=== PATIENT | male | born 1955 | race Caucasian/White ===

== ENCOUNTER 2017-07-18 12:19 | Inpatient (IN) ==
--- NOTE | 2017-07-18 12:23 | Emergency Department Note ---
Disposition Clinical Impression: Diabetic ketoacidosis, Lactic acidosis, Hypertension, End stage renal disease Disposition: Admitted As Inpatient Condition: Fair General Adult HPI - General Stated complaint: N/V Time Seen by Provider: 07/18/17 12:21 - Related Data Home Medications Medication Instructions Recorded Confirmed Subcutaneous Insulin Pump [T:Slim] 1 each MC AD 07/18/17 07/18/17 cloNIDine HCl [CloNIDine HCl] 0.1 mg PO TID 07/18/17 07/18/17 Allergies Allergy/AdvReac Type Severity Reaction Status Date / Time Sulfa (Sulfonamide Allergy See Verified 06/04/17 07:49 Antibiotics) Comments Past Medical History - Past Medical History Medical history: Reports: diabetes, renal disease Surgical history: Reports: no surgical history Psychiatric history: Reports: no psych history - Social History Smoking Status: Former smoker Smokeless Tobacco Status: No Alcohol use: Reports: none Drug use: Reports: none Course Vital Signs Temperature 97.9 F 07/18/17 12:21 Pulse Rate 111 07/18/17 12:21 Respiratory Rate 16 07/18/17 12:21 Blood Pressure 227/96 07/18/17 12:21 O2 Sat by Pulse Oximetry 99 07/18/17 12:21 Temperature 98.3 F 07/19/17 11:00 Pulse Rate 66 07/19/17 11:14 Respiratory Rate 20 07/19/17 11:00 Blood Pressure 175/85 07/19/17 11:00 O2 Sat by Pulse Oximetry 100 07/19/17 11:00 Oxygen Delivery Oxygen Delivery Room Air Medical Decision Making - Lab Data Result diagrams: 07/19/17 05:25 07/19/17 05:25 Lab Results 07/18/17 07/18/17 07/18/17 Range/Units 12:22 12:38 12:38 WBC (4.3-11.1) K/mcL RBC (4.19-5.50) M/mcL Hgb (12.9-16.9) g/dL Hct (37.5-50.1) % MCV (83.0-100.0) fL MCH (28.0-33.3) pg MCHC (31.6-35.5) g/dL RDW (11.5-14.5) % Plt Count (140-400) K/mcL MPV (9.4-12.4) fL Immature Gran % (0-4) % Seg Neutrophils % % Lymphocytes % % Monocytes % % Eosinophils % % Basophils % % Neutrophils # (1.6-8.9) K/mcL Lymphocytes # (0.6-4.6) K/mcL Monocytes # (0.0-1.3) K/mcL Eosinophils # (0.0-0.6) K/mcL Basophils # (0.0-0.2) K/mcL Immature Plt Fraction (1.1-6.1) % VBG pH (7.32-7.42) pH Units VBG pCO2 (41-51) mmHg VBG pO2 (25-40) mmHg VBG HCO3 (21-27) mEq/L Sodium (136-145) mEq/L Potassium (3.5-4.5) mEq/L Chloride (98-109) mEq/L Carbon Dioxide (19-29) mEq/L BUN (8-26) mg/dL Creatinine (0.72-1.25) mg/dL Est GFR ( Amer) (> 60) Est GFR (Non-Af Amer) (> 60) BUN/Creatinine Ratio (6-26) Glucose (70-99) mg/dL POC Glucose > 600 H* (58-89) Calculated Osmolality (280-300) Lactic Acid 6.3 H* (0.5-2.2) mmol/L Calcium (8.6-10.8) mg/dL Phosphorus (2.3-4.7) mg/dL Magnesium (1.6-2.6) mg/dL Total Bilirubin (0.2-1.2) mg/dL Direct Bilirubin (0.0-0.5) mg/dL Indirect Bilirubin (0.0-1.2) mg/dL AST (5-34) Units/L ALT (0-55) Units/L Alkaline Phosphatase (38-126) Units/L Troponin I 0.18 H* (0-0.03) ng/mL Serum Total Protein (6.0-8.3) g/dL Albumin (3.5-5.0) g/dL Globulin (2.4-3.5) g/dL Albumin/Globulin Ratio (1.1-2.2) Lipase (8-78) Units/L Beta-Hydroxybutyric Acd (0.02-0.27) mmol/L 07/18/17 07/18/17 07/18/17 Range/Units 12:38 12:38 12:38 WBC 16.1 H (4.3-11.1) K/mcL RBC 3.53 L (4.19-5.50) M/mcL Hgb 10.0 L (12.9-16.9) g/dL Hct 32.0 L (37.5-50.1) % MCV 90.7 (83.0-100.0) fL MCH 28.3 (28.0-33.3) pg MCHC 31.3 L (31.6-35.5) g/dL RDW 12.1 (11.5-14.5) % Plt Count 266 (140-400) K/mcL MPV 9.6 (9.4-12.4) fL Immature Gran % 0.6 (0-4) % Seg Neutrophils % 91.4 % Lymphocytes % 2.9 % Monocytes % 4.7 % Eosinophils % 0.0 % Basophils % 0.4 % Neutrophils # 14.7 H (1.6-8.9) K/mcL Lymphocytes # 0.5 L (0.6-4.6) K/mcL Monocytes # 0.8 (0.0-1.3) K/mcL Eosinophils # 0.0 (0.0-0.6) K/mcL Basophils # 0.1 (0.0-0.2) K/mcL Immature Plt Fraction 0.8 L (1.1-6.1) % VBG pH (7.32-7.42) pH Units VBG pCO2 (41-51) mmHg VBG pO2 (25-40) mmHg VBG HCO3 (21-27) mEq/L Sodium 135 L (136-145) mEq/L Potassium 5.7 H (3.5-4.5) mEq/L Chloride 96 L (98-109) mEq/L Carbon Dioxide 9 L* (19-29) mEq/L BUN 99 H (8-26) mg/dL Creatinine 6.15 H (0.72-1.25) mg/dL Est GFR ( Amer) 11 L (> 60) Est GFR (Non-Af Amer) 9 L (> 60) BUN/Creatinine Ratio 16 (6-26) Glucose 892 H* (70-99) mg/dL POC Glucose (58-89) Calculated Osmolality 355 H (280-300) Lactic Acid (0.5-2.2) mmol/L Calcium 8.7 (8.6-10.8) mg/dL Phosphorus 7.1 H (2.3-4.7) mg/dL Magnesium 2.0 (1.6-2.6) mg/dL Total Bilirubin 0.7 (0.2-1.2) mg/dL Direct Bilirubin 0.4 (0.0-0.5) mg/dL Indirect Bilirubin 0.3 (0.0-1.2) mg/dL AST 21 (5-34) Units/L ALT 26 (0-55) Units/L Alkaline Phosphatase 114 (38-126) Units/L Troponin I (0-0.03) ng/mL Serum Total Protein 5.9 L (6.0-8.3) g/dL Albumin 3.2 L (3.5-5.0) g/dL Globulin 2.7 (2.4-3.5) g/dL Albumin/Globulin Ratio 1.2 (1.1-2.2) Lipase 64 (8-78) Units/L Beta-Hydroxybutyric Acd > 2.00 H (0.02-0.27) mmol/L 07/18/17 Range/Units 12:38 WBC (4.3-11.1) K/mcL RBC (4.19-5.50) M/mcL Hgb (12.9-16.9) g/dL Hct (37.5-50.1) % MCV (83.0-100.0) fL MCH (28.0-33.3) pg MCHC (31.6-35.5) g/dL RDW (11.5-14.5) % Plt Count (140-400) K/mcL MPV (9.4-12.4) fL Immature Gran % (0-4) % Seg Neutrophils % % Lymphocytes % % Monocytes % % Eosinophils % % Basophils % % Neutrophils # (1.6-8.9) K/mcL Lymphocytes # (0.6-4.6) K/mcL Monocytes # (0.0-1.3) K/mcL Eosinophils # (0.0-0.6) K/mcL Basophils # (0.0-0.2) K/mcL Immature Plt Fraction (1.1-6.1) % VBG pH 7.18 L* (7.32-7.42) pH Units VBG pCO2 25 L (41-51) mmHg VBG pO2 125 H (25-40) mmHg VBG HCO3 9.3 L (21-27) mEq/L Sodium (136-145) mEq/L Potassium (3.5-4.5) mEq/L Chloride (98-109) mEq/L Carbon Dioxide (19-29) mEq/L BUN (8-26) mg/dL Creatinine (0.72-1.25) mg/dL Est GFR ( Amer) (> 60) Est GFR (Non-Af Amer) (> 60) BUN/Creatinine Ratio (6-26) Glucose (70-99) mg/dL POC Glucose (58-89) Calculated Osmolality (280-300) Lactic Acid (0.5-2.2) mmol/L Calcium (8.6-10.8) mg/dL Phosphorus (2.3-4.7) mg/dL Magnesium (1.6-2.6) mg/dL Total Bilirubin (0.2-1.2) mg/dL Direct Bilirubin (0.0-0.5) mg/dL Indirect Bilirubin (0.0-1.2) mg/dL AST (5-34) Units/L ALT (0-55) Units/L Alkaline Phosphatase (38-126) Units/L Troponin I (0-0.03) ng/mL Serum Total Protein (6.0-8.3) g/dL Albumin (3.5-5.0) g/dL Globulin (2.4-3.5) g/dL Albumin/Globulin Ratio (1.1-2.2) Lipase (8-78) Units/L Beta-Hydroxybutyric Acd (0.02-0.27) mmol/L Critical Care Time Critical Care Time: Yes Total Critical Care Time: 30 Attestation: Patient required IV insulin due to DKA Attestation Statement - Attestation Attestation: I examined this patient and my medical decision-making was reviewed with the Resident Physician. I agree with the documented findings, disposition and treatment plan as described except to the extent set forth below. [id number] time provided Patient arrives by EMS. He complains of generalized malaise, nausea, vomiting. Found to be hyperglycemic prehospital. Currently gets nightly peritoneal dialysis. Is actively retching on exam 13:09: Patient has criteria for diabetic ketoacidosis. IV insulin infusion ordered
[2017-07-18] MEDS ORDERED: 0.9 % Sodium Chloride 1,000 ML IVC ONE ×2 (12:26→13:07)
[2017-07-18] MEDS ORDERED: Ondansetron 4 MG/2 ML VIAL IVP ONE (12:26)
[2017-07-18] MEDS ORDERED: *HR* HYDROmorphone (PF) 1 MG/ML SYRINGE IVP ONE (12:26)
--- NOTE | 2017-07-18 12:31 | Emergency Department Note ---
Disposition Clinical Impression: Lactic acidosis, End stage renal disease Diabetic ketoacidosis Qualifiers: Diabetes mellitus type: other specified (including CEM) Diabetes mellitus complication detail: without coma Qualified Code(s): E13.10 - Other specified diabetes mellitus with ketoacidosis without coma Hypertension Qualifiers: Hypertension type: unspecified Qualified Code(s): I10 - Essential (primary) hypertension Disposition: Admitted As Inpatient Condition: Fair Time of Disposition: 13:52 Nausea/Vomiting/Diarrhea HPI - General Chief complaint: ED Nausea/Vomiting/Diarrhea Stated complaint: N/V Time Seen by Provider: 07/18/17 12:21 Source: patient Mode of arrival: EMS Limitations: no limitations Nursing Notes Reviewed: Yes Vital Signs Reviewed: Yes - History of Present Illness HPI Narrative: 61-year-old male with a history of peritoneal dialysis Dr. Luna (recently started a week and a half ago), insulin-dependent diabetes, hypertension presents for evaluation of generalized illness. Patient's chief complaint is nausea vomiting that started this morning. Patient states he typically uses his peritoneal dialysis at night. States he does still produce urine. Patient had several bouts of nonbilious emesis. Patient also has a history of using an insulin pump but has recently got his insulin medications. Does have a history of DKA in the past. Reports some dyspnea over the past few days as well. Denies any chest pain. No notable fevers. No recent ill contacts. Patient not receive the flu or influenza vaccine this year. Pt Subjective Complaint: nausea, vomiting - Related Data Home Medications Medication Instructions Recorded Confirmed Subcutaneous Insulin Pump [T:Slim] 1 each MC AD 07/18/17 07/18/17 cloNIDine HCl [CloNIDine HCl] 0.1 mg PO TID 07/18/17 07/18/17 Allergies Allergy/AdvReac Type Severity Reaction Status Date / Time Sulfa (Sulfonamide Allergy See Verified 06/04/17 07:49 Antibiotics) Comments All systems ED: reviewed and negative except as stated. Constitutional: Reports: as per HPI. Denies: fever Eyes: Reports: as per HPI ENT ED: Reports: as per HPI Cardiovascular: Reports: as per HPI. Denies: chest pain Respiratory: Reports: as per HPI, dyspnea Gastrointestinal: Reports: as per HPI, abdominal pain, nausea, vomiting. Denies : diarrhea, constipation Genitourinary: Reports: as per HPI Musculoskeletal: Reports: as per HPI Integumentary: Reports: as per HPI Neurological: Reports: as per HPI Psychiatric: Reports: as per HPI Endocrine: Reports: as per HPI Hematological/Lymphatic: Reports: as per HPI Allergic/Immunologic: Reports: as per HPI Past Medical History - Past Medical History Medical history: Reports: diabetes, renal disease Surgical history: Reports: no surgical history Psychiatric history: Reports: no psych history - Social History Smoking Status: Former smoker Smokeless Tobacco Status: No Alcohol use: Reports: none Drug use: Reports: none Physical Exam - General Limitations: no limitations General appearance: alert, anxious, other (appears chronically ill) - Head Head exam: atraumatic, normocephalic, normal inspection - Eye Eye exam: Present: normal appearance, PERRL, EOMI - ENT ENT exam: normal exam, mucous membranes moist - Neck Neck exam: Present: normal inspection, trachea midline - Chest Chest inspection: Present: normal inspection, symmetric chest wall rise - Respiratory Respiratory exam: Present: prolonged expiratory phase, other (Diffusely decreased lung sounds). Absent: respiratory distress - Cardiovascular Cardiovascular exam: Present: regular rate, normal rhythm - Abdominal Exam Abdominal exam: Present: soft, Non-Tender, other (Peritoneal dialysis catheter present with no erythema or surrounding concerns for infection.). Absent: guarding, rebound - Extremities Exam Extremities exam: Present: normal inspection - Back Exam Back exam: Present: normal inspection - Neurological Exam Neurological exam: Present: alert, oriented X3 - Skin Skin exam: Present: warm, dry, intact, normal color Course Course Narrative: Patient seen and examined. Patient does have a concerning history of ESRD on peritoneal dialysis. Patient also is an insulin-dependent diabetic and had a bedside glucose reading of high. Concerns of metabolic abnormalities in DKA. Patient will be given IV fluid hydration, antiemetics and pain control. Patient will also get basic lab work including ketones and blood gas. Patient does continue to produce urine and attempted a urinalysis will be obtained. Patient will get a CT of the abdomen and pelvis. Disposition likely admission. - Reevaluation(s) Reevaluation #1: Patient's updated on plan of care. Patient has several electrolyte and laboratory abnormalities. Patient appears to be in DKA. IV fluid hydration as well as insulin drip initiated. Patient also had an elevated troponin with no acute changes on EKG. Patient was given a aspirin. Patient denies any chest pain. Time: 13:23 - Consultations Consultation #1: Dr. Luna called and made aware of the patient. Recommended to call him once the patient goes to the floor. Time: 13:14 Vital Signs Temperature 97.9 F 07/18/17 12:21 Pulse Rate 111 07/18/17 12:21 Respiratory Rate 16 07/18/17 12:21 Blood Pressure 227/96 07/18/17 12:21 O2 Sat by Pulse Oximetry 99 07/18/17 12:21 Temperature 97.9 F 07/18/17 12:21 Pulse Rate 103 07/18/17 13:26 Respiratory Rate 20 07/18/17 14:24 Blood Pressure 209/88 07/18/17 14:24 O2 Sat by Pulse Oximetry 99 07/18/17 13:26 Oxygen Delivery Oxygen Delivery Room Air Nausea/Vomiting/Diarrhea - [facility] Narrative Medical decision making narrative: 61-year-old male penis for evaluation of nausea vomiting and generalized illness. Patient does have extensive comorbidities including peritoneal dialysis as well as insulin-dependent diabetes. Patient typically manages his insulin with a pump but has not been recently. Patient's symptoms started this morning with nausea vomiting followed by epigastric abdominal pain. Patient labs revealed he is in DKA with a pH of 7.18 and a gap of 30. Patient also has a lactic acidosis. Patient was started on IV fluid hydration with fluid boluses as well as resuscitation rate. Patient was started on insulin drip. 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 Patient's symptoms was addressed with Zofran as well as low-dose Dilaudid in the emergency department. Patient will be admitted to the ICU for continued electrolyte monitoring and resuscitation. Patient also has a leukocytosis. Likely stress-induced. Patient's chest x-ray shows no infection. Urinalysis not obtained in the emergency department. - Lab Data Lab results reviewed: Yes I reviewed the patient's lab results. Result diagrams: 07/18/17 12:38 07/18/17 12:38 Lab Results 07/18/17 07/18/17 07/18/17 Range/Units 12:38 12:38 12:38 WBC 16.1 H (4.3-11.1) K/mcL RBC 3.53 L (4.19-5.50) M/mcL Hgb 10.0 L (12.9-16.9) g/dL Hct 32.0 L (37.5-50.1) % MCV 90.7 (83.0-100.0) fL MCH 28.3 (28.0-33.3) pg MCHC 31.3 L (31.6-35.5) g/dL RDW 12.1 (11.5-14.5) % Plt Count 266 (140-400) K/mcL MPV 9.6 (9.4-12.4) fL Immature Gran % 0.6 (0-4) % Seg Neutrophils % 91.4 % Lymphocytes % 2.9 % Monocytes % 4.7 % Eosinophils % 0.0 % Basophils % 0.4 % Neutrophils # 14.7 H (1.6-8.9) K/mcL Lymphocytes # 0.5 L (0.6-4.6) K/mcL Monocytes # 0.8 (0.0-1.3) K/mcL Eosinophils # 0.0 (0.0-0.6) K/mcL Basophils # 0.1 (0.0-0.2) K/mcL Immature Plt Fraction 0.8 L (1.1-6.1) % VBG pH (7.32-7.42) pH Units VBG pCO2 (41-51) mmHg VBG pO2 (25-40) mmHg VBG HCO3 (21-27) mEq/L Sodium (136-145) mEq/L Potassium (3.5-4.5) mEq/L Chloride (98-109) mEq/L Carbon Dioxide (19-29) mEq/L BUN (8-26) mg/dL Creatinine (0.72-1.25) mg/dL Est GFR ( Amer) (> 60) Est GFR (Non-Af Amer) (> 60) BUN/Creatinine Ratio (6-26) Glucose (70-99) mg/dL Calculated Osmolality (280-300) Lactic Acid 6.3 H* (0.5-2.2) mmol/L Calcium (8.6-10.8) mg/dL Phosphorus (2.3-4.7) mg/dL Magnesium (1.6-2.6) mg/dL Total Bilirubin (0.2-1.2) mg/dL Direct Bilirubin (0.0-0.5) mg/dL Indirect Bilirubin (0.0-1.2) mg/dL AST (5-34) Units/L ALT (0-55) Units/L Alkaline Phosphatase (38-126) Units/L Troponin I 0.18 H* (0-0.03) ng/mL Serum Total Protein (6.0-8.3) g/dL Albumin (3.5-5.0) g/dL Globulin (2.4-3.5) g/dL Albumin/Globulin Ratio (1.1-2.2) Lipase (8-78) Units/L Beta-Hydroxybutyric Acd (0.02-0.27) mmol/L 07/18/17 07/18/17 07/18/17 Range/Units 12:38 12:38 12:38 WBC (4.3-11.1) K/mcL RBC (4.19-5.50) M/mcL Hgb (12.9-16.9) g/dL Hct (37.5-50.1) % MCV (83.0-100.0) fL MCH (28.0-33.3) pg MCHC (31.6-35.5) g/dL RDW (11.5-14.5) % Plt Count (140-400) K/mcL MPV (9.4-12.4) fL Immature Gran % (0-4) % Seg Neutrophils % % Lymphocytes % % Monocytes % % Eosinophils % % Basophils % % Neutrophils # (1.6-8.9) K/mcL Lymphocytes # (0.6-4.6) K/mcL Monocytes # (0.0-1.3) K/mcL Eosinophils # (0.0-0.6) K/mcL Basophils # (0.0-0.2) K/mcL Immature Plt Fraction (1.1-6.1) % VBG pH 7.18 L* (7.32-7.42) pH Units VBG pCO2 25 L (41-51) mmHg VBG pO2 125 H (25-40) mmHg VBG HCO3 9.3 L (21-27) mEq/L Sodium 135 L (136-145) mEq/L Potassium 5.7 H (3.5-4.5) mEq/L Chloride 96 L (98-109) mEq/L Carbon Dioxide 9 L* (19-29) mEq/L BUN 99 H (8-26) mg/dL Creatinine 6.15 H (0.72-1.25) mg/dL Est GFR ( Amer) 11 L (> 60) Est GFR (Non-Af Amer) 9 L (> 60) BUN/Creatinine Ratio 16 (6-26) Glucose 892 H* (70-99) mg/dL Calculated Osmolality 355 H (280-300) Lactic Acid (0.5-2.2) mmol/L Calcium 8.7 (8.6-10.8) mg/dL Phosphorus 7.1 H (2.3-4.7) mg/dL Magnesium 2.0 (1.6-2.6) mg/dL Total Bilirubin 0.7 (0.2-1.2) mg/dL Direct Bilirubin 0.4 (0.0-0.5) mg/dL Indirect Bilirubin 0.3 (0.0-1.2) mg/dL AST 21 (5-34) Units/L ALT 26 (0-55) Units/L Alkaline Phosphatase 114 (38-126) Units/L Troponin I (0-0.03) ng/mL Serum Total Protein 5.9 L (6.0-8.3) g/dL Albumin 3.2 L (3.5-5.0) g/dL Globulin 2.7 (2.4-3.5) g/dL Albumin/Globulin Ratio 1.2 (1.1-2.2) Lipase 64 (8-78) Units/L Beta-Hydroxybutyric Acd > 2.00 H (0.02-0.27) mmol/L - Radiology Data Radiology results reviewed: Yes I reviewed the patient's radiology results. Abdomen/Pelvis CT 07/18/17 12:27 IMPRESSION: No evidence of acute abnormality in the abdomen and pelvis. Mild infiltration of fat in the mesenteric fat, likely related to sequela of peritoneal dialysis. The gallbladder is not well visualized, likely collapsed or surgically absent. D/ / Filiberto Zhao MD / Filiberto Zhao MD Interpreting Provider: Filiberto Zhao MD - EKG Data EKG attestation: Yes I reviewed and interpreted this EKG. EKG shows normal: sinus rhythm Rate: tachycardia Rhythm: NSR [place]/QRS: normal ST segment depression in: v5, v6 Q waves: aVL, v1 Interpretation: no acute changes, nonspecific ST-T wave changes Karen - Karen Situation: Demographics Background: Presenting Complaint Assessment: Vital Signs, Course and respsone to treatment, Patient/Family Expectation Recommendation: Barrier(s) to disposition, Recommendation based on pending studies, treatments, or consults [email or web address] Report Given to: Amelia Jones Repor Time: 13:58
[2017-07-18 12:52] LABS: VBG HCO3 9.3 mEq/L (21-27)
[2017-07-18 12:53] LABS: Basophils # 0.1 K/mcL (0.0-0.2); Basophils % 0.4 %; Immature Granulocytes % 0.6 % (0-4); Immature Platelets 0.8 % (1.1-6.1); Lymphocytes # 0.5 K/mcL (0.6-4.6); Lymphocytes % 2.9 %; Mean Corpuscular HGB Conc 31.3 g/dL (31.6-35.5); Mean Corpuscular Hemoglobin 28.3 pg (28.0-33.3); Mean Corpuscular Volume 90.7 fL (83.0-100.0); Mean Platelet Volume 9.6 fL (9.4-12.4); Monocytes # 0.8 K/mcL (0.0-1.3); Monocytes % 4.7 %; Neutrophils # 14.7 K/mcL (1.6-8.9); Platelet Count 266 K/mcL (140-400); Red Blood Count 3.53 M/mcL (4.19-5.50); Red Cell Distribution Width 12.1 % (11.5-14.5); Segmented Neutrophils % 91.4 %
[2017-07-18 12:57] LABS: VBG PH 7.18 pH Units (7.32-7.42)
[2017-07-18 13:06] LABS: Albumin 3.2 g/dL (3.5-5.0); Albumin/Globulin Ratio 1.2 (1.1-2.2); Bilirubin,Direct 0.4 mg/dL (0.0-0.5); Bilirubin,Indirect 0.3 mg/dL (0.0-1.2); Bilirubin,Total 0.7 mg/dL (0.2-1.2); Calcium 8.7 mg/dL (8.6-10.8); Globulin 2.7 g/dL (2.4-3.5); Potassium 5.7 mEq/L (3.5-4.5); Total Protein 5.9 g/dL (6.0-8.3)
[2017-07-18] MEDS ORDERED: D5% in 0.45% NACL 1,000 ML IVC PRN (13:09)
[2017-07-18] MEDS ORDERED: Insulin Regular, Human 100 UNIT/ML IV PRN (13:09)
[2017-07-18] MEDS ORDERED: Aspirin 81 MG TAB.CHEW PO ONE (13:22)
[2017-07-18 13:30] LABS: Phosphorous 7.1 mg/dL (2.3-4.7)
[2017-07-18] MEDS: Insulin Human Regular 100 UNIT in 0.9 % Sodium Chloride 100 ML IVC SCH (14:21)
[2017-07-18] MEDS ORDERED: 0.9 % Sodium Chloride 1,000 ML ONE (14:59)
[2017-07-18 15:39] LABS: Bilirubin,Urine Negative (Negative); Blood,Urine Trace (Negative); Clarity,Urine Clear (Clear); Color,Urine Yellow (Yellow); Glucose,Urine (UA) >=1000 mg/dL (Normal); Ketones,Urine 40 mg/dL (Negative); Leukocyte Esterase,Urine Negative (Negative); Nitrite,Urine Negative (Negative); PH,Urine 5.5 pH Units (5.0-8.0); Protein,Urine >=300 mg/dL (Neg-Trace); Specific Gravity,Urine 1.023 (1.010-1.025); Urobilinogen,Urine Normal (Normal)
[2017-07-18 15:40] LABS: Bacteria,Urine None Seen per hpf (None-Few); Hyaline Casts,Urine None Seen per lpf (None-Few); Squamous Epithelial Cell,Urine Moderate per lpf (None-Few); WBC,Urine 0-3 per hpf (0-3)
[2017-07-18] MEDS ORDERED: Acetaminophen 325 MG TABLET PO PRN (16:03)
[2017-07-18] MEDS ORDERED: *HR* HYDROcodone/Acet 5/325 mg TABLET PO PRN (16:03)
[2017-07-18] MEDS ORDERED: Naloxone 0.4 MG/ML INJ IVP PRN (16:03)
[2017-07-18] MEDS ORDERED: Ondansetron 4 MG/2 ML VIAL IVP PRN (16:03)
[2017-07-18] MEDS ORDERED: *HR* HYDROmorphone (PF) 1 MG/ML SYRINGE IVP PRN (16:03)
--- NOTE | 2017-07-18 16:03 | Internal Med History&Physical ---
Date of Encounter: 07/18/17 Time of Encounter: 16:01 Assessment and Plan (1) Diabetic ketoacidosis Current visit: Yes Status: Acute 61-year-old male with known history of type 1 diabetes mellitus, insulin- dependent, on insulin pump. Patient reports his fingersticks have been uncontrolled at home at ~ 600 for the past 3 days. Patient reports seeing his [employer] supervisor about a week ago, his insulin pump pulsatory been checked and token. Presented with abdominal pain, generalized fatigue, subjective fevers, lactic acidosis of 5.8, glucose greater than his 100, elevated hydralazine patella tested, pH of 7.1, and serum bicarbonate of 9. Abdomen and pelvis CT scan is normal Chest x-ray is normal His anion gap is 30 Cause of DKA at this time is likely malfunctioning insulin pump, pvs ongoing infection. Patient has SIRS with Leukocytosis, and tachycardia however this could be explained by DKA. Blood and urine cultures have been drawn, will follow. Initiate DKA protocol Check chemistry e, lactate , VBG q4h till normal Bridge with SQ insulin when anion gap is closed Nothing by mouth, until DKA resolves. Strict intake and output. Pharmacy to educated patient. Upon discharge, patient 4 days of continuous insulin until follow-up with his [employer] supervisor pressure on his insulin pump is working. Qualifiers: Diabetes mellitus type: other specified (including CEM) Diabetes mellitus complication detail: without coma Qualified Code(s): E13.10 - Other specified diabetes mellitus with ketoacidosis without coma (2) Hypertension Current visit: Yes Status: Chronic Uncontrolled, possibly rebound from missing his doses of clonidine. Resume home doses of clonidine. Qualifiers: Hypertension type: essential hypertension Qualified Code(s): I10 - Essential (primary) hypertension (3) End stage renal disease Current visit: Yes Status: Chronic End-stage renal disease on peritoneal dialysis Patient also reports malfunctioning public health advisor. Nephrology has been consulted In the meantime manage and monitor in ICU. Send dialysate for culture (4) SIRS (systemic inflammatory response syndrome) Current visit: Yes Status: Acute Leukocytosis, tachycardia, No source of infection. Patient has no chest pain, no shortness of breath, no abdominal or urinary symptoms. Blood and urine cultures have been ordered. There is no indication to initiate antibiotics at this time. (5) Lactic acidosis Current visit: Yes Status: Acute Possibly secondary to DKA. Abdomen is nonacute. Repeat lactate in 4 hours Continue IV fluid hydration. Internal Medicine - H&P: HPI Chief complaint: I feel like crap Admitted From: Home Plans for Post Hospital Care: Home History of present illness: Mr. Kovacs is a 61 year old male with past medical history of end-stage renal disease on peritoneal dialysis, insulin-dependent diabetes mellitus. Patient presents with 2 days history of uncontrolled blood sugars with fingersticks ranging greater than 600, this is despite taking additional doses along with his insulin pump. He reports overnight with a history of dialysis cycler continued to state "error". He called the State and was talked to resect the cycler, however continued to repeat an echo. He then began to have abdominal pain, nausea, and multiple episodes of vomiting. He denies fever or chills, chest pain, shortness of breath, hemoptysis, hematemesis he has no cough. He denies sick contacts, or recent travels. He reports compliance with diet and medications. There is no change in bowel movement He has no neurologic symptoms, and is awake alert and oriented at time of review Past Med Surg Social Fam HX - Past Medical History Medical history: diabetes, renal disease Psychiatric history: no psych history - Past Surgical History Surgical History: no surgical history - Social History Smoking Status: Former smoker Smokeless Tobacco Status: No Alcohol use: none Drug use: none - Family History Mother Living Status: Hx Family Cancer: Yes (Leukemia; patient unsure which type) Father Living Status: Hx Family Endocrine Disorder: Yes (DMI) Internal Medicine - H&P: Meds Subcutaneous Insulin Pump [T:Slim] 1 each MC AD 07/18/17 [History] cloNIDine HCl [CloNIDine HCl] 0.1 mg PO TID 07/18/17 [History] 3 Allergy/AdvReac Type Severity Reaction Status Date / Time Sulfa (Sulfonamide Allergy See Verified 06/04/17 07:49 Antibiotics) Comments All Systems PM: A 10-system review of systems was performed and is negative for pertinent findings except as documented above in the HPI. - Constitutional Constitutional: no chills, no fever(s), no night sweats - EENT Eyes: as per HPI Ears: as per HPI Nose, mouth and throat: as per HPI - Cardiovascular Cardiovascular ROS IM: as per HPI - Respiratory Respiratory: as per HPI - Gastrointestinal Gastrointestinal: as per HPI - Musculoskeletal Musculoskeletal ROS IM: as per HPI - Integumentary Integumentary IM: as per HPI - Neurological Neurological ROS: as per HPI - Hematologic/Lymphatic Hematologic/Lymphatic: as per HPI - Constitutional Vitals: Temp Pulse Resp BP Pulse Ox 98.3 F 101 20 209/88 98 07/18/17 15:15 07/18/17 15:15 07/18/17 15:15 07/18/17 15:15 07/18/17 15:21 General appearance: Present: A&O X 3, pleasant, no acute distress - Head Head exam: Present: atraumatic, normocephalic - Eye Eye exam: Present: PERRL, conjuntiva pink, sclera anicteric Pupils: Present: PERRL - Neck Neck exam general surgery: Present: supple, trachea midline. Absent: lymphadenopathy - Respiratory Respiratory exam: Present: CTAB. Absent: accessory muscle use, rales, rhonchi, wheezes - Cardiovascular Cardiovascular exam: Present: RRR, +S1, +S2. Absent: diastolic murmur, gallop, rubs, systolic murmur - GI/Abdominal GI/Abdominal exam: Present: normal bowel sounds, soft, no peritoneal signs. Absent: distended, tenderness - Extremities Exam Extremities exam: Present: warm, radial pulses palpable and symmetrical. Absent : calf tenderness, cyanotic, pedal edema - Neurological Exam Neurological exam: Present: alert, CN II-XII intact, oriented X3, no focal deficits. Absent: pronater drift, facial droop, speech deficit - Skin Skin exam: Present: dry Internal Med - H&P Results - Labs CBC & Chem 7: 07/18/17 12:38 07/18/17 12:38 Labs: Urine 07/18/17 Range/Units 15:30 Urine Color Yellow (Yellow) Urine Clarity Clear (Clear) Urine pH 5.5 (5.0-8.0) pH Units Ur Specific [place] 1.023 (1.010-1.025) Urine Protein >=300 H (Neg-Trace) mg/dL Urine Glucose (UA) >=1000 H (Normal) mg/dL
[2017-07-18 17:01] LABS: VBG HCO3 17.1 mEq/L (21-27); VBG PH 7.24 pH Units (7.32-7.42)
[2017-07-18] MEDS: cloNIDine HCl 0.1 MG TABLET PO SCH ×2 (17:04→21:23)
[2017-07-18] MEDS ORDERED: D5% in 0.45% NACL w KCl 20 MEQ/1,000 ML MLS IVC PRN (20:25)
[2017-07-18] MEDS ORDERED: 0.45 % Sodium Chloride w/KCl 20 MEQ/1,000 ML MLS IVC SCH ×2 (20:30)
[2017-07-18] MEDS: Perit. Dialysis with Dex 1.5 % 2,000 ML PERITONEAL SCH (21:00)
[2017-07-18 21:53] LABS: RBC,Peritoneal Fluid < 0.002 M/mcL
[2017-07-18 22:58] LABS: Appearance of Peritoneal Fl CLEAR (Clear)
[2017-07-19] MEDS: Insulin Human Regular 100 UNIT in 0.9 % Sodium Chloride 100 ML IVC SCH (01:40)
[2017-07-19 02:03] LABS: Potassium 4.8 mEq/L (3.5-4.5)
[2017-07-19] MEDS ORDERED: Insulin DETEMIR 100 UNIT/ML X5UNITS SQ ONE (03:09)
[2017-07-19] MEDS: Perit. Dialysis with Dex 1.5 % 2,000 ML PERITONEAL SCH ×3 (04:21→13:34)
[2017-07-19] MEDS ORDERED: *HR* Dextrose 50 % in Water (Syg) 50 ML SYRINGE IVP PRN (06:14)
[2017-07-19] MEDS ORDERED: Dextrose Gel 15 GM PO PRN ×2 (06:14)
[2017-07-19] MEDS ORDERED: D5% in Water 1,000 ML IVC PRN (06:14)
[2017-07-19 06:33] LABS: Basophils # 0.1 K/mcL (0.0-0.2); Basophils % 0.3 %; Eosinophils % 0.2 %; Hematocrit 26.3 % (37.5-50.1); Hemoglobin 8.7 g/dL (12.9-16.9); Immature Granulocytes % 0.5 % (0-4); Lymphocytes # 1.3 K/mcL (0.6-4.6); Lymphocytes % 7.2 %; Mean Corpuscular HGB Conc 33.1 g/dL (31.6-35.5); Mean Corpuscular Hemoglobin 28.2 pg (28.0-33.3); Mean Corpuscular Volume 85.1 fL (83.0-100.0); Mean Platelet Volume 9.6 fL (9.4-12.4); Monocytes # 2.2 K/mcL (0.0-1.3); Monocytes % 11.8 %; Platelet Count 253 K/mcL (140-400); Red Blood Count 3.09 M/mcL (4.19-5.50); Red Cell Distribution Width 12.1 % (11.5-14.5)
[2017-07-19 06:38] LABS: Calcium 8.2 mg/dL (8.6-10.8); Potassium 3.8 mEq/L (3.5-4.5)
[2017-07-19] MEDS: *HR* Dextrose 50 % in Water (Syg) 50 ML SYRINGE IVP PRN ×7 (06:42→14:38)
[2017-07-19] MEDS: cloNIDine HCl 0.1 MG TABLET PO SCH ×3 (06:44→22:16)
[2017-07-19] MEDS: Insulin LISPRO 300 UNITS/3 ML VIAL SQ SCH ×5 (08:03→22:30)
[2017-07-19 08:58] LABS: VBG HCO3 25.7 mEq/L (21-27); VBG PH 7.31 pH Units (7.32-7.42)
--- NOTE | 2017-07-19 11:43 | Nephrology Consult Note ---
Date of Encounter: 07/19/17 Time of Encounter: 08:45 Assessment and Plan (1) End stage renal disease Current Visit: Yes Status: Chronic Cont PD cycler using 1.5% dextrose. The PD fluid does not suggest any Peritonitis, which is reassuring. The pt had run out of insulin via his insulin pump he said, plus with the recent start of PD after having completed his training about 10 days ago, the extra dextrose exposures from the PD, all likely contributed to the DKA. He had hyperkalemia and met acidosis with pseudohyponatremia, which all improved with insulin. Will add gentamicin cream for routine PD catheter exit site care. (2) Diabetic ketoacidosis Current Visit: Yes Status: Acute Qualifiers: Diabetes mellitus type: other specified (including CEM) Diabetes mellitus complication detail: without coma Qualified Code(s): E13.10 - Other specified diabetes mellitus with ketoacidosis without coma (3) Hypertension Current Visit: Yes Status: Acute Qualifiers: Hypertension type: unspecified Qualified Code(s): I10 - Essential (primary ) hypertension (4) Nausea & vomiting Current Visit: No Status: Resolved Qualifiers: Vomiting type: bilious vomiting Qualified Code(s): R11.14 - Bilious vomiting History of Present Illness - Reason for Consult Consult date: 07/18/17 end stage renal disease Requesting physician: Tavo Echavarria - Chief Complaint DKA - History of Present Illness Mr. Kovacs is a 61 year old male with past medical history of end-stage renal disease on peritoneal dialysis, insulin-dependent diabetes mellitus and et al who presented with DKA. He was recently started on PD with a nocturnal cycler. He said that his insulin pump ran out of insulin and that he was not "very quick " to replenish it. He reported having some N/V that was intractable, but denied abd pain or F/C or exudates from his PD catheter. Past Med Surg Social Fam HX - Past Medical History Medical history: diabetes, renal disease Psychiatric history: no psych history - Past Surgical History Surgical History: no surgical history - Social History Smoking Status: Former smoker Smokeless Tobacco Status: No Alcohol use: none Drug use: none - Family History Mother Living Status: Hx Family Cancer: Yes (Leukemia; patient unsure which type) Father Living Status: Hx Family Endocrine Disorder: Yes (DMI) Medications and Allergies Subcutaneous Insulin Pump [T:Slim] 1 each MC AD 07/18/17 [History] cloNIDine HCl [CloNIDine HCl] 0.1 mg PO TID 07/18/17 [History] 3 Allergy/AdvReac Type Severity Reaction Status Date / Time Sulfa (Sulfonamide Allergy See Verified 06/04/17 07:49 Antibiotics) Comments Review of Systems All Systems: reviewed and no additional remarkable complaints except as stated Exam - Vital Signs Vital signs: Initial Vital Signs Temp Pulse Resp BP Pulse Ox 97.9 F 111 16 227/96 99 07/18/17 12:21 07/18/17 12:21 07/18/17 12:21 07/18/17 12:21 07/18/17 12:21 Vital Signs - Last 8 Hours Temp Pulse Resp BP Pulse Ox 07/19/17 11:14 66 07/19/17 11:00 98.3 F 66 20 175/85 100 07/19/17 10:00 66 18 167/85 99 07/19/17 09:07 67 20 178/90 100 07/19/17 08:20 69 07/19/17 08:02 97.3 F L 07/19/17 08:00 69 18 173/79 99 07/19/17 07:00 78 18 166/86 99 07/19/17 06:00 92 16 179/81 96 07/19/17 05:30 77 16 155/76 96 07/19/17 05:00 98.4 F 07/19/17 04:00 77 18 181/87 97 Intake and Output 07/18/17 07/19/17 07/19/17 23:59 07:59 15:59 Intake Total 778.3 / 778.3 1217.3 / 1217.3 0 / 0 Output Total 0 / 0 0 / 0 0 / 0 Balance 778.3 / 778.3 1217.3 / 1217.3 0 / 0 Intake: IV Fluids 78.3 / 78.3 1217.3 / 1217.3 KCl 20mEq in 0.45 % NaCl 136 / 136 20 meq In 1,000 ml @ 500 mls/hr IVC .Q2H [facility] Rx#: [id number] KCl 20mEq IN D5%-0.45 1000 / 1000 NACL 20 meq In 1,000 ml @ 250 mls/hr IVC .Q4H PRN Rx#:[id number] HumuLIN R 100 UNIT In 0. 78.3 / 78.3 81.3 / 81.3 9 % Sodium Chloride 100 ML @ 0.1 UNIT/KG/HR 5.77 mls/hr IVC CONT [facility] Rx#: [id number] Oral 0 / 0 0 / 0 0 / 0 Other 700 / 700 Output: Urine 0 / 0 0 / 0 0 / 0 Other: Weight 66.5 kg 69.626 kg Blood Glucose* 343 126 59 Patient Weight 07/19/17 23:59 Weight 69.626 kg - General Appearance General appearance: well-developed, well-nourished, appears started age EENT: ATNC, PERRL, mucous membranes moist Neck: supple Respiratory: clear Cardiology: edema (1+ ankle edema bilaterally, not tense edema and no venous stasis.), regular rate, regular rhythm, normal S1, normal S2 - Dialysis Access Additional Comments: PD catheter was C/D/I without exudates or erythema or tenderness. Gastrointestinal: normoactive bowel sounds, no tenderness Integumentary: no rash, warm and dry Neurologic: no focal deficit, no asterixis, alert and oriented x3 Musculoskeletal: no deformities, no erythema, no cyanosis Psychiatric: mood/affect appropriate, cooperative Results - Lab Results 07/20/17 04:04 07/20/17 04:04 Most recent lab results Calcium 8.2 mg/dL (8.6-10.8) L 07/19/17 05:25 Phosphorus 7.1 mg/dL (2.3-4.7) H 07/18/17 12:38 Magnesium 2.0 mg/dL (1.6-2.6) 07/18/17 12:38 I reviewed the above data graham including labs, meds, vitals, imaging. Consult Discharge Plan - Plan Referrals: Hui Salazar MD [Primary Care Provider] -
[2017-07-19] MEDS ORDERED: *HR* Dextrose 50 % in Water (Syg) 50 ML SYRINGE IVP ONE (15:00)
--- NOTE | 2017-07-19 17:11 | Internal Med Progress Note ---
<Andrew Reddy - Last Filed: 07/19/17 17:38> Date of Encounter: 07/19/17 Time of Encounter: 14:30 - Assessment and plan (1) Diabetic ketoacidosis Current Visit: Yes Status: Acute Assessment and plan: Patient's anion gap on arrival was 30. Currently at 10. Glucose is currently being monitored every hour. Levemir was put on hold since patient was becoming hypoglycemic. Patient has orders for hypoglycemic treatments. Continue with sliding scale for now. Qualifiers: Diabetes mellitus type: other specified (including CEM) Diabetes mellitus complication detail: without coma Qualified Code(s): E13.10 - Other specified diabetes mellitus with ketoacidosis without coma (2) End stage renal disease Current Visit: Yes Status: Chronic Assessment and plan: Creatinine has dropped from 6.15 to 5.37. Per nephrology, continue PD cycler using 1.5% dextrose. Peritoneal fluid culture shows no bacterial growth. (3) Leukocytosis Current Visit: Yes Status: Acute Assessment and plan: Increased from 16.1 to 18.7. Currently afebrile. Peritoneal fluid culture is negative for bacterial growth. Abdominal CT shows no acute abnormality. CXR shows no evidence of acute disease. Leukocytosis likely secondary to DKA. Qualifiers: Qualified Code(s): D72.829 - Elevated white blood cell count, unspecified (4) Hypertension Current Visit: Yes Status: Chronic Assessment and plan: Patient's systolic BP has been from 151-227 and his diastolic BP has been from 81-96. Hydralazine was ordered to be used with SBP > 160 or diastolic BP >110. Continue with clonidine. Qualifiers: Hypertension type: essential hypertension Qualified Code(s): I10 - Essential (primary) hypertension (5) SIRS (systemic inflammatory response syndrome) Current Visit: Yes Status: Resolved Assessment and plan: Patient has leukocytosis but is not tachycardic. Patient is afebrile. - Time Spent With Patient less than 15 minutes - Subjective Interval history: Patient is a 61 YO M with a PMH of diabetes and ESRD on peritoneal dialysis that presented to the ED yesterday for nausea, vomiting, and diarrhea. Patient was on insulin pump at home but claims it malfunctioned the night before. He presented with dyspnea but denied chest pain, fever, recent illness, or ill contacts. He presented with severe electrolyte abnormalities and had an anion gap of 30. He was diagnosed with DKA. He was given IV fluids and insulin drip. When spoken to today, he denies any shortness of breath, dizziness, light- headedness, syncope, nausea, vomiting, or chest pain. - Constitutional Vitals: Temp Pulse Resp BP Pulse Ox 98.4 F 66 16 166/96 99 07/19/17 16:00 07/19/17 16:00 07/19/17 16:00 07/19/17 16:00 07/19/17 16:00 General appearance: Present: A&O X 3, pleasant, no acute distress Internal Medicine: Result - Labs CBC & Chem 7: 07/19/17 05:25 07/19/17 16:54 Labs: Short CBC 07/19/17 Range/Units 05:25 WBC 18.7 H (4.3-11.1) K/mcL Hgb 8.7 L (12.9-16.9) g/dL Hct 26.3 L (37.5-50.1) % Plt Count 253 (140-400) K/mcL Neutrophils # 15.0 H (1.6-8.9) K/mcL BMP 07/18/17 07/19/17 07/19/17 19:04 01:24 05:25 Sodium 136 137 Potassium 4.4 D 4.8 H 3.8 D Chloride 106 107 Carbon Dioxide 20 21 BUN 87 H 79 H Creatinine 5.37 H 5.07 H Glucose 229 H 67 L Calcium 8.0 L 8.2 L Consult Discharge Plan - Plan Referrals: Hui Salaazr MD [Primary Care Provider] - <Tavo Echavarria - Last Filed: 07/19/17 17:45> Date of Encounter: 07/19/17 - Assessment and plan (1) Diabetic ketoacidosis Current Visit: Yes Status: Acute Qualifiers: Diabetes mellitus type: other specified (including CEM) Diabetes mellitus complication detail: without coma Qualified Code(s): E13.10 - Other specified diabetes mellitus with ketoacidosis without coma (2) Hypertension Current Visit: Yes Status: Chronic Qualifiers: Hypertension type: essential hypertension Qualified Code(s): I10 - Essential (primary) hypertension (3) End stage renal disease Current Visit: Yes Status: Chronic (4) SIRS (systemic inflammatory response syndrome) Current Visit: Yes Status: Resolved (5) Lactic acidosis Current Visit: Yes Status: Acute - Constitutional Vitals: Temp Pulse Resp BP Pulse Ox 98.4 F 66 18 173/96 99 07/19/17 16:00 07/19/17 17:00 07/19/17 17:00 07/19/17 17:00 07/19/17 17:00 Internal Medicine: Result - Labs CBC & Chem 7: 07/19/17 05:25 07/19/17 16:54 Labs: Short CBC 07/19/17 Range/Units 05:25 WBC 18.7 H (4.3-11.1) K/mcL Hgb 8.7 L (12.9-16.9) g/dL Hct 26.3 L (37.5-50.1) % Plt Count 253 (140-400) K/mcL Neutrophils # 15.0 H (1.6-8.9) K/mcL BMP 07/18/17 07/19/17 07/19/17 19:04 01:24 05:25 Sodium 136 137 Potassium 4.4 D 4.8 H 3.8 D Chloride 106 107 Carbon Dioxide 20 21 BUN 87 H 79 H Creatinine 5.37 H 5.07 H Glucose 229 H 67 L Calcium 8.0 L 8.2 L 07/19/17 16:54 Sodium 139 Potassium 5.1 H D Chloride 109 Carbon Dioxide 23 BUN 79 H Creatinine 5.53 H Glucose 72 Calcium 8.1 L - Attending Attestation I have independently seen and examined this patient on 07/19/17, reviewed the EMR and discussed plan of care with the patient and resident physician 61 M with IDDM, ESRD on HD admitted and being managed for DKA . he also has SIRS , no source of infection notable at this time. He has had hypoglycemia X2 during this shift, he was bridged to SQ insulin overnight. He denies new complains General appearance: pleasant, no acute distress, answers questions appropriately Head exam: atraumatic, normocephalic Eye exam: PERRL, no scleral icterus, conjunctiva pink Respiratory exam: CTAB. Cardiovascular exam: Present: irregular rhythm, +S1, +S2. No m/g/r GI/Abdominal exam: normal bowel sounds, soft, no tenderness, no peritoneal signs. Extremities exam: warm, radial pulses palpable and symmetrical. No pedal edema Neurological exam: alert, CN II-XII intact, oriented X3, no focal deficits. Labs and imaging reviewed A/P ; Hold long acting insulin, continue sliding scale, peritoneal fluid culture preliminary negative with no cells, blood and urine culture are pending , patient is afebrile, tachycardia resolved. Leukocytosis is possibly from stress reaction to DKA. Nephrology input appreciated Rest of details as in resident physicians documentation
[2017-07-19 17:24] LABS: Calcium 8.1 mg/dL (8.6-10.8)
[2017-07-19 17:36] LABS: Potassium 5.1 mEq/L (3.5-4.5)
[2017-07-19] MEDS: [UNRECOGNIZED DRUG - OTHER] PERITONEAL SCH (19:55)
[2017-07-19] MEDS ORDERED: Insulin DETEMIR 100 UNIT/ML X5UNITS SQ SCH (21:00)
[2017-07-19 22:18] LABS: Calcium 8.3 mg/dL (8.6-10.8); Potassium 4.8 mEq/L (3.5-4.5)
[2017-07-20] MEDS: Insulin LISPRO 300 UNITS/3 ML VIAL SQ SCH ×6 (01:09→23:24)
[2017-07-20 04:34] LABS: Basophils # 0.1 K/mcL (0.0-0.2); Basophils % 0.6 %; Eosinophils % 0.1 %; Hemoglobin 9.4 g/dL (12.9-16.9); Immature Granulocytes % 0.4 % (0-4); Lymphocytes # 0.9 K/mcL (0.6-4.6); Lymphocytes % 5.7 %; Mean Corpuscular HGB Conc 33.6 g/dL (31.6-35.5); Mean Corpuscular Hemoglobin 28.8 pg (28.0-33.3); Mean Corpuscular Volume 85.9 fL (83.0-100.0); Mean Platelet Volume 9.8 fL (9.4-12.4); Monocytes # 1.1 K/mcL (0.0-1.3); Monocytes % 6.6 %; Platelet Count 240 K/mcL (140-400); Red Blood Count 3.26 M/mcL (4.19-5.50); Red Cell Distribution Width 12.6 % (11.5-14.5); Segmented Neutrophils % 86.6 %
[2017-07-20 04:49] LABS: Calcium 8.1 mg/dL (8.6-10.8); Potassium 4.4 mEq/L (3.5-4.5)
[2017-07-20] MEDS: cloNIDine HCl 0.1 MG TABLET PO SCH ×3 (06:12→23:09)
--- NOTE | 2017-07-20 08:17 | Electrocardiograph Report ---
[place] [id number] Test Date: 2017-07-18 Pat Name: Lincoln Kovacs Department: 102 Room: [facility] Gender: M Inspector Assembly: Am : 1955 Requested By: Feliz Jain Order Number: [id number] Reading MD: Lorie Bolaños Measurements Intervals [place] Rate: 107 P: 70 [place]: 138 QRS: 84 QRSD: 100 T: 56 QT: 347 QTc: 410 Interpretive Statements SINUS TACHYCARDIA MODERATE ST DEPRESSION [0.05+ mV ST DEPRESSION] Electronically Signed On 07-19-2017 11:36:03 EDT by Lorie Bolaños
--- NOTE | 2017-07-20 09:44 | Internal Med Progress Note ---
<Tavo Echavarria - Last Filed: 07/20/17 14:04> Date of Encounter: 07/20/17 - Assessment and plan (1) Diabetic ketoacidosis Current Visit: Yes Status: Acute Qualifiers: Diabetes mellitus type: other specified (including CEM) Diabetes mellitus complication detail: without coma Qualified Code(s): E13.10 - Other specified diabetes mellitus with ketoacidosis without coma (2) Hypertension Current Visit: Yes Status: Chronic Qualifiers: Hypertension type: essential hypertension Qualified Code(s): I10 - Essential (primary) hypertension (3) End stage renal disease Current Visit: Yes Status: Chronic (4) SIRS (systemic inflammatory response syndrome) Current Visit: Yes Status: Resolved (5) Lactic acidosis Current Visit: Yes Status: Acute - Constitutional Vitals: Temp Pulse Resp BP Pulse Ox 98.5 F 71 18 158/75 98 07/20/17 11:38 07/20/17 11:00 07/20/17 11:00 07/20/17 11:00 07/20/17 11:00 Internal Medicine: Result - Labs CBC & Chem 7: 07/20/17 04:04 07/20/17 04:04 Labs: Short CBC 07/20/17 Range/Units 04:04 WBC 16.2 H (4.3-11.1) K/mcL Hgb 9.4 L (12.9-16.9) g/dL Hct 28.0 L (37.5-50.1) % Plt Count 240 (140-400) K/mcL Neutrophils # 14.0 H (1.6-8.9) K/mcL BMP 07/19/17 07/19/17 07/20/17 16:54 21:59 04:04 Sodium 139 135 L 139 Potassium 5.1 H D 4.8 H 4.4 Chloride 109 105 106 Carbon Dioxide 23 18 L 22 BUN 79 H 79 H 78 H Creatinine 5.53 H 5.50 H 5.34 H Glucose 72 291 H 231 H Calcium 8.1 L 8.3 L 8.1 L Consult Discharge Plan - Plan Referrals: Hui Salazar MD [Primary Care Provider] - - Attending Attestation I have independently seen and examined this patient on 07/20/17, reviewed the EMR and discussed plan of care with the patient and resident physician 61 M with IDDM, ESRD on HD admitted and being managed for DKA . he also has SIRS , no source of infection notable at this time. He has no new complains His FS have been stable overnight General appearance: pleasant, no acute distress, answers questions appropriately Head exam: atraumatic, normocephalic Eye exam: PERRL, no scleral icterus, conjunctiva pink Respiratory exam: CTAB. Cardiovascular exam: Present: irregular rhythm, +S1, +S2. No m/g/r GI/Abdominal exam: normal bowel sounds, soft, no tenderness, no peritoneal signs. Extremities exam: warm, radial pulses palpable and symmetrical. No pedal edema Neurological exam: alert, CN II-XII intact, oriented X3, no focal deficits. Labs and imaging reviewed: Peritoneal and blood cultures negative, leukocytosis is improving without treatment Plan: Continue current care, start low dose levemir, continue sliding scale, stable to be transferred out of ICU to floors Rest of details as in resident physicians documentation <Andrew Reddy - Last Filed: 07/20/17 16:33> Date of Encounter: 07/20/17 Time of Encounter: 09:30 - Assessment and plan (1) Diabetic ketoacidosis Current Visit: Yes Status: Acute Assessment and plan: Patient's anion gap on arrival was 30. Currently at 11. Gluocse today was at 231. Patient started on 5 units of levemir BID. Continue sliding scale and monitor blood glucose levels. Qualifiers: Diabetes mellitus type: other specified (including CEM) Diabetes mellitus complication detail: without coma Qualified Code(s): E13.10 - Other specified diabetes mellitus with ketoacidosis without coma (2) End stage renal disease Current Visit: Yes Status: Chronic Assessment and plan: Creatinine has dropped from 5.37 to 5.34. Per nephrology, continue PD cycler using 1.5% dextrose. Peritoneal fluid culture shows no bacterial growth. (3) Leukocytosis Current Visit: Yes Status: Acute Assessment and plan: Decreased from 18.7 to 16.2. Currently afebrile. Peritoneal fluid culture is negative for bacterial growth. Abdominal CT shows no acute abnormality. CXR shows no evidence of acute disease. Leukocytosis likely secondary to DKA. (4) Hypertension Current Visit: Yes Status: Chronic Assessment and plan: Patient's systolic BP has been from 153-180 and his diastolic BP has been from 80-95. Continue Hydralazine as needed when SBP > 160 or diastolic BP >110. Continue with clonidine. Qualifiers: Hypertension type: essential hypertension Qualified Code(s): I10 - Essential (primary) hypertension (5) SIRS (systemic inflammatory response syndrome) Current Visit: Yes Status: Resolved Assessment and plan: Patient has leukocytosis but is not tachycardic. Patient is afebrile. - Subjective Interval history: Patient is a 61 YO M with a PMH of diabetes and ESRD on peritoneal dialysis that presented to the ED yesterday for nausea, vomiting, and diarrhea. Patient was on insulin pump at home but claims it malfunctioned the night before. He presented with dyspnea but denied chest pain, fever, recent illness, or ill contacts. He presented with severe electrolyte abnormalities and had an anion gap of 30. He was diagnosed with DKA. He was given IV fluids and insulin drip. His levemir was with witheld yesterday due to concerns of hypoglycemia. When spoken to today, he denies any shortness of breath, dizziness, light-headedness , syncope, nausea, vomiting, or chest pain. - Constitutional Vitals: Temp Pulse Resp BP Pulse Ox 98.8 F 69 16 154/67 97 07/20/17 07:38 07/20/17 08:00 07/20/17 08:00 07/20/17 08:00 07/20/17 08:00 General appearance: Present: A&O X 3, pleasant, no acute distress - Respiratory Respiratory exam: Present: CTAB. Absent: respiratory distress, rhonchi, wheezes , tachypnea - Cardiovascular Cardiovascular exam: Present: RRR, +S1, +S2. Absent: diastolic murmur, systolic murmur - GI/Abdominal GI/Abdominal exam: Present: normal bowel sounds, soft. Absent: guarding, rebound, tenderness Internal Medicine: Result - Labs CBC & Chem 7: 07/20/17 04:04 07/20/17 04:04 Labs: Short CBC 07/20/17 Range/Units 04:04 WBC 16.2 H (4.3-11.1) K/mcL Hgb 9.4 L (12.9-16.9) g/dL Hct 28.0 L (37.5-50.1) % Plt Count 240 (140-400) K/mcL Neutrophils # 14.0 H (1.6-8.9) K/mcL BMP 07/19/17 07/19/17 07/20/17 16:54 21:59 04:04 Sodium 139 135 L 139 Potassium 5.1 H D 4.8 H 4.4 Chloride 109 105 106 Carbon Dioxide 23 18 L 22 BUN 79 H 79 H 78 H Creatinine 5.53 H 5.50 H 5.34 H Glucose 72 291 H 231 H Calcium 8.1 L 8.3 L 8.1 L
--- NOTE | 2017-07-20 10:04 | Nephrology Progress Note ---
Date of Encounter: 07/20/17 Time of Encounter: 08:45 - Assessment and Plan (1) End stage renal disease Current Visit: Yes Status: Chronic Cont PD with nocturnal cycler, using his home equipment. No signs of peritonitis. Hyperglycemia and DM as per primary. (2) Diabetic ketoacidosis Current Visit: Yes Status: Acute Qualifiers: Diabetes mellitus type: other specified (including CEM) Diabetes mellitus complication detail: without coma Qualified Code(s): E13.10 - Other specified diabetes mellitus with ketoacidosis without coma (3) Hypertension Current Visit: Yes Status: Acute Qualifiers: Hypertension type: unspecified Qualified Code(s): I10 - Essential (primary ) hypertension (4) Nausea & vomiting Current Visit: No Status: Resolved Qualifiers: Vomiting type: bilious vomiting Qualified Code(s): R11.14 - Bilious vomiting Subjective Principal diagnosis: Hx of ESRD on PD and recent DKA Interval history: He was seen/examined earlier today. He did not affirm N/V/D or abd pain. He said the PD cycler worked well. Objective - Vital Signs Vital signs: Vital Signs Temp Pulse Resp BP Pulse Ox 07/20/17 08:00 69 16 154/67 97 07/20/17 07:40 78 07/20/17 07:38 98.8 F 07/20/17 07:00 78 16 161/68 97 07/20/17 06:00 79 23 180/79 97 07/20/17 05:00 80 14 165/78 97 07/20/17 04:00 73 20 161/78 96 07/20/17 03:00 80 20 166/80 95 07/20/17 02:00 80 17 159/72 95 07/20/17 01:00 81 23 153/75 96 07/20/17 00:14 98.6 F 07/20/17 00:00 98.6 F 87 18 156/84 95 07/19/17 23:00 87 25 162/80 100 07/19/17 22:00 80 21 197/90 100 07/19/17 21:00 79 13 191/85 100 07/19/17 20:30 98.5 F 07/19/17 20:00 77 22 188/95 100 07/19/17 18:00 66 20 99 07/19/17 17:00 66 18 173/96 99 07/19/17 16:00 98.4 F 66 16 166/96 99 07/19/17 15:06 67 07/19/17 15:00 67 18 180/95 99 07/19/17 14:00 72 20 178/84 98 07/19/17 13:00 70 18 162/87 99 07/19/17 12:00 68 22 186/95 100 07/19/17 11:14 66 07/19/17 11:00 98.3 F 66 20 175/85 100 Intake and Output 07/19/17 07/20/17 07/20/17 23:59 07:59 15:59 Intake Total 150 / 150 100 / 100 Output Total 800 / 800 775 / 775 Balance -650 / -650 -675 / -675 Intake: Oral 150 / 150 100 / 100 Output: Urine 800 / 800 775 / 775 Other: Weight 70.534 kg Blood Glucose* 92 103 Patient Weight 07/20/17 23:59 Weight 70.534 kg - General Appearance Exam: General appearance: well-developed, well-nourished, appears started age EENT: ATNC, PERRL, mucous membranes moist Neck: supple Respiratory: clear Cardiology: edema (1+ ankle edema bilaterally, not tense edema and no venous stasis.), regular rate, regular rhythm, normal S1, normal S2 - Dialysis Access Additional Comments: PD catheter was C/D/I without exudates or erythema or tenderness. Gastrointestinal: normoactive bowel sounds, no tenderness Integumentary: no rash, warm and dry Neurologic: no focal deficit, no asterixis, alert and oriented x3 Musculoskeletal: no deformities, no erythema, no cyanosis Psychiatric: mood/affect appropriate, cooperative - Lab 07/20/17 04:04 07/20/17 04:04 Most recent lab results Calcium 8.1 mg/dL (8.6-10.8) L 07/20/17 04:04 Phosphorus 7.1 mg/dL (2.3-4.7) H 07/18/17 12:38 Magnesium 2.0 mg/dL (1.6-2.6) 07/18/17 12:38 Consult Discharge Plan - Plan Referrals: Hui Salazar MD [Primary Care Provider] -
[2017-07-20] MEDS: Gentamicin Oint 15 GM TUBE TP SCH ×2 (15:55→15:56)
[2017-07-20] MEDS: [UNRECOGNIZED DRUG - OTHER] PERITONEAL SCH (20:30)
[2017-07-20] MEDS: Insulin DETEMIR 100 UNIT/ML X5UNITS SQ SCH (23:14)
[2017-07-21 04:45] LABS: Basophils # 0.1 K/mcL (0.0-0.2); Basophils % 0.9 %; Eosinophils # 0.1 K/mcL (0.0-0.6); Eosinophils % 1.1 %; Hematocrit 26.7 % (37.5-50.1); Hemoglobin 8.9 g/dL (12.9-16.9); Immature Granulocytes % 0.2 % (0-4); Lymphocytes # 1.2 K/mcL (0.6-4.6); Lymphocytes % 12.6 %; Mean Corpuscular HGB Conc 33.3 g/dL (31.6-35.5); Mean Corpuscular Hemoglobin 28.8 pg (28.0-33.3); Mean Corpuscular Volume 86.4 fL (83.0-100.0); Mean Platelet Volume 9.5 fL (9.4-12.4); Monocytes # 0.9 K/mcL (0.0-1.3); Monocytes % 9.4 %; Neutrophils # 7.1 K/mcL (1.6-8.9); Platelet Count 199 K/mcL (140-400); Red Blood Count 3.09 M/mcL (4.19-5.50); Red Cell Distribution Width 12.3 % (11.5-14.5); Segmented Neutrophils % 75.8 %
[2017-07-21 05:02] LABS: Calcium 7.9 mg/dL (8.6-10.8); Potassium 3.8 mEq/L (3.5-4.5)
[2017-07-21] MEDS: Insulin LISPRO 300 UNITS/3 ML VIAL SQ SCH ×4 (05:46→11:47)
[2017-07-21] MEDS: cloNIDine HCl 0.1 MG TABLET PO SCH (07:51)
[2017-07-21] MEDS: Insulin DETEMIR 100 UNIT/ML X5UNITS SQ SCH (07:51)
[2017-07-21] MEDS: Gentamicin Oint 15 GM TUBE TP SCH (07:54)
[2017-07-21] MEDS ORDERED: amLODIPine 5 MG TABLET PO SCH (09:00)
--- NOTE | 2017-07-21 09:41 | Discharge Summary ---
<Tavo Echavarria T - Last Filed: 07/21/17 13:35> Date of Encounter: 07/21/17 - Discharge Diagnosis (1) Diabetic ketoacidosis Status: Acute Qualifiers: Diabetes mellitus type: other specified (including CEM) Diabetes mellitus complication detail: without coma Qualified Code(s): E13.10 - Other specified diabetes mellitus with ketoacidosis without coma (2) Hypertension Status: Chronic Qualifiers: Hypertension type: essential hypertension Qualified Code(s): I10 - Essential (primary) hypertension (3) End stage renal disease Status: Chronic (4) SIRS (systemic inflammatory response syndrome) Status: Resolved (5) Lactic acidosis Status: Acute - Discharge Medications Prescriptions: amLODIPine [Norvasc] 10 mg PO DAILY #60 tab Insulin DETEMIR [Levemir] 5 unit SQ BID #1 bottle Insulin LISPRO [HumaLOG] 14 units SQ TIDWM #1 vial Home Medications: cloNIDine HCl [CloNIDine HCl] 0.1 mg PO TID 07/18/17 [History] Insulin DETEMIR [Levemir] 5 unit SQ BID #1 bottle 07/21/17 [Rx] Insulin LISPRO [HumaLOG] 14 units SQ TIDWM #1 vial 07/21/17 [Rx] Patient Taking Own Medication 0 each PERITONEAL HS each 07/21/17 [Rx] amLODIPine [Norvasc] 10 mg PO DAILY #60 tab 07/21/17 [Rx] Allergies/Adverse Reactions: 3 Allergy/AdvReac Type Severity Reaction Status Date / Time Sulfa (Sulfonamide Allergy See Verified 06/04/17 07:49 Antibiotics) Comments Date of admission: 07/18/17 14:05 Primary care physician: Hui Salazar, Consults: 07/18/17 15:16 Consult to Nutrition [CONS] Routine Comment: Consulting Provider: NUTRITION Reason for Dietary Consult: PO Supplementation Other:: loss of appettite 07/18/17 16:06 Consult for Pharmacy Education [CONS] Routine Reason for Consult: DKA Call Completed: No - Patient Status Disposition: Home, Self-Care Condition: Good - Discharge Instructions Instructions: Diabetes Mellitus Type 1 in Adults (DC), Diabetes Mellitus Type 2 in Adults (DC) Follow Up With: Hui Salazar MD [Primary Care Provider] - 07/26/17 2:00 pm (Please follow up as schedule...) Hospital course: Mr. Kovacs is a 61 year old male - Time Spent with Patient Total time spent providing and/or coordinating discharge services: - Constitutional Vitals: Temp Pulse Resp BP Pulse Ox 97.8 F 63 18 174/68 99 07/21/17 10:55 07/21/17 10:55 07/21/17 10:55 07/21/17 12:48 07/21/17 10:55 - Attending Attestation I have independently seen and examined this patient on 07/20/17, reviewed the EMR and discussed plan of care with the patient and resident physician 61 M with IDDM, ESRD on HD admitted and being managed for DKA . he also has SIRS , no source of infection notable at this time. He has no new complains FS have been stable on current dose of insulin, leukocytosis resolved Physical exam is unremarkable Labs and imaging reviewed: Peritoneal and blood cultures negative, leukocytosis resolved without treatment Plan: Stable for discharge home on current dose of levemir, add prandial insulin, add Norvasc for uncontrolled blood pressure, follow up with university manager and PCP Rest of details as in resident physicians documentation <Andrew Reddy - Last Filed: 07/21/17 18:08> Date of Encounter: 07/21/17 Time of Encounter: 09:45 - Discharge Diagnosis (1) Diabetic ketoacidosis Priority: Primary Status: Acute Qualifiers: Diabetes mellitus type: other specified (including CEM) Diabetes mellitus complication detail: without coma Qualified Code(s): E13.10 - Other specified diabetes mellitus with ketoacidosis without coma (2) End stage renal disease Priority: Primary Status: Chronic (3) Leukocytosis Priority: Primary Status: Acute (4) Hypertension Priority: Primary Status: Chronic Qualifiers: Hypertension type: essential hypertension Qualified Code(s): I10 - Essential (primary) hypertension (5) SIRS (systemic inflammatory response syndrome) Priority: Primary Status: Resolved Date of admission: 07/18/17 14:05 Primary care physician: Hui Salazar, Consults: 07/18/17 15:16 Consult to Nutrition [CONS] Routine Comment: Consulting Provider: NUTRITION Reason for Dietary Consult: PO Supplementation Other:: loss of appettite 07/18/17 16:06 Consult for Pharmacy Education [CONS] Routine Reason for Consult: DKA Call Completed: No Discharging clinician: Tavo Echavarria Anticipated date of discharge: 07/21/17 - Patient Status Overall status at discharge: patient is back to baseline - Diet and Activity Activity: resume usual activities as tolerated Diet: diabetic diet Hospital course: Mr. Kovacs is a 61 year old male with a PMH of diabetes and ESRD on peritoneal dialysis that presented to the ED for nausea, vomiting, and diarrhea. Patient was on insulin pump at home but claims it malfunctioned the night before. He presented with dyspnea but denied chest pain, fever, recent illness, or ill contacts. He presented with severe electrolyte abnormalities and had an anion gap of 30. He was diagnosed with DKA. He was given IV fluids and insulin drip. His anion gap subsequently improved to 10 the next day. Patient met SIRS criteria upon presentation with leukocytosis and tachycardia, but it resolved later. Peritoneal fluid culture was obtained and showed no bacterial growth. Urine and blood cultures were also negative. Patient was put on peritoneal dialysis. When seen today, patient denies any shortness of breath, chest pain, light-headedness, headaches, syncope, nausea, vomiting, fever, chills, or abdominal pain. Patient was discharged with levemir and insulin lispro. He is to follow-up with his university manager about his insulin pump. Patient also was discharged with [facility] for his hypertension. - Time Spent with Patient Total time spent providing and/or coordinating discharge services: Greater than 30 minutes - Constitutional Vitals: Temp Pulse Resp BP Pulse Ox 98.0 F 65 18 162/75 98 07/21/17 06:59 07/21/17 06:59 07/21/17 06:59 07/21/17 06:59 07/21/17 08:28 General appearance: Present: A&O X 3, pleasant, no acute distress - Respiratory Respiratory exam: Present: CTAB. Absent: respiratory distress, wheezes, tachypnea - Cardiovascular Cardiovascular exam: Present: RRR, +S1, +S2. Absent: diastolic murmur, systolic murmur - GI/Abdominal GI/Abdominal exam: Present: normal bowel sounds, soft. Absent: guarding, rebound, tenderness - Extremities Exam Extremities exam: Present: radial pulses palpable and symmetrical. Absent: cyanotic, pedal edema, tenderness - VTE Documentation of Mechanical Device: Intermittent pneumatic compression device
--- NOTE | 2017-07-21 09:57 | Nephrology Progress Note ---
Date of Encounter: 07/21/17 Time of Encounter: 09:05 - Assessment and Plan (1) End stage renal disease Status: Chronic Cont PD with nocturnal cycler, using his home equipment. No signs of peritonitis. Hyperglycemia and DM as per primary. Okay to d/c from a nephro perspective (2) Diabetic ketoacidosis Status: Acute Improved/resolved Qualifiers: Diabetes mellitus type: other specified (including CEM) Diabetes mellitus complication detail: without coma Qualified Code(s): E13.10 - Other specified diabetes mellitus with ketoacidosis without coma (3) Hypertension Status: Chronic Stable Qualifiers: Hypertension type: unspecified Qualified Code(s): I10 - Essential (primary ) hypertension (4) Nausea & vomiting Status: Resolved Improved/resolved upon correction of the DKA Qualifiers: Vomiting type: bilious vomiting Qualified Code(s): R11.14 - Bilious vomiting Subjective Principal diagnosis: Hx of ESRD on PD and recent DKA Interval history: He was seen/examined earlier today. He did not affirm N/V/D or abd pain. He said the PD cycler worked well. Objective - Vital Signs Vital signs: Vital Signs Temp Pulse Resp BP Pulse Ox 07/21/17 08:28 98 07/21/17 06:59 98.0 F 65 18 162/75 98 07/21/17 03:30 98.0 F 67 19 169/78 97 07/20/17 23:29 97.7 F 75 18 224/99 96 07/20/17 21:31 98.4 F 72 18 191/88 100 07/20/17 16:04 98.5 F 89 18 171/77 99 07/20/17 14:23 98 07/20/17 11:38 98.5 F 07/20/17 11:00 71 18 158/75 98 Intake and Output 07/20/17 07/21/17 07/21/17 23:59 07:59 15:59 Intake Total 120 / 120 Output Total 0 / 0 Balance 120 / 120 0 / 0 Intake: Oral 120 / 120 Output: Urine 0 / 0 Other: Weight 68 kg Blood Glucose* 313 88 102 - General Appearance Exam: General appearance: well-developed, well-nourished, appears started age EENT: ATNC, PERRL, mucous membranes moist Neck: supple Respiratory: clear Cardiology: edema (1+ ankle edema bilaterally, not tense edema and no venous stasis.), regular rate, regular rhythm, normal S1, normal S2 - Dialysis Access Additional Comments: PD catheter was C/D/I without exudates or erythema or tenderness. Gastrointestinal: normoactive bowel sounds, no tenderness Integumentary: no rash, warm and dry Neurologic: no focal deficit, no asterixis, alert and oriented x3 Musculoskeletal: no deformities, no erythema, no cyanosis Psychiatric: mood/affect appropriate, cooperative - Lab 07/21/17 04:23 07/21/17 04:23 Most recent lab results Calcium 7.9 mg/dL (8.6-10.8) L 07/21/17 04:23 Phosphorus 7.1 mg/dL (2.3-4.7) H 07/18/17 12:38 Magnesium 2.0 mg/dL (1.6-2.6) 07/18/17 12:38 - VTE Documentation of Mechanical Device: Intermittent pneumatic compression device Consult Discharge Plan - Plan Instructions: Diabetes Mellitus Type 1 in Adults (DC), Diabetes Mellitus Type 2 in Adults (DC) Referrals: Hui Salazar MD [Primary Care Provider] - 07/26/17 2:00 pm (Please follow up as schedule...) Prescriptions: amLODIPine [Norvasc] 10 mg PO DAILY #60 tab Insulin DETEMIR [Levemir] 5 unit SQ BID #1 bottle Insulin LISPRO [HumaLOG] 14 units SQ TIDWM #1 vial
[2017-07-21 12:49] VITALS: BP 174/68
== END 2017-07-21 14:25 | disposition home or self-care (01) | DRG 637 ==
LOC: EMEROO 12:19 → ICNU 14:05 → SUATTDRO 14:05 → ICNU 14:50 → 2ANU 07-20 14:18
PROVIDERS: ADMIT Internal Medicine; ATTEND Internal Medicine

== ENCOUNTER 2017-09-20 14:50 | Inpatient (IN) ==
[2017-09-20] MEDS ORDERED: cloNIDine HCl 0.1 MG TABLET PO ONE (14:57)
--- NOTE | 2017-09-20 15:00 | Emergency Department Note ---
Disposition Clinical Impression: Hyperkalemia, Hyponatremia, Hypochloremia, Elevated troponin DKA (diabetic ketoacidoses) Qualifiers: Diabetes mellitus type: type 1 Diabetes mellitus complication detail: without coma Qualified Code(s): E10.10 - Type 1 diabetes mellitus with ketoacidosis without coma Disposition: Admitted As Inpatient Condition: Critical Referrals: Hui Salazar MD [Primary Care Provider] - Forms: ED Satisfaction Letter Time of Disposition: 16:10 Recheck wound or abnormal lab - General Chief Complaint: ED Recheck/Abnormal Lab/Rx Stated Complaint: elevated BS/elevated b/p Time Seen by Provider: 09/20/17 14:52 Source: patient Limitations: no limitations Nursing Notes Reviewed: Yes Vital Signs Reviewed: Yes - History of Present Illness HPI Narrative: Mr. Kovacs, a 62yo male, presents from home via EMS for evaluation of hyperglycemia. Patient is type I diabetic and notes his blood glucose at home read, "high." Patient has associated nausea, vomiting, mild generalized weakness. No confusion, changes in vision, dysuria, chest pains, palpitations, fevers, chills. PMH: Diabetes type 1, insulin-dependent on an insulin pump, hypertension on clonidine 0.2 mg. CKD V on peritoneal dialysis daily. - Related Data Home Medications Medication Instructions Recorded Confirmed Calcitriol [Rocaltrol] 0.25 mcg PO QAM 09/20/17 09/20/17 Glucagon,Human Recombinant 1 mg SQ ONCE PRN 09/20/17 09/20/17 [Glucagon Emergency Kit] Subcutaneous Insulin Pump [T:Slim] 1 each MC AD 09/20/17 09/20/17 cloNIDine HCl [Clonidine HCl] 0.3 mg PO TID 09/20/17 09/20/17 Allergies Allergy/AdvReac Type Severity Reaction Status Date / Time Sulfa (Sulfonamide Allergy See Verified 06/04/17 07:49 Antibiotics) Comments All systems ED: reviewed and negative except as stated. Review of Systems: As Per HPI Past Medical History - Past Medical History Medical history: Reports: diabetes, dialysis, renal disease Surgical history: Reports: no surgical history Psychiatric history: Reports: no psych history - Social History Smoking Status: Former smoker Smokeless Tobacco Status: No Alcohol use: Reports: none Drug use: Reports: none Physical Exam Vital Signs Reviewed General: Patient is alert, oriented, and in no acute distress. HEENT: No facial asymmetry. Head is normocephalic and atraumatic. Oral mucosa moist. Trachea midline. Cardiovascular: Heart regular rate and rhythm without clicks, rubs, gallops, or murmurs. No JVD. PMI nondisplaced. No pedal edema. Respiratory: Symmetric chest rise with good respiratory effort. Bilateral breath sounds are clear without wheezing, crackles, or rhonchi. Abdomen: Bowel sounds present normoactive x-4 quadrants. Abdomen is soft, nondistended, and nontender. No organomegaly noted. Neuro: GCS 15. Psych: Patient's affect is appropriate for situation. - General Limitations: no limitations General appearance: alert, in no apparent distress Course Course Narrative: Immediate concerns for DKA. Will hold on IV rehydration given his status of stage kidney disease. Will await for serum ketones before providing insulin. Serum glucose 861. Serum ketones positive. We will begin insulin drip. Patient has an anion gap acidosis. We will provide gentle cautious fluid rehydration. Patient has elevated serum osmole's indicating dehydration; cautious rehydration as above. Serum CO2 critically low at 9. Patient has hyperkalemia, hyponatremia, hypochloremia. Patient has elevated troponin at 0.05; likely secondary to his end-stage kidney disease. He has no chest pain at this time. Patient and his agree to admission for continued evaluation and management of his DKA. I discussed the patient with the admitting hospitalist, Dr. Wong, who agrees to accept the patient. At his request, I will order one amp of bicarbonate and 1 g of calcium gluconate IV piggyback. Vital Signs Temperature 98.5 F 09/20/17 14:51 Pulse Rate 95 09/20/17 14:51 Respiratory Rate 16 09/20/17 14:51 Blood Pressure 215/90 09/20/17 14:51 O2 Sat by Pulse Oximetry 99 09/20/17 14:51 Temperature 98.5 F 09/20/17 14:51 Pulse Rate 107 09/20/17 16:07 Respiratory Rate 20 09/20/17 16:07 Blood Pressure 197/82 09/20/17 16:07 O2 Sat by Pulse Oximetry 100 09/20/17 16:07 Oxygen Delivery Oxygen Delivery Room Air Recheck wound or abnormal lab - Lab Data Result diagrams: 09/20/17 15:09 09/20/17 15:09 Lab Results 09/20/17 09/20/17 09/20/17 Range/Units 15:09 15:09 15:09 WBC 10.3 (4.3-11.1) K/mcL RBC 3.61 L (4.19-5.50) M/mcL Hgb 10.2 L (12.9-16.9) g/dL Hct 31.7 L (37.5-50.1) % MCV 87.8 (83.0-100.0) fL MCH 28.3 (28.0-33.3) pg MCHC 32.2 (31.6-35.5) g/dL RDW 11.7 (11.5-14.5) % Plt Count 293 (140-400) K/mcL MPV 9.5 (9.4-12.4) fL Immature Gran % 0.4 (0-4) % Seg Neutrophils % 91.5 % Lymphocytes % 4.1 % Monocytes % 3.3 % Eosinophils % 0.0 % Basophils % 0.7 % Neutrophils # 9.5 H (1.6-8.9) K/mcL Lymphocytes # 0.4 L (0.6-4.6) K/mcL Monocytes # 0.3 (0.0-1.3) K/mcL Eosinophils # 0.0 (0.0-0.6) K/mcL Basophils # 0.1 (0.0-0.2) K/mcL Immature Plt Fraction 0.9 L (1.1-6.1) % VBG pH (7.32-7.42) pH Units VBG pCO2 (41-51) mmHg VBG pO2 (25-50) mmHg VBG HCO3 (21-27) mEq/L Sodium 132 L (136-145) mEq/L Potassium 6.0 H (3.5-4.5) mEq/L Chloride 95 L (98-109) mEq/L Carbon Dioxide 9 L* (19-29) mEq/L BUN 92 H (8-26) mg/dL Creatinine 6.10 H (0.72-1.25) mg/dL Est GFR ( Amer) 11 L (> 60) Est GFR (Non-Af Amer) 9 L (> 60) BUN/Creatinine Ratio 15 (6-26) Glucose 861 H* (70-99) mg/dL Calculated Osmolality 345 H (280-300) Calcium 8.7 (8.6-10.8) mg/dL Total Bilirubin 0.5 (0.2-1.2) mg/dL AST 12 (5-34) Units/L ALT 14 (0-55) Units/L Alkaline Phosphatase 102 (38-126) Units/L Troponin I (0-0.03) ng/mL Serum Total Protein 6.1 (6.0-8.3) g/dL Albumin 3.1 L (3.5-5.0) g/dL Globulin 3.0 (2.4-3.5) g/dL Albumin/Globulin Ratio 1.0 L (1.1-2.2) Beta-Hydroxybutyric Acd > 2.00 H (0.02-0.27) mmol/L 09/20/17 09/20/17 Range/Units 15:09 15:20 WBC (4.3-11.1) K/mcL RBC (4.19-5.50) M/mcL Hgb (12.9-16.9) g/dL Hct (37.5-50.1) % MCV (83.0-100.0) fL MCH (28.0-33.3) pg MCHC (31.6-35.5) g/dL RDW (11.5-14.5) % Plt Count (140-400) K/mcL MPV (9.4-12.4) fL Immature Gran % (0-4) % Seg Neutrophils % % Lymphocytes % % Monocytes % % Eosinophils % % Basophils % % Neutrophils # (1.6-8.9) K/mcL Lymphocytes # (0.6-4.6) K/mcL Monocytes # (0.0-1.3) K/mcL Eosinophils # (0.0-0.6) K/mcL Basophils # (0.0-0.2) K/mcL Immature Plt Fraction (1.1-6.1) % VBG pH 7.24 L (7.32-7.42) pH Units VBG pCO2 25 L (41-51) mmHg VBG pO2 122 H (25-50) mmHg VBG HCO3 11 L (21-27) mEq/L Sodium (136-145) mEq/L Potassium (3.5-4.5) mEq/L Chloride (98-109) mEq/L Carbon Dioxide (19-29) mEq/L BUN (8-26) mg/dL Creatinine (0.72-1.25) mg/dL Est GFR ( Amer) (> 60) Est GFR (Non-Af Amer) (> 60) BUN/Creatinine Ratio (6-26) Glucose (70-99) mg/dL Calculated Osmolality (280-300) Calcium (8.6-10.8) mg/dL Total Bilirubin (0.2-1.2) mg/dL AST (5-34) Units/L ALT (0-55) Units/L Alkaline Phosphatase (38-126) Units/L Troponin I 0.08 H* (0-0.03) ng/mL Serum Total Protein (6.0-8.3) g/dL Albumin (3.5-5.0) g/dL Globulin (2.4-3.5) g/dL Albumin/Globulin Ratio (1.1-2.2) Beta-Hydroxybutyric Acd (0.02-0.27) mmol/L - EKG Data EKG attestation: Yes I reviewed and interpreted this EKG. EKG results narrative: EKG dated 20 September 2017 at 14:50 9 interrupted a sinus rhythm with a rate of 93. Normal intervals of MA 125, QRS 102, QT/QTC 378/429. Normal axis. 0.5-[address] depression in leads V3 through V5. Compared to previous EKG dated 2016 showing a concerning change of ST depression as mentioned previously.
[2017-09-20 15:17] LABS: Basophils # 0.1 K/mcL (0.0-0.2); Basophils % 0.7 %; Hematocrit 31.7 % (37.5-50.1); Hemoglobin 10.2 g/dL (12.9-16.9); Immature Granulocytes % 0.4 % (0-4); Immature Platelets 0.9 % (1.1-6.1); Lymphocytes # 0.4 K/mcL (0.6-4.6); Lymphocytes % 4.1 %; Mean Corpuscular HGB Conc 32.2 g/dL (31.6-35.5); Mean Corpuscular Hemoglobin 28.3 pg (28.0-33.3); Mean Corpuscular Volume 87.8 fL (83.0-100.0); Mean Platelet Volume 9.5 fL (9.4-12.4); Monocytes # 0.3 K/mcL (0.0-1.3); Monocytes % 3.3 %; Neutrophils # 9.5 K/mcL (1.6-8.9); Platelet Count 293 K/mcL (140-400); Red Blood Count 3.61 M/mcL (4.19-5.50); Red Cell Distribution Width 11.7 % (11.5-14.5); Segmented Neutrophils % 91.5 %
[2017-09-20 15:22] LABS: VBG HCO3 11 mEq/L (21-27); VBG PCO2 25 mmHg (41-51); VBG PH 7.24 pH Units (7.32-7.42); VBG PO2 122 mmHg (25-50)
--- NOTE | 2017-09-20 15:30 | Emergency Department Note ---
Disposition Clinical Impression: DKA (diabetic ketoacidoses), Hyperkalemia, Hyponatremia, Hypochloremia, Elevated troponin Disposition: Admitted As Inpatient Condition: Critical General Adult HPI - General Chief complaint: ED Recheck/Abnormal Lab/Rx Stated complaint: elevated BS/elevated b/p Time Seen by Provider: 09/20/17 14:52 Source: patient Limitations: no limitations - History of Present Illness Pain Scale: 5 - Related Data Home Medications Medication Instructions Recorded Confirmed Calcitriol [Rocaltrol] 0.25 mcg PO QAM 09/20/17 09/20/17 Glucagon,Human Recombinant 1 mg SQ ONCE PRN 09/20/17 09/20/17 [Glucagon Emergency Kit] Subcutaneous Insulin Pump [T:Slim] 1 each MC AD 09/20/17 09/20/17 cloNIDine HCl [Clonidine HCl] 0.3 mg PO TID 09/20/17 09/20/17 Allergies Allergy/AdvReac Type Severity Reaction Status Date / Time Sulfa (Sulfonamide Allergy See Verified 06/04/17 07:49 Antibiotics) Comments Past Medical History - Past Medical History Medical history: Reports: diabetes, dialysis, renal disease Surgical history: Reports: no surgical history Psychiatric history: Reports: no psych history - Social History Smoking Status: Former smoker Smokeless Tobacco Status: No Alcohol use: Reports: none Drug use: Reports: none Physical Exam - General Limitations: no limitations General appearance: alert, in no apparent distress Course Vital Signs Temperature 98.5 F 09/20/17 14:51 Pulse Rate 95 09/20/17 14:51 Respiratory Rate 16 09/20/17 14:51 Blood Pressure 215/90 09/20/17 14:51 O2 Sat by Pulse Oximetry 99 09/20/17 14:51 Temperature 97.9 F 09/21/17 10:47 Pulse Rate 62 09/21/17 10:47 Respiratory Rate 16 09/21/17 10:47 Blood Pressure 152/83 09/21/17 10:47 O2 Sat by Pulse Oximetry 100 09/21/17 07:26 Oxygen Delivery Oxygen Delivery Room Air Medical Decision Making - Lab Data Result diagrams: 09/21/17 03:21 09/21/17 05:53 Lab Results 09/20/17 09/20/17 09/20/17 Range/Units 14:53 14:54 15:09 WBC 10.3 (4.3-11.1) K/mcL RBC 3.61 L (4.19-5.50) M/mcL Hgb 10.2 L (12.9-16.9) g/dL Hct 31.7 L (37.5-50.1) % MCV 87.8 (83.0-100.0) fL MCH 28.3 (28.0-33.3) pg MCHC 32.2 (31.6-35.5) g/dL RDW 11.7 (11.5-14.5) % Plt Count 293 (140-400) K/mcL MPV 9.5 (9.4-12.4) fL Immature Gran % 0.4 (0-4) % Seg Neutrophils % 91.5 % Lymphocytes % 4.1 % Monocytes % 3.3 % Eosinophils % 0.0 % Basophils % 0.7 % Neutrophils # 9.5 H (1.6-8.9) K/mcL Lymphocytes # 0.4 L (0.6-4.6) K/mcL Monocytes # 0.3 (0.0-1.3) K/mcL Eosinophils # 0.0 (0.0-0.6) K/mcL Basophils # 0.1 (0.0-0.2) K/mcL Immature Plt Fraction 0.9 L (1.1-6.1) % VBG pH (7.32-7.42) pH Units VBG pCO2 (41-51) mmHg VBG pO2 (25-50) mmHg VBG HCO3 (21-27) mEq/L Sodium (136-145) mEq/L Potassium (3.5-4.5) mEq/L Chloride (98-109) mEq/L Carbon Dioxide (19-29) mEq/L BUN (8-26) mg/dL Creatinine (0.72-1.25) mg/dL Est GFR ( Amer) (> 60) Est GFR (Non-Af Amer) (> 60) BUN/Creatinine Ratio (6-26) Glucose (70-99) mg/dL POC Glucose > 600 H* > 600 H* (58-89) Calculated Osmolality (280-300) Calcium (8.6-10.8) mg/dL Total Bilirubin (0.2-1.2) mg/dL AST (5-34) Units/L ALT (0-55) Units/L Alkaline Phosphatase (38-126) Units/L Troponin I (0-0.03) ng/mL Serum Total Protein (6.0-8.3) g/dL Albumin (3.5-5.0) g/dL Globulin (2.4-3.5) g/dL Albumin/Globulin Ratio (1.1-2.2) Beta-Hydroxybutyric Acd (0.02-0.27) mmol/L 09/20/17 09/20/17 09/20/17 Range/Units 15:09 15:09 15:09 WBC (4.3-11.1) K/mcL RBC (4.19-5.50) M/mcL Hgb (12.9-16.9) g/dL Hct (37.5-50.1) % MCV (83.0-100.0) fL MCH (28.0-33.3) pg MCHC (31.6-35.5) g/dL RDW (11.5-14.5) % Plt Count (140-400) K/mcL MPV (9.4-12.4) fL Immature Gran % (0-4) % Seg Neutrophils % % Lymphocytes % % Monocytes % % Eosinophils % % Basophils % % Neutrophils # (1.6-8.9) K/mcL Lymphocytes # (0.6-4.6) K/mcL Monocytes # (0.0-1.3) K/mcL Eosinophils # (0.0-0.6) K/mcL Basophils # (0.0-0.2) K/mcL Immature Plt Fraction (1.1-6.1) % VBG pH (7.32-7.42) pH Units VBG pCO2 (41-51) mmHg VBG pO2 (25-50) mmHg VBG HCO3 (21-27) mEq/L Sodium 132 L (136-145) mEq/L Potassium 6.0 H (3.5-4.5) mEq/L Chloride 95 L (98-109) mEq/L Carbon Dioxide 9 L* (19-29) mEq/L BUN 92 H (8-26) mg/dL Creatinine 6.10 H (0.72-1.25) mg/dL Est GFR ( Amer) 11 L (> 60) Est GFR (Non-Af Amer) 9 L (> 60) BUN/Creatinine Ratio 15 (6-26) Glucose 861 H* (70-99) mg/dL POC Glucose (58-89) Calculated Osmolality 345 H (280-300) Calcium 8.7 (8.6-10.8) mg/dL Total Bilirubin 0.5 (0.2-1.2) mg/dL AST 12 (5-34) Units/L ALT 14 (0-55) Units/L Alkaline Phosphatase 102 (38-126) Units/L Troponin I 0.08 H* (0-0.03) ng/mL Serum Total Protein 6.1 (6.0-8.3) g/dL Albumin 3.1 L (3.5-5.0) g/dL Globulin 3.0 (2.4-3.5) g/dL Albumin/Globulin Ratio 1.0 L (1.1-2.2) Beta-Hydroxybutyric Acd > 2.00 H (0.02-0.27) mmol/L 09/20/17 09/20/17 09/20/17 Range/Units 15:20 16:29 17:01 WBC (4.3-11.1) K/mcL RBC (4.19-5.50) M/mcL Hgb (12.9-16.9) g/dL Hct (37.5-50.1) % MCV (83.0-100.0) fL MCH (28.0-33.3) pg MCHC (31.6-35.5) g/dL RDW (11.5-14.5) % Plt Count (140-400) K/mcL MPV (9.4-12.4) fL Immature Gran % (0-4) % Seg Neutrophils % % Lymphocytes % % Monocytes % % Eosinophils % % Basophils % % Neutrophils # (1.6-8.9) K/mcL Lymphocytes # (0.6-4.6) K/mcL Monocytes # (0.0-1.3) K/mcL Eosinophils # (0.0-0.6) K/mcL Basophils # (0.0-0.2) K/mcL Immature Plt Fraction (1.1-6.1) % VBG pH 7.24 L (7.32-7.42) pH Units VBG pCO2 25 L (41-51) mmHg VBG pO2 122 H (25-50) mmHg VBG HCO3 11 L (21-27) mEq/L Sodium (136-145) mEq/L Potassium (3.5-4.5) mEq/L Chloride (98-109) mEq/L Carbon Dioxide (19-29) mEq/L BUN (8-26) mg/dL Creatinine (0.72-1.25) mg/dL Est GFR ( Amer) (> 60) Est GFR (Non-Af Amer) (> 60) BUN/Creatinine Ratio (6-26) Glucose (70-99) mg/dL POC Glucose > 600 H* > 600 H* (58-89) Calculated Osmolality (280-300) Calcium (8.6-10.8) mg/dL Total Bilirubin (0.2-1.2) mg/dL AST (5-34) Units/L ALT (0-55) Units/L Alkaline Phosphatase (38-126) Units/L Troponin I (0-0.03) ng/mL Serum Total Protein (6.0-8.3) g/dL Albumin (3.5-5.0) g/dL Globulin (2.4-3.5) g/dL Albumin/Globulin Ratio (1.1-2.2) Beta-Hydroxybutyric Acd (0.02-0.27) mmol/L 09/20/17 Range/Units 17:26 WBC (4.3-11.1) K/mcL RBC (4.19-5.50) M/mcL Hgb (12.9-16.9) g/dL Hct (37.5-50.1) % MCV (83.0-100.0) fL MCH (28.0-33.3) pg MCHC (31.6-35.5) g/dL RDW (11.5-14.5) % Plt Count (140-400) K/mcL MPV (9.4-12.4) fL Immature Gran % (0-4) % Seg Neutrophils % % Lymphocytes % % Monocytes % % Eosinophils % % Basophils % % Neutrophils # (1.6-8.9) K/mcL Lymphocytes # (0.6-4.6) K/mcL Monocytes # (0.0-1.3) K/mcL Eosinophils # (0.0-0.6) K/mcL Basophils # (0.0-0.2) K/mcL Immature Plt Fraction (1.1-6.1) % VBG pH (7.32-7.42) pH Units VBG pCO2 (41-51) mmHg VBG pO2 (25-50) mmHg VBG HCO3 (21-27) mEq/L Sodium (136-145) mEq/L Potassium (3.5-4.5) mEq/L Chloride (98-109) mEq/L Carbon Dioxide (19-29) mEq/L BUN (8-26) mg/dL Creatinine (0.72-1.25) mg/dL Est GFR ( Amer) (> 60) Est GFR (Non-Af Amer) (> 60) BUN/Creatinine Ratio (6-26) Glucose 839 H* (70-99) mg/dL POC Glucose (58-89) Calculated Osmolality (280-300) Calcium (8.6-10.8) mg/dL Total Bilirubin (0.2-1.2) mg/dL AST (5-34) Units/L ALT (0-55) Units/L Alkaline Phosphatase (38-126) Units/L Troponin I (0-0.03) ng/mL Serum Total Protein (6.0-8.3) g/dL Albumin (3.5-5.0) g/dL Globulin (2.4-3.5) g/dL Albumin/Globulin Ratio (1.1-2.2) Beta-Hydroxybutyric Acd (0.02-0.27) mmol/L Critical Care Time Critical Care Time: Yes Total Critical Care Time: 30 Attestation: He meets criteria for diabetic ketoacidosis. IV insulin drip started Attestation Statement - Attestation Attestation: Patient presents by EMS hyperglycemic and hypertensive. He has an existing history of type 1 diabetes with an insulin pump in place. He appears in no acute distress on exam. He meets criteria for diabetic ketoacidosis. IV insulin drip started
[2017-09-20 15:33] LABS: Albumin 3.1 g/dL (3.5-5.0); Bilirubin,Total 0.5 mg/dL (0.2-1.2); Calcium 8.7 mg/dL (8.6-10.8); Total Protein 6.1 g/dL (6.0-8.3)
[2017-09-20] MEDS ORDERED: 0.9 % Sodium Chloride 500 ML IVC ONE ×2 (15:33→17:12)
[2017-09-20] MEDS ORDERED: Aspirin 81 MG TAB.CHEW PO ONE (15:49)
[2017-09-20] MEDS ORDERED: *HR* Morphine 2 MG/ML SYRINGE IVP ONE (16:07)
[2017-09-20] MEDS ORDERED: Ondansetron 4 MG/2 ML VIAL IVP ONE (16:07)
[2017-09-20] MEDS: Insulin Human Regular 100 UNIT in 0.9 % Sodium Chloride 100 ML IVC SCH (16:13)
[2017-09-20] MEDS ORDERED: Sodium Bicarbonate 50 MEQ in 0.45 % Sodium Chloride 1,000 ML IVC SCH (16:15)
[2017-09-20] MEDS ORDERED: *HR* Morphine 2 MG/ML SYRINGE IVP PRN (17:14)
[2017-09-20] MEDS ORDERED: Ondansetron 4 MG/2 ML VIAL IVP PRN (17:22)
--- NOTE | 2017-09-20 17:26 | Internal Med History&Physical ---
Date of Encounter: 09/20/17 Time of Encounter: 17:23 Assessment and Plan (1) Diabetic ketoacidosis Current visit: Yes Status: Acute Will start patient insulin drip. He received 500 mls of fluid in the emergency room. Will give another 500 amounts of normal saline. Patient is hyperkalemic these will be treated also. Consider giving more fluid boluses cautiously guided by physical exam. No obvious evidence of infectious etiology. Qualifiers: Diabetes mellitus type: type 1 Diabetes mellitus complication detail: without coma Qualified Code(s): E10.10 - Type 1 diabetes mellitus with ketoacidosis without coma (2) End stage renal disease Current visit: No Status: Chronic Endstage renal disease on peritoneal dialysis. Patient denies cloudiness of peritoneal fluid. Will discuss with nephrology service for resuming peritoneal dialysis in hospital. his potassium is 6. (3) Hypertension Current visit: Yes Status: Acute Continue home medications. Hydralazine PRN Qualifiers: Qualified Code(s): I10 - Essential (primary) hypertension Internal Medicine - H&P: HPI Chief complaint: vomiting History of present illness: Mr. Kovacs is a 62 year old male with a history of type I diabetes mellitus on insulin pump, end-stage renal disease and peritoneal dialysis presents to the emergency room today with the main complain of vomiting and weakness. Since this morning patient started experiencing episodes of nonbloody nonbelievers vomiting, nausea, generalized weakness and lethargy. He was unable to keep any food down. He has checked sugar multiple times at home and it was reading high. Patient takes insulin through on insulin pumpkins compliant with that. Denies any technical problems in the pump. Patient denies any recent febrile illnesses no fever chills cough expectoration or diarrhea. Patient has not noticed cloudiness of the peritoneal fluid. He denies any abdominal pain. Past Med Surg Social Fam HX - Past Medical History Medical history: diabetes, dialysis, renal disease Psychiatric history: no psych history - Past Surgical History Surgical History: no surgical history - Social History Smoking Status: Former smoker Smokeless Tobacco Status: No Alcohol use: none Drug use: none - Family History Mother Living Status: Hx Family Cancer: Yes (Leukemia; patient unsure which type) Father Living Status: Hx Family Endocrine Disorder: Yes (DMI) Internal Medicine - H&P: Meds Calcitriol [Rocaltrol] 0.25 mcg PO QAM 09/20/17 [History] Glucagon,Human Recombinant [Glucagon Emergency Kit] 1 mg SQ ONCE PRN 09/20/17 [ History] Subcutaneous Insulin Pump [T:Slim] 1 each MC AD 09/20/17 [History] cloNIDine HCl [Clonidine HCl] 0.3 mg PO TID 09/20/17 [History] 3 Allergy/AdvReac Type Severity Reaction Status Date / Time Sulfa (Sulfonamide Allergy See Verified 06/04/17 07:49 Antibiotics) Comments All Systems PM: A 10-system review of systems was performed and is negative for pertinent findings except as documented above in the HPI. Review of systems: 10 point review of systems is negative except for HPI - Constitutional Vitals: Temp Pulse Resp BP Pulse Ox 98.5 F 107 18 189/69 100 09/20/17 14:51 09/20/17 16:07 09/20/17 16:32 09/20/17 16:32 09/20/17 16:07 Exam: Gen.: patient is alert oriented times 3 cardiac: normal S1 S2 no additional sounds or murmurs chest: no active wheezing or bronchial breathing abdomen soft nontender nondistended normal bowel sounds lower extremity no swelling. Neuro: no new focal deficits Internal Med - H&P Results - Labs CBC & Chem 7: 09/20/17 15:09 09/20/17 15:09
[2017-09-20] MEDS: *HR* Heparin 5,000 UNIT/ML VIAL SQ SCH (17:30)
[2017-09-20 19:26] LABS: VBG HCO3 18 mEq/L (21-27); VBG PCO2 40 mmHg (41-51); VBG PH 7.25 pH Units (7.32-7.42); VBG PO2 47 mmHg (25-50)
[2017-09-20 19:38] LABS: BUN/Creatinine Ratio 16 (6-26); Blood Urea Nitrogen 92 mg/dL (8-26); Calcium 8.5 mg/dL (8.6-10.8); Carbon Dioxide 15 mEq/L (19-29); Chloride 100 mEq/L (98-109); Osmolality,Calculated 352 (280-300); Potassium 4.9 mEq/L (3.5-4.5); Sodium 138 mEq/L (136-145); eGFR For African Americans 12 (> 60); eGFR For Non-African Americans 10 (> 60)
[2017-09-20 19:40] LABS: Glucose 770 mg/dL (70-99)
[2017-09-20 19:59] LABS: Beta-Hydroxybutyric Acid > 2.00 mmol/L (0.02-0.27)
[2017-09-20 20:34] LABS: Calcium 8.5 mg/dL (8.6-10.8); Potassium 4.9 mEq/L (3.5-4.5)
[2017-09-20] MEDS: cloNIDine HCl 0.1 MG TABLET PO SCH (21:09)
[2017-09-20 23:14] LABS: Calcium 8.6 mg/dL (8.6-10.8); Potassium 4.5 mEq/L (3.5-4.5)
[2017-09-20 23:24] LABS: Beta-Hydroxybutyric Acid 0.27 mmol/L (0.02-0.27)
[2017-09-21] MEDS ORDERED: 0.9 % Sodium Chloride 1,000 ML IVC SCH (00:15)
[2017-09-21 01:01] LABS: VBG HCO3 26 mEq/L (21-27); VBG PCO2 49 mmHg (41-51); VBG PH 7.33 pH Units (7.32-7.42); VBG PO2 190 mmHg (25-50)
[2017-09-21 01:09] LABS: Calcium 8.6 mg/dL (8.6-10.8); Potassium 4.2 mEq/L (3.5-4.5)
[2017-09-21] MEDS: Insulin Human Regular 100 UNIT in 0.9 % Sodium Chloride 100 ML IVC SCH (01:30)
[2017-09-21] MEDS ORDERED: D5% in 0.45% NACL w KCl 20 MEQ/1,000 ML MLS IVC SCH ×2 (03:45→06:50)
[2017-09-21 04:15] LABS: Basophils % 0.3 %; Eosinophils % 0.1 %; Hematocrit 24.5 % (37.5-50.1); Immature Granulocytes % 0.4 % (0-4); Lymphocytes # 1.1 K/mcL (0.6-4.6); Lymphocytes % 7.9 %; Mean Corpuscular HGB Conc 34.3 g/dL (31.6-35.5); Mean Corpuscular Hemoglobin 28.5 pg (28.0-33.3); Mean Corpuscular Volume 83.1 fL (83.0-100.0); Mean Platelet Volume 9.2 fL (9.4-12.4); Monocytes # 1.5 K/mcL (0.0-1.3); Platelet Count 268 K/mcL (140-400); Red Blood Count 2.95 M/mcL (4.19-5.50); Red Cell Distribution Width 11.7 % (11.5-14.5); Segmented Neutrophils % 80.3 %
[2017-09-21 04:16] LABS: Hemoglobin 8.4 g/dL (12.9-16.9)
[2017-09-21 04:19] LABS: Beta-Hydroxybutyric Acid 0.19 mmol/L (0.02-0.27)
[2017-09-21 04:29] LABS: Calcium 8.6 mg/dL (8.6-10.8); Potassium 4.4 mEq/L (3.5-4.5)
[2017-09-21] MEDS ORDERED: Insulin Human Regular 100 UNIT in 0.9 % Sodium Chloride 100 ML IVC SCH (04:45)
[2017-09-21 06:13] LABS: Calcium 8.6 mg/dL (8.6-10.8); Potassium 4.2 mEq/L (3.5-4.5)
[2017-09-21] MEDS: *HR* Heparin 5,000 UNIT/ML VIAL SQ SCH ×2 (06:52→20:48)
[2017-09-21] MEDS: *HR* Dextrose 50 % in Water (Syg) 50 ML SYRINGE IVP PRN (07:31)
[2017-09-21] MEDS ORDERED: *HR* Dextrose 50 % in Water (Syg) 50 ML SYRINGE IVP PRN (08:24)
[2017-09-21] MEDS ORDERED: Dextrose Gel 15 GM PO PRN ×2 (08:24)
[2017-09-21] MEDS ORDERED: D5% in Water 1,000 ML IVC PRN (08:24)
[2017-09-21] MEDS ORDERED: Pantoprazole 40 MG VIAL IVP SCH (09:00)
--- NOTE | 2017-09-21 09:10 | Nephrology Consult Note ---
Date of Encounter: 09/21/17 Time of Encounter: 08:51 Assessment and Plan (1) Hyperkalemia Current Visit: Yes Status: Acute Etiology likely secondary to high anion gap metabolic acidosis from DKA. potassium upon admission was 6 Currently, hyperkalemia has resolved and his potassium is 4.2. his anion gap has closed, currently 12 Plan: continue to monitor. will resume PD today (2) Leukocytosis Current Visit: No Status: Acute will check peritoneal fluid for cell count with diff and peritoneal fluid culture to rule out peritonitis. Qualifiers: Leukocytosis type: unspecified Qualified Code(s): D72.829 - Elevated white blood cell count, unspecified (3) End stage renal disease Current Visit: No Status: Chronic continue with usual peritoneal dialysis. (4) Diabetic ketoacidosis Current Visit: Yes Status: Resolved resolved. per primary Qualifiers: Diabetes mellitus type: type 1 Diabetes mellitus complication detail: without coma Qualified Code(s): E10.10 - Type 1 diabetes mellitus with ketoacidosis without coma (5) Hypertension Current Visit: No Status: Chronic continue home antihypertensives. Qualifiers: Hypertension type: essential hypertension Qualified Code(s): I10 - Essential (primary) hypertension (6) Hyponatremia Current Visit: Yes Status: Resolved resolved. likely pseudohyponatremia secondary to DKA. History of Present Illness - Reason for Consult Consult date: 09/20/17 hyperkalemia Requesting physician: Rafiq Wong - Chief Complaint hyperkalemia - History of Present Illness 62M with PMHx of Type 1DM (on insulin pump), ESRD (on peritoneal dialysis at home). patient arrived to [facility] on 09/21/17 with chief complaint of non bloody vomiting, weakness. He states that he has been compliant with his insulin pump. He was admitted for management of DKA. Nephrology was consulted for hyperkalemia , with potassium of 6 upon admission. patient states that he has not been sick recently and denies sick contacts. today, he denies nausea, vomiting, diarrhea, fever, chills, chest pain, shortness of breath, hematuria, hematochezia, melena. h Past Med Surg Social Fam HX - Past Medical History Medical history: diabetes, dialysis, renal disease Psychiatric history: no psych history - Past Surgical History Surgical History: no surgical history - Social History Smoking Status: Former smoker Smokeless Tobacco Status: No Alcohol use: none Drug use: none - Family History Mother Living Status: Hx Family Cancer: Yes (Leukemia; patient unsure which type) Father Living Status: Hx Family Endocrine Disorder: Yes (DMI) Medications and Allergies Calcitriol [Rocaltrol] 0.25 mcg PO QAM 09/20/17 [History] Glucagon,Human Recombinant [Glucagon Emergency Kit] 1 mg SQ ONCE PRN 09/20/17 [ History] Subcutaneous Insulin Pump [T:Slim] 1 each MC AD 09/20/17 [History] cloNIDine HCl [Clonidine HCl] 0.3 mg PO TID 09/20/17 [History] 3 Allergy/AdvReac Type Severity Reaction Status Date / Time Sulfa (Sulfonamide Allergy See Verified 06/04/17 07:49 Antibiotics) Comments Review of Systems All Systems: reviewed and no additional remarkable complaints except as stated Exam - Vital Signs Vital signs: Initial Vital Signs Temp Pulse Resp BP Pulse Ox 98.5 F 95 16 215/90 99 09/20/17 14:51 09/20/17 14:51 09/20/17 14:51 09/20/17 14:51 09/20/17 14:51 Vital Signs - Last 8 Hours Temp Pulse Resp BP Pulse Ox 09/21/17 07:26 98.1 F 65 16 156/85 100 09/21/17 06:13 63 12 99 09/21/17 03:27 97.7 F 65 12 154/75 99 09/21/17 01:04 73 14 99 Intake and Output 09/20/17 09/21/17 09/21/17 23:59 07:59 15:59 Intake Total 120 / 120 Output Total 0 / 0 500 / 500 Balance -380 / -380 Intake: IV Fluids HumuLIN R 100 UNIT In 0.9 % Sodium Chloride 100 ML @ 0.1 UNIT/KG/HR 6.06 mls/hr IVC CONT [facility] Rx#:[id number] Oral 120 / 120 Output: Urine 0 / 0 500 / 500 Other: Weight 60 kg Blood Glucose* 394 78 100 Patient Weight 09/21/17 23:59 Weight 60 kg - General Appearance General appearance: well-developed, cachectic, frail Neck: JVD Respiratory: no kyphosis, no scoliosis, clear Cardiology: no murmurs, no rub, no gallops, no edema, regular rate, regular rhythm, normal S1, normal S2 Gastrointestinal: normoactive bowel sounds, no tenderness, no guarding, no organomegaly, no masses Integumentary: no rash, warm and dry Neurologic: no focal deficit, alert and oriented x3 Musculoskeletal: no deformities, no erythema, no cyanosis, no clubbing Results - Lab Results 09/21/17 03:21 09/21/17 05:53 Most recent lab results Calcium 8.6 mg/dL (8.6-10.8) 09/21/17 05:53 Magnesium 2.0 mg/dL (1.6-2.6) 09/21/17 03:21 Consult Discharge Plan - Plan Referrals: Samaria Bacon, MEDICAL PHYSICS RESEARCHER [Advanced Practice Nurse] - 09/28/17 2:00 pm
[2017-09-21] MEDS: cloNIDine HCl 0.1 MG TABLET PO SCH ×3 (09:17→20:48)
[2017-09-21] MEDS: Insulin LISPRO 300 UNITS/3 ML VIAL SQ SCH ×2 (10:56→17:09)
[2017-09-21] MEDS: Insulin DETEMIR 100 UNIT/ML X5UNITS SQ SCH ×2 (15:38→23:07)
[2017-09-21] MEDS ORDERED: Perit. Dialysis with Dex 1.5 % 2,000 ML PERITONEAL SCH (16:00)
--- NOTE | 2017-09-21 17:21 | Internal Med Progress Note ---
<Garo Cavanaugh - Last Filed: 09/21/17 17:50> Date of Encounter: 09/21/17 Time of Encounter: 10:00 - Assessment and plan (1) Diabetic ketoacidosis Current Visit: Yes Status: Resolved Assessment and plan: Pt gap closed after DKA protocol. Potassium down to 4.5 from 6. On day of discharge, pt to go home with basal insulin; appt with Endocrine current 10/12/17, will try for earlier. Qualifiers: Diabetes mellitus type: type 1 Diabetes mellitus complication detail: without coma Qualified Code(s): E10.10 - Type 1 diabetes mellitus with ketoacidosis without coma (2) End stage renal disease Current Visit: No Status: Chronic Assessment and plan: On peritoneal dialysis nightly. No peritoneal signs. Nephrology consulted--continuing PD. Potassium down to 4.5. (3) Hypertension Current Visit: No Status: Chronic Assessment and plan: Hydralazine PRN HTN Qualifiers: Hypertension type: essential hypertension Qualified Code(s): I10 - Essential (primary) hypertension (4) DVT prophylaxis Current Visit: Yes Status: Acute Assessment and plan: On Heparin 5000U sq - Subjective Interval history: Mr. Kovacs is a 62 year old male, type 1 diabetic with insulin pump no other insulin medications, ESRD on peritoneal dialysis, admitted for DKA gap of 20, fluids, insulin given per DKA protocol, gap closed today at 12. Pt presented to ER for blood sugar >500, n/v, weakness. Continues to deny fever, cough, chest pain, abdominal pain, dysurea. - Constitutional Vitals: Temp Pulse Resp BP Pulse Ox 97.9 F 62 16 152/83 100 09/21/17 10:47 09/21/17 10:47 09/21/17 10:47 09/21/17 10:47 09/21/17 07:26 General appearance: Present: A&O X 3, no acute distress - Head Head exam: Present: atraumatic - Neck Neck exam general surgery: Present: full ROM - Respiratory Respiratory exam: Present: CTAB. Absent: rhonchi - Cardiovascular Cardiovascular exam: Present: RRR, +S1, +S2 - GI/Abdominal GI/Abdominal exam: Present: no peritoneal signs. Absent: tenderness - Extremities Exam Extremities exam: Present: normal inspection - Skin Skin exam: Present: normal color. Absent: pallor Internal Medicine: Result - Labs CBC & Chem 7: 09/21/17 03:21 09/21/17 05:53 Labs: Short CBC 09/21/17 Range/Units 03:21 WBC 13.7 H (4.3-11.1) K/mcL Hgb 8.4 L D (12.9-16.9) g/dL Hct 24.5 L (37.5-50.1) % Plt Count 268 (140-400) K/mcL Neutrophils # 11.0 H (1.6-8.9) K/mcL BMP 09/20/17 09/20/17 09/20/17 19:12 20:16 21:48 Sodium 138 138 Potassium 4.9 H D 4.9 H Chloride 100 101 Carbon Dioxide 15 L 17 L BUN 92 H 94 H Creatinine 5.88 H 5.91 H Glucose 770 H* 704 H* 576 H* Calcium 8.5 L 8.5 L 09/20/17 09/21/17 09/21/17 22:52 00:47 03:21 Sodium 140 141 143 Potassium 4.5 4.2 4.4 Chloride 104 105 107 Carbon Dioxide 22 23 24 BUN 96 H 96 H 96 H Creatinine 6.07 H 5.99 H 5.98 H Glucose 495 H 367 H 198 H Calcium 8.6 8.6 8.6 09/21/17 05:53 Sodium 144 Potassium 4.2 Chloride 108 Carbon Dioxide 24 BUN 93 H Creatinine 5.92 H Glucose 95 Calcium 8.6 - VTE Documentation of Mechanical Device: Intermittent pneumatic compression device Consult Discharge Plan - Plan Referrals: Samaria Bacon, X RAY TECHNICIAN [Advanced Practice Nurse] - 09/28/17 2:00 pm <Bruce Pa - Last Filed: 09/21/17 20:34> Date of Encounter: 09/21/17 - Constitutional Vitals: Temp Pulse Resp BP Pulse Ox 97.7 F 61 18 174/79 100 09/21/17 19:27 09/21/17 19:27 09/21/17 19:27 09/21/17 19:27 09/21/17 19:27 Internal Medicine: Result - Labs CBC & Chem 7: 09/21/17 03:21 09/21/17 05:53 Labs: Short CBC 09/21/17 Range/Units 03:21 WBC 13.7 H (4.3-11.1) K/mcL Hgb 8.4 L D (12.9-16.9) g/dL Hct 24.5 L (37.5-50.1) % Plt Count 268 (140-400) K/mcL Neutrophils # 11.0 H (1.6-8.9) K/mcL BMP 09/20/17 09/20/17 09/20/17 20:16 21:48 22:52 Sodium 138 140 Potassium 4.9 H 4.5 Chloride 101 104 Carbon Dioxide 17 L 22 BUN 94 H 96 H Creatinine 5.91 H 6.07 H Glucose 704 H* 576 H* 495 H Calcium 8.5 L 8.6 09/21/17 09/21/17 09/21/17 00:47 03:21 05:53 Sodium 141 143 144 Potassium 4.2 4.4 4.2 Chloride 105 107 108 Carbon Dioxide 23 24 24 BUN 96 H 96 H 93 H Creatinine 5.99 H 5.98 H 5.92 H Glucose 367 H 198 H 95 Calcium 8.6 8.6 8.6 - Attending Attestation I examined this patient and my medical decision-making was reviewed with the Resident Physician, Dr. Garo Cavanaugh. I agree with the documented findings, disposition and treatment plan as described except to the extent set forth below. I have independently obtained history and examined the patient and my findings are summarized below: Patient is in no acute distress. Awake alert oriented. Heart is regular. Lungs are clear. Plan: Start insulin Levemir twice a day for basal coverage and insulin sliding scale. Start diabetic diet. Diabetic education.
[2017-09-21] MEDS: Perit. Dialysis with Dex 1.5 % 2,000 ML PERITONEAL SCH (20:49)
[2017-09-21] MEDS ORDERED: Insulin LISPRO 300 UNITS/3 ML VIAL SQ SCH (21:00)
[2017-09-22 03:24] LABS: Basophils % 0.7 %; Eosinophils # 0.5 K/mcL (0.0-0.6); Eosinophils % 2.5 %; Hematocrit 29.1 % (37.5-50.1); Hemoglobin 9.8 g/dL (12.9-16.9); Immature Granulocytes % 0.5 % (0-4); Lymphocytes # 3.1 K/mcL (0.6-4.6); Lymphocytes % 14.4 %; Mean Corpuscular HGB Conc 33.7 g/dL (31.6-35.5); Mean Corpuscular Hemoglobin 28.3 pg (28.0-33.3); Mean Corpuscular Volume 84.1 fL (83.0-100.0); Mean Platelet Volume 9.2 fL (9.4-12.4); Monocytes # 1.3 K/mcL (0.0-1.3); Monocytes % 6.2 %; Neutrophils # 16.2 K/mcL (1.6-8.9); Platelet Count 356 K/mcL (140-400); Red Blood Count 3.46 M/mcL (4.19-5.50); Red Cell Distribution Width 12.1 % (11.5-14.5); Segmented Neutrophils % 75.7 %
[2017-09-22 03:33] LABS: Basophils # 0.2 K/mcL (0.0-0.2)
[2017-09-22 03:39] LABS: % Iron Saturation 31 % (20-55); Calcium 8.5 mg/dL (8.6-10.8); Iron 76 mcg/dL (65-175); Potassium 4.1 mEq/L (3.5-4.5); Transferrin 175 mg/dL (174-364)
[2017-09-22] MEDS: *HR* Dextrose 50 % in Water (Syg) 50 ML SYRINGE IVP PRN (03:44)
[2017-09-22 03:59] LABS: Ferritin 304 ng/ml (22-275)
[2017-09-22] MEDS: *HR* Heparin 5,000 UNIT/ML VIAL SQ SCH (05:20)
[2017-09-22] MEDS: Perit. Dialysis with Dex 1.5 % 2,000 ML PERITONEAL SCH (05:21)
--- NOTE | 2017-09-22 07:33 | Electrocardiograph Report ---
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
--- NOTE | 2017-09-22 09:41 | Internal Med Progress Note ---
Date of Encounter: 09/22/17 Time of Encounter: 08:30 - Assessment and plan (1) Diabetic ketoacidosis Current Visit: Yes Status: Resolved Qualifiers: Diabetes mellitus type: type 1 Diabetes mellitus complication detail: without coma Qualified Code(s): E10.10 - Type 1 diabetes mellitus with ketoacidosis without coma (2) End stage renal disease Current Visit: No Status: Chronic (3) Hypertension Current Visit: No Status: Chronic Qualifiers: Hypertension type: essential hypertension Qualified Code(s): I10 - Essential (primary) hypertension (4) DVT prophylaxis Current Visit: Yes Status: Acute - Subjective Interval history: Mr. Kovacs is a 62 year old male, type 1 diabetic with insulin pump no other insulin medications, ESRD on peritoneal dialysis, admitted for DKA gap of 20, fluids, insulin given per DKA protocol, gap closed today at 12. Pt presented to ER for blood sugar >500, n/v, weakness. Continues to deny fever, cough, chest pain, abdominal pain, dysurea. - Constitutional Vitals: Temp Pulse Resp BP Pulse Ox 97.9 F 55 17 156/69 100 09/22/17 07:19 09/22/17 07:19 09/22/17 07:19 09/22/17 07:19 09/22/17 07:19 General appearance: Present: A&O X 3, no acute distress Internal Medicine: Result - Labs CBC & Chem 7: 09/22/17 03:01 09/22/17 03:01 Labs: Short CBC 09/22/17 Range/Units 03:01 WBC 21.4 H D (4.3-11.1) K/mcL Hgb 9.8 L (12.9-16.9) g/dL Hct 29.1 L (37.5-50.1) % Plt Count 356 (140-400) K/mcL Neutrophils # 16.2 H (1.6-8.9) K/mcL BMP 09/22/17 03:01 Sodium 144 Potassium 4.1 Chloride 107 Carbon Dioxide 23 BUN 96 H Creatinine 5.97 H Glucose 29 L* Calcium 8.5 L - VTE Documentation of Mechanical Device: Intermittent pneumatic compression device Consult Discharge Plan - Plan Referrals: Samaria Bacon, FERRULER [Advanced Practice Nurse] - 09/28/17 2:00 pm
--- NOTE | 2017-09-22 09:49 | Nephrology Progress Note ---
Date of Encounter: 09/22/17 Time of Encounter: 09:47 - Assessment and Plan (1) Hyperkalemia Status: Acute Etiology likely secondary to high anion gap metabolic acidosis from DKA. potassium upon admission was 6 Currently, hyperkalemia has resolved Plan: continue to monitor. continue peritoneal dialysis (2) Leukocytosis Status: Acute WBC increased today to 21.4 CXR from 09/20 unremarkable. Plan: will check peritoneal fluid for cell count with diff and peritoneal fluid culture to rule out peritonitis. Qualifiers: Leukocytosis type: unspecified Qualified Code(s): D72.829 - Elevated white blood cell count, unspecified (3) End stage renal disease Status: Chronic continue with peritoneal dialysis (4) Diabetic ketoacidosis Status: Resolved resolved. per primary Qualifiers: Diabetes mellitus type: type 1 Diabetes mellitus complication detail: without coma Qualified Code(s): E10.10 - Type 1 diabetes mellitus with ketoacidosis without coma (5) Hypertension Status: Chronic continue home antihypertensives. Qualifiers: Hypertension type: essential hypertension Qualified Code(s): I10 - Essential (primary) hypertension (6) Hyponatremia Status: Resolved resolved Subjective Principal diagnosis: ESRD Interval history: 62M evlauated at bedside. he denies nausea, vomiting, diarrhea, fever, chills, chest pain, shortness of breath. he denies any burning with urination, and denies any further issues today. Objective - Vital Signs Vital signs: Vital Signs Temp Pulse Resp BP Pulse Ox 09/22/17 07:19 97.9 F 55 17 156/69 100 09/22/17 04:19 97.8 F 61 18 151/69 100 09/21/17 23:19 97.7 F 58 16 150/61 98 09/21/17 19:27 97.7 F 61 18 174/79 100 09/21/17 10:47 97.9 F 62 16 152/83 Intake and Output 09/21/17 09/22/17 09/22/17 23:59 07:59 15:59 Intake Total 0 / 0 240 / 240 Balance 0 / 0 240 / 240 Intake: Oral 0 / 0 240 / 240 Other: Meal Breakfast Percent of Meal Consumed 100% Total Peritoneal Dialysis 100 Output Weight 60 kg 60.4 kg Blood Glucose* 179 83 Patient Weight 09/22/17 23:59 Weight 60.4 kg - General Appearance General appearance: Present: well-developed, well-nourished, appears started age Neck: Present: no JVD Respiratory: Present: clear Cardiology: Present: no murmurs, no rub, no gallops, no edema, regular rate, regular rhythm, normal S1, normal S2 Additional Comments: gets peritoneal dialysis Gastrointestinal: Present: normoactive bowel sounds, no tenderness, no guarding , no organomegaly, no masses Integumentary: Present: no rash, warm and dry Neurologic: Present: no focal deficit, no asterixis, alert and oriented x3 Musculoskeletal: Present: no deformities, no erythema, no cyanosis, no clubbing Psychiatric: Present: mood/affect appropriate - Lab 09/22/17 03:01 09/22/17 03:01 Most recent lab results Calcium 8.5 mg/dL (8.6-10.8) L 09/22/17 03:01 Magnesium 2.0 mg/dL (1.6-2.6) 09/21/17 03:21 - VTE Documentation of Mechanical Device: Intermittent pneumatic compression device Consult Discharge Plan - Plan Instructions: Diabetes Mellitus Type 2 in Adults (DC) Additional Instructions: Please call Dr. Denia Hugo for hosp f/u in 1-2 weeks. PCP w/in 2 weeks. Referrals: Samaria Bacon, [employer] MASTER [Advanced Practice Nurse] - 09/28/17 2:00 pm
[2017-09-22] MEDS: cloNIDine HCl 0.1 MG TABLET PO SCH (10:08)
[2017-09-22] MEDS: Insulin DETEMIR 100 UNIT/ML X5UNITS SQ SCH (10:19)
[2017-09-22] MEDS: Insulin LISPRO 300 UNITS/3 ML VIAL SQ SCH ×2 (10:24→12:08)
[2017-09-22] MEDS ORDERED: Acetaminophen 325 MG TABLET PO PRN (10:38)
[2017-09-22] MEDS ORDERED: *HR* HYDROcodone/Acet 5/325 mg TABLET PO PRN (10:38)
[2017-09-22] MEDS ORDERED: Gentamicin Oint 15 GM TUBE TP SCH (11:00)
[2017-09-22 11:07] VITALS: BP 155/58
--- NOTE | 2017-09-22 11:47 | Discharge Summary ---
<Garo Cavanaugh - Last Filed: 09/22/17 11:54> Date of Encounter: 09/22/17 Time of Encounter: 08:45 - Discharge Diagnosis (1) Diabetic ketoacidosis Priority: Primary Status: Resolved Qualifiers: Diabetes mellitus type: type 1 Diabetes mellitus complication detail: without coma Qualified Code(s): E10.10 - Type 1 diabetes mellitus with ketoacidosis without coma (2) End stage renal disease Priority: Secondary Status: Chronic (3) Hypertension Priority: Secondary Status: Chronic Qualifiers: Hypertension type: essential hypertension Qualified Code(s): I10 - Essential (primary) hypertension (4) DVT prophylaxis Priority: Secondary Status: Acute - Discharge Medications Home Medications: Calcitriol [Rocaltrol] 0.25 mcg PO QAM 09/20/17 [History] Glucagon,Human Recombinant [Glucagon Emergency Kit] 1 mg SQ ONCE PRN 09/20/17 [ History] Subcutaneous Insulin Pump [T:Slim] 1 each MC AD 09/20/17 [History] cloNIDine HCl [Clonidine HCl] 0.3 mg PO TID 09/20/17 [History] Allergies/Adverse Reactions: 3 Allergy/AdvReac Type Severity Reaction Status Date / Time Sulfa (Sulfonamide Allergy See Verified 06/04/17 07:49 Antibiotics) Comments Date of admission: 09/20/17 18:27 Primary care physician: Hui Salazar, - Patient Status Disposition: Home, Self-Care Condition: Good Functional capacity at discharge: independent ambulation Overall status at discharge: patient is progressing back to baseline - Discharge Instructions Instructions: Diabetes Mellitus Type 2 in Adults (DC) Follow Up With: Samaria Bacon, NEUROPHYSIOLOGY TECH [Advanced Practice Nurse] - 09/28/17 2:00 pm Additional Instructions: Please call Dr. Denia Hugo for hosp f/u in 1-2 weeks. PCP w/in 2 weeks. - Diet and Activity Activity: resume usual activities as tolerated Diet: advance to your usual diet, diabetic diet Interval History: Hx DM1 on insulin pump, ESRD on PD, admitted for DKA, gap of 20, gap closed to 12 on day 1, K+ elevated at 6, came down to normal range when given fluids/ insulin. Transitioned to SSI low-dose, one episode of hypoglycemia in middle of night, corrected. Dr. Hugo to see patient by the , current appointment, may try to see her sooner. Pt stable at discharge, no complaints. Hospital course: Mr. Kovacs is a 62 year old male - Time Spent with Patient Total time spent providing and/or coordinating discharge services: - Constitutional Vitals: Temp Pulse Resp BP Pulse Ox 98.2 F 60 17 155/58 100 09/22/17 11:06 09/22/17 11:06 09/22/17 11:06 09/22/17 11:06 09/22/17 11:06 General appearance: Present: A&O X 3, no acute distress - VTE Documentation of Mechanical Device: Intermittent pneumatic compression device <Ducu,Bruce - Last Filed: 09/22/17 18:15> Date of Encounter: 09/22/17 Date of admission: 09/20/17 18:27 Primary care physician: Hui Salazar, Hospital course: Mr. Kovacs is a 62 year old male - Time Spent with Patient Total time spent providing and/or coordinating discharge services: - Constitutional Vitals: Temp Pulse Resp BP Pulse Ox 98.2 F 60 17 155/58 100 09/22/17 11:06 09/22/17 11:06 09/22/17 11:06 09/22/17 11:06 09/22/17 11:06 - Attending Attestation I examined this patient and my medical decision-making was reviewed with the Resident Physician, Dr. Garo Cavanaugh. I agree with the documented findings, disposition and treatment plan as described except to the extent set forth below. I have independently obtained history and examined the patient and my findings are summarized below: Patient is currently asymptomatic. He had an episode of hypoglycemia early this morning which now has corrected. Blood glucose is 100-250 range. He has back to baseline and medically stable for discharge home. I strongly encouraged compliance with insulin pump regimen and close follow-up with PCP.
== END 2017-09-22 13:30 | disposition home or self-care (01) | DRG 637 ==
LOC: 2NNU 14:50 → EMEROO 14:50 → 2NNU 16:30 → SUATTDRO 18:27 → 2ANU 09-21 18:53
PROVIDERS: ADMIT Family Medicine; ATTEND Internal Medicine

== ENCOUNTER 2017-11-01 09:31 | Observation (INO) ==
[2017-11-01] MEDS ORDERED: Ondansetron 4 MG/2 ML VIAL IVP ONE (09:42)
[2017-11-01] MEDS: 0.9 % Sodium Chloride 1,000 ML IVC SCH ×2 (09:55→10:41)
[2017-11-01 10:07] LABS: Basophils # 0.1 K/mcL (0.0-0.2); Basophils % 0.7 %; Eosinophils % 0.3 %; Hematocrit 33.8 % (37.5-50.1); Hemoglobin 11.5 g/dL (12.9-16.9); Immature Granulocytes % 0.3 % (0-4); Lymphocytes # 0.6 K/mcL (0.6-4.6); Lymphocytes % 5.6 %; Mean Corpuscular Hemoglobin 28.3 pg (28.0-33.3); Mean Platelet Volume 8.7 fL (9.4-12.4); Monocytes # 0.7 K/mcL (0.0-1.3); Monocytes % 6.2 %; Neutrophils # 9.6 K/mcL (1.6-8.9); Platelet Count 267 K/mcL (140-400); Red Blood Count 4.07 M/mcL (4.19-5.50); Red Cell Distribution Width 12.8 % (11.5-14.5); Segmented Neutrophils % 86.9 %
[2017-11-01 10:10] LABS: VBG HCO3 25 mEq/L (21-27); VBG PCO2 44 mmHg (41-51); VBG PH 7.36 pH Units (7.32-7.42); VBG PO2 47 mmHg (25-50)
[2017-11-01 10:10] LABS: Beta-Hydroxybutyric Acid 1.01 mmol/L (0.02-0.27)
[2017-11-01 10:16] LABS: Calcium 8.9 mg/dL (8.6-10.8); Potassium 4.2 mEq/L (3.5-4.5)
[2017-11-01 10:23] LABS: Bilirubin,Urine Negative (Negative); Blood,Urine Trace (Negative); Clarity,Urine Clear (Clear); Color,Urine Yellow (Yellow); Glucose,Urine (UA) >=1000 mg/dL (Normal); Ketones,Urine Trace mg/dL (Negative); Leukocyte Esterase,Urine Negative (Negative); Nitrite,Urine Negative (Negative); PH,Urine 6.5 pH Units (5.0-8.0); Protein,Urine 100 mg/dL (Neg-Trace); Specific Gravity,Urine 1.019 (1.010-1.025); Urobilinogen,Urine Normal (Normal)
[2017-11-01 10:26] LABS: Bacteria,Urine None Seen per hpf (None-Few); Hyaline Casts,Urine None Seen per lpf (None-Few); RBC,Urine 0-3 per hpf (0-3); Squamous Epithelial Cell,Urine Moderate per lpf (None-Few); WBC,Urine 0-3 per hpf (0-3)
--- NOTE | 2017-11-01 10:48 | Emergency Department Note ---
Disposition Clinical Impression: Hyperglycemia, Elevated troponin, End stage renal disease Disposition: Admitted As Inpatient Condition: Good Referrals: Hui Salazar MD [Primary Care Provider] - Forms: ED Satisfaction Letter, Work/School Release Time of Disposition: 11:21 General Adult HPI - General Chief complaint: ED General Medical Stated complaint: hyperglycemia/NV Time Seen by Provider: 11/01/17 09:34 Source: patient Mode of arrival: EMS Limitations: no limitations Vital Signs Reviewed: Yes (Tachycardia w/ hypertension) - History of Present Illness HPI Narrative: There is a 62-year-old gentleman with a history of insulin-dependent diabetes mellitus type 1, ESRD on PD, COPD who presented via EMS for n/v, SOB, generalized malaise. Significantly, the patient was discharged from [facility] following episode of DKA. He says that has been experiencing nausea and vomiting for about 24 hours duration that is worsening. Additionally, the patient complains of generalized malaise, and some shortness of breath that is constant. He is a type 1 diabetic who uses an insulin pump, and says that he has been using it without problems at home, however he cannot give a clear history of blood glucose measurements. He denies chest pain, abdominal pain, cough. Onset (ago): day(s) (1) Pain Severity: moderate Pain Scale: 9 Improves with: nothing Worsens with: movement Associated symptoms: Reports: loss of appetite, malaise, nausea/vomiting, shortness of breath Treatments Prior to Arrival: other (IV Fluids per EMS) - Related Data Home Medications Medication Instructions Recorded Confirmed Calcitriol [Rocaltrol] 0.25 mcg PO QAM 09/20/17 09/20/17 Glucagon,Human Recombinant 1 mg SQ ONCE PRN 09/20/17 09/20/17 [Glucagon Emergency Kit] Subcutaneous Insulin Pump [T:Slim] 1 each MC AD 09/20/17 09/20/17 cloNIDine HCl [Clonidine HCl] 0.3 mg PO TID 09/20/17 09/20/17 Allergies Allergy/AdvReac Type Severity Reaction Status Date / Time Sulfa (Sulfonamide Allergy See Verified 11/01/17 09:37 Antibiotics) Comments Review of Systems: CONSTITUTIONAL: No weight loss, fever, chills, weakness or fatigue. HEENT: Eyes: No visual loss, blurred vision, double vision or yellow sclerae. Ears, Nose, Throat: No hearing loss, sneezing, congestion, runny nose or sore throat. SKIN: No rash or itching. CARDIOVASCULAR: No chest pain, chest pressure or chest discomfort. No palpitations or edema. RESPIRATORY: No cough or sputum, Admits to shortness of breath GASTROINTESTINAL: + anorexia, nausea, vomiting or diarrhea. No abdominal pain or blood. NEUROLOGICAL: No headache, dizziness, syncope, paralysis, ataxia, numbness or tingling in the extremities. No change in bowel or bladder control. MUSCULOSKELETAL: No muscle, back pain, joint pain or stiffness. HEMATOLOGIC: No anemia, bleeding or bruising. LYMPHATICS: No enlarged nodes. PSYCHIATRIC: No history of depression or anxiety. ENDOCRINOLOGIC: No reports of sweating, cold or heat intolerance. ALLERGIES: No history of asthma, hives, eczema or rhinitis. Past Medical History - Past Medical History Medical history: Reports: diabetes, dialysis, renal disease, other Surgical history: Reports: no surgical history Psychiatric history: Reports: no psych history - Social History Smoking Status: Former smoker Smokeless Tobacco Status: No Alcohol use: Reports: none Drug use: Reports: none Physical Exam - General Limitations: no limitations General appearance: alert - Head Head exam: atraumatic, normocephalic, normal inspection - Eye Eye exam: Present: normal appearance, PERRL, EOMI - Expanded Eye Exam Pupils: Bilateral: reactive - ENT ENT exam: normal exam, normal oropharynx, mucous membranes moist - Expanded ENT Exam External ear exam: Present: normal external inspection Mouth exam: Present: normal external inspection Teeth exam: Present: normal inspection Throat exam: Present: normal inspection - Neck Neck exam: Present: normal inspection, full ROM, trachea midline - Chest Chest inspection: Present: normal inspection, symmetric chest wall rise - Respiratory Respiratory exam: Present: normal lung sounds bilaterally - Cardiovascular Cardiovascular exam: Present: regular rate, normal rhythm, normal heart sounds - Abdominal Exam Abdominal exam: Present: soft, Non-Tender. Absent: tenderness, distention, guarding, rebound, rigidity - Extremities Exam Extremities exam: Present: normal inspection, full ROM. Absent: tenderness, pedal edema - Expanded Upper Extremity Exam Vascular exam: Normal: capillary refill, radial pulse - Expanded Lower Extremity Exam Neurovascular/Tendon exam: Absent: motor deficit, sensory deficit, tendon deficit - Back Exam Back exam: Absent: tenderness, CVA tenderness (R), CVA tenderness (L) - Neurological Exam Neurological exam: Present: alert, oriented X3 - Expanded Neurological Exam Patient oriented to: Present: person, place, time Coma Scale Eye Opening: Spontaneous Coma Scale Motor Response: Obeys Commands Coma Scale Verbal Response: Oriented Coma Scale Total: 15 - Psychiatric Psychiatric exam: Present: normal affect, normal mood - Skin Skin exam: Present: warm, dry, intact, normal color Course Course Narrative: Sonogram and the patient bedside on arrival, nursing report from EMS. Patient has been experiencing nausea and vomiting for about 24 hours, he is a type I diabetic who is on an insulin pump. He does admit to recent admissions for DKA , he is unable to provide a record blood glucose recordings. The patient does complain of shortness of breath arrival that is not exertional, denies chest pain at this time. Given his presentation, going to check a cell count and chemistry, troponin, serum ketones, UA. Will also get a chest x-ray. Anticipate the need for admission due to frequent hyperglycemic symptoms admissions. - Reevaluation(s) Time: 09:55 (Troponin 0.14, Positive Ketones in serum, Blood glucose 517. Spoke with hospitalist, would like to admit patient for glucose management ) Time: 11:11 Vital Signs O2 Sat by Pulse Oximetry 98 11/01/17 09:37 Temperature 98.1 F 11/01/17 09:41 Pulse Rate 109 11/01/17 09:41 Respiratory Rate 20 11/01/17 09:41 Blood Pressure 180/124 11/01/17 09:41 O2 Sat by Pulse Oximetry 98 11/01/17 09:41 Oxygen Delivery Oxygen Delivery Room Air Medical Decision Making - [facility] Narrative Medical decision making narrative: There is a 62-year-old man type 1 diabetes mellitus who has had frequent admissions for DKA, recently diagnosed with ESRD on PD. He recently was discharged for DKA on 09/22/17. Currently, his BG is >500, Gap 13, and ketones are present in Serum, however pH is 7.34. Based on his extensive history combined with ESRD on PD, I'm concerned about the possibility of progression to DKA. We gave him 10U Normal insulin, started fluids and his status remains unchanged. Hospitalist has accepted patient for management of hyperglycemia. - Medical Records Medical records reviewed: Yes I reviewed the patient's medical records. - Lab Data Lab results reviewed: Yes I reviewed the patient's lab results. Result diagrams: 11/01/17 09:55 11/01/17 09:55 Lab Results 11/01/17 11/01/17 11/01/17 Range/Units 09:55 09:55 09:55 WBC 11.0 (4.3-11.1) K/mcL RBC 4.07 L (4.19-5.50) M/mcL Hgb 11.5 L (12.9-16.9) g/dL Hct 33.8 L (37.5-50.1) % MCV 83.0 (83.0-100.0) fL MCH 28.3 (28.0-33.3) pg MCHC 34.0 (31.6-35.5) g/dL RDW 12.8 (11.5-14.5) % Plt Count 267 (140-400) K/mcL MPV 8.7 L (9.4-12.4) fL Immature Gran % 0.3 (0-4) % Seg Neutrophils % 86.9 % Lymphocytes % 5.6 % Monocytes % 6.2 % Eosinophils % 0.3 % Basophils % 0.7 % Neutrophils # 9.6 H (1.6-8.9) K/mcL Lymphocytes # 0.6 (0.6-4.6) K/mcL Monocytes # 0.7 (0.0-1.3) K/mcL Eosinophils # 0.0 (0.0-0.6) K/mcL Basophils # 0.1 (0.0-0.2) K/mcL VBG pH (7.32-7.42) pH Units VBG pCO2 (41-51) mmHg VBG pO2 (25-50) mmHg VBG HCO3 (21-27) mEq/L Sodium 141 (136-145) mEq/L Potassium 4.2 (3.5-4.5) mEq/L Chloride 105 (98-109) mEq/L Carbon Dioxide 23 (19-29) mEq/L BUN 72 H (8-26) mg/dL Creatinine 6.35 H (0.72-1.25) mg/dL Est GFR ( Amer) 11 L (> 60) Est GFR (Non-Af Amer) 9 L (> 60) BUN/Creatinine Ratio 11 (6-26) Glucose 517 H* (70-99) mg/dL Calculated Osmolality 336 H (280-300) Calcium 8.9 (8.6-10.8) mg/dL Troponin I 0.14 H* (0-0.03) ng/mL Beta-Hydroxybutyric Acd 1.01 H (0.02-0.27) mmol/L Urine Color (Yellow) Urine Clarity (Clear) Urine pH (5.0-8.0) pH Units Ur Specific [place] (1.010-1.025) Urine Protein (Neg-Trace) mg/dL Urine Glucose (UA) (Normal) mg/dL Urine Ketones (Negative) mg/dL Urine Blood (Negative) Urine Nitrite (Negative) Urine Bilirubin (Negative) Urine Urobilinogen (Normal) mg/dL Ur Leukocyte Esterase (Negative) Urine Microscopic RBC (0-3) per hpf Urine Microscopic WBC (0-3) per hpf Ur Squamous Epith Cells (None-Few) per lpf Urine Bacteria (None-Few) per hpf Hyaline Casts (None-Few) per lpf Ur Culture Indicated? (NO) 11/01/17 11/01/17 Range/Units 10:07 10:11 WBC (4.3-11.1) K/mcL RBC (4.19-5.50) M/mcL Hgb (12.9-16.9) g/dL Hct (37.5-50.1) % MCV (83.0-100.0) fL MCH (28.0-33.3) pg MCHC (31.6-35.5) g/dL RDW (11.5-14.5) % Plt Count (140-400) K/mcL MPV (9.4-12.4) fL Immature Gran % (0-4) % Seg Neutrophils % % Lymphocytes % % Monocytes % % Eosinophils % % Basophils % % Neutrophils # (1.6-8.9) K/mcL Lymphocytes # (0.6-4.6) K/mcL Monocytes # (0.0-1.3) K/mcL Eosinophils # (0.0-0.6) K/mcL Basophils # (0.0-0.2) K/mcL VBG pH 7.36 (7.32-7.42) pH Units VBG pCO2 44 (41-51) mmHg VBG pO2 47 (25-50) mmHg VBG HCO3 25 (21-27) mEq/L Sodium (136-145) mEq/L Potassium (3.5-4.5) mEq/L Chloride (98-109) mEq/L Carbon Dioxide (19-29) mEq/L BUN (8-26) mg/dL Creatinine (0.72-1.25) mg/dL Est GFR ( Amer) (> 60) Est GFR (Non-Af Amer) (> 60) BUN/Creatinine Ratio (6-26) Glucose (70-99) mg/dL Calculated Osmolality (280-300) Calcium (8.6-10.8) mg/dL Troponin I (0-0.03) ng/mL Beta-Hydroxybutyric Acd (0.02-0.27) mmol/L Urine Color Yellow (Yellow) Urine Clarity Clear (Clear) Urine pH 6.5 (5.0-8.0) pH Units Ur Specific [place] 1.019 (1.010-1.025) Urine Protein 100 H (Neg-Trace) mg/dL Urine Glucose (UA) >=1000 H (Normal) mg/dL Urine Ketones Trace H (Negative) mg/dL Urine Blood Trace H (Negative) Urine Nitrite Negative (Negative) Urine Bilirubin Negative (Negative) Urine Urobilinogen Normal (Normal) mg/dL Ur Leukocyte Esterase Negative (Negative) Urine Microscopic RBC 0-3 (0-3) per hpf Urine Microscopic WBC 0-3 (0-3) per hpf Ur Squamous Epith Cells Moderate H (None-Few) per lpf Urine Bacteria None Seen (None-Few) per hpf Hyaline Casts None Seen (None-Few) per lpf Ur Culture Indicated? NO (NO) - Radiology Data Radiology results reviewed: Yes I reviewed the patient's radiology results. - EKG Data EKG #1 EKG attestation: Yes I reviewed and interpreted this EKG. EKG results narrative: Shows a rate of 101. Sinus tachycardia. Normal axis. WI interval 113. QRS 87. QTC 423. No acute findings.
[2017-11-01] MEDS ORDERED: Insulin Human Regular 10 UNIT in 0.9 % Sodium Chloride 10 ML IV ONE (10:54)
--- NOTE | 2017-11-01 11:22 | Emergency Department Note ---
START Narrative - START START: I examined this patient and my medical decision-making was reviewed with the Resident Physician. I agree with the documented findings, disposition and treatment plan as described except to the extent set forth below. 62-year-old male with a history of DKA presents to the ER with elevated blood sugars. Sugars have been running in the 4-500 range. He does have a history of recent admission for DKA. Patient was given IV fluids as well as insulin. He does have elevated serum ketones and is not quite to having an anion gap and does not appear to be acidotic quite yet. Again he has a recent admission for DKA. Patient will be admitted for sugar control and better regimen. no critical care time
--- NOTE | 2017-11-01 12:15 | Internal Med History&Physical ---
Date of Encounter: 11/01/17 Time of Encounter: 12:12 Assessment and Plan (1) Hyperglycemia Current visit: Yes Status: Acute Patient has had frequent admission for DKA currently have hyperglycemia but not in DKA anion gap is 13 (2) End stage renal disease Current visit: Yes Status: Chronic On dialysis (3) Hypertension Current visit: No Status: Chronic Blood pressure is uncontrolled with resume home medication and make some adjustment Qualifiers: Hypertension type: essential hypertension Qualified Code(s): I10 - Essential (primary) hypertension (4) Nausea & vomiting Current visit: No Status: Resolved Nausea vomiting and diarrhea suggestive of gastroenteritis Was sent C. difficile Qualifiers: Vomiting type: bilious vomiting Qualified Code(s): R11.14 - Bilious vomiting Internal Medicine - H&P: HPI Chief complaint: generalized weakness Admitted From: Emergency Dept Plans for Post Hospital Care: Home History of present illness: Mr. Kovacs is a 62 year old male Patient with history of type 1 diabetes with frequent admission to the hospital for DKA, hypertension, end-stage renal disease and dialysis. Patient comes in to emergency room due to nausea vomiting , generalized fatigue and some diarrhea . his sugar at home has been high about 500 emergency room glucose 517 anion gap is 13 not in DKA he is admitted due to hyperglycemia and dehydration consult nephrology for follow-up for dialysis. Past Med Surg Social Fam HX - Past Medical History Medical history: diabetes, dialysis, renal disease, other Psychiatric history: no psych history - Past Surgical History Surgical History: no surgical history - Social History Smoking Status: Former smoker Smokeless Tobacco Status: No Alcohol use: none Drug use: none - Family History Mother Living Status: Hx Family Cancer: Yes (Leukemia; patient unsure which type) Father Living Status: Hx Family Endocrine Disorder: Yes (DMI) Internal Medicine - H&P: Meds Calcitriol [Rocaltrol] 0.25 mcg PO QAM 09/20/17 [History] cloNIDine HCl [Clonidine HCl] 0.3 mg PO TID 09/20/17 [History] Calcium Acetate [Phos-LO] 11/01/17 [History] Folic Acid/Vit Bcomp,C [Dialyvite Tablet] 11/01/17 [History] Insulin ASPART [NovoLOG] 11/01/17 [History] Lisinopril [Zestril] 11/01/17 [History] 3 Allergy/AdvReac Type Severity Reaction Status Date / Time Sulfa (Sulfonamide Allergy See Verified 11/01/17 12:13 Antibiotics) Comments All Systems PM: A 10-system review of systems was performed and is negative for pertinent findings except as documented above in the HPI. - Constitutional Constitutional: malaise, weakness - EENT Eyes: no change in vision, no discharge, no pain, no photophobia Ears: no ear discharge, no ear pain, no tinnitus Nose, mouth and throat: no dysphagia, no nasal discharge, no neck pain, no sore throat - Cardiovascular Cardiovascular ROS IM: no chest pain, no diaphoresis, no dyspnea, no lightheadedness, no palpitations, no syncope - Respiratory Respiratory: no cough, no dyspnea, no wheezing, no excessive phlegm production - Gastrointestinal Gastrointestinal: diarrhea, nausea, vomiting - Musculoskeletal Musculoskeletal ROS IM: no numbness, no tingling - Integumentary Integumentary IM: no rash, no unusual bruising - Neurological Neurological ROS: no confusion, no convulsions, no focal weakness, no numbness, no tingling, no tremor(s) - Constitutional Vitals: Temp Pulse Resp BP Pulse Ox 98.1 F 109 20 180/124 98 11/01/17 09:41 11/01/17 09:41 11/01/17 09:41 11/01/17 09:41 11/01/17 09:41 - Eye Eye exam: Present: PERRL, conjuntiva pink, sclera anicteric Pupils: Present: PERRL - Neck Neck exam general surgery: Present: supple, trachea midline. Absent: lymphadenopathy - Respiratory Respiratory exam: Present: CTAB. Absent: accessory muscle use, rales, rhonchi, wheezes - Cardiovascular Cardiovascular exam: Present: RRR, +S1, +S2. Absent: diastolic murmur, gallop, rubs, systolic murmur - GI/Abdominal GI/Abdominal exam: Present: normal bowel sounds, soft, no peritoneal signs. Absent: distended, tenderness - Extremities Exam Extremities exam: Present: warm, radial pulses palpable and symmetrical. Absent : calf tenderness, cyanotic, pedal edema Internal Med - H&P Results - Labs CBC & Chem 7: 11/01/17 09:55 11/01/17 09:55 Labs: Short CBC 11/01/17 Range/Units 09:55 WBC 11.0 (4.3-11.1) K/mcL Hgb 11.5 L (12.9-16.9) g/dL Hct 33.8 L (37.5-50.1) % Plt Count 267 (140-400) K/mcL Neutrophils # 9.6 H (1.6-8.9) K/mcL BMP 11/01/17 09:55 Sodium 141 Potassium 4.2 Chloride 105 Carbon Dioxide 23 BUN 72 H Creatinine 6.35 H Glucose 517 H* Calcium 8.9 Cardiac Enzymes 11/01/17 Range/Units 09:55 Troponin I 0.14 H* (0-0.03) ng/mL Urine 11/01/17 Range/Units 10:11 Urine Color Yellow (Yellow) Urine Clarity Clear (Clear) Urine pH 6.5 (5.0-8.0) pH Units Ur Specific [place] 1.019 (1.010-1.025) Urine Protein 100 H (Neg-Trace) mg/dL Urine Glucose (UA) >=1000 H (Normal) mg/dL - ABG Interpretation ABG results: 11/01/17 10:07 VBG pH 7.36 VBG pCO2 44 VBG pO2 47 VBG HCO3 25 - Impressions ITS Impressions Chest X-Ray 11/01/17 09:38 IMPRESSION: Stable hyperinflation suggesting COPD. No acute pneumonia. D/ / 11/01/2017 10:39:49 Gregg Morley MD / lamar Interpreting Provider: Gregg Morley MD
[2017-11-01] MEDS ORDERED: Naloxone 0.4 MG/ML INJ IVP PRN (12:22)
[2017-11-01] MEDS ORDERED: Ondansetron 4 MG/2 ML VIAL IVP PRN (12:22)
[2017-11-01] MEDS ORDERED: Dextrose Gel 15 GM PO PRN ×2 (12:28)
[2017-11-01] MEDS ORDERED: D5% in Water 1,000 ML IVC PRN (12:28)
[2017-11-01] MEDS ORDERED: *HR* Dextrose 50 % in Water (Syg) 50 ML SYRINGE IVP PRN (12:28)
[2017-11-01] MEDS ORDERED: 0.9 % Sodium Chloride 1,000 ML IVC SCH (12:30)
[2017-11-01] MEDS: amLODIPine 5 MG TABLET PO SCH (16:42)
[2017-11-01] MEDS: cloNIDine HCl 0.1 MG TABLET PO SCH ×2 (16:43→21:52)
[2017-11-01] MEDS: Insulin LISPRO 300 UNITS/3 ML VIAL SQ SCH (16:44)
[2017-11-01] MEDS: Calcium Acetate 667 MG CAPSULE PO SCH ×2 (16:46→21:55)
[2017-11-01 17:15] LABS: Hepatitis B Surface Antigen Nonreactive (Nonreactive)
[2017-11-01] MEDS ORDERED: Perit. Dialysis with Dex 1.5 % 12,000 ML PERITONEAL ONE (18:25)
[2017-11-01] MEDS ORDERED: Insulin LISPRO 300 UNITS/3 ML VIAL SQ SCH (21:00)
[2017-11-02] MEDS: Calcium Acetate 667 MG CAPSULE PO SCH ×3 (00:18→17:04)
[2017-11-02 06:07] LABS: Basophils # 0.1 K/mcL (0.0-0.2); Basophils % 1.1 %; Eosinophils # 0.3 K/mcL (0.0-0.6); Eosinophils % 2.8 %; Hematocrit 29.3 % (37.5-50.1); Immature Granulocytes % 0.2 % (0-4); Lymphocytes # 1.4 K/mcL (0.6-4.6); Lymphocytes % 15.6 %; Mean Corpuscular HGB Conc 32.4 g/dL (31.6-35.5); Mean Corpuscular Hemoglobin 27.9 pg (28.0-33.3); Mean Corpuscular Volume 86.2 fL (83.0-100.0); Mean Platelet Volume 9.3 fL (9.4-12.4); Monocytes # 0.6 K/mcL (0.0-1.3); Monocytes % 7.1 %; Neutrophils # 6.4 K/mcL (1.6-8.9); Platelet Count 233 K/mcL (140-400); Red Cell Distribution Width 12.8 % (11.5-14.5); Segmented Neutrophils % 73.2 %
[2017-11-02 06:08] LABS: Hemoglobin 9.5 g/dL (12.9-16.9)
[2017-11-02] MEDS: Lisinopril 20 MG TABLET PO SCH (07:35)
[2017-11-02] MEDS: Insulin LISPRO 300 UNITS/3 ML VIAL SQ SCH ×5 (07:35→17:05)
[2017-11-02] MEDS: amLODIPine 5 MG TABLET PO SCH ×2 (07:35→07:44)
[2017-11-02] MEDS: cloNIDine HCl 0.1 MG TABLET PO SCH ×3 (07:35→21:20)
[2017-11-02] MEDS ORDERED: Calcium Acetate 667 MG CAPSULE PO PRN (08:15)
[2017-11-02 08:36] LABS: Calcium 8.7 mg/dL (8.6-10.8); Magnesium 1.6 mg/dL (1.6-2.6); Phosphorous 4.2 mg/dL (2.3-4.7); Potassium 3.9 mEq/L (3.5-4.5)
[2017-11-02] MEDS ORDERED: Multivit/Ca/Min/Fe/FA 1 TAB TABLET PO SCH (09:00)
--- NOTE | 2017-11-02 10:33 | Nephrology Consult Note ---
Date of Encounter: 11/02/17 Time of Encounter: 10:30 Assessment and Plan (1) End stage renal disease Current Visit: Yes Status: Chronic Secondary to hypertension and type 1 diabetes. Currently on peritoneal dialysis. We will continue peritoneal dialysis nightly, using 10 hour treatments while in the hospital. Would recommend monitoring daily weights to evaluate the patient's fluid status daily. His hemoglobin was slightly below goal at 9.5 today. Hemoglobin goal is 10-11 in end-stage renal disease therefore we will give Aranesp 40 mg today. PD fluid is clear and he does not have any abdominal pain or signs of peritonitis which is reassuring. (2) Hyperglycemia Current Visit: Yes Status: Acute Sugar elevated on presentation on 517. Does not appear to be in DKA. Could be complicated by peritoneal dialysis as the dialysis fluid contains dextrose. If patient has recurrent episodes of hyperglycemia requiring hospitalization he may need to be transitioned to hemodialysis in the future. Further inpatient management per primary. We would recommend a close follow-up with his perianesthesia nurse as an outpatient. (3) Nausea & vomiting Current Visit: No Status: Resolved Qualifiers: Vomiting type: bilious vomiting Qualified Code(s): R11.14 - Bilious vomiting (4) Hypertension Current Visit: No Status: Chronic Qualifiers: Hypertension type: unspecified Qualified Code(s): I10 - Essential (primary ) hypertension (5) Elevated troponin Current Visit: Yes Status: Acute History of Present Illness - Reason for Consult Consult date: 11/02/17 end stage renal disease Requesting physician: Kade Rossi - Chief Complaint Hyperglycemia/N/V - History of Present Illness Patient is a 62-year-old male with history of type 1 diabetes and end-stage renal disease on chronic peritoneal dialysis who presents with hyperglycemia and nausea and vomiting. Patient states that he was checking his blood sugars at home and noticed that they were extremely elevated, in the 500s. He entered this number into his insulin pump and gave himself the recommended coverage however this only brought down his sugar by a couple points. He began to be nauseous and had episodes of vomiting and felt like he was going into DKA so he came to the hospital. He states he has been doing his peritoneal dialysis nightly and has not used the higher dextrose containing solution. He denies fever, chills, abdominal pain, diarrhea, chest pain, shortness of breath, increased lower extremity swelling. He states his insulin pump has been functioning normally. Past Med Surg Social Fam HX - Past Medical History Medical history: diabetes, dialysis, renal disease, other Psychiatric history: no psych history - Past Surgical History Surgical History: no surgical history - Social History Smoking Status: Former smoker Smokeless Tobacco Status: No Alcohol use: none Drug use: none - Family History Mother Living Status: Hx Family Cancer: Yes (Leukemia; patient unsure which type) Father Living Status: Hx Family Endocrine Disorder: Yes (DMI) Medications and Allergies Calcitriol [Rocaltrol] 0.25 mcg PO QAM 09/20/17 [History] cloNIDine HCl [Clonidine HCl] 0.3 mg PO TID 09/20/17 [History] Calcium Acetate [Phos-LO] 1 cap PO 5XD 11/01/17 [History] Folic Acid/Vit Bcomp,C [Dialyvite Tablet] 1 tab PO DAILY 11/01/17 [History] Insulin ASPART [NovoLOG] 30 units SQ DAILY 11/01/17 [History] Lisinopril [Zestril] 20 mg PO DAILY 11/01/17 [History] 3 Allergy/AdvReac Type Severity Reaction Status Date / Time Sulfa (Sulfonamide Allergy See Verified 11/01/17 12:13 Antibiotics) Comments Review of Systems Constitutional: no chills, no fever(s) Nose, mouth and throat: no dizziness Cardiovascular: no chest pain, no pedal edema Respiratory: no cough, no wheezing Gastrointestinal: nausea, vomiting, no abdominal pain, no diarrhea Genitourinary Male: no urinary frequency Musculoskeletal: no numbness, no tingling Integumentary: no rash, no swelling Neurological: no confusion, no dizziness Exam - Vital Signs Vital signs: Initial Vital Signs Pulse Ox 98 11/01/17 09:37 Vital Signs - Last 8 Hours Temp Pulse Resp BP Pulse Ox 11/02/17 08:50 97.5 F L 15 113/62 11/02/17 07:31 97.9 F 63 17 172/69 96 11/02/17 04:18 98.0 F 65 16 174/77 98 Intake and Output 11/01/17 11/02/17 11/02/17 23:59 07:59 15:59 Intake Total 120 / 120 Balance 120 / 120 Intake: Oral 120 / 120 Other: Meal Breakfast Percent of Meal Consumed 100% Weight 57.663 kg 58.3 kg 58.3 kg Blood Glucose* 279 393 Patient Weight 11/02/17 23:59 Weight 58.3 kg - General Appearance General appearance: well-developed, well-nourished, appears started age EENT: ATNC, PERRL, mucous membranes moist Neck: supple Respiratory: clear Cardiology: no murmurs, no rub, no gallops, no edema, regular rate, regular rhythm, normal S1, normal S2 - Dialysis Access Additional Comments: Peritoneal dialysis catheter present Gastrointestinal: normoactive bowel sounds, no tenderness, no guarding Additional Comments: PD catheter present in the left lower quadrant. No erythema or drainage noted. PD catheter fluid is clear. Integumentary: no rash, warm and dry Neurologic: no focal deficit, alert and oriented x3 Musculoskeletal: no erythema, no cyanosis, no clubbing Psychiatric: mood/affect appropriate Results - Lab Results 11/02/17 05:58 11/02/17 08:14 Most recent lab results Calcium 8.7 mg/dL (8.6-10.8) 11/02/17 08:14 Phosphorus 4.2 mg/dL (2.3-4.7) 11/02/17 08:14 Magnesium 1.6 mg/dL (1.6-2.6) 11/02/17 08:14 Consult Discharge Plan - Plan Referrals: Hui Salazar MD [Primary Care Provider] -
[2017-11-02] MEDS: Insulin DETEMIR 100 UNIT/ML X5UNITS SQ SCH (11:53)
[2017-11-02] MEDS: Renal Vitamin 1 MG CAPSULE PO SCH (11:53)
--- NOTE | 2017-11-02 15:22 | Internal Med Progress Note ---
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 application developer insulin use: with senior java web application developer use Qualified Code(s): E11.65 - Type 2 diabetes mellitus with hyperglycemia; Z79.4 - senior living (current) use of insulin; Z79.4 - grip wrapper ( current) use of insulin; Z79.4 - senior living (current) use of insulin; Z79.4 - senior living (current) use of insulin (2) End stage renal disease on dialysis Current Visit: Yes Status: Acute Assessment and plan: nephrology on board and consultation appreciated continue peritoneal dialysis as per nephro (3) DVT prophylaxis Current Visit: No Status: Acute Assessment and plan: Heparin SQ (4) Elevated troponin Current Visit: Yes Status: Acute Assessment and plan: demand ischemia in the setting of ESRD tni trending down no chest pain reported (5) Nausea & vomiting Current Visit: No Status: Resolved Qualifiers: Vomiting type: bilious vomiting Qualified Code(s): R11.14 - Bilious vomiting (6) Hypertension Current Visit: No Status: Chronic Assessment and plan: BP within acceptable range continue home meds Qualifiers: Hypertension type: essential hypertension Qualified Code(s): I10 - Essential (primary) hypertension - Subjective Interval history: Patient seen and examined at bedside. Resting in bed and reports of feeling better compared to previous day. denies any nausea and vomiting at this time. Hyperglycemia persists but improved since admission Started pt on Levemir and humalog in addition to the high dose sliding scale insulin algorithm - Constitutional Vitals: Temp Pulse Resp BP Pulse Ox 97.9 F 58 17 130/55 99 11/02/17 11:15 11/02/17 11:15 11/02/17 11:15 11/02/17 11:15 11/02/17 11:15 General appearance: Present: cooperative, A&O X 3, pleasant, no acute distress, underweight, answers questions appropriately - Head Head exam: Present: atraumatic, normocephalic - Eye Eye exam: Present: conjuntiva pink, sclera anicteric - Respiratory Respiratory exam: Present: CTAB. Absent: respiratory distress, wheezes - Cardiovascular Cardiovascular exam: Present: RRR, +S1, +S2. Absent: diastolic murmur, gallop, rubs, systolic murmur - GI/Abdominal GI/Abdominal exam: Present: normal bowel sounds, soft, no peritoneal signs. Absent: distended, tenderness - Extremities Exam Extremities exam: Present: warm, radial pulses palpable and symmetrical. Absent : calf tenderness, cyanotic, pedal edema - Neurological Exam Neurological exam: Present: alert, oriented X3 - Psychiatric Psychiatric exam: Present: normal affect, normal mood Internal Medicine: Result - Labs CBC & Chem 7: 11/02/17 05:58 11/02/17 08:14 Labs: Short CBC 11/02/17 Range/Units 05:58 WBC 8.8 (4.3-11.1) K/mcL Hgb 9.5 L D (12.9-16.9) g/dL Hct 29.3 L (37.5-50.1) % Plt Count 233 (140-400) K/mcL Neutrophils # 6.4 (1.6-8.9) K/mcL BMP 11/02/17 08:14 Sodium 139 Potassium 3.9 Chloride 107 Carbon Dioxide 19 BUN 65 H Creatinine 5.96 H Glucose 468 H Calcium 8.7 Cardiac Enzymes 11/02/17 Range/Units 08:14 Troponin I 0.06 H* (0-0.03) ng/mL Consult Discharge Plan - Plan Referrals: Hui Salazar MD [Primary Care Provider] -
--- NOTE | 2017-11-02 16:13 | Electrocardiograph Report ---
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
[2017-11-02] MEDS: *HR* Heparin 5,000 UNIT/ML VIAL SQ SCH (17:04)
[2017-11-02] MEDS ORDERED: Insulin LISPRO 300 UNITS/3 ML VIAL SQ SCH (21:00)
[2017-11-02] MEDS ORDERED: Perit. Dialysis with Dex 1.5 % 12,000 ML PERITONEAL ONE (22:07)
[2017-11-03 05:08] LABS: Basophils # 0.1 K/mcL (0.0-0.2); Eosinophils # 0.4 K/mcL (0.0-0.6); Eosinophils % 4.1 %; Hematocrit 27.9 % (37.5-50.1); Hemoglobin 9.3 g/dL (12.9-16.9); Immature Granulocytes % 0.3 % (0-4); Lymphocytes # 1.7 K/mcL (0.6-4.6); Lymphocytes % 18.9 %; Mean Corpuscular HGB Conc 33.3 g/dL (31.6-35.5); Mean Corpuscular Hemoglobin 27.9 pg (28.0-33.3); Mean Corpuscular Volume 83.8 fL (83.0-100.0); Mean Platelet Volume 9.2 fL (9.4-12.4); Monocytes # 0.6 K/mcL (0.0-1.3); Monocytes % 7.3 %; Neutrophils # 5.9 K/mcL (1.6-8.9); Platelet Count 237 K/mcL (140-400); Red Blood Count 3.33 M/mcL (4.19-5.50); Red Cell Distribution Width 12.7 % (11.5-14.5); Segmented Neutrophils % 68.4 %
[2017-11-03 05:25] LABS: Calcium 8.4 mg/dL (8.6-10.3); Magnesium 1.8 mg/dL (1.6-2.6); Potassium 3.9 mEq/L (3.5-5.1)
[2017-11-03] MEDS: *HR* Heparin 5,000 UNIT/ML VIAL SQ SCH (05:32)
[2017-11-03] MEDS: Insulin LISPRO 300 UNITS/3 ML VIAL SQ SCH ×6 (09:03→17:18)
[2017-11-03] MEDS: Lisinopril 20 MG TABLET PO SCH (09:04)
[2017-11-03] MEDS: Insulin DETEMIR 100 UNIT/ML X5UNITS SQ SCH (09:04)
[2017-11-03] MEDS: amLODIPine 5 MG TABLET PO SCH (09:04)
[2017-11-03] MEDS: Renal Vitamin 1 MG CAPSULE PO SCH (09:05)
[2017-11-03] MEDS: cloNIDine HCl 0.1 MG TABLET PO SCH ×2 (09:05→15:11)
[2017-11-03] MEDS: Calcium Acetate 667 MG CAPSULE PO SCH ×3 (09:05→17:17)
--- NOTE | 2017-11-03 10:38 | Discharge Summary ---
Date of Encounter: 11/03/17 Time of Encounter: 10:20 - Discharge Diagnosis (1) Uncontrolled diabetes mellitus with hyperglycemia Priority: Primary Status: Acute Qualifiers: Diabetes mellitus type: type 2 Diabetes mellitus senior care insulin use: with intermodal dispatcher use Qualified Code(s): E11.65 - Type 2 diabetes mellitus with hyperglycemia; Z79.4 - medical terminologist (current) use of insulin; Z79.4 - medical terminologist ( current) use of insulin; Z79.4 - medical terminologist (current) use of insulin; Z79.4 - medical terminologist (current) use of insulin (2) End stage renal disease on dialysis Priority: Secondary Status: Chronic (3) DVT prophylaxis Priority: Secondary Status: Acute (4) Elevated troponin Priority: Secondary Status: Acute (5) Nausea & vomiting Priority: Primary Status: Resolved Qualifiers: Vomiting type: bilious vomiting Qualified Code(s): R11.14 - Bilious vomiting (6) Hypertension Priority: Secondary Status: Chronic Qualifiers: Hypertension type: essential hypertension Qualified Code(s): I10 - Essential (primary) hypertension - Discharge Medications Prescriptions: NIFEdipine XL (24 HR) [Procardia XL] 30 mg PO DAILY #30 tab.er.24 Home Medications: Calcitriol [Rocaltrol] 0.25 mcg PO QAM 09/20/17 [History] cloNIDine HCl [Clonidine HCl] 0.3 mg PO TID 09/20/17 [History] Calcium Acetate [Phos-LO] 1 cap PO 5XD 11/01/17 [History] Folic Acid/Vit Bcomp,C [Dialyvite Tablet] 1 tab PO DAILY 11/01/17 [History] Insulin ASPART [NovoLOG] 30 units SQ DAILY 11/01/17 [History] Lisinopril [Zestril] 20 mg PO DAILY 11/01/17 [History] NIFEdipine XL (24 HR) [Procardia XL] 30 mg PO DAILY #30 tab.er.24 11/03/17 [Rx] Allergies/Adverse Reactions: 3 Allergy/AdvReac Type Severity Reaction Status Date / Time Sulfa (Sulfonamide Allergy See Verified 11/01/17 12:13 Antibiotics) Comments Date of admission: 11/01/17 15:06 Primary care physician: Hui Salazar, Consults: 11/01/17 16:03 Consult to Nephrology [CONS] Routine Consulting Provider: Kidney Sade/ORIMI/DEBBIE/TINO Reason for Consult: PD patient Time Notified: 16:03 Call Completed: Yes 11/01/17 18:30 Consult to Dialysis [CONS] ONCE 11/02/17 22:15 Consult to Dialysis [CONS] ONCE Discharging clinician: Tamia Aceves Anticipated date of discharge: 11/03/17 - Patient Status Disposition: Home, Self-Care Condition: Good Functional capacity at discharge: independent ambulation Overall status at discharge: patient is back to baseline - Discharge Instructions Follow Up With: Hui Salazar MD [Primary Care Provider] - Additional Instructions: Please follow up with your primary care physician and right of way clearer within five days after your discharge from the hospital. Ask your right of way clearer about starting basal insulin coverage with premeal coverage instead of your insulin pump Nifedipine 30mg once a day has been added to your home medications Closely monitor your blood pressure and fingerstick glucose at home. Resume all other medications as prescribed by your primary care physician. - Diet and Activity Activity: resume usual activities as tolerated Diet: diabetic diet, low salt diet Hospital course: Mr. Kovacs is a 62 year old male with uncontrolled hypertension, uncontrolled diabetes, ESRD on peritoneal dialysis who was admitted for hyperglycemia, nausea , and vomiting. He was started on insulin therapy to which he responded appropriately. He reported of taking insulin via insulin pump at home which was held during this hospitalization. He was started on basal and premeal coverage in addition to the sliding scale insulin coverage. His blood glucose was better controlled. Pt's BP remained uncontrolled as he continued to refuse taking his Norvasc dose. He states at home his systolic pressure runs in the 200s and he is content with a SBP of 170. He has been rude and hostile to the medical and nursing staff. Cursing and screaming at them and refusing his blood pressure medications. He states he is not going to take the Norvasc because it made him lightheaded, but after extensive discussion, is agreeing to try another antihypertensive agent. He will be discharged to home once his BP is stable outpatient follow up with endocrinology, pcp, and nephrology - Time Spent with Patient Total time spent providing and/or coordinating discharge services: Greater than 30 minutes - Constitutional Vitals: Temp Pulse Resp BP Pulse Ox 98.0 F 66 16 171/72 97 11/03/17 06:55 11/03/17 06:55 11/03/17 06:55 11/03/17 06:55 11/03/17 06:55 General appearance: Present: A&O X 3, no acute distress, underweight, answers questions appropriately. Absent: cooperative, pleasant - Head Head exam: Present: atraumatic, normocephalic - Eye Eye exam: Present: conjuntiva pink, sclera anicteric - Respiratory Respiratory exam: Present: CTAB. Absent: accessory muscle use, rales, rhonchi, wheezes - Cardiovascular Cardiovascular exam: Present: RRR, +S1, +S2. Absent: diastolic murmur, gallop, rubs, systolic murmur - GI/Abdominal GI/Abdominal exam: Present: normal bowel sounds, soft, no peritoneal signs. Absent: distended, tenderness - Extremities Exam Extremities exam: Present: warm, radial pulses palpable and symmetrical. Absent : calf tenderness, cyanotic, pedal edema - Neurological Exam Neurological exam: Present: alert, oriented X3
--- NOTE | 2017-11-03 10:39 | Nephrology Progress Note ---
Date of Encounter: 11/03/17 Time of Encounter: 10:39 - Assessment and Plan (1) End stage renal disease Current Visit: Yes Status: Chronic Secondary to long-standing diabetes. Patient undergoes peritoneal dialysis nightly at home. Patient could should continue his regular peritoneal dialysis at home with his home equipment. If the patient continues to have recurrent hyperglycemic episodes requiring hospitalization he may need to be transitioned to hemodialysis. Recommend close follow-up with his manager lpn for further insulin adjustments. As for his hypertension which has been elevated, patient has refused to take amlodipine. Discussed with the patient in discussed the possibility of using nifedipine. This appears to be started by the hospitalist which is reasonable. Will follow up as an outpatient and adjust as needed. Hemoglobin is 9.3 today, likely related to anemia of chronic kidney disease. Will give a one-time dose of Aranesp 40 g. (2) Hyperglycemia Current Visit: Yes Status: Acute (3) Nausea & vomiting Current Visit: No Status: Resolved Qualifiers: Vomiting type: bilious vomiting Qualified Code(s): R11.14 - Bilious vomiting (4) Hypertension Current Visit: No Status: Chronic Qualifiers: Hypertension type: essential hypertension Qualified Code(s): I10 - Essential (primary) hypertension (5) Elevated troponin Current Visit: Yes Status: Acute (6) Anemia Current Visit: Yes Status: Acute Qualifiers: Anemia type: due to chronic kidney disease Chronic kidney disease stage: on chronic dialysis Qualified Code(s): N18.6 - End stage renal disease; D63.1 - Anemia in chronic kidney disease; D63.1 - Anemia in chronic kidney disease; Z99.2 - Dependence on renal dialysis; Z99.2 - Dependence on renal dialysis; Z99.2 - Dependence on renal dialysis; Z99.2 - Dependence on renal dialysis Subjective Principal diagnosis: Hyperglycemia Interval history: Patient seen and examined at bedside. Patient states that he feels good today. He feels like he is back to normal. He has no complaints of fever, chills, abdominal pain, nausea, vomiting. He completed his peritoneal dialysis session overnight without complications. Objective - Vital Signs Vital signs: Vital Signs Temp Pulse Resp BP Pulse Ox 11/03/17 06:55 98.0 F 66 16 171/72 97 11/03/17 04:26 97.9 F 56 16 151/64 98 11/02/17 23:40 97.6 F 56 16 171/69 90 11/02/17 23:00 97.6 F 17 170/78 11/02/17 20:28 97.3 F L 59 15 129/69 99 11/02/17 16:41 98.1 F 57 17 162/75 100 11/02/17 11:15 97.9 F 58 17 130/55 99 Intake and Output 11/02/17 11/03/17 11/03/17 23:59 07:59 15:59 Intake Total 120 / 120 50 / 50 Output Total 800 / 800 0 / 0 0 / 0 Balance -680 / -680 0 / 0 50 / 50 Intake: Oral 120 / 120 50 / 50 Output: Urine 800 / 800 0 / 0 0 / 0 Other: Meal Dinner Percent of Meal Consumed 100% # Voids 0 Weight 58.3 kg 58 kg Blood Glucose* 92 299 Patient Weight 11/03/17 23:59 Weight 58 kg - General Appearance General appearance: Present: well-developed, well-nourished, appears started age EENT: Present: ATNC, PERRL, mucous membranes moist Neck: Present: supple Respiratory: Present: clear Cardiology: Present: no edema, regular rate, regular rhythm Additional Comments: PD catheter present in the left lower quadrant. Very minimal erythema surrounding PD catheter site. No drainage noted Gastrointestinal: Present: normoactive bowel sounds, no tenderness, no guarding , no organomegaly, no masses Integumentary: Present: no rash, warm and dry Neurologic: Present: no focal deficit, alert and oriented x3 Musculoskeletal: Present: no deformities, no erythema, no cyanosis - Lab 11/03/17 04:51 11/03/17 04:51 Most recent lab results Calcium 8.4 mg/dL (8.6-10.3) L 11/03/17 04:51 Phosphorus 5.0 mg/dL (2.7-4.5) H 11/03/17 04:51 Magnesium 1.8 mg/dL (1.6-2.6) 11/03/17 04:51 Consult Discharge Plan - Plan Additional Instructions: Please follow up with your primary care physician and manager lpn within five days after your discharge from the hospital. Ask your manager lpn about starting basal insulin coverage with premeal coverage instead of your insulin pump Nifedipine 30mg once a day has been added to your home medications Closely monitor your blood pressure and fingerstick glucose at home. Resume all other medications as prescribed by your primary care physician. Referrals: Hui Salazar MD [Primary Care Provider] - Prescriptions: NIFEdipine XL (24 HR) [Procardia XL] 30 mg PO DAILY #30 tab.er.24
[2017-11-03] MEDS ORDERED: NIFEdipine XL (24 HR) 30 MG TAB.ER.24 PO SCH (10:45)
[2017-11-03] MEDS ORDERED: Insulin DETEMIR 100 UNIT/ML X5UNITS SQ ONE (11:21)
[2017-11-03 16:14] VITALS: BP 156/61
[2017-11-04] MEDS ORDERED: Insulin DETEMIR 100 UNIT/ML X5UNITS SQ SCH (09:00)
== END 2017-11-03 18:16 | disposition home or self-care (01) ==
LOC: 2ANU 09:31 → EMEROO 09:31 → 2ANU 15:46
PROVIDERS: ADMIT Internal Medicine; ATTEND Internal Medicine

== ENCOUNTER 2017-12-26 10:32 | Inpatient (IN) ==
[2017-12-26] MEDS ORDERED: Ondansetron 4 MG/2 ML VIAL IVP ONE (10:37)
[2017-12-26] MEDS ORDERED: 0.9 % Sodium Chloride 1,000 ML IVC ONE (10:37)
--- NOTE | 2017-12-26 10:37 | Emergency Department Note ---
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 Kovacs, a 62yo male, presents from home via EMS for every 24 history of nausea and vomiting. Patient is unable to tolerate any by mouth intake including his medications. History of type 1 diabetes on insulin pump and end- stage renal disease on dialysis Wednesday; he has not missed any dialysis. Patient does have a history of DKA while on the insulin pump however he states this does not feel the same. Patient is on dialysis. First dialysis was Wednesday. He has been hypertensive, nauseaus, and vomiting since. Nephrology: Dr. Ceja ROS: Positive: As above Negative: Fever, chills, chest pains, palpitations, dyspnea, cough, congestion, headache, abdominal pain, changes in bowel or bladder, no skin lesions - Related Data Home Medications Medication Instructions Recorded Confirmed Calcitriol [Rocaltrol] 0.25 mcg PO QAM 09/20/17 12/26/17 cloNIDine HCl [Clonidine HCl] 0.3 mg PO TID 09/20/17 12/26/17 Calcium Acetate [Phos-LO] 1 cap PO 5XD 11/01/17 12/26/17 Folic Acid/Vit Bcomp,C [Dialyvite 1 tab PO DAILY 11/01/17 12/26/17 Tablet] Lisinopril [Zestril] 20 mg PO DAILY 11/01/17 12/26/17 Subcutaneous Insulin Pump [T:Slim] 30 unit SQ DAILY 11/24/17 12/26/17 Atorvastatin [Lipitor] 40 mg PO HS 12/26/17 12/26/17 Previous Rx's Medication Instructions Recorded OxyCODONE/APAP 5/325 [Percocet 1 each PO Q6HR PRN #14 tablet 11/24/17 5/325 MG] Allergies Allergy/AdvReac Type Severity Reaction Status Date / Time Sulfa (Sulfonamide Allergy See Verified 11/24/17 12:35 Antibiotics) Comments All systems ED: reviewed and negative except as stated. Review of Systems: As Per HPI Past Medical History - Past Medical History Medical history: Reports: diabetes, dialysis, renal disease, other Surgical history: Reports: herniorrhaphy Psychiatric history: Reports: no psych history - Social History Smoking Status: Former smoker Smokeless Tobacco Status: No Alcohol use: Reports: none Drug use: Reports: none Physical Exam Vital Signs Reviewed General: Patient is alert, oriented, and in no acute distress. He appears thin and frail. Head: atraumatic, normocephalic Eye: normal appearance, PERRL, EOMI, no scleral icterus, no conjunctival injection ENT: mucous membranes are dry, normal external ear exam Neck: normal inspection, trachea midline, full ROM Chest: normal inspection, symmetric chest rise Respiratory: Good respiratory effort. Bilateral breath sounds are clear without wheezing, crackles, or rhonchi. Cardiovascular: Regular rate and rhythm. No clicks, rubs, gallops, or murmors. Normal heart sounds. Abdomen: Scaphoid. Bowel sounds present normoactive x-4 quadrants. Abdomen is soft, nondistended, and nontender. No guarding or rebound. No organomegaly noted. Musculoskeletal: Spontaneously moving all extremities. Skin: warm, dry, intact. Neuro: Alert and oriented x4. Sensation light touch intact. Psych: Patient's affect is appropriate for situation. Course Course Narrative: Patient is hypertensive on intake however has no caution to sternal symptoms besides nausea and vomiting. Will attempt to improve his nausea and provide his home medications which she is missed for the past 24 hours. Patient's nausea has improved with IV antiemetic. Will provide his by mouth medications. Patient no longer takes nifedipine. Patient has serum ketones however he is not in DKA; he is not acidotic. Patient has elevated troponin of 0.09 however this is consistent with his baseline in the context of his end-stage renal disease. He has no chest pain and no ischemic changes on EKG. I discussed the patient with his family and consumer education teacher, Dr. Ceja. He is in agreement with admission to the hospitalist with nephrology following. Plan is for hemodialysis tomorrow with evaluation for persistent nausea and vomiting. Patient was previously on peritoneal dialysis however, given his type 1 diabetes , he was repeatedly pushed into DKA by the dextrose containing peritoneal dialysis mixture. As such, he has needed to be transitioned to hemodialysis. Discussed the above with the admitting hospitalist who agrees to accept the patient for continued evaluation and management. Vital Signs Temperature 98.5 F 12/26/17 10:34 Pulse Rate 118 12/26/17 10:34 Respiratory Rate 18 12/26/17 10:34 Blood Pressure 170/110 12/26/17 10:34 O2 Sat by Pulse Oximetry 98 12/26/17 10:34 Temperature 98.1 F 12/26/17 20:35 Pulse Rate 81 12/26/17 20:35 Respiratory Rate 18 12/26/17 20:35 Blood Pressure 151/72 12/26/17 20:35 O2 Sat by Pulse Oximetry 98 12/26/17 20:35 Oxygen Delivery Oxygen Delivery Room Air Nausea/Vomiting/Diarrhea - Medical Records Medical records reviewed: Yes I reviewed the patient's medical records. - Lab Data Lab results reviewed: Yes I reviewed the patient's lab results. Result diagrams: 12/26/17 11:00 12/26/17 20:51 Lab Results 12/26/17 12/26/17 12/26/17 Range/Units 10:43 10:44 11:00 WBC 7.4 (4.3-11.1) K/mcL RBC 4.42 (4.19-5.50) M/mcL Hgb 12.3 L (12.9-16.9) g/dL Hct 37.4 L (37.5-50.1) % MCV 84.6 (83.0-100.0) fL MCH 27.8 L (28.0-33.3) pg MCHC 32.9 (31.6-35.5) g/dL RDW 12.5 (11.5-14.5) % Plt Count 264 (140-400) K/mcL MPV 9.0 L (9.4-12.4) fL Immature Gran % 0.3 (0-4) % Seg Neutrophils % 82.7 % Lymphocytes % 9.5 % Monocytes % 6.3 % Eosinophils % 0.4 % Basophils % 0.8 % Neutrophils # 6.2 (1.6-8.9) K/mcL Lymphocytes # 0.7 (0.6-4.6) K/mcL Monocytes # 0.5 (0.0-1.3) K/mcL Eosinophils # 0.0 (0.0-0.6) K/mcL Basophils # 0.1 (0.0-0.2) K/mcL VBG pH (7.32-7.42) pH Units VBG pCO2 (41-51) mmHg VBG pO2 (25-50) mmHg VBG HCO3 (21-27) mEq/L Sodium (136-145) mEq/L Potassium (3.5-5.1) mEq/L Chloride (98-107) mEq/L Carbon Dioxide (23-29) mEq/L BUN (8-23) mg/dL Creatinine (0.70-1.30) mg/dL Est GFR ( Amer) (> 60) Est GFR (Non-Af Amer) (> 60) BUN/Creatinine Ratio (6-26) Glucose (70-105) mg/dL POC Glucose 305 H 302 H (58-89) Calculated Osmolality (280-300) Calcium (8.6-10.3) mg/dL Total Bilirubin (0.3-1.0) mg/dL Direct Bilirubin (0.0-0.2) mg/dL Indirect Bilirubin (0.0-1.2) mg/dL AST (13-39) Units/L ALT (7-52) Units/L Alkaline Phosphatase (34-104) Units/L Troponin I (< 0.04) ng/mL Serum Total Protein (6.4-8.9) g/dL Albumin (3.5-5.7) g/dL Globulin (2.4-3.5) g/dL Albumin/Globulin Ratio (1.1-2.2) Lipase (11-82) Units/L Beta-Hydroxybutyric Acd (0.02-0.27) mmol/L Urine Color (Yellow) Urine Clarity (Clear) Urine pH (5.0-8.0) pH Units Ur Specific [place] (1.010-1.025) Urine Protein (Neg-Trace) mg/dL Urine Glucose (UA) (Normal) mg/dL Urine Ketones (Negative) mg/dL Urine Blood (Negative) Urine Nitrite (Negative) Urine Bilirubin (Negative) Urine Urobilinogen (Normal) mg/dL Ur Leukocyte Esterase (Negative) Urine Microscopic RBC (0-3) per hpf Urine Microscopic WBC (0-3) per hpf Ur Squamous Epith Cells (None-Few) per lpf Urine Bacteria (None-Few) per hpf Hyaline Casts (None-Few) per lpf Ur Culture Indicated? (NO) 12/26/17 12/26/17 12/26/17 Range/Units 11:00 11:00 11:00 WBC (4.3-11.1) K/mcL RBC (4.19-5.50) M/mcL Hgb (12.9-16.9) g/dL Hct (37.5-50.1) % MCV (83.0-100.0) fL MCH (28.0-33.3) pg MCHC (31.6-35.5) g/dL RDW (11.5-14.5) % Plt Count (140-400) K/mcL MPV (9.4-12.4) fL Immature Gran % (0-4) % Seg Neutrophils % % Lymphocytes % % Monocytes % % Eosinophils % % Basophils % % Neutrophils # (1.6-8.9) K/mcL Lymphocytes # (0.6-4.6) K/mcL Monocytes # (0.0-1.3) K/mcL Eosinophils # (0.0-0.6) K/mcL Basophils # (0.0-0.2) K/mcL VBG pH (7.32-7.42) pH Units VBG pCO2 (41-51) mmHg VBG pO2 (25-50) mmHg VBG HCO3 (21-27) mEq/L Sodium 142 (136-145) mEq/L Potassium 3.7 (3.5-5.1) mEq/L Chloride 102 (98-107) mEq/L Carbon Dioxide 25 (23-29) mEq/L BUN 50 H (8-23) mg/dL Creatinine 4.71 H (0.70-1.30) mg/dL Est GFR ( Amer) 15 L (> 60) Est GFR (Non-Af Amer) 13 L (> 60) BUN/Creatinine Ratio 11 (6-26) Glucose 310 H (70-105) mg/dL POC Glucose (58-89) Calculated Osmolality 319 H (280-300) Calcium 9.1 (8.6-10.3) mg/dL Total Bilirubin 0.5 (0.3-1.0) mg/dL Direct Bilirubin 0.1 (0.0-0.2) mg/dL Indirect Bilirubin 0.4 (0.0-1.2) mg/dL AST 17 (13-39) Units/L ALT 6 L (7-52) Units/L Alkaline Phosphatase 81 (34-104) Units/L Troponin I (< 0.04) ng/mL Serum Total Protein 6.6 (6.4-8.9) g/dL Albumin 3.6 (3.5-5.7) g/dL Globulin 3.0 (2.4-3.5) g/dL Albumin/Globulin Ratio 1.2 (1.1-2.2) Lipase 26 (11-82) Units/L Beta-Hydroxybutyric Acd > 2.00 H (0.02-0.27) mmol/L Urine Color (Yellow) Urine Clarity (Clear) Urine pH (5.0-8.0) pH Units Ur Specific [place] (1.010-1.025) Urine Protein (Neg-Trace) mg/dL Urine Glucose (UA) (Normal) mg/dL Urine Ketones (Negative) mg/dL Urine Blood (Negative) Urine Nitrite (Negative) Urine Bilirubin (Negative) Urine Urobilinogen (Normal) mg/dL Ur Leukocyte Esterase (Negative) Urine Microscopic RBC (0-3) per hpf Urine Microscopic WBC (0-3) per hpf Ur Squamous Epith Cells (None-Few) per lpf Urine Bacteria (None-Few) per hpf Hyaline Casts (None-Few) per lpf Ur Culture Indicated? (NO) 12/26/17 12/26/17 12/26/17 Range/Units 11:00 11:17 12:08 WBC (4.3-11.1) K/mcL RBC (4.19-5.50) M/mcL Hgb (12.9-16.9) g/dL Hct (37.5-50.1) % MCV (83.0-100.0) fL MCH (28.0-33.3) pg MCHC (31.6-35.5) g/dL RDW (11.5-14.5) % Plt Count (140-400) K/mcL MPV (9.4-12.4) fL Immature Gran % (0-4) % Seg Neutrophils % % Lymphocytes % % Monocytes % % Eosinophils % % Basophils % % Neutrophils # (1.6-8.9) K/mcL Lymphocytes # (0.6-4.6) K/mcL Monocytes # (0.0-1.3) K/mcL Eosinophils # (0.0-0.6) K/mcL Basophils # (0.0-0.2) K/mcL VBG pH 7.37 (7.32-7.42) pH Units VBG pCO2 46 (41-51) mmHg VBG pO2 46 (25-50) mmHg VBG HCO3 26 (21-27) mEq/L Sodium (136-145) mEq/L Potassium (3.5-5.1) mEq/L Chloride (98-107) mEq/L Carbon Dioxide (23-29) mEq/L BUN (8-23) mg/dL Creatinine (0.70-1.30) mg/dL Est GFR ( Amer) (> 60) Est GFR (Non-Af Amer) (> 60) BUN/Creatinine Ratio (6-26) Glucose (70-105) mg/dL POC Glucose (58-89) Calculated Osmolality (280-300) Calcium (8.6-10.3) mg/dL Total Bilirubin (0.3-1.0) mg/dL Direct Bilirubin (0.0-0.2) mg/dL Indirect Bilirubin (0.0-1.2) mg/dL AST (13-39) Units/L ALT (7-52) Units/L Alkaline Phosphatase (34-104) Units/L Troponin I 0.09 H* (< 0.04) ng/mL Serum Total Protein (6.4-8.9) g/dL Albumin (3.5-5.7) g/dL Globulin (2.4-3.5) g/dL Albumin/Globulin Ratio (1.1-2.2) Lipase (11-82) Units/L Beta-Hydroxybutyric Acd (0.02-0.27) mmol/L Urine Color Yellow (Yellow) Urine Clarity Clear (Clear) Urine pH 7.0 (5.0-8.0) pH Units Ur Specific [place] 1.015 (1.010-1.025) Urine Protein 100 H (Neg-Trace) mg/dL Urine Glucose (UA) >=1000 H (Normal) mg/dL Urine Ketones Trace H (Negative) mg/dL Urine Blood Trace H (Negative) Urine Nitrite Negative (Negative) Urine Bilirubin Negative (Negative) Urine Urobilinogen Normal (Normal) mg/dL Ur Leukocyte Esterase Negative (Negative) Urine Microscopic RBC 0-3 (0-3) per hpf Urine Microscopic WBC 0-3 (0-3) per hpf Ur Squamous Epith Cells Many H (None-Few) per lpf Urine Bacteria None Seen (None-Few) per hpf Hyaline Casts None Seen (None-Few) per lpf Ur Culture Indicated? NO (NO) - Radiology Data Radiology results reviewed: Yes I reviewed the patient's radiology results. - EKG Data EKG attestation: Yes I reviewed and interpreted this EKG. EKG results narrative: EKG dated 12/26/17 at 10:56 sinus rhythm with rate 97. Normal axis. Nonspecific ST-T changes. Compared to previous dated 11/01/2017 showing no acute ischemic changes comparison. Attestation Statement - Attestation Attestation: I examined this patient and my medical decision-making was reviewed with the Resident Physician, Dr. Vickers. I agree with the documented findings, disposition and treatment plan as described except to the extent set forth below. Patient is a 62-year-old white male, type I diabetic who just initiated hemodialysis for the first time on Wednesday. Patient arrives here due to elevated blood sugars and intractable nausea and vomiting. Patient reports that ever since his first dialysis treatment on Wednesday he has been feeling nauseated and having intermittent episodes of vomiting. Patient's been unable to tolerate his home meds or keep anything down by mouth. He denies any preceding illness, no upper respiratory symptoms cold or cough no diarrhea and no abdominal pain or cramping. 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 I agree with patient's physical exam findings as documented. Patient is hypertensive on arrival appears pale and dry mucous membranes and lips. Labs show hyperglycemia without acidosis but does have elevated beta hydroxybutyrate and ketones in the urine. Patient's blood pressure significantly elevated due to an inability to tolerate his home meds. Patient was started on IV fluids here and will watch blood sugar closely. We will treat patient's blood pressure with IV meds if necessary. Case was discussed with the hospitalist for admission for further evaluation and management of patient's symptoms.
[2017-12-26 11:12] LABS: Basophils # 0.1 K/mcL (0.0-0.2); Basophils % 0.8 %; Eosinophils % 0.4 %; Hematocrit 37.4 % (37.5-50.1); Hemoglobin 12.3 g/dL (12.9-16.9); Immature Granulocytes % 0.3 % (0-4); Lymphocytes # 0.7 K/mcL (0.6-4.6); Lymphocytes % 9.5 %; Mean Corpuscular HGB Conc 32.9 g/dL (31.6-35.5); Mean Corpuscular Hemoglobin 27.8 pg (28.0-33.3); Mean Corpuscular Volume 84.6 fL (83.0-100.0); Monocytes # 0.5 K/mcL (0.0-1.3); Monocytes % 6.3 %; Neutrophils # 6.2 K/mcL (1.6-8.9); Platelet Count 264 K/mcL (140-400); Red Blood Count 4.42 M/mcL (4.19-5.50); Red Cell Distribution Width 12.5 % (11.5-14.5); Segmented Neutrophils % 82.7 %
[2017-12-26 11:22] LABS: VBG HCO3 26 mEq/L (21-27); VBG PCO2 46 mmHg (41-51); VBG PH 7.37 pH Units (7.32-7.42); VBG PO2 46 mmHg (25-50)
[2017-12-26 11:33] LABS: Albumin 3.6 g/dL (3.5-5.7); Albumin/Globulin Ratio 1.2 (1.1-2.2); Bilirubin,Direct 0.1 mg/dL (0.0-0.2); Bilirubin,Indirect 0.4 mg/dL (0.0-1.2); Bilirubin,Total 0.5 mg/dL (0.3-1.0); Calcium 9.1 mg/dL (8.6-10.3); Potassium 3.7 mEq/L (3.5-5.1); Total Protein 6.6 g/dL (6.4-8.9)
[2017-12-26 12:16] LABS: Bilirubin,Urine Negative (Negative); Blood,Urine Trace (Negative); Clarity,Urine Clear (Clear); Color,Urine Yellow (Yellow); Glucose,Urine (UA) >=1000 mg/dL (Normal); Ketones,Urine Trace mg/dL (Negative); Leukocyte Esterase,Urine Negative (Negative); Nitrite,Urine Negative (Negative); Protein,Urine 100 mg/dL (Neg-Trace); Specific Gravity,Urine 1.015 (1.010-1.025); Urobilinogen,Urine Normal (Normal)
[2017-12-26 12:17] LABS: Bacteria,Urine None Seen per hpf (None-Few); Hyaline Casts,Urine None Seen per lpf (None-Few); RBC,Urine 0-3 per hpf (0-3); Squamous Epithelial Cell,Urine Many per lpf (None-Few); WBC,Urine 0-3 per hpf (0-3)
[2017-12-26] MEDS ORDERED: cloNIDine HCl 0.1 MG TABLET PO ONE ×2 (12:28)
[2017-12-26] MEDS ORDERED: Lisinopril 20 MG TABLET PO STA (12:29)
--- NOTE | 2017-12-26 16:25 | Internal Med History&Physical ---
Date of Encounter: 12/27/17 Time of Encounter: 16:25 Assessment and Plan (1) Intractable vomiting with nausea Current visit: Yes Status: Acute Phenergan and Zofran His N/V is now resolved AHe wants to eat so we will advance DM diet as tolerated Qualifiers: Vomiting type: unspecified Qualified Code(s): R11.2 - Nausea with vomiting , unspecified (2) Hyperglycemia due to type 1 diabetes mellitus Current visit: Yes Status: Acute He's not in DKA Started on Insulin drip protocol Pt's personal insulin pump removed He warns that he is a very brittle diabetic so a low starting dose will be employed. Cautiously hydrate (3) End stage renal disease on dialysis Current visit: No Status: Chronic Nephrology consulted for IP HD. He normally dialyses on Internal Medicine - H&P: HPI Chief complaint: N/V Admitted From: Emergency Dept Plans for Post Hospital Care: Home History of present illness: 62 year old Type-I DM patient a personal insulin pump who has ESRD and was recently started on HD 3 days ago. He has a new tunneled catheter placed last week. He presents with 3 days of intractable N/V and decreased PO intake. His BG is 500 but he's not in DKA. He was given Zofran and Phenergan and his nausea is improved. He's currently on an insulin drip. He states that he is a very brittle diabetic o a low dose was started initially. He was also found to have hypertensive urgency and is being given PRN Labetalol. He dialyses with DR. Ceja who has been called because he will need inpatient HD tommorow. He appears very dehydrated and because of concern for DKA is being given IVFs very cautiously with Labs. He has not had fever or chills. Past Med Surg Social Fam HX - Past Medical History Medical history: diabetes, dialysis, renal disease, other Psychiatric history: no psych history - Past Surgical History Surgical History: herniorrhaphy - Social History Smoking Status: Former smoker Smokeless Tobacco Status: No Alcohol use: none Drug use: none - Family History Mother Living Status: Hx Family Cancer: Yes (Leukemia; patient unsure which type) Father Living Status: Hx Family Endocrine Disorder: Yes (DMI) Internal Medicine - H&P: Meds Calcitriol [Rocaltrol] 0.25 mcg PO QAM 09/20/17 [History] cloNIDine HCl [Clonidine HCl] 0.3 mg PO TID 09/20/17 [History] Calcium Acetate [Phos-LO] 1 cap PO 5XD 11/01/17 [History] Folic Acid/Vit Bcomp,C [Dialyvite Tablet] 1 tab PO DAILY 11/01/17 [History] Lisinopril [Zestril] 20 mg PO DAILY 11/01/17 [History] OxyCODONE/APAP 5/325 [Percocet 5/325 MG] 1 each PO Q6HR PRN #14 tablet 11/24/17 [Rx] Subcutaneous Insulin Pump [T:Slim] 30 unit SQ DAILY 11/24/17 [History] Atorvastatin [Lipitor] 40 mg PO HS 12/26/17 [History] 3 Allergy/AdvReac Type Severity Reaction Status Date / Time Sulfa (Sulfonamide Allergy See Verified 11/24/17 12:35 Antibiotics) Comments All Systems PM: A 10-system review of systems was performed and is negative for pertinent findings except as documented above in the HPI. - Constitutional Constitutional: no anorexia, no excessive sweating, no lethargy, no weight gain - EENT Eyes: no blurry vision, no decreased night vision, no diplopia, no floaters, no itchy eyes, no photophobia, no tunnel vision - Breasts Breasts: no swelling - Cardiovascular Cardiovascular ROS IM: no chest pain, no claudication, no dyspnea on exertion, no palpitations - Genitourinary Genitourinary ROS male: no difficulty urinating, no flank pain, no hematuria, no nocturia - Musculoskeletal Musculoskeletal ROS IM: no arthralgias, no muscle weakness, no myalgias - Integumentary Integumentary IM: no new lesions, no rash, no skin ulcer, no jaundice - Neurological Neurological ROS: no abnormal hearing, no confusion, no focal weakness, no restless legs, no vertigo - Psychiatric Psychiatric: no anxiety, no behavioral changes, no depression, no suicidal ideation - Endocrine Endocrine IM: no cold intolerance, no polyuria - Constitutional Vitals: Temp Pulse Resp BP Pulse Ox 98.5 F 93 18 167/90 97 12/26/17 10:34 12/26/17 14:10 12/26/17 14:10 12/26/17 14:10 12/26/17 14:10 - Head Head exam: Present: atraumatic, normocephalic - Eye Eye exam: Present: EOMI, PERRL, conjuntiva pink, sclera anicteric Pupils: Present: PERRL, unequal - Neck Neck exam general surgery: Present: supple, trachea midline. Absent: lymphadenopathy, nuchal rigidity - Respiratory Respiratory exam: Present: CTAB. Absent: accessory muscle use, rales, rhonchi, wheezes - Cardiovascular Cardiovascular exam: Present: RRR, +S1, +S2. Absent: diastolic murmur, gallop, rubs, systolic murmur - GI/Abdominal GI/Abdominal exam: Present: normal bowel sounds, soft, no peritoneal signs. Absent: distended, firm, guarding, hepatomegaly, tenderness - Extremities Exam Extremities exam: Present: warm, radial pulses palpable and symmetrical. Absent : calf tenderness, cyanotic, pedal edema - Neurological Exam Neurological exam: Present: CN II-XII intact, oriented X3, no focal deficits. Absent: altered, pronater drift, facial droop, speech deficit - Skin Skin exam: Present: dry, intact. Absent: mottled, rash, urticaria Internal Med - H&P Results - Labs CBC & Chem 7: 12/26/17 11:00 12/27/17 06:38
[2017-12-26] MEDS ORDERED: *HR* Dextrose 50 % in Water (Syg) 50 ML SYRINGE IVP PRN (16:46)
[2017-12-26] MEDS ORDERED: Insulin Human Regular 100 UNIT in 0.9 % Sodium Chloride 100 ML IVC SCH (17:00)
[2017-12-26] MEDS ORDERED: *HR* OxyCODONE/APAP 5/325 TABLET PO PRN (17:12)
[2017-12-26] MEDS ORDERED: *HR* Labetalol 20 MG/4 ML SYRINGE IVP PRN (17:17)
[2017-12-26] MEDS ORDERED: *HR* Promethazine 25 MG/ML VIAL IVP PRN (17:19)
[2017-12-26] MEDS ORDERED: Ondansetron 4 MG/2 ML VIAL IVP PRN (17:20)
[2017-12-26] MEDS: cloNIDine HCl 0.1 MG TABLET PO SCH (19:25)
[2017-12-26] MEDS: Patient Taking Own Medication 1 EACH PO SCH (19:26)
[2017-12-26] MEDS: Calcium Acetate 667 MG CAPSULE PO SCH (19:31)
[2017-12-26 21:26] LABS: Calcium 8.5 mg/dL (8.6-10.3); Potassium 4.2 mEq/L (3.5-5.1)
[2017-12-26] MEDS: *HR* Heparin 5,000 UNIT/ML VIAL SQ SCH (22:11)
[2017-12-27] MEDS: Calcium Acetate 667 MG CAPSULE PO SCH ×6 (00:27→23:18)
[2017-12-27] MEDS: *HR* Heparin 5,000 UNIT/ML VIAL SQ SCH ×3 (05:11→20:26)
[2017-12-27] MEDS ORDERED: 0.9 % Sodium Chloride 250 ML IVC PRN (06:32)
[2017-12-27 07:24] LABS: Calcium 8.7 mg/dL (8.6-10.3); Potassium 4.4 mEq/L (3.5-5.1)
[2017-12-27] MEDS: Lisinopril 20 MG TABLET PO SCH (07:43)
[2017-12-27] MEDS: cloNIDine HCl 0.1 MG TABLET PO SCH ×3 (07:43→21:48)
[2017-12-27] MEDS: Vitamin B Complex/Vit C/Vit E 1 EACH TABLET PO SCH (07:43)
[2017-12-27] MEDS ORDERED: 0.9 % Sodium Chloride 1,000 ML ONE (08:17)
[2017-12-27 09:05] LABS: Basophils # 0.1 K/mcL (0.0-0.2); Basophils % 1.9 %; Eosinophils # 0.2 K/mcL (0.0-0.6); Eosinophils % 3.1 %; Hematocrit 33.3 % (37.5-50.1); Immature Granulocytes % 0.3 % (0-4); Lymphocytes # 1.9 K/mcL (0.6-4.6); Lymphocytes % 26.4 %; Mean Corpuscular HGB Conc 32.1 g/dL (31.6-35.5); Mean Corpuscular Hemoglobin 27.8 pg (28.0-33.3); Mean Corpuscular Volume 86.5 fL (83.0-100.0); Mean Platelet Volume 9.5 fL (9.4-12.4); Monocytes # 0.7 K/mcL (0.0-1.3); Monocytes % 9.4 %; Neutrophils # 4.1 K/mcL (1.6-8.9); Platelet Count 271 K/mcL (140-400); Red Blood Count 3.85 M/mcL (4.19-5.50); Red Cell Distribution Width 12.7 % (11.5-14.5); Segmented Neutrophils % 58.9 %
[2017-12-27 09:10] LABS: Hemoglobin 10.7 g/dL (12.9-16.9)
[2017-12-27 09:41] LABS: Albumin 3.4 g/dL (3.5-5.7); Albumin/Globulin Ratio 1.3 (1.1-2.2); Bilirubin,Total 0.4 mg/dL (0.3-1.0); Calcium 9.1 mg/dL (8.6-10.3); Globulin 2.6 g/dL (2.4-3.5); Potassium 4.4 mEq/L (3.5-5.1)
[2017-12-27 10:17] LABS: Hepatitis B Surface Antibody 3.01 mIU/mL; Hepatitis B Surface Antigen Nonreactive (Nonreactive)
[2017-12-27] MEDS: Patient Taking Own Medication 1 EACH PO SCH (10:26)
--- NOTE | 2017-12-27 10:45 | Nephrology Consult Note ---
Date of Encounter: 12/27/17 Time of Encounter: 09:30 Assessment and Plan (1) End stage renal disease on dialysis Status: Chronic ESRD on HD M/W/F. HD ordered for today and will provide a lower BFR and actually give about 500-600 mL while on HD to help alleviate and/or reduce his risks of dialysis induced N/V. Permacath appears in good order. The PD catheter was present without erythema or exudates; and he'll need this removed as an outpatient. Hgb goal 10-11 and so he is well controlled. Discussed with the general machinist and subsequently discussed with the outpatient creative engagement director to modify his dialysis treatment orders so that he would ideally experience less N/V or discomfort with dialysis. Continue to follow a renal protective strategy: Strict I/Os, daily weights. His N/V appears to have resolved. Thank you for consulting the [facility] group. Will follow with you. (2) Hyperglycemia due to type 1 diabetes mellitus Status: Acute (3) Intractable vomiting with nausea Status: Resolved Qualifiers: Vomiting type: unspecified Qualified Code(s): R11.2 - Nausea with vomiting , unspecified (4) Hypertension Status: Chronic Qualifiers: Hypertension type: unspecified Qualified Code(s): I10 - Essential (primary ) hypertension History of Present Illness - Reason for Consult Consult date: 12/26/17 end stage renal disease Requesting physician: Syed Montoya - Chief Complaint ESRD - History of Present Illness Lincoln Kovacs is a 62-year-old male with history of type 1 diabetes and end- stage renal disease on chronic peritoneal dialysis who presents with hyperglycemia and nausea and vomiting. He said the N/V became worse on Wednesday morning but he did have some N/V while on dialysis last Wednesday. He denied F/C/D/Abd pain near his PD catheter exit site. He is now no longer having PD exchanges and denied any abdominal or flank pains. He denies fever, chills, abdominal pain, diarrhea, chest pain, shortness of breath, increased lower extremity swelling. He states his insulin pump has been functioning normally. Past Med Surg Social Fam HX - Past Medical History Medical history: diabetes, dialysis, renal disease, other Psychiatric history: no psych history - Past Surgical History Surgical History: herniorrhaphy - Social History Smoking Status: Former smoker Smokeless Tobacco Status: No Alcohol use: none Drug use: none - Family History Mother Living Status: Hx Family Cancer: Yes (Leukemia; patient unsure which type) Father Living Status: Hx Family Endocrine Disorder: Yes (DMI) Medications and Allergies Calcitriol [Rocaltrol] 0.25 mcg PO QAM 09/20/17 [History] cloNIDine HCl [Clonidine HCl] 0.3 mg PO TID 09/20/17 [History] Calcium Acetate [Phos-LO] 1 cap PO 5XD 11/01/17 [History] Folic Acid/Vit Bcomp,C [Dialyvite Tablet] 1 tab PO DAILY 11/01/17 [History] Lisinopril [Zestril] 20 mg PO DAILY 11/01/17 [History] OxyCODONE/APAP 5/325 [Percocet 5/325 MG] 1 each PO Q6HR PRN #14 tablet 11/24/17 [Rx] Subcutaneous Insulin Pump [T:Slim] 30 unit SQ DAILY 11/24/17 [History] Atorvastatin [Lipitor] 40 mg PO HS 12/26/17 [History] Aspirin 325 mg PO DAILY tablet 12/28/17 [Rx] Patient Taking Own Medication 0 each PO DAILY each 12/28/17 [Rx] 3 Allergy/AdvReac Type Severity Reaction Status Date / Time Sulfa (Sulfonamide Allergy See Verified 11/24/17 12:35 Antibiotics) Comments Review of Systems All Systems: reviewed and no additional remarkable complaints except as stated Exam - Vital Signs Vital signs: Initial Vital Signs Temp Pulse Resp BP Pulse Ox 98.5 F 118 18 170/110 98 12/26/17 10:34 12/26/17 10:34 12/26/17 10:34 12/26/17 10:34 12/26/17 10:34 Vital Signs - Last 8 Hours Temp Pulse Resp BP Pulse Ox 12/27/17 10:30 163/72 12/27/17 10:15 149/64 12/27/17 10:00 158/63 12/27/17 09:45 97.2 F L 14 146/58 12/27/17 07:36 98.0 F 73 12 206/79 100 Intake and Output 12/26/17 12/27/17 12/27/17 23:59 07:59 15:59 Intake Total 244 / 244 120 / 120 160 / 160 Balance 244 / 244 120 / 120 160 / 160 Intake: Oral 244 / 244 120 / 120 160 / 160 Intake, Rinseback and Flushes 0 / 0 Other: Meal jello Breakfast Percent of Meal Consumed 100% 75% Weight 56.245 kg Blood Glucose* 232 160 Hemodialysis Net Fluid Removed 0 (mL) Patient Weight 12/27/17 23:59 Weight 56.245 kg - General Appearance Exam: Constitutional: no chills, no fever(s) Nose, mouth and throat: no dizziness Cardiovascular: no chest pain, no pedal edema Respiratory: no cough, no wheezing Gastrointestinal: nausea, vomiting, no abdominal pain, no diarrhea, PD catheter was in place without surrounding erythema Chest: Rt TDC without exudates and was C/D/I dressing Genitourinary Male: no urinary frequency Musculoskeletal: no numbness, no tingling Integumentary: no rash, no swelling Neurological: no confusion, no dizziness Results - Lab Results 12/28/17 07:59 12/28/17 07:59 Most recent lab results Calcium 9.1 mg/dL (8.6-10.3) 12/27/17 08:01 Magnesium 2.0 mg/dL (1.6-2.6) 12/26/17 18:21 I reviewed the labs, meds, vital signs, progress notes (both from the outpt [facility]) and inpatient, plus imaging. Consult Discharge Plan - Plan Referrals: Hui Salazar MD [Primary Care Provider] - (web request sent on 12/27/17)
--- NOTE | 2017-12-27 12:00 | Internal Med Progress Note ---
Date of Encounter: 12/27/17 Time of Encounter: 09:10 - Assessment and plan (1) Intractable vomiting with nausea Current Visit: Yes Status: Acute Qualifiers: Vomiting type: unspecified Qualified Code(s): R11.2 - Nausea with vomiting , unspecified (2) Hyperglycemia due to type 1 diabetes mellitus Current Visit: Yes Status: Acute (3) End stage renal disease on dialysis Current Visit: No Status: Chronic - Subjective Interval history: HPI: Mr. Swanson is a 84 year old male with a PMH of CHF, CAD, DVT, DM, HLD, HTN, [place], PAD, and CKD who presents to [facility] today with following an episode of hypoglycemia this morning. He reports that his family noticed that he was agitated. His glucose was checked and found to be 38. He was given glucose an EMS was called and brought him to the ED. His glucose was 167 per BMP. Incidental PNA was found on CXR. He does endorse a cough productive of clear sputum over the last week. He denies any fevers, chills, shortness of breath, CP, N/V/D, or abdominal pain. He is being admitted for closer monitoring of his blood glucose and for IV ATB treatment of PNA. Interval changes: His N/V has resolved. His initially elevated Trp has trended down but is still mildly elevated. He continues to deny cp/pressure. His Hypertensive emergency has resolved. He's going for HD this am. Assessment and Plan Intractable vomiting with nausea Resolved with Phenergan and Zofran His diet was restarted Hyperglycemia due to type 1 diabetes mellitus He's not in DKA Started on Insulin drip protocol Pt's personal insulin pump removed He warns that he is a very brittle diabetic so a low starting dose will be employed. Cautiously hydrate End stage renal disease on dialysis IP dialyses today. - Constitutional Vitals: Temp Pulse Resp BP Pulse Ox 97.2 F L 73 14 168/47 100 12/27/17 09:45 12/27/17 07:36 12/27/17 09:45 12/27/17 11:45 12/27/17 07:36 Internal Medicine: Result - Labs CBC & Chem 7: 12/27/17 08:01 12/27/17 08:01 Labs: Short CBC 12/27/17 Range/Units 08:01 WBC 7.0 (4.3-11.1) K/mcL Hgb 10.7 L D (12.9-16.9) g/dL Hct 33.3 L (37.5-50.1) % Plt Count 271 (140-400) K/mcL Neutrophils # 4.1 (1.6-8.9) K/mcL BMP 12/26/17 12/27/17 12/27/17 20:51 06:38 08:01 Sodium 142 142 142 Potassium 4.2 4.4 4.4 Chloride 105 107 106 Carbon Dioxide 28 28 28 BUN 52 H 53 H 54 H Creatinine 4.97 H 5.13 H 5.11 H Glucose 255 H 183 H 177 H Calcium 8.5 L 8.7 9.1 Cardiac Enzymes 12/27/17 Range/Units 08:01 Troponin I 0.06 H* (< 0.04) ng/mL Liver Function 12/27/17 Range/Units 08:01 Total Bilirubin 0.4 (0.3-1.0) mg/dL AST 18 (13-39) Units/L ALT 5 L (7-52) Units/L Alkaline Phosphatase 67 (34-104) Units/L Albumin 3.4 L (3.5-5.7) g/dL Consult Discharge Plan - Plan Referrals: Hui Salazar MD [Primary Care Provider] - (web request sent on 12/27/17)
[2017-12-27] MEDS ORDERED: *HR* Heparin 10,000 UNIT/10 ML VIAL IV PRN (12:53)
--- NOTE | 2017-12-27 17:23 | Electrocardiograph Report ---
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
[2017-12-28] MEDS: *HR* Heparin 5,000 UNIT/ML VIAL SQ SCH ×2 (04:46→14:21)
[2017-12-28 08:38] LABS: Basophils # 0.1 K/mcL (0.0-0.2); Basophils % 1.8 %; Eosinophils # 0.2 K/mcL (0.0-0.6); Hematocrit 30.1 % (37.5-50.1); Immature Granulocytes % 0.3 % (0-4); Lymphocytes % 34.2 %; Mean Corpuscular HGB Conc 33.2 g/dL (31.6-35.5); Mean Corpuscular Hemoglobin 28.3 pg (28.0-33.3); Mean Corpuscular Volume 85.3 fL (83.0-100.0); Mean Platelet Volume 9.3 fL (9.4-12.4); Monocytes # 0.7 K/mcL (0.0-1.3); Monocytes % 11.9 %; Neutrophils # 2.9 K/mcL (1.6-8.9); Platelet Count 257 K/mcL (140-400); Red Blood Count 3.53 M/mcL (4.19-5.50); Red Cell Distribution Width 12.4 % (11.5-14.5); Segmented Neutrophils % 47.8 %
[2017-12-28] MEDS ORDERED: Aspirin 325 MG TABLET PO SCH (09:00)
[2017-12-28] MEDS: Vitamin B Complex/Vit C/Vit E 1 EACH TABLET PO SCH (09:02)
[2017-12-28] MEDS: Lisinopril 20 MG TABLET PO SCH (09:02)
[2017-12-28] MEDS: Calcium Acetate 667 MG CAPSULE PO SCH ×2 (09:02→11:38)
[2017-12-28] MEDS: cloNIDine HCl 0.1 MG TABLET PO SCH ×2 (09:02→14:22)
[2017-12-28] MEDS: Patient Taking Own Medication 1 EACH PO SCH (09:03)
[2017-12-28 09:25] LABS: Calcium 8.7 mg/dL (8.6-10.3); Potassium 4.9 mEq/L (3.5-5.1)
[2017-12-28 14:21] VITALS: BP 138/73
--- NOTE | 2017-12-28 14:58 | Discharge Summary ---
Date of Encounter: 12/28/17 Time of Encounter: 14:52 - Discharge Diagnosis (1) Intractable vomiting with nausea Priority: Primary Status: Resolved Qualifiers: Vomiting type: unspecified Qualified Code(s): R11.2 - Nausea with vomiting , unspecified (2) Hyperglycemia due to type 1 diabetes mellitus Priority: Secondary Status: Acute (3) Hypertension Priority: Secondary Status: Chronic Qualifiers: Hypertension type: unspecified Qualified Code(s): I10 - Essential (primary ) hypertension (4) End stage renal disease on dialysis Priority: Secondary Status: Chronic - Discharge Medications Home Medications: Calcitriol [Rocaltrol] 0.25 mcg PO QAM 09/20/17 [History] cloNIDine HCl [Clonidine HCl] 0.3 mg PO TID 09/20/17 [History] Calcium Acetate [Phos-LO] 1 cap PO 5XD 11/01/17 [History] Folic Acid/Vit Bcomp,C [Dialyvite Tablet] 1 tab PO DAILY 11/01/17 [History] Lisinopril [Zestril] 20 mg PO DAILY 11/01/17 [History] OxyCODONE/APAP 5/325 [Percocet 5/325 MG] 1 each PO Q6HR PRN #14 tablet 11/24/17 [Rx] Subcutaneous Insulin Pump [T:Slim] 30 unit SQ DAILY 11/24/17 [History] Atorvastatin [Lipitor] 40 mg PO HS 12/26/17 [History] Aspirin 325 mg PO DAILY tablet 12/28/17 [Rx] Patient Taking Own Medication 0 each PO DAILY each 12/28/17 [Rx] Allergies/Adverse Reactions: 3 Allergy/AdvReac Type Severity Reaction Status Date / Time Sulfa (Sulfonamide Allergy See Verified 11/24/17 12:35 Antibiotics) Comments Procedures/tests Complete & Pending: Procedures Performed prior 72 hours Category Date Time Status ECG 12 lead ECG [ECG] Routine Y 12/27/17 09:21 Ordered Date of admission: 12/26/17 17:55 Primary care physician: Hui Salazar, Consults: 12/27/17 06:45 Consult to Dialysis [CONS] ONCE Discharging clinician: Felicia Conde - Patient Status Disposition: Home, Self-Care Condition: Fair Functional capacity at discharge: independent ambulation Overall status at discharge: patient is back to baseline - Discharge Instructions Follow Up With: Hui Salazar MD [Primary Care Provider] - (web request sent on 12/27/17) - Diet and Activity Activity: increase activity as tolerated Diet: diabetic diet Hospital course: 62 year old Type-I DM patient a personal insulin pump who has ESRD and was recently started on HD 3 days ago. He has a new tunneled catheter placed last week. He presents with 3 days of intractable N/V and decreased PO intake. His BG is 500 but he's not in DKA. He was given Zofran and Phenergan and his nausea is improved. He was planned to be started on insulin drip. He states that he is a very brittle diabetic o a low dose was started initially. He was also found to have hypertensive urgency and is being given PRN Labetalol. He dialyses with DR. Ceaj who has been called because he will need inpatient HD. He appears very dehydrated and because of concern for DKA is being given IVFs very cautiously with Labs. He has not had fever or chills. Nephrology was consulted for dialysis. Rate of dialysis was adjusted because of patients symptoms. Patient glucose was able to come down to 200s. Patient blood pressure improved. Nausea and vomiting resolved. Patient discharged home in stable condition. Will resume insulin pump for home. - Time Spent with Patient Total time spent providing and/or coordinating discharge services: - Constitutional Vitals: Temp Pulse Resp BP Pulse Ox 98.1 F 64 18 138/73 99 12/28/17 12:14 12/28/17 12:14 12/28/17 12:14 12/28/17 14:20 12/28/17 12:14 - Head Head exam: Present: atraumatic, normocephalic - Eye Eye exam: Present: PERRL, conjuntiva pink, sclera anicteric Pupils: Present: PERRL - Neck Neck exam general surgery: Present: supple, trachea midline. Absent: lymphadenopathy - Respiratory Respiratory exam: Present: CTAB. Absent: accessory muscle use, rales, rhonchi, wheezes - Cardiovascular Cardiovascular exam: Present: RRR, +S1, +S2. Absent: diastolic murmur, gallop, rubs, systolic murmur - GI/Abdominal GI/Abdominal exam: Present: normal bowel sounds, soft, no peritoneal signs. Absent: distended, tenderness - Extremities Exam Extremities exam: Present: warm, radial pulses palpable and symmetrical. Absent : calf tenderness, cyanotic, pedal edema - Neurological Exam Neurological exam: Present: CN II-XII intact, oriented X3, no focal deficits. Absent: pronater drift, facial droop, speech deficit - Skin Skin exam: Present: dry, intact
--- NOTE | 2018-01-18 22:18 | Internal Med Progress Note ---
Date of Encounter: 12/27/17 Time of Encounter: 11:56 - Assessment and plan (1) Hyperglycemia due to type 1 diabetes mellitus Status: Acute (2) End stage renal disease on dialysis Status: Chronic - Subjective Interval history: HPI: Mr. Swanson is a 84 year old male with a PMH of CHF, CAD, DVT, DM, HLD, HTN, [place], PAD, and CKD who presents to [facility] today with following an episode of hypoglycemia this morning. He reports that his family noticed that he was agitated. His glucose was checked and found to be 38. He was given glucose an EMS was called and brought him to the ED. His glucose was 167 per BMP. Incidental PNA was found on CXR. He does endorse a cough productive of clear sputum over the last week. He denies any fevers, chills, shortness of breath, CP, N/V/D, or abdominal pain. He is being admitted for closer monitoring of his blood glucose and for IV ATB treatment of PNA. Interval changes: His N/V has resolved. His initially elevated Trp has trended down but is still mildly elevated. He continues to deny cp/pressure. His Hypertensive emergency has resolved. He's going for HD this am. Assessment and Plan Intractable vomiting with nausea Resolved with Phenergan and Zofran His diet was restarted Hyperglycemia due to type 1 diabetes mellitus He's not in DKA Started on Insulin drip protocol Pt's personal insulin pump removed He warns that he is a very brittle diabetic so a low starting dose will be employed. Cautiously hydrate End stage renal disease on dialysis IP dialyses today. - Constitutional Vitals: Temp Pulse Resp BP Pulse Ox 98.1 F 64 18 138/73 99 12/28/17 12:14 12/28/17 12:14 12/28/17 12:14 12/28/17 14:20 12/28/17 12:14 Internal Medicine: Result - Labs CBC & Chem 7: 12/28/17 07:59 12/28/17 07:59 Consult Discharge Plan - Plan Referrals: Hui Salazar MD [Primary Care Provider] - (web request sent on 12/27/17)
--- NOTE | 2018-01-18 22:22 | Internal Med Progress Note ---
Date of Encounter: 01/18/18 Time of Encounter: 11:56 - Assessment and plan (1) Hyperglycemia due to type 1 diabetes mellitus Status: Acute (2) End stage renal disease on dialysis Status: Chronic - Subjective Interval history: Mr Kovacs is a 62 year old Type-I DM patient a personal insulin pump who has ESRD and was recently started on HD 3 days ago. He had a tunneled catheter placed last week which is working. He presented with 3 days of intractable N/V and decreased PO intake. His BG was > 500 but he was not in DKA. He was given Zofran and Phenergan and his nausea is improved. He was started on an insulin drip and his BG quickly corrected enough that he was transitioned back to subcutaneous insulin via his own insulin pump. He was also found to have hypertensive urgency and was given PRN Labetalol. He dialyses with DR. Ceja who was consulted for inpatient HD today. He's clinically improved and his N/V have resolved. He is not complaining of chest pain or any other significant new problems today. Physical exam: ead Head exam: Present: atraumatic, normocephalic - Eye Eye exam: Present: EOMI, PERRL, conjuntiva pink, sclera anicteric Pupils: Present: PERRL, unequal - Neck Neck exam general surgery: Present: supple, trachea midline. Absent: lymphadenopathy, nuchal rigidity - Respiratory Respiratory exam: Present: CTAB. Absent: accessory muscle use, rales, rhonchi, wheezes - Cardiovascular Cardiovascular exam: Present: RRR, +S1, +S2. Absent: diastolic murmur, gallop, rubs, systolic murmur - GI/Abdominal GI/Abdominal exam: Present: normal bowel sounds, soft, no peritoneal signs. Absent: distended, firm, guarding, hepatomegaly, tenderness - Extremities Exam Extremities exam: Present: warm, radial pulses palpable and symmetrical. Absent : calf tenderness, cyanotic, pedal edema - Neurological Exam Neurological exam: Present: CN II-XII intact, oriented X3, no focal deficits. Absent: altered, pronater drift, facial droop, speech deficit - Skin Skin exam: Present: dry, intact. Absent: mottled, rash, urticaria Assessment and Plan Intractable vomiting with nausea Resolved with Phenergan and Zofran His diet was restarted Hyperglycemia due to type 1 diabetes mellitus He's not in DKA Started on Insulin drip protocol Pt's personal insulin pump removed He warns that he is a very brittle diabetic so a low starting dose will be employed. Cautiously hydrate End stage renal disease on dialysis IP dialyses today. - Constitutional Vitals: Temp Pulse Resp BP Pulse Ox 98.1 F 64 18 138/73 99 12/28/17 12:14 12/28/17 12:14 12/28/17 12:14 12/28/17 14:20 12/28/17 12:14 Internal Medicine: Result - Labs CBC & Chem 7: 12/28/17 07:59 12/28/17 07:59 Consult Discharge Plan - Plan Referrals: Hui Salazar MD [Primary Care Provider] - (web request sent on 12/27/17)
== END 2017-12-28 15:30 | disposition home or self-care (01) | DRG 637 ==
LOC: 2ANU 10:32 → EMEROO 10:32 → 2ANU 15:40
PROVIDERS: ADMIT Student in an Organized Health Care Education/Training Program; ATTEND Internal Medicine

== ENCOUNTER 2018-04-07 07:29 | Inpatient (IN) ==
[2018-04-07] MEDS ORDERED: Lisinopril 20 MG TABLET PO ONE (08:11)
[2018-04-07] MEDS ORDERED: 0.9 % Sodium Chloride 1,000 ML ONE (08:23)
[2018-04-07] MEDS ORDERED: ISOVUE-370 200 ML INFUS..BTL IV ONE ×2 (08:24→09:42)
[2018-04-07] MEDS ORDERED: Nitroglycerin 1,000 MCG/10 ML VIAL IV ONE (08:24)
[2018-04-07] MEDS ORDERED: Heparin 1,000 UNITS/500 mL 500 ML ONE (08:24)
[2018-04-07] MEDS ORDERED: *HR* Heparin 10,000 UNIT/10 ML VIAL ONE (08:24)
[2018-04-07] MEDS: 0.9 % Sodium Chloride 1,000 ML IVC SCH (08:53)
--- NOTE | 2018-04-07 08:53 | Pre-Sedation Evaluation ---
Pre-sedation evaluation - Pre-sedation checklist Date of procedure: 04/07/18 Procedure: left heart cath Recent Vitals: Last Vital Signs Temp 98.0 F 04/07/18 08:43 Pulse 71 04/07/18 08:43 Resp 14 04/07/18 08:43 BP 191/111 04/07/18 08:43 Pulse Ox 99 04/07/18 08:43 H&P (including ROS) documented in medical record: Yes Previous reaction to sedatives/anesthetics: No Dietary Status: NPO after Midnight Dentition: poor dentition ASA Classification *see protocol: CLASS II-Mild systemic disease
[2018-04-07] MEDS ORDERED: *HR* Midazolam HCl 2 MG/2 ML VIAL ONE ×2 (09:06→09:55)
[2018-04-07] MEDS ORDERED: *HR* FentaNYL (PF) 100 MCG/2 ML VIAL ONE ×2 (09:06→09:56)
[2018-04-07] MEDS ORDERED: Tirofiban 5 MG/100 mL 5 MG/100 ML VIAL IV ONE (09:56)
[2018-04-07] MEDS ORDERED: Tirofiban 12.5 MG/250ML 12.5 MG/250 ML BAG IVC SCH (11:00)
[2018-04-07] MEDS ORDERED: CloNIDine Patch 0.3 MG PATCH (WEEKLY) TD SCH (11:00)
[2018-04-07] MEDS ORDERED: Ondansetron 4 MG/2 ML VIAL ONE (14:01)
[2018-04-07] MEDS ORDERED: D5% in Water 1,000 ML IVC PRN (17:53)
[2018-04-07] MEDS ORDERED: Dextrose Gel 15 GM/37.5 ML TUBE PO PRN ×2 (17:53)
[2018-04-07] MEDS ORDERED: *HR* Dextrose 50 % in Water (Syg) 50 ML SYRINGE IVP PRN (17:53)
[2018-04-07] MEDS: Calcium Acetate 667 MG CAPSULE PO SCH ×2 (18:16→21:36)
[2018-04-07] MEDS: Insulin LISPRO 300 UNITS/3 ML VIAL SQ SCH ×2 (18:28→21:36)
[2018-04-07] MEDS: Lisinopril 20 MG TABLET PO SCH (21:36)
[2018-04-08] MEDS: 0.9 % Sodium Chloride 1,000 ML IVC SCH (04:47)
[2018-04-08] MEDS: Ondansetron 4 MG/2 ML VIAL IVP ONE ×2 (05:30→08:29)
[2018-04-08 06:24] LABS: Hematocrit 33.2 % (37.5-50.1); Hemoglobin 10.7 g/dL (12.9-16.9)
[2018-04-08] MEDS: Lisinopril 20 MG TABLET PO SCH ×2 (06:36→22:39)
[2018-04-08] MEDS: Insulin LISPRO 300 UNITS/3 ML VIAL SQ SCH ×4 (08:20→22:39)
[2018-04-08] MEDS ORDERED: Ondansetron 4 MG/2 ML VIAL ONE (08:25)
[2018-04-08] MEDS ORDERED: SUBCUTANEOUS INSULIN PUMP SQ SCH (09:00)
[2018-04-08] MEDS ORDERED: Nitroglycerin 25 MG/250 ML INFUS..BTL IVC SCH (09:00)
[2018-04-08] MEDS: Calcium Acetate 667 MG CAPSULE PO SCH ×3 (09:56→22:39)
[2018-04-08] MEDS: Aspirin 81 MG TAB.CHEW PO SCH (09:56)
[2018-04-08] MEDS: Renal Vitamin 1 MG CAPSULE PO SCH (09:56)
[2018-04-08] MEDS: Pantoprazole 40 MG VIAL IVP SCH (12:21)
[2018-04-08 12:52] LABS: Calcium 9.2 mg/dL (8.6-10.3); Potassium 5.2 mEq/L (3.5-5.1)
--- NOTE | 2018-04-08 13:03 | Cardiology Progress Note ---
Date of Encounter: 04/08/18 Time of Encounter: 08:30 Assessment and Plan (1) CAD (coronary artery disease) Current Visit: Yes Status: Acute Per cardiology: -Admitted after PCI yesterday to [facility]. -Reports some chest "tightness." BP 220 systolic. -ECG with ST, HR 108. Anterior ST depressions noted, somewhat more prominent than previous. -On asa, plavix, statin. Educated on dual anti-platelet therapy uninterrupted for at least one year. States understanding. -Right groin access site without hematoma or ecchymosis. -Will start nitro drip, BB, and statin. -Suspect chest tightness related to HTN. -Will continue to monitor. Qualifiers: Coronary Disease-Associated Artery/Lesion type: [place] artery [place] vs. transplanted heart: [place] heart Associated angina: without angina Qualified Code(s): I25.10 - Atherosclerotic heart disease of [place] coronary artery without angina pectoris (2) End stage renal disease on dialysis Current Visit: No Status: Chronic Per cardiology: -Known ESRD on HD. -Usual dialysis days are MWF. Patient anxious about missing dialysis today. -Will consult [facility]. -Appreciate nephrology recommendations. (3) Nausea & vomiting Current Visit: No Status: Acute Per cardiology: -Reports nausea and vomited x3 this am. -ZOfran given. -Emesis has coffee ground appearance. -Gastric OB positive. -Hemoglobin stable. -Discussed and reviewed with , will start IV protonix. Continue PPI at discharge. -If hemoglobin drops, consider hospitalist consult for further work up/ intervention. Qualifiers: Vomiting type: unspecified Qualified Code(s): R11.2 - Nausea with vomiting , unspecified (4) Hypertension Current Visit: No Status: Chronic Per cardiology: -Known HTN. -BP 220s systolic this am. -IV hydralazine ordered per . -Will start nitro drip, titrate for better BP control. -Will add BB. -Continue to monitor. Qualifiers: Hypertension type: essential hypertension Qualified Code(s): I10 - Essential (primary) hypertension (5) Hyperglycemia due to type 1 diabetes mellitus Current Visit: No Status: Acute Per cardiology: -Known DM type I. -Uses insulin pump at home. -Patient reports he took insulin pump off prior to [facility] and did not bring with him. Patient is unsure how much insulin he receives in a day. States "the pump does it all for me." -FS BS 400-500s, sliding scale given. -Discussed with , will continue to monitor. IF BS remains elevated, will consider consult to hospitalist for assistance with DM management. Discussion w patient/family: The assessment and plan as outlined above was discussed with the patient who expressed understanding and agreement. All questions were answered. Thank you for involving us in the care of your patient. Please call with any questions. Discussed and reviewed with . Subjective Principal diagnosis: S/p PCI Interval history: Pateint is s/p PCI yesterday. BP hypertensive. Patient reports nausea, vomiting. Reports chest tightness. States overall does not feel well. Patient anxious about missing dialysis today. Objective Vital Signs, Last 4 Hours Temp Pulse Resp BP Pulse Ox 04/08/18 12:32 103 20 184/92 98 04/08/18 11:02 98.2 F 103 18 184/72 96 04/08/18 09:33 196/70 General: Conversant, Other (Ill appearing) HEENT: Atraumatic, Normocephaly, Mucus Membranes Moist Neck: No JVD, Normal carotid pulses Cardiac: Reg Rate and Rhythm, Normal S1 and S2, No Murmur Lungs: Normal Breath Sounds, No Wheeze, Rales, Rhonchi Neuro: Alert and responsive, No focal deficits noted Abdomen: Soft, Non-Tender Skin: No rashes noted on visualized skin, Other (Right groin access site without hematoma ir ecchymosis. ) Musculoskeletal: No Chest Wall Tenderness Extremities: No Clubbing, No Cyanosis, No Edema, Normal Pulses Results 04/08/18 05:16 04/08/18 05:16 Lab Results Active Medications Aspirin (Aspirin) 81 mg PO DAILY [facility] Stop: 10/08/18 09:01 Last Admin: 04/08/18 09:56 Dose: 81 mg Calcitriol (Rocaltrol) 0.25 mcg PO QAM [facility] Stop: 10/08/18 09:01 Last Admin: 04/08/18 09:56 Dose: 0.25 mcg Calcium Acetate (Phos-Lo) 667 mg PO TID [facility] Stop: 10/07/18 15:01 Last Admin: 04/08/18 09:56 Dose: 667 mg Carvedilol (Coreg) 3.125 mg PO BIDWM [facility] PRN Reason: Protocol Stop: 10/08/18 08:48 Last Admin: 04/08/18 09:57 Dose: 3.125 mg Clonidine HCl (Catapres-Tts) 0.3 mg TD QWEEK [facility] Stop: 10/10/18 09:01 Clopidogrel Bisulfate (Plavix) 75 mg PO DAILY [facility] Stop: 10/08/18 09:01 Last Admin: 04/08/18 09:56 Dose: 75 mg Dextrose/Water (Dextrose 50% (Syg)) 25 ml IVP AD PRN PRN Reason: Hypoglycemia Stop: 10/07/18 17:54 Glucagon (Glucagen) 1 mg IM ONCE PRN PRN Reason: Hypoglycemia Stop: 10/07/18 17:54 Glucose (Gluctose) 15 gm PO ONCE PRN PRN Reason: Hypoglycemia Stop: 10/07/18 17:54 Glucose (Gluctose) 30 gm PO ONCE PRN PRN Reason: Hypoglycemia Stop: 10/07/18 17:54 Dextrose (Dextrose 5%) 1,000 mls @ 100 mls/hr IVC .Q10H PRN PRN Reason: HYPOGLYCEMIA Stop: 10/07/18 17:54 Nitroglycerin (Nitroglycerin Premix 25 Mg/250 Ml) 25 mg in 250 mls @ 3 mls/hr IVC .Q24H [facility]; 5 MCG/MIN PRN Reason: Protocol Stop: 10/08/18 09:01 Last Admin: 04/08/18 09:58 Dose: 5 mcg/min, 3 mls/hr Insulin Human Lispro (Humalog) 0 units SQ TIDAC [facility] PRN Reason: Protocol Stop: 10/07/18 18:01 Last Admin: 04/08/18 12:22 Dose: 16 unit Insulin Human Lispro (Humalog) 0 units SQ HS [facility] PRN Reason: Protocol Stop: 10/07/18 21:01 Last Admin: 04/07/18 21:36 Dose: 7 units Lisinopril (Zestril) 20 mg PO BID [facility] PRN Reason: Protocol Stop: 10/07/18 21:01 Last Admin: 04/08/18 06:36 Dose: 20 mg Pantoprazole Sodium (Protonix) 40 mg IVP DAILY [facility] Stop: 10/08/18 09:46 Last Admin: 04/08/18 12:21 Dose: 40 mg Vitamin B Complex/Vit C/Folic Acid (Renal Caps Softgel) 1 mg PO DAILY [facility] Stop: 10/08/18 09:01 Last Admin: 04/08/18 09:56 Dose: 1 mg Laboratory Tests 12/28/17 04/06/18 04/08/18 07:59 10:57 05:16 Hgb 10.0 L 11.3 L 10.7 L Potassium Creatinine 04/08/18 05:16 Hgb Potassium 5.2 H Creatinine 4.94 H - Imaging and Cardiology Chest Xray: report reviewed Cardiac cath: report reviewed - EKG Interpretation EKG results cardiology: personally reviewed (ECG today with ST, HR 108. Anterior ST depressions noted, somewhat more pronounced than baseline.), other ( Telemetry reviewed with average HR previous 12 hours noted to be 101, ST. PVCs and PACs noted.) - VTE Reasons for not Prescribing Prophylaxis: Treatment not Indicated - Low risk for VTE Consult Discharge Plan - Plan Referrals: Hui Salazar MD [Primary Care Provider] -
--- NOTE | 2018-04-08 13:39 | Nephrology Consult Note ---
Date of Encounter: 04/08/18 Time of Encounter: 13:32 Assessment and Plan (1) End stage renal disease on dialysis Current Visit: No Status: Chronic HD MWF. Renal vitamins. Renal dose medications. Renal diet. Additional dialysis and ultrafiltration as needed. Plan for dialysis today. Thank you for inviting me to participate in the care of your patient. We will continue to follow. (2) CAD (coronary artery disease) Current Visit: Yes Status: Acute Management per cardiology. Qualifiers: Coronary Disease-Associated Artery/Lesion type: [place] artery [place] vs. transplanted heart: [place] heart Associated angina: without angina Qualified Code(s): I25.10 - Atherosclerotic heart disease of [place] coronary artery without angina pectoris (3) Anemia Current Visit: No Status: Acute Patient with anemia. We will initiate workup. We will monitor especially in light of his coffee-ground emesis. Consider GI evaluation. Qualifiers: Anemia type: due to chronic kidney disease Chronic kidney disease stage: on chronic dialysis Qualified Code(s): N18.6 - End stage renal disease; D63.1 - Anemia in chronic kidney disease; D63.1 - Anemia in chronic kidney disease; Z99.2 - Dependence on renal dialysis; Z99.2 - Dependence on renal dialysis; Z99.2 - Dependence on renal dialysis; Z99.2 - Dependence on renal dialysis (4) Nausea & vomiting Current Visit: No Status: Acute Patient with nausea and coffee-ground emesis. We will defer management to primary team. Qualifiers: Vomiting type: unspecified Qualified Code(s): R11.2 - Nausea with vomiting , unspecified (5) Uncontrolled diabetes mellitus with hyperglycemia Current Visit: No Status: Acute Consider restarting his home insulin pump. Otherwise he may need an insulin drip to get his blood sugars back under control. 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 I called the [facility] dialysis unit in [place]. They report that his systolic blood pressure normally is in the low 200 range prior to dialysis. Qualifiers: Hypertension type: essential hypertension Qualified Code(s): I10 - Essential (primary) hypertension History of Present Illness - Reason for Consult Consult date: 04/08/18 end stage renal disease - Chief Complaint esrd - History of Present Illness Mr. Kovacs is a 60-year-old gentleman with a history of ESRD on dialysis Wednesday under the direction of [facility]. The patient presented for an outpatient cardiac catheterization. Prior to discharge she was found to have accelerated hypertension. He was started on a nitro drip. He also has uncontrolled diabetes and was found to have coffee-ground emesis. He states he has not had a bowel movement since admission. He denies rubén red blood. He is feeling nauseous at the time my evaluation. Past Med Surg Social Fam HX - Past Medical History Medical history: asthma, diabetes, dialysis, hyperlipidemia, hypertension, renal disease, other Psychiatric history: no psych history - Past Surgical History Surgical History: herniorrhaphy, other - Social History Smoking Status: Former smoker Smokeless Tobacco Status: No Alcohol use: none Drug use: none - Family History Mother Living Status: Hx Family Cancer: Yes (Leukemia; patient unsure which type) Father Living Status: Hx Family Endocrine Disorder: Yes (DMI) Medications and Allergies Calcitriol [Rocaltrol] 0.25 mcg PO QAM 09/20/17 [History] Calcium Acetate [Phos-LO] 667 mg PO TID 11/01/17 [History] Folic Acid/Vit Bcomp,C [Dialyvite Tablet] 1 tab PO DAILY 11/01/17 [History] Lisinopril [Zestril] 20 mg PO BID 11/01/17 [History] Subcutaneous Insulin Pump [T:Slim] 30 unit SQ DAILY 11/24/17 [History] CloNIDine Patch [Catapres-Tts] 0.3 mg TD QWEEK 02/07/18 [History] 3 Allergy/AdvReac Type Severity Reaction Status Date / Time morphine Allergy Itching Verified 01/18/18 09:24 Sulfa (Sulfonamide Allergy See Verified 01/18/18 09:24 Antibiotics) Comments Review of Systems All Systems: reviewed and no additional remarkable complaints except as stated ( As per history of present illness.) Exam - Vital Signs Vital signs: Initial Vital Signs Temp Pulse Resp BP Pulse Ox 98.0 F 71 14 191/111 99 04/07/18 08:43 04/07/18 08:43 04/07/18 08:43 04/07/18 08:43 04/07/18 08:43 Vital Signs - Last 8 Hours Temp Pulse Resp BP Pulse Ox 04/08/18 12:32 103 20 184/92 98 04/08/18 11:02 98.2 F 103 18 184/72 96 04/08/18 09:33 196/70 04/08/18 08:32 115 18 218/76 96 04/08/18 07:52 97.8 F 106 18 224/89 96 04/08/18 06:20 224/95 Intake and Output 04/07/18 04/08/18 04/08/18 23:59 07:59 15:59 Intake Total 600 / 600 1000 / 1000 0 / 0 Balance 600 / 600 1000 / 1000 0 / 0 Intake: IV Fluids 1000 / 1000 0.9 % Sodium Chloride 1,000 ML 1000 / 1000 @ 50 mls/hr IVC .Q20H [facility] Rx#: [id number] Oral 600 / 600 0 / 0 0 / 0 Other: Meal Dinner Lunch Percent of Meal Consumed 40% 0% # Voids 0 0 Weight 60.5 kg Blood Glucose* [phone] - General Appearance General appearance: well-developed, well-nourished EENT: ATNC Neck: supple Respiratory: course breath sounds Cardiology: no edema, regular rate, regular rhythm - Dialysis Access Dialysis Vascular Access: Venous Catheter Gastrointestinal: no tenderness Integumentary: warm and dry Neurologic: alert and oriented x3 Musculoskeletal: no cyanosis Psychiatric: mood/affect appropriate Results - Lab Results 04/08/18 05:16 04/08/18 05:16 Most recent lab results Calcium 9.2 mg/dL (8.6-10.3) 04/08/18 05:16 Consult Discharge Plan - Plan Referrals: Hui Salazar MD [Primary Care Provider] -
[2018-04-08] MEDS ORDERED: Insulin Human Regular 20 UNIT in 0.9 % Sodium Chloride 10 ML IV ONE (14:56)
[2018-04-08] MEDS ORDERED: *HR* Heparin 10,000 UNIT/10 ML VIAL IV PRN (15:02)
[2018-04-08] MEDS ORDERED: 0.9 % Sodium Chloride 250 ML IVC PRN (15:02)
[2018-04-08] MEDS ORDERED: Adenosine 90 MG/30 ML MLS IV ONE (15:24)
[2018-04-08 17:37] LABS: Hepatitis B Surface Antigen Nonreactive (Nonreactive)
[2018-04-08 17:39] LABS: Hepatitis B Surface Antibody 20.23 mIU/mL
[2018-04-09 05:09] LABS: Hematocrit 33.7 % (37.5-50.1); Hemoglobin 11.2 g/dL (12.9-16.9); Mean Corpuscular HGB Conc 33.2 g/dL (31.6-35.5); Mean Corpuscular Hemoglobin 27.8 pg (28.0-33.3); Mean Corpuscular Volume 83.6 fL (83.0-100.0); Mean Platelet Volume 9.6 fL (9.4-12.4); Platelet Count 318 K/mcL (140-400); Red Blood Count 4.03 M/mcL (4.19-5.50); Red Cell Distribution Width 15.3 % (11.5-14.5)
[2018-04-09] MEDS ORDERED: Ondansetron 4 MG/2 ML VIAL IVP PRN (06:12)
[2018-04-09] MEDS ORDERED: Insulin DETEMIR 100 UNIT/ML X5UNITS SQ STA (07:34)
[2018-04-09] MEDS ORDERED: Insulin LISPRO 300 UNITS/3 ML VIAL SQ STA (07:35)
[2018-04-09] MEDS ORDERED: *HR* Dextrose 50 % in Water (Syg) 50 ML SYRINGE IVP PRN ×2 (07:47→12:19)
[2018-04-09] MEDS ORDERED: Dextrose Gel 15 GM/37.5 ML TUBE PO PRN ×4 (07:47→18:38)
[2018-04-09] MEDS ORDERED: D5% in Water 1,000 ML IVC PRN ×2 (07:47→18:38)
--- NOTE | 2018-04-09 07:59 | Internal Medicine Consult Note ---
Date of Encounter: 04/09/18 Time of Encounter: 07:55 - Assessment and plan (1) DM type 1 (diabetes mellitus, type 1) Current Visit: Yes Status: Chronic Assessment and plan: Patient has type 1 diabetes over 30 years, has been on insulin pump at home. He took insulin pump off before left heart cath and he did not bring insulin pump with him. He did not remember the pump sitting but he told me he takes total of 30 units of insulin a day. We discussed about trying to bring insulin pump from home and meanwhile will start long-acting insulin detimir 10 unit in the morning, and 8 unit at HS plus short acting insulin sliding scale with conservative coverage due to type I. Currently he has some nausea but he said he is able to eat. If he is unable to tolerate diet, then we have to start inksulin drip, Type 1 DM is at high risk for DKA. Qualifiers: Diabetes mellitus complication status: with hyperglycemia Qualified Code(s) : E10.65 - Type 1 diabetes mellitus with hyperglycemia (2) Hyperglycemia Current Visit: Yes Status: Acute Assessment and plan: start detemir and lispro, accukcheck Q2, instruct the patient to bring insulin pump (3) Nausea & vomiting Current Visit: Yes Status: Acute Assessment and plan: Iv zofran Qualifiers: Vomiting type: unspecified Qualified Code(s): R11.2 - Nausea with vomiting , unspecified (4) Hypertension Current Visit: Yes Status: Chronic Assessment and plan: defer to primary team and nephrology Qualifiers: Hypertension type: essential hypertension Qualified Code(s): I10 - Essential (primary) hypertension (5) End stage renal disease Current Visit: Yes Status: Chronic Assessment and plan: on HD MWF, nephrology is on board - Time Spent With Patient Total time spent is greater than 50% in coordination of care (as documented) at patient's floor/unit and/or counseling patient: Greater than 35 minutes Internal Medicine - CN: HPI - Data of Consult Consult date: 04/09/18 Requesting Physician: Harini Harrell - Consult Narrative Reason for consult: hyperglycemia History of present illness: Mr. Kovacs is a 62 year old male who has just history of CAD stated post PCI on April 07, 2018, hypertension, end-stage renal disease on dialysis, type 1 diabetes on insulin pump. Patient was admitted on April 07 for chest pain, had left heart catheterization, which showed left anterior descending stenosis stated post of PCI. Hypertensive emergency, he has been on nitro drip. We are consulted for hyperglycemia. blood sugar has been running 400-500. Patient has type 1 diabetes over 30 years, has been on insulin pump at home. He took insulin pump off before left heart cath and he did not bring insulin pump with him. He did not remember the pump sitting but he told me he takes total of 30 units of insulin a day. We discussed about trying to bring insulin pump from home and meanwhile will start long-acting insulin detimir 10 unit in the morning, and 8 unit at HS plus short acting insulin sliding scale with conservative coverage due to type I. Currently he has some nausea but he said he is able to eat. If he is unable to tolerate diet, then we have to start insulin drip, Type 1 DM is at high risk for DKA. Past Med Surg Social Fam HX - Past Medical History Medical history: asthma, diabetes, dialysis, hyperlipidemia, hypertension, renal disease, other Psychiatric history: no psych history - Past Surgical History Surgical History: herniorrhaphy, other - Social History Smoking Status: Former smoker Smokeless Tobacco Status: No Alcohol use: none Drug use: none - Family History Mother Living Status: Hx Family Cancer: Yes (Leukemia; patient unsure which type) Father Living Status: Hx Family Endocrine Disorder: Yes (DMI) All systems: reviewed and no additional remarkable complaints except as stated Internal Medicine - CN: Meds Calcitriol [Rocaltrol] 0.25 mcg PO QAM 09/20/17 [History] Calcium Acetate [Phos-LO] 667 mg PO TID 11/01/17 [History] Folic Acid/Vit Bcomp,C [Dialyvite Tablet] 1 tab PO DAILY 11/01/17 [History] Lisinopril [Zestril] 20 mg PO BID 11/01/17 [History] Subcutaneous Insulin Pump [T:Slim] 30 unit SQ DAILY 11/24/17 [History] CloNIDine Patch [Catapres-Tts] 0.3 mg TD QWEEK 02/07/18 [History] 3 Allergy/AdvReac Type Severity Reaction Status Date / Time morphine Allergy Itching Verified 01/18/18 09:24 Sulfa (Sulfonamide Allergy See Verified 01/18/18 09:24 Antibiotics) Comments Internal Medicine - CN: Exam - Constitutional Vitals: Temp Pulse Resp BP Pulse Ox 98.0 F 101 18 189/68 95 04/09/18 06:40 04/09/18 06:40 04/09/18 06:40 04/09/18 06:40 04/09/18 06:40 General appearance IM: Present: A&O X 3, pleasant, answers questions appropriately Internal Medicine - CN: Reslt - Labs CBC & Chem 7: 04/09/18 04:38 04/09/18 04:38 Labs: Short CBC 04/09/18 Range/Units 04:38 WBC 21.8 H D (4.3-11.1) K/mcL Hgb 11.2 L (12.9-16.9) g/dL Hct 33.7 L (37.5-50.1) % Plt Count 318 (140-400) K/mcL BMP 04/08/18 04/09/18 05:16 04:38 Sodium 131 L 131 L Potassium 5.2 H 5.0 Chloride 94 L 91 L Carbon Dioxide 16 L 18 L BUN 76 H 44 H Creatinine 4.94 H 3.72 H Glucose 444 H 451 H Calcium 9.2 9.0 Consult Discharge Plan - Plan Referrals: Hui Salazar MD [Primary Care Provider] -
[2018-04-09] MEDS: Aspirin 81 MG TAB.CHEW PO SCH (08:24)
[2018-04-09] MEDS: Lisinopril 20 MG TABLET PO SCH ×2 (08:24→21:26)
[2018-04-09] MEDS: Calcium Acetate 667 MG CAPSULE PO SCH ×3 (08:24→21:25)
[2018-04-09] MEDS: Pantoprazole 40 MG VIAL IVP SCH (08:24)
[2018-04-09] MEDS: Renal Vitamin 1 MG CAPSULE PO SCH (08:25)
--- NOTE | 2018-04-09 08:31 | Electrocardiograph Report ---
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
[2018-04-09] MEDS ORDERED: Insulin DETEMIR 100 UNIT/ML X5UNITS SQ SCH ×2 (09:00→21:00)
[2018-04-09] MEDS ORDERED: 0.9 % Sodium Chloride 1,000 ML ONE (09:19)
[2018-04-09] MEDS ORDERED: 0.9 % Sodium Chloride 250 ML IVC PRN (09:51)
[2018-04-09] MEDS ORDERED: 0.9 % Sodium Chloride 1,000 ML PRIME SCH (10:00)
[2018-04-09] MEDS ORDERED: Insulin LISPRO 300 UNITS/3 ML VIAL SQ SCH ×2 (11:30→21:00)
[2018-04-09] MEDS: Isosorbide MONOnitrate (24 HR) 30 MG TAB.ER.24H PO SCH (11:49)
--- NOTE | 2018-04-09 11:55 | Cardiology Progress Note ---
Date of Encounter: 04/09/18 Time of Encounter: 11:52 Assessment and Plan (1) Nausea & vomiting Current Visit: Yes Status: Acute Per cardiology: -Reports nausea and vomited x3 this am. -ZOfran given. -Emesis has coffee ground appearance. -Gastric OB positive. -Hemoglobin stable. -Discussed and reviewed with , will start IV protonix. Continue PPI at discharge. -If hemoglobin drops, consider hospitalist consult for further work up/ intervention. As above with no further nausea or vomiting, likely benefit from GI work up, Hgb stable received aranesp. Will defer to Hospitalist group , appreciate input Qualifiers: Vomiting type: unspecified Qualified Code(s): R11.2 - Nausea with vomiting , unspecified (2) Hypertension Current Visit: Yes Status: Chronic started nifedipine, seen by nephro, appreciate input Qualifiers: Hypertension type: essential hypertension Qualified Code(s): I10 - Essential (primary) hypertension (3) CAD (coronary artery disease) Current Visit: Yes Status: Acute Per cardiology: -Admitted after PCI yesterday to [facility]. -Reports some chest "tightness." BP 220 systolic. -ECG with ST, HR 108. Anterior ST depressions noted, somewhat more prominent than previous. -On asa, plavix, statin. Educated on dual anti-platelet therapy uninterrupted for at least one year. States understanding. -Right groin access site without hematoma or ecchymosis. -Will start nitro drip, BB, and statin. -Suspect chest tightness related to HTN. -Will continue to monitor. S/P PCI of the LAD doing well denies any chest pain, will sign off as cardiac he is stable. Qualifiers: Coronary Disease-Associated Artery/Lesion type: [place] artery [place] vs. transplanted heart: [place] heart Associated angina: without angina Qualified Code(s): I25.10 - Atherosclerotic heart disease of [place] coronary artery without angina pectoris Discussion w patient/family: The assessment and plan as outlined above was discussed with the patient and/or family members who expressed understanding and agreement. All questions were answered. Thank you for involving us in the care of your patient. Please call with any questions. Subjective Principal diagnosis: S/p PCI Interval history: Chest pain free, s/p PCI of the LAD Objective Vital Signs, Last 4 Hours Temp Pulse Resp BP Pulse Ox 04/09/18 11:03 98.9 F 93 16 168/74 95 General: Conversant, No Apparent Distress HEENT: Atraumatic, Normocephaly, Mucus Membranes Moist Neck: No JVD, Normal carotid pulses Cardiac: Reg Rate and Rhythm, Normal S1 and S2, No Murmur Lungs: Normal Breath Sounds, No Wheeze, Rales, Rhonchi Neuro: Alert and responsive, No focal deficits noted Abdomen: Soft, Non-Tender Skin: No rashes noted on visualized skin Musculoskeletal: No Chest Wall Tenderness Extremities: No Clubbing, No Cyanosis, No Edema, Normal Pulses Results 04/09/18 04:38 04/09/18 04:38 Lab Results 04/08/18 04/09/18 04/09/18 05:16 04:38 04:38 WBC 21.8 H D Hgb 11.2 L Hct 33.7 L Plt Count 318 Sodium 131 L 131 L Potassium 5.2 H 5.0 Chloride 94 L 91 L Carbon Dioxide 16 L 18 L BUN 76 H 44 H Creatinine 4.94 H 3.72 H Glucose 444 H 451 H Calcium 9.2 9.0 - VTE Reasons for not Prescribing Prophylaxis: Treatment not Indicated - Low risk for VTE Documentation of Mechanical Device: Intermittent pneumatic compression device Consult Discharge Plan - Plan Referrals: Hui Salazar MD [Primary Care Provider] -
[2018-04-09] MEDS ORDERED: Insulin Human Regular 100 UNIT in 0.9 % Sodium Chloride 100 ML IVC SCH (12:30)
--- NOTE | 2018-04-09 14:27 | Nephrology Progress Note ---
Date of Encounter: 04/09/18 Time of Encounter: 14:27 - Assessment and Plan (1) End stage renal disease on dialysis Current Visit: No Status: Chronic HD MWF. Renal vitamins. Renal dose medications. Renal diet. Additional dialysis and ultrafiltration as needed. Patient refused dialysis today. (2) CAD (coronary artery disease) Current Visit: Yes Status: Acute No active chest pain. Cardiology following. Beta jas added. Titrate for HR and blood pressure control. Qualifiers: Coronary Disease-Associated Artery/Lesion type: [place] artery [place] vs. transplanted heart: [place] heart Associated angina: without angina Qualified Code(s): I25.10 - Atherosclerotic heart disease of [place] coronary artery without angina pectoris (3) Anemia Current Visit: No Status: Acute Qualifiers: Anemia type: due to chronic kidney disease Chronic kidney disease stage: on chronic dialysis Qualified Code(s): N18.6 - End stage renal disease; D63.1 - Anemia in chronic kidney disease; D63.1 - Anemia in chronic kidney disease; Z99.2 - Dependence on renal dialysis; Z99.2 - Dependence on renal dialysis; Z99.2 - Dependence on renal dialysis; Z99.2 - Dependence on renal dialysis (4) Nausea & vomiting Current Visit: Yes Status: Acute Qualifiers: Vomiting type: unspecified Qualified Code(s): R11.2 - Nausea with vomiting , unspecified (5) Uncontrolled diabetes mellitus with hyperglycemia Current Visit: No Status: Acute on insulin drip. Qualifiers: Diabetes mellitus type: other specified (including CEM) Diabetes mellitus prison insulin use: unspecified prison insulin use status Qualified Code (s): E13.65 - Other specified diabetes mellitus with hyperglycemia (6) Hypertension Current Visit: No Status: Chronic Coreg added. Titrate and followblood pressure. Qualifiers: Hypertension type: essential hypertension Qualified Code(s): I10 - Essential (primary) hypertension Subjective Principal diagnosis: S/p PCI Interval history: Patient seen. He refused dialysis this am. No other complaint. Objective - Vital Signs Vital signs: Vital Signs Temp Pulse Resp BP Pulse Ox 04/09/18 11:03 98.9 F 93 16 168/74 95 04/09/18 06:40 98.0 F 101 18 189/68 95 04/09/18 04:00 98.6 F 100 16 174/70 99 04/09/18 01:22 183/78 04/09/18 00:00 98.3 F 93 14 200/98 94 04/08/18 22:34 98.7 F 88 14 198/89 97 04/08/18 22:05 98.4 F 18 203/96 04/08/18 21:45 214/106 04/08/18 21:30 201/98 04/08/18 21:15 200/103 04/08/18 21:00 204/100 04/08/18 20:45 201/100 04/08/18 20:30 196/103 04/08/18 20:15 188/97 04/08/18 20:00 203/101 04/08/18 19:45 196/101 04/08/18 19:30 183/99 04/08/18 19:15 179/91 04/08/18 19:00 181/88 04/08/18 18:45 98.3 F 18 172/87 04/08/18 16:52 98.7 F 95 18 185/83 95 04/08/18 16:17 97 04/08/18 15:55 91 20 181/96 97 Intake and Output 04/08/18 04/09/18 04/09/18 23:59 07:59 15:59 Intake Total 600 / 600 110 / 110 Output Total 3600 / 3600 Balance -3000 / -3000 110 / 110 Intake: Oral 0 / 0 110 / 110 Intake, Rinseback and Flushes 600 / 600 Output: Urine 0 / 0 Total Dialysis (HD) Output 3600 / 3600 Other: Meal Lunch Percent of Meal Consumed 75% Weight 58.3 kg Blood Glucose* 63 490 457 Hemodialysis Net Fluid Removed 3000 (mL) Patient Weight 04/09/18 23:59 Weight 58.3 kg - General Appearance General appearance: Present: well-developed, well-nourished EENT: Present: ATNC Additional Comments: tachycardic Integumentary: Present: warm and dry Neurologic: Present: alert and oriented x3 Psychiatric: Present: mood/affect appropriate - Lab 04/09/18 04:38 04/09/18 04:38 Most recent lab results Calcium 9.0 mg/dL (8.6-10.3) 04/09/18 04:38 - VTE Reasons for not Prescribing Prophylaxis: Treatment not Indicated - Low risk for VTE Documentation of Mechanical Device: Intermittent pneumatic compression device Consult Discharge Plan - Plan Referrals: Hui Salazar MD [Primary Care Provider] -
[2018-04-09] MEDS ORDERED: D5% in 0.45% NACL 1,000 ML IVC SCH (17:00)
[2018-04-09 19:13] LABS: Calcium 9.1 mg/dL (8.6-10.3); Potassium 4.2 mEq/L (3.5-5.1)
[2018-04-09] MEDS: Insulin LISPRO 300 UNITS/3 ML VIAL SQ SCH (21:07)
[2018-04-09] MEDS: *HR* Dextrose 50 % in Water (Syg) 50 ML SYRINGE IVP PRN (21:12)
[2018-04-09] MEDS: Insulin DETEMIR 100 UNIT/ML X5UNITS SQ SCH (21:14)
[2018-04-10] MEDS: *HR* Dextrose 50 % in Water (Syg) 50 ML SYRINGE IVP PRN (01:24)
[2018-04-10] MEDS ORDERED: CloNIDine Patch 0.3 MG PATCH (WEEKLY) TD SCH (09:00)
[2018-04-10] MEDS: Isosorbide MONOnitrate (24 HR) 30 MG TAB.ER.24H PO SCH (09:42)
[2018-04-10] MEDS: Renal Vitamin 1 MG CAPSULE PO SCH (09:43)
[2018-04-10] MEDS: Lisinopril 20 MG TABLET PO SCH ×2 (09:43→20:15)
[2018-04-10] MEDS: Calcium Acetate 667 MG CAPSULE PO SCH ×3 (09:43→20:15)
[2018-04-10] MEDS: Pantoprazole 40 MG VIAL IVP SCH (09:44)
[2018-04-10] MEDS: Aspirin 81 MG TAB.CHEW PO SCH (09:44)
[2018-04-10] MEDS: Insulin DETEMIR 100 UNIT/ML X5UNITS SQ SCH ×2 (09:46→20:16)
[2018-04-10] MEDS: Insulin LISPRO 300 UNITS/3 ML VIAL SQ SCH ×4 (10:03→20:16)
[2018-04-10] MEDS ORDERED: Insulin Regular, Human 100 UNIT/ML IV ONE (11:53)
[2018-04-10] MEDS ORDERED: Insulin Human Regular 5 UNIT in 0.9 % Sodium Chloride 10 ML IV ONE (12:15)
--- NOTE | 2018-04-10 13:06 | Nephrology Progress Note ---
Date of Encounter: 04/10/18 Time of Encounter: 13:03 - Assessment and Plan (1) End stage renal disease on dialysis Current Visit: No Status: Chronic HD MWF. Renal vitamins. Renal dose medications. Renal diet. Additional dialysis and ultrafiltration as needed. Okay for discharge from renal standpoint. (2) Hypertension Current Visit: No Status: Chronic Coreg added. Titrate and follow blood pressure. Patient is asymptomatic and has chronic uncontrolled hypertension. Qualifiers: Hypertension type: essential hypertension Qualified Code(s): I10 - Essential (primary) hypertension (3) CAD (coronary artery disease) Current Visit: Yes Status: Acute No active chest pain. Cardiology following. Beta jas added. Titrate for HR and blood pressure control. Qualifiers: Coronary Disease-Associated Artery/Lesion type: [place] artery [place] vs. transplanted heart: [place] heart Associated angina: without angina Qualified Code(s): I25.10 - Atherosclerotic heart disease of [place] coronary artery without angina pectoris (4) Anemia Current Visit: No Status: Acute Anemia associated with chronic kidney disease. Qualifiers: Anemia type: due to chronic kidney disease Chronic kidney disease stage: on chronic dialysis Qualified Code(s): N18.6 - End stage renal disease; D63.1 - Anemia in chronic kidney disease; D63.1 - Anemia in chronic kidney disease; Z99.2 - Dependence on renal dialysis; Z99.2 - Dependence on renal dialysis; Z99.2 - Dependence on renal dialysis; Z99.2 - Dependence on renal dialysis (5) Nausea & vomiting Current Visit: Yes Status: Acute Resolved. Qualifiers: Vomiting type: unspecified Qualified Code(s): R11.2 - Nausea with vomiting , unspecified (6) Uncontrolled diabetes mellitus with hyperglycemia Current Visit: No Status: Acute on insulin drip. When discontinued his blood sugars became uncontrolled. I would recommend allowing the patient to have his home insulin pump and follow his blood sugars closely. Qualifiers: Diabetes mellitus type: other specified (including CEM) Diabetes mellitus skilled nursing insulin use: unspecified skilled nursing insulin use status Qualified Code (s): E13.65 - Other specified diabetes mellitus with hyperglycemia Subjective Principal diagnosis: S/p PCI Interval history: Patient seen. He has no complaints. He is frustrated that his blood sugars not controlled. He would like to have his home insulin pump. Objective - Vital Signs Vital signs: Vital Signs Temp Pulse Resp BP Pulse Ox 04/10/18 11:35 98.8 F 94 18 165/76 97 04/10/18 07:31 98.7 F 81 18 163/71 96 04/10/18 04:35 97.9 F 80 18 184/96 98 04/09/18 23:40 98 F 72 18 175/99 97 04/09/18 20:29 98.2 F 80 20 179/83 95 04/09/18 16:45 98.8 F 86 18 150/78 97 Intake and Output 04/09/18 04/10/18 04/10/18 23:59 07:59 15:59 Intake Total 120 / 120 Balance 120 / 120 Intake: IV Fluids HumuLIN R 100 UNIT In 0.9 % Sodium Chloride 100 ML @ 5 UNIT /HR 5.05 mls/hr IVC CONT [place] Rx #:[id number] Oral 120 / 120 Other: Meal Breakfast Percent of Meal Consumed 15% Weight 56.9 kg Blood Glucose* 98 377 530 Patient Weight 04/10/18 23:59 Weight 56.9 kg - General Appearance General appearance: Present: well-developed, well-nourished EENT: Present: ATNC Cardiology: Present: regular rate Integumentary: Present: warm and dry Neurologic: Present: alert and oriented x3 Psychiatric: Present: mood/affect appropriate - Lab 04/09/18 04:38 04/09/18 18:35 Most recent lab results Calcium 9.1 mg/dL (8.6-10.3) 04/09/18 18:35 - VTE Reasons for not Prescribing Prophylaxis: Treatment not Indicated - Low risk for VTE Documentation of Mechanical Device: Intermittent pneumatic compression device Consult Discharge Plan - Plan Referrals: Hui Salazar MD [Primary Care Provider] -
--- NOTE | 2018-04-10 17:19 | Internal Med Progress Note ---
Date of Encounter: 04/10/18 Time of Encounter: 17:17 - Assessment and plan (1) Uncontrolled hypertension Current Visit: Yes Status: Acute (2) CAD (coronary artery disease) Current Visit: Yes Status: Acute Qualifiers: Coronary Disease-Associated Artery/Lesion type: [place] artery [place] vs. transplanted heart: [place] heart Associated angina: without angina Qualified Code(s): I25.10 - Atherosclerotic heart disease of [place] coronary artery without angina pectoris (3) Type 1 diabetes mellitus with end-stage renal disease (ESRD) Current Visit: Yes Status: Acute (4) Anemia of renal disease Current Visit: Yes Status: Acute - Time Spent With Patient Total time spent is greater than 50% in coordination of care (as documented) at patient's floor/unit and/or counseling patient: 25 - 35 minutes - Constitutional Vitals: Temp Pulse Resp BP Pulse Ox 98.8 F 81 16 151/82 96 04/10/18 16:30 04/10/18 16:30 04/10/18 16:30 04/10/18 16:30 04/10/18 16:30 General appearance: Present: A&O X 3, pleasant, answers questions appropriately Internal Medicine: Result - Labs CBC & Chem 7: 04/09/18 04:38 04/09/18 18:35 Labs: BMP 04/09/18 18:35 Sodium 136 Potassium 4.2 Chloride 97 L Carbon Dioxide 26 BUN 72 H Creatinine 5.49 H Glucose 46 L Calcium 9.1 - VTE Reasons for not Prescribing Prophylaxis: Treatment not Indicated - Low risk for VTE Documentation of Mechanical Device: Intermittent pneumatic compression device Consult Discharge Plan - Plan Referrals: Hui Salazar MD [Primary Care Provider] -
[2018-04-11] MEDS ORDERED: 0.9 % Sodium Chloride 2,000 ML ONE (04:20)
[2018-04-11] MEDS: Calcium Acetate 667 MG CAPSULE PO SCH (08:14)
[2018-04-11] MEDS: Lisinopril 20 MG TABLET PO SCH (08:14)
[2018-04-11] MEDS: Isosorbide MONOnitrate (24 HR) 30 MG TAB.ER.24H PO SCH (08:15)
[2018-04-11] MEDS: Pantoprazole 40 MG VIAL IVP SCH (08:15)
[2018-04-11] MEDS: Aspirin 81 MG TAB.CHEW PO SCH (08:15)
[2018-04-11] MEDS: Insulin LISPRO 300 UNITS/3 ML VIAL SQ SCH (08:15)
[2018-04-11] MEDS: Renal Vitamin 1 MG CAPSULE PO SCH (08:15)
[2018-04-11] MEDS: Insulin DETEMIR 100 UNIT/ML X5UNITS SQ SCH (08:16)
[2018-04-11] MEDS ORDERED: *HR* Heparin 10,000 UNIT/10 ML VIAL IV PRN (08:19)
[2018-04-11] MEDS ORDERED: 0.9 % Sodium Chloride 250 ML IVC PRN (08:19)
--- NOTE | 2018-04-11 08:44 | Nephrology Progress Note ---
Date of Encounter: 04/11/18 Time of Encounter: 08:44 - Assessment and Plan (1) End stage renal disease on dialysis Current Visit: No Status: Chronic HD MWF. Renal vitamins. Renal dose medications. Renal diet. Additional dialysis and ultrafiltration as needed. Patient seen on dialysis today. (2) Hypertension Current Visit: No Status: Chronic Coreg added. Titrate and follow blood pressure. Patient is asymptomatic and has chronic uncontrolled hypertension. Patient's blood pressures much better this morning. Qualifiers: Hypertension type: essential hypertension Qualified Code(s): I10 - Essential (primary) hypertension (3) CAD (coronary artery disease) Current Visit: Yes Status: Acute No active chest pain. Cardiology following. Beta jas added. Titrate for HR and blood pressure control. Qualifiers: Coronary Disease-Associated Artery/Lesion type: [place] artery [place] vs. transplanted heart: [place] heart Associated angina: without angina Qualified Code(s): I25.10 - Atherosclerotic heart disease of [place] coronary artery without angina pectoris (4) Anemia Current Visit: No Status: Acute Anemia associated with chronic kidney disease. Qualifiers: Anemia type: due to chronic kidney disease Chronic kidney disease stage: on chronic dialysis Qualified Code(s): N18.6 - End stage renal disease; D63.1 - Anemia in chronic kidney disease; D63.1 - Anemia in chronic kidney disease; Z99.2 - Dependence on renal dialysis; Z99.2 - Dependence on renal dialysis; Z99.2 - Dependence on renal dialysis; Z99.2 - Dependence on renal dialysis (5) Nausea & vomiting Current Visit: Yes Status: Acute Resolved. Qualifiers: Vomiting type: unspecified Qualified Code(s): R11.2 - Nausea with vomiting , unspecified (6) Uncontrolled diabetes mellitus with hyperglycemia Current Visit: No Status: Acute on insulin drip. When discontinued his blood sugars became uncontrolled. I would recommend allowing the patient to have his home insulin pump and follow his blood sugars closely. Qualifiers: Diabetes mellitus type: other specified (including CEM) Diabetes mellitus group home insulin use: unspecified group home insulin use status Qualified Code (s): E13.65 - Other specified diabetes mellitus with hyperglycemia Subjective Principal diagnosis: S/p PCI Interval history: Patient seen. He has no complaints. He was seen on dialysis. Objective - Vital Signs Vital signs: Vital Signs Temp Pulse Resp BP Pulse Ox 04/11/18 07:45 98.0 F 78 18 177/90 97 04/11/18 04:06 98.1 F 81 18 153/88 96 04/11/18 00:13 97.9 F 74 18 175/85 97 04/10/18 19:45 98.6 F 70 18 118/59 96 04/10/18 16:30 98.8 F 81 16 151/82 96 04/10/18 11:35 98.8 F 94 18 165/76 97 Intake and Output 04/10/18 04/11/18 04/11/18 23:59 07:59 15:59 Intake Total 480 / 480 Balance 480 / 480 Intake: Oral 480 / 480 Other: Meal Dinner Percent of Meal Consumed 50% Weight 57.2 kg Blood Glucose* 105 69 Patient Weight 04/11/18 23:59 Weight 57.2 kg - General Appearance General appearance: Present: well-developed, well-nourished EENT: Present: ATNC Cardiology: Present: regular rate Neurologic: Present: alert and oriented x3 Psychiatric: Present: mood/affect appropriate - Lab 04/09/18 04:38 04/09/18 18:35 Most recent lab results Calcium 9.1 mg/dL (8.6-10.3) 04/09/18 18:35 - VTE Reasons for not Prescribing Prophylaxis: Treatment not Indicated - Low risk for VTE Documentation of Mechanical Device: Intermittent pneumatic compression device Consult Discharge Plan - Plan Referrals: Hui Salazar MD [Primary Care Provider] - (SENT WEB REQUEST ON 04-11-18 @ [id number])
[2018-04-11 12:45] LABS: Calcium 8.8 mg/dL (8.6-10.3)
[2018-04-11 12:47] LABS: Hematocrit 37.2 % (37.5-50.1); Hemoglobin 12.3 g/dL (12.9-16.9); Mean Corpuscular HGB Conc 33.1 g/dL (31.6-35.5); Mean Corpuscular Hemoglobin 27.7 pg (28.0-33.3); Mean Corpuscular Volume 83.8 fL (83.0-100.0); Mean Platelet Volume 9.5 fL (9.4-12.4); Platelet Count 352 K/mcL (140-400); Red Blood Count 4.44 M/mcL (4.19-5.50); Red Cell Distribution Width 15.5 % (11.5-14.5)
[2018-04-11 13:10] VITALS: BP 151/77
--- NOTE | 2018-04-11 13:56 | Discharge Summary ---
- NOTES TO OUTPATIENT PROVIDER Notes to Outpatient Provider: The patient was admitted for stent insertion. After that procedure he developed high blood pressure. Nephrology was consulted. They increased his dose of carvedilol. His blood pressure is under better control. Other than feeling weak, he is not voicing any symptoms today. 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 He does have a hemodialysis 3 times a week. The patient has insulin pump. Orders not resulted at time of discharge: Pending orders 04/07/18 10:50 ECG 12 lead ECG [ECG] Stat 04/09/18 04:38 Hgb A1C Routine Date of Encounter: 04/11/18 Time of Encounter: 13:53 - Discharge Diagnosis (1) Uncontrolled hypertension Status: Acute (2) CAD (coronary artery disease) Status: Acute Qualifiers: Coronary Disease-Associated Artery/Lesion type: [place] artery [place] vs. transplanted heart: [place] heart Associated angina: without angina Qualified Code(s): I25.10 - Atherosclerotic heart disease of [place] coronary artery without angina pectoris (3) Type 1 diabetes mellitus with end-stage renal disease (ESRD) Status: Acute (4) Hypertensive renal disease with renal failure Status: Acute (5) Anemia of renal disease Status: Acute (6) Acute hypokalemia Status: Acute Assessment and Plan: I gave him 40 mEq of potassium chloride by mouth before the discharge. He does have end-stage renal disease. Hospital course: Mr. Kovacs is a 62 year old male Discharge discussed with: patient, nurse - Time Spent with Patient Total time spent providing and/or coordinating discharge services: Greater than 30 minutes (40 minutes) - Discharge Medications Prescriptions: Atorvastatin [Lipitor] 40 mg PO HS #30 tablet Carvedilol [Coreg] 12.5 mg PO BIDWM #60 tablet Clopidogrel [Plavix] 75 mg PO DAILY #30 tablet Isosorbide MONOnitrate (24 HR) [Imdur] 30 mg PO DAILY #30 tab.er.24h Home Medications: Calcitriol [Rocaltrol] 0.25 mcg PO QAM 09/20/17 [History] Calcium Acetate [Phos-LO] 667 mg PO TID 11/01/17 [History] Folic Acid/Vit Bcomp,C [Dialyvite Tablet] 1 tab PO DAILY 11/01/17 [History] Lisinopril [Zestril] 20 mg PO BID 11/01/17 [History] Subcutaneous Insulin Pump [T:Slim] 30 unit SQ DAILY 11/24/17 [History] CloNIDine Patch [Catapres-Tts] 0.3 mg TD QWEEK 02/07/18 [History] Aspirin 81 mg PO DAILY tab.chew 04/11/18 [Rx] Atorvastatin [Lipitor] 40 mg PO HS #30 tablet 04/11/18 [Rx] Carvedilol [Coreg] 12.5 mg PO BIDWM #60 tablet 04/11/18 [Rx] Clopidogrel [Plavix] 75 mg PO DAILY #30 tablet 04/11/18 [Rx] Isosorbide MONOnitrate (24 HR) [Imdur] 30 mg PO DAILY #30 tab.er.24h 04/11/18 [ Rx] Allergies/Adverse Reactions: 3 Allergy/AdvReac Type Severity Reaction Status Date / Time morphine Allergy Itching Verified 01/18/18 09:24 Sulfa (Sulfonamide Allergy See Verified 01/18/18 09:24 Antibiotics) Comments Date of admission: 04/08/18 12:11 Primary care physician: Hiu Salazar, Consults: 04/07/18 10:50 Consult to Cardiac Rehabilitation-Phase1 [CONS] Routine Comment: Reason for Consult: post op PCI Call Completed: Yes 04/07/18 18:12 Consult to Nutrition [CONS] Routine Comment: Consulting Provider: NUTRITION Reason for Dietary Consult: MST Score Consult to [place] [CONS] Routine Reason for SW Consult: financial concerns 04/08/18 08:49 Consult to Nephrology [CONS] Routine Consulting Provider: Kidney Sade/JUANA/DEBBIE/TINO Reason for Consult: Hemodialysis patient. Normal dialysis days M, W, F. Call Completed: Yes 04/08/18 15:15 Consult to Dialysis [CONS] ONCE 04/08/18 19:54 Consult to Hospitalist [CONS] Stat Consulting Provider: [facility] Reason for Consult: management of blood sugar Call Completed: No 04/09/18 10:00 Consult to Dialysis [CONS] ONCE 04/11/18 08:30 Consult to Dialysis [CONS] ONCE Discharging clinician: Joni Davalos Anticipated date of discharge: 04/11/18 - Constitutional Vitals: Temp Pulse Resp BP Pulse Ox 98.0 F 78 20 151/77 97 04/11/18 13:08 04/11/18 07:45 04/11/18 13:08 04/11/18 13:08 04/11/18 07:45 General appearance: Present: A&O X 3, pleasant, answers questions appropriately - Respiratory Respiratory exam: Present: CTAB. Absent: rales, rhonchi, wheezes - Cardiovascular Cardiovascular exam: Present: RRR. Absent: diastolic murmur, gallop, rubs, systolic murmur - GI/Abdominal GI/Abdominal exam: Present: normal bowel sounds, soft. Absent: distended, tenderness - Patient Status Disposition: Home, Self-Care Condition: Fair Functional capacity at discharge: independent ambulation Overall status at discharge: patient is back to baseline - Discharge Instructions Follow Up With: Hui Salazar MD [Primary Care Provider] - (SENT WEB REQUEST ON 04-11-18 @ [id number]) Additional Instructions: The patient will continue with his insulin pump. He will continue hemodialysis 3 times a week. 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 - Diet and Activity Activity: resume usual activities as tolerated Diet: diabetic diet - VTE Reasons for not Prescribing Prophylaxis: Treatment not Indicated - Low risk for VTE Documentation of Mechanical Device: Intermittent pneumatic compression device
[2018-04-12 09:38] LABS: Estimated Average Glucose 194 mg/dl; Hemoglobin A1C 8.4 %
== END 2018-04-11 15:25 | disposition home or self-care (01) | DRG 246 ==
LOC: INVDIALAB 07:29 → 2NENU 14:20 → SUATTDRO 04-08 12:11 → 2NNU 04-09 16:34
PROVIDERS: ADMIT Nurse Practitioner Family; ATTEND Internal Medicine

== ENCOUNTER 2018-06-13 10:34 | Inpatient (IN) ==
[2018-06-13] MEDS ORDERED: *HR* Dextrose 50 % in Water (Syg) 50 ML SYRINGE IVP PRN ×3 (10:42→18:41)
[2018-06-13] MEDS ORDERED: cloNIDine HCl 0.1 MG TABLET PO ONE (10:50)
[2018-06-13] MEDS ORDERED: Lisinopril 20 MG TABLET PO SCH (11:00)
[2018-06-13 11:09] LABS: Basophils # 0.1 K/mcL (0.0-0.2); Basophils % 1.1 %; Eosinophils # 0.1 K/mcL (0.0-0.6); Eosinophils % 0.6 %; Hematocrit 38.4 % (37.5-50.1); Immature Granulocytes % 0.4 % (0-4); Lymphocytes # 0.6 K/mcL (0.6-4.6); Lymphocytes % 7.2 %; Mean Corpuscular HGB Conc 33.6 g/dL (31.6-35.5); Mean Corpuscular Hemoglobin 30.4 pg (28.0-33.3); Mean Corpuscular Volume 90.6 fL (83.0-100.0); Mean Platelet Volume 9.5 fL (9.4-12.4); Monocytes # 0.5 K/mcL (0.0-1.3); Monocytes % 5.9 %; Neutrophils # 7.2 K/mcL (1.6-8.9); Platelet Count 261 K/mcL (140-400); Red Blood Count 4.24 M/mcL (4.19-5.50); Red Cell Distribution Width 13.7 % (11.5-14.5); Segmented Neutrophils % 84.8 %
[2018-06-13 11:14] LABS: Hemoglobin 12.9 g/dL (12.9-16.9)
[2018-06-13 11:27] LABS: VBG HCO3 14 mEq/L (21-27); VBG PCO2 30 mmHg (41-51); VBG PH 7.28 pH Units (7.32-7.42); VBG PO2 89 mmHg (25-50)
[2018-06-13 11:38] LABS: Calcium 9.1 mg/dL (8.6-10.3); Potassium 5.7 mEq/L (3.5-5.1)
[2018-06-13] MEDS ORDERED: Insulin Human Regular 100 UNIT in 0.9 % Sodium Chloride 100 ML IVC SCH (12:00)
--- NOTE | 2018-06-13 12:05 | Emergency Department Note ---
Disposition Clinical Impression: End stage renal disease on dialysis DKA (diabetic ketoacidoses) Qualifiers: Diabetes mellitus type: type 1 Diabetes mellitus complication detail: without coma Qualified Code(s): E10.10 - Type 1 diabetes mellitus with ketoacidosis without coma Hypertension Qualifiers: Hypertension type: unspecified Qualified Code(s): I10 - Essential (primary) hypertension Disposition: Admitted As Inpatient Condition: Fair Referrals: Hui Salazar MD [Primary Care Provider] - Time of Disposition: 12:40 General Adult HPI - General Chief complaint: ED General Medical Stated complaint: High BS Time Seen by Provider: 06/13/18 10:38 Source: patient, EMS Limitations: no limitations Nursing Notes Reviewed: Yes Vital Signs Reviewed: Yes - History of Present Illness HPI Narrative: Patient is a 62-year-old male who presents to [facility] ED with a chief complaint of elevated blood sugars. States he has had diarrhea for the last month. States he took his blood sugar today and found it to be in the 400s. He does have a history of type 1 diabetes and a history of going into diabetic ketoacidosis. Patient is end-stage renal disease on dialysis and was supposed to get dialysis this morning. Denies any chest pain, difficulty breathing, abdominal pain. 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 Scale: 0 Improves with: nothing Worsens with: nothing Associated symptoms: Denies: cough, fever/chills, nausea/vomiting, shortness of breath, weakness Treatments Prior to Arrival: none - Related Data Home Medications Medication Instructions Recorded Confirmed Calcitriol [Rocaltrol] 0.25 mcg PO QAM 09/20/17 06/13/18 Calcium Acetate [Phos-LO] 667 mg PO TID 11/01/17 06/13/18 Folic Acid/Vit Bcomp,C [Dialyvite 1 tab PO DAILY 11/01/17 06/13/18 Tablet] Lisinopril [Zestril] 20 mg PO BID 11/01/17 06/13/18 Subcutaneous Insulin Pump [T:Slim] 0 unit SQ DAILY 11/24/17 06/13/18 CloNIDine Patch [Catapres-Tts] 0.3 mg TD QWEEK 02/07/18 06/13/18 Previous Rx's Medication Instructions Recorded Aspirin 81 mg PO DAILY tab.chew 04/11/18 Atorvastatin [Lipitor] 40 mg PO HS #30 tablet 04/11/18 Carvedilol [Coreg] 12.5 mg PO BIDWM #60 tablet 04/11/18 Clopidogrel [Plavix] 75 mg PO DAILY #30 tablet 04/11/18 Isosorbide MONOnitrate (24 HR) 30 mg PO DAILY #30 tab.er.24h 04/11/18 [Imdur] Allergies Allergy/AdvReac Type Severity Reaction Status Date / Time morphine Allergy Itching Verified 01/18/18 09:24 Sulfa (Sulfonamide Allergy See Verified 01/18/18 09:24 Antibiotics) Comments All systems ED: reviewed and negative except as stated. Past Medical History - Past Medical History Attestation: Yes The following information was validated with the patient. Source: patient Medical history: Reports: asthma, diabetes, dialysis, hyperlipidemia, hypertension, renal disease, other Surgical history: Reports: herniorrhaphy, other Psychiatric history: Reports: no psych history - Social History Smoking Status: Former smoker Smokeless Tobacco Status: No Alcohol use: Reports: none Drug use: Reports: none Physical Exam - General Limitations: no limitations General appearance: alert, in no apparent distress - Head Head exam: atraumatic, normocephalic, normal inspection - Eye Eye exam: Present: normal appearance, EOMI - ENT ENT exam: normal exam, normal oropharynx, mucous membranes moist - Neck Neck exam: Present: normal inspection, full ROM, trachea midline - Chest Chest inspection: Present: normal inspection, symmetric chest wall rise - Respiratory Respiratory exam: Present: normal lung sounds bilaterally - Cardiovascular Cardiovascular exam: Present: regular rate, normal rhythm - Abdominal Exam Abdominal exam: Present: soft, Non-Tender - Extremities Exam Extremities exam: Present: normal inspection, full ROM, other (AV fistula on L arm, thrill present). Absent: tenderness, pedal edema - Neurological Exam Neurological exam: Present: alert, oriented X3 - Psychiatric Psychiatric exam: Present: normal affect, normal mood - Skin Skin exam: Present: warm, dry, intact, normal color Course Course Narrative: Patient seen and examined. Diarrhea over the last month with concern for possible DKA. Basic lab work, circumflex ketones, VBG ordered. We will hold off on IV fluids for now since patient is on dialysis. Patient is hypertensive with his systolic blood pressure in the 200s. Patient has not had his home blood pressure medication since yesterday. We will go ahead and give him a dose of his home 40 mg lisinopril and 0.3 mg clonidine. - Reevaluation(s) Reevaluation #1: Labwork shows signs of DKA including elevated anion gap, acidosis, elevated serum ketones. Insulin drip ordered. I discussed with the hospitalists who has accepted patient for admission. I discussed with the technical service engineer Dr. Morris who states we can hold off on fluids since patient is still hypertensive. They will dialyze the patient today. Time: 12:45 Vital Signs Temperature 97.8 F 06/13/18 10:36 Pulse Rate 96 06/13/18 10:36 Respiratory Rate 18 06/13/18 10:36 Blood Pressure 256/138 06/13/18 10:36 O2 Sat by Pulse Oximetry 96 06/13/18 10:36 Temperature 97.8 F 06/13/18 14:20 Pulse Rate 83 06/13/18 14:00 Respiratory Rate 24 06/13/18 14:20 Blood Pressure 213/111 06/13/18 14:50 O2 Sat by Pulse Oximetry 96 06/13/18 14:00 Oxygen Delivery Oxygen Delivery Room Air Medical Decision Making - Medical Records Medical records reviewed: Yes I reviewed the patient's medical records. - Lab Data Lab results reviewed: Yes I reviewed the patient's lab results. Result diagrams: 06/13/18 11:00 06/13/18 13:55 Lab Results 06/13/18 06/13/18 06/13/18 Range/Units 10:37 10:38 11:00 WBC 8.5 (4.3-11.1) K/mcL RBC 4.24 (4.19-5.50) M/mcL Hgb 12.9 D (12.9-16.9) g/dL Hct 38.4 (37.5-50.1) % MCV 90.6 (83.0-100.0) fL MCH 30.4 (28.0-33.3) pg MCHC 33.6 (31.6-35.5) g/dL RDW 13.7 (11.5-14.5) % Plt Count 261 (140-400) K/mcL MPV 9.5 (9.4-12.4) fL Immature Gran % 0.4 (0-4) % Seg Neutrophils % 84.8 % Lymphocytes % 7.2 % Monocytes % 5.9 % Eosinophils % 0.6 % Basophils % 1.1 % Neutrophils # 7.2 (1.6-8.9) K/mcL Lymphocytes # 0.6 (0.6-4.6) K/mcL Monocytes # 0.5 (0.0-1.3) K/mcL Eosinophils # 0.1 (0.0-0.6) K/mcL Basophils # 0.1 (0.0-0.2) K/mcL VBG pH (7.32-7.42) pH Units VBG pCO2 (41-51) mmHg VBG pO2 (25-50) mmHg VBG HCO3 (21-27) mEq/L Sodium (136-145) mEq/L Potassium (3.5-5.1) mEq/L Chloride (98-107) mEq/L Carbon Dioxide (23-29) mEq/L BUN (8-23) mg/dL Creatinine (0.70-1.30) mg/dL Est GFR ( Amer) (> 60) Est GFR (Non-Af Amer) (> 60) BUN/Creatinine Ratio (6-26) Glucose (70-105) mg/dL POC Glucose 469 H* 494 H* (70-99) mg/dL Est Mean Plasma Glucose mg/dl Hemoglobin A1c ( - 5.6) % Calculated Osmolality (280-300) Lactic Acid (0.5-2.2) mmol/L Calcium (8.6-10.3) mg/dL Phosphorus (2.7-4.5) mg/dL Magnesium (1.6-2.6) mg/dL Albumin (3.5-5.7) g/dL Beta-Hydroxybutyric Acd (0.02-0.27) mmol/L 06/13/18 06/13/18 06/13/18 Range/Units 11:00 11:00 11:21 WBC (4.3-11.1) K/mcL RBC (4.19-5.50) M/mcL Hgb (12.9-16.9) g/dL Hct (37.5-50.1) % MCV (83.0-100.0) fL MCH (28.0-33.3) pg MCHC (31.6-35.5) g/dL RDW (11.5-14.5) % Plt Count (140-400) K/mcL MPV (9.4-12.4) fL Immature Gran % (0-4) % Seg Neutrophils % % Lymphocytes % % Monocytes % % Eosinophils % % Basophils % % Neutrophils # (1.6-8.9) K/mcL Lymphocytes # (0.6-4.6) K/mcL Monocytes # (0.0-1.3) K/mcL Eosinophils # (0.0-0.6) K/mcL Basophils # (0.0-0.2) K/mcL VBG pH 7.28 L (7.32-7.42) pH Units VBG pCO2 30 L (41-51) mmHg VBG pO2 89 H (25-50) mmHg VBG HCO3 14 L (21-27) mEq/L Sodium 138 (136-145) mEq/L Potassium 5.7 H (3.5-5.1) mEq/L Chloride 103 (98-107) mEq/L Carbon Dioxide 14 L (23-29) mEq/L BUN 119 H (8-23) mg/dL Creatinine 8.51 H (0.70-1.30) mg/dL Est GFR ( Amer) 8 L (> 60) Est GFR (Non-Af Amer) 6 L (> 60) BUN/Creatinine Ratio 14 (6-26) Glucose 524 H* (70-105) mg/dL POC Glucose (70-99) mg/dL Est Mean Plasma Glucose mg/dl Hemoglobin A1c ( - 5.6) % Calculated Osmolality 348 H (280-300) Lactic Acid (0.5-2.2) mmol/L Calcium 9.1 (8.6-10.3) mg/dL Phosphorus (2.7-4.5) mg/dL Magnesium (1.6-2.6) mg/dL Albumin (3.5-5.7) g/dL Beta-Hydroxybutyric Acd > 2.00 H (0.02-0.27) mmol/L 06/13/18 06/13/18 06/13/18 Range/Units 13:21 13:23 13:55 WBC (4.3-11.1) K/mcL RBC (4.19-5.50) M/mcL Hgb (12.9-16.9) g/dL Hct (37.5-50.1) % MCV (83.0-100.0) fL MCH (28.0-33.3) pg MCHC (31.6-35.5) g/dL RDW (11.5-14.5) % Plt Count (140-400) K/mcL MPV (9.4-12.4) fL Immature Gran % (0-4) % Seg Neutrophils % % Lymphocytes % % Monocytes % % Eosinophils % % Basophils % % Neutrophils # (1.6-8.9) K/mcL Lymphocytes # (0.6-4.6) K/mcL Monocytes # (0.0-1.3) K/mcL Eosinophils # (0.0-0.6) K/mcL Basophils # (0.0-0.2) K/mcL VBG pH (7.32-7.42) pH Units VBG pCO2 (41-51) mmHg VBG pO2 (25-50) mmHg VBG HCO3 (21-27) mEq/L Sodium 139 (136-145) mEq/L Potassium 5.2 H (3.5-5.1) mEq/L Chloride 104 (98-107) mEq/L Carbon Dioxide 16 L (23-29) mEq/L BUN 121 H (8-23) mg/dL Creatinine 8.62 H (0.70-1.30) mg/dL Est GFR ( Amer) 8 L (> 60) Est GFR (Non-Af Amer) 6 L (> 60) BUN/Creatinine Ratio 14 (6-26) Glucose 422 H (70-105) mg/dL POC Glucose 382 H (70-99) mg/dL Est Mean Plasma Glucose mg/dl Hemoglobin A1c ( - 5.6) % Calculated Osmolality 345 H (280-300) Lactic Acid 1.8 (0.5-2.2) mmol/L Calcium 9.2 (8.6-10.3) mg/dL Phosphorus 7.0 H (2.7-4.5) mg/dL Magnesium (1.6-2.6) mg/dL Albumin 4.2 (3.5-5.7) g/dL Beta-Hydroxybutyric Acd (0.02-0.27) mmol/L 07/30/18 07/30/18 07/30/18 Range/Units 13:55 13:55 13:55 WBC (4.3-11.1) K/mcL RBC (4.19-5.50) M/mcL Hgb (12.9-16.9) g/dL Hct (37.5-50.1) % MCV (83.0-100.0) fL MCH (28.0-33.3) pg MCHC (31.6-35.5) g/dL RDW (11.5-14.5) % Plt Count (140-400) K/mcL MPV (9.4-12.4) fL Immature Gran % (0-4) % Seg Neutrophils % % Lymphocytes % % Monocytes % % Eosinophils % % Basophils % % Neutrophils # (1.6-8.9) K/mcL Lymphocytes # (0.6-4.6) K/mcL Monocytes # (0.0-1.3) K/mcL Eosinophils # (0.0-0.6) K/mcL Basophils # (0.0-0.2) K/mcL VBG pH (7.32-7.42) pH Units VBG pCO2 (41-51) mmHg VBG pO2 (25-50) mmHg VBG HCO3 (21-27) mEq/L Sodium (136-145) mEq/L Potassium (3.5-5.1) mEq/L Chloride (98-107) mEq/L Carbon Dioxide (23-29) mEq/L BUN (8-23) mg/dL Creatinine (0.70-1.30) mg/dL Est GFR ( Amer) (> 60) Est GFR (Non-Af Amer) (> 60) BUN/Creatinine Ratio (6-26) Glucose (70-105) mg/dL POC Glucose (70-99) mg/dL Est Mean Plasma Glucose 174 mg/dl Hemoglobin A1c 7.7 H ( - 5.6) % Calculated Osmolality (280-300) Lactic Acid (0.5-2.2) mmol/L Calcium (8.6-10.3) mg/dL Phosphorus 7.1 H (2.7-4.5) mg/dL Magnesium 2.2 (1.6-2.6) mg/dL Albumin (3.5-5.7) g/dL Beta-Hydroxybutyric Acd 1.49 H (0.02-0.27) mmol/L 06/13/18 Range/Units 14:28 WBC (4.3-11.1) K/mcL RBC (4.19-5.50) M/mcL Hgb (12.9-16.9) g/dL Hct (37.5-50.1) % MCV (83.0-100.0) fL MCH (28.0-33.3) pg MCHC (31.6-35.5) g/dL RDW (11.5-14.5) % Plt Count (140-400) K/mcL MPV (9.4-12.4) fL Immature Gran % (0-4) % Seg Neutrophils % % Lymphocytes % % Monocytes % % Eosinophils % % Basophils % % Neutrophils # (1.6-8.9) K/mcL Lymphocytes # (0.6-4.6) K/mcL Monocytes # (0.0-1.3) K/mcL Eosinophils # (0.0-0.6) K/mcL Basophils # (0.0-0.2) K/mcL VBG pH 7.34 (7.32-7.42) pH Units VBG pCO2 28 L (41-51) mmHg VBG pO2 80 H (25-50) mmHg VBG HCO3 15 L (21-27) mEq/L Sodium (136-145) mEq/L Potassium (3.5-5.1) mEq/L Chloride (98-107) mEq/L Carbon Dioxide (23-29) mEq/L BUN (8-23) mg/dL Creatinine (0.70-1.30) mg/dL Est GFR ( Amer) (> 60) Est GFR (Non-Af Amer) (> 60) BUN/Creatinine Ratio (6-26) Glucose (70-105) mg/dL POC Glucose (70-99) mg/dL Est Mean Plasma Glucose mg/dl Hemoglobin A1c ( - 5.6) % Calculated Osmolality (280-300) Lactic Acid (0.5-2.2) mmol/L Calcium (8.6-10.3) mg/dL Phosphorus (2.7-4.5) mg/dL Magnesium (1.6-2.6) mg/dL Albumin (3.5-5.7) g/dL Beta-Hydroxybutyric Acd (0.02-0.27) mmol/L - EKG Data EKG #1 EKG attestation: Yes I reviewed and interpreted this EKG. EKG results narrative: EKG done at 1057 shows normal sinus rhythm with a rate of [address] elevation. Mild ST depression in leads V5 and V6. Normal axis. Appears unchanged from prior EKG done 04/08/2018. Attestation Statement - Attestation Attestation: I, Dariusz Mcguire, examined this patient and my medical decision-making was reviewed with the NURSERY SCHOOL ATTENDANT/PA/Advanced Practice Nurse/Resident Physician. I agree with the documented findings, disposition and treatment plan as described except to the extent set forth below. 62-year-old male presents emergency Department with concerns of elevated blood sugar. Patient states he woke this morning with elevated blood sugar reports that his blood sugar was within normal limits yesterday. He uses an insulin pump which he removed after noticing that the level was high this morning. He did not take any of his other medications. Patient has a history of elevated blood pressure however he is unable to tell me his baseline. His blood pressure in the emergency department is significantly elevated greater than 240 systolic. Patient does not have an elevation of his troponin and does not have STEMI on EKG. Patient denies chest pain, shortness of breath, abdominal pain, syncope. Patient answering questions appropriately. No focal deficits on exam. Patient was given his home doses of antihypertensive medications which did not make a significant difference. Resident, Dr. Sims, spoke with the technical service engineer who agreed to get patient to dialysis which should also help with the patient's blood pressure. Kirstin franco is in DKA with a significant anion gap. He is given insulin in the emergency department. He will be admitted to the ICU for further care and evaluation.
--- NOTE | 2018-06-13 13:03 | Internal Med History&Physical ---
Date of Encounter: 06/13/18 Time of Encounter: 12:50 Internal Medicine - H&P: HPI Chief complaint: missed dialysis, high glucose. Admitted From: Home Plans for Post Hospital Care: Home History of present illness: Mr. Kovacs is a 62 year old male with past medical history of Diabetes type I, hyperkalemia, HTN, CAD, HTN, ESRD-HD MWF ( Neprhologist Dr. Luna) who presents today after missing HD Wednesday and Wednesday. Pt also states he presented because of levetaed blood glucose. Pt's is at bedside. Pt states is LUE fistula was infiltrated at the dialysis center and he was advised to go home. States he is not sure if his nehprologist was informed but he is assuming he was. states pt's glucose was 565 this morning. Pt does have an insulin pump. reports that his pump malfunctioned yesterday and pt had been confused and was unable to tell her how to rectify the issue with the pump as he could not remember his last dose. and pt states they called is disbursing officer Dr. Hugo who gave recommendations to take some units of Novolog. Pt denies fever, chills, admits to nausea but denies vomiting, does report dry heaving. Mental status has improved since getting fluids in the ED. He reports chronic diarrhea but denies constipation. In ED NA 138, K 5.7, BUN 119, Cr 8.51, glucose 524, beta-hydroxybutyric acid > 2.00. VBG PH 7.28, pCO2 30, pO2 89, HCO3 14. CODE STATUS: FULL Past Med Surg Social Fam HX - Past Medical History Medical history: asthma, diabetes, dialysis, hyperlipidemia, hypertension, renal disease, other Additional medical history: ESRD, cataracts, tinnitis, asthma as a child Psychiatric history: no psych history - Past Surgical History Surgical History: herniorrhaphy, other Additional surgical history: new fistula - Social History Smoking Status: Former smoker Smokeless Tobacco Status: No Alcohol use: none Drug use: none - Family History Mother Living Status: Hx Family Cancer: Yes (Leukemia; patient unsure which type) Father Living Status: Hx Family Endocrine Disorder: Yes (DMI) Internal Medicine - H&P: Meds Calcitriol [Rocaltrol] 0.25 mcg PO QAM 09/20/17 [History] Calcium Acetate [Phos-LO] 667 mg PO TID 11/01/17 [History] Folic Acid/Vit Bcomp,C [Dialyvite Tablet] 1 tab PO DAILY 11/01/17 [History] Lisinopril [Zestril] 20 mg PO BID 11/01/17 [History] Subcutaneous Insulin Pump [T:Slim] 0 unit SQ DAILY 11/24/17 [History] CloNIDine Patch [Catapres-Tts] 0.3 mg TD QWEEK 02/07/18 [History] Aspirin 81 mg PO DAILY tab.chew 04/11/18 [Rx] Atorvastatin [Lipitor] 40 mg PO HS #30 tablet 04/11/18 [Rx] Carvedilol [Coreg] 12.5 mg PO BIDWM #60 tablet 04/11/18 [Rx] Clopidogrel [Plavix] 75 mg PO DAILY #30 tablet 04/11/18 [Rx] Isosorbide MONOnitrate (24 HR) [Imdur] 30 mg PO DAILY #30 tab.er.24h 04/11/18 [ Rx] 3 Allergy/AdvReac Type Severity Reaction Status Date / Time morphine Allergy Itching Verified 01/18/18 09:24 Sulfa (Sulfonamide Allergy See Verified 01/18/18 09:24 Antibiotics) Comments All Systems PM: A 10-system review of systems was performed and is negative for pertinent findings except as documented above in the HPI. - Constitutional Vitals: Temp Pulse Resp BP Pulse Ox 97.8 F 88 18 233/120 99 06/13/18 10:36 06/13/18 12:21 06/13/18 12:21 06/13/18 12:21 06/13/18 12:21 General appearance: Present: A&O X 3 - Head Head exam: Present: atraumatic, normocephalic - Eye Eye exam: Present: PERRL, conjuntiva pink, sclera anicteric Pupils: Present: PERRL - Neck Neck exam general surgery: Present: supple, trachea midline. Absent: lymphadenopathy - Respiratory Respiratory exam: Present: CTAB. Absent: accessory muscle use, rales, rhonchi, wheezes - Cardiovascular Cardiovascular exam: Present: RRR, +S1, +S2. Absent: diastolic murmur, gallop, rubs, systolic murmur Additional comments: good LUE fistula bruit - GI/Abdominal GI/Abdominal exam: Present: normal bowel sounds, soft, no peritoneal signs. Absent: distended, tenderness - Extremities Exam Extremities exam: Present: warm, radial pulses palpable and symmetrical. Absent : calf tenderness, cyanotic, pedal edema - Neurological Exam Neurological exam: Present: CN II-XII intact, oriented X3, no focal deficits. Absent: pronater drift, facial droop, speech deficit - Skin Skin exam: Present: dry, intact Internal Med - H&P Results - Labs CBC & Chem 7: 06/13/18 11:00 06/13/18 11:00 Labs: Short CBC 06/13/18 Range/Units 11:00 WBC 8.5 (4.3-11.1) K/mcL Hgb 12.9 D (12.9-16.9) g/dL Hct 38.4 (37.5-50.1) % Plt Count 261 (140-400) K/mcL Neutrophils # 7.2 (1.6-8.9) K/mcL BMP 06/13/18 11:00 Sodium 138 Potassium 5.7 H Chloride 103 Carbon Dioxide 14 L BUN 119 H Creatinine 8.51 H Glucose 524 H* Calcium 9.1 - ABG Interpretation ABG results: 06/13/18 11:21 VBG pH 7.28 L VBG pCO2 30 L VBG pO2 89 H VBG HCO3 14 L - Assessment and plan (1) Diabetic ketoacidosis Current Visit: No Status: Resolved Assessment and plan: Given fluids and insulin ordered in ED. But will hols off on further IVF per nephrology recommendation. Will place p on DKA protocol and monitor electrolytes, and serum ketones. Pt's will bring in his pump. Pt states he is able to fix the malfunction and worse case scenario he has the number for [employer] and is disbursing officer number. Pt may resume his insulin pump dosing once malfunction has been corrected. Qualifiers: Diabetes mellitus type: type 1 Diabetes mellitus complication detail: without coma Qualified Code(s): E10.10 - Type 1 diabetes mellitus with ketoacidosis without coma (2) End stage renal disease Current Visit: No Status: Chronic Assessment and plan: Patient discussed with nephrology and planing on taking him to dialysis. Will monitor renal function daily. (3) CAD (coronary artery disease) Current Visit: No Status: Acute Assessment and plan: ASA , plavix and lipitor. Qualifiers: Coronary Disease-Associated Artery/Lesion type: [place] artery [place] vs. transplanted heart: [place] heart Associated angina: without angina Qualified Code(s): I25.10 - Atherosclerotic heart disease of [place] coronary artery without angina pectoris (4) Uncontrolled hypertension Current Visit: No Status: Acute Assessment and plan: Pt is on Lisinopril, Clonidine patch, Imdur, and Coreg. Given Clonidine and Lisinopril in ED. Will resume other home meds and add Hydralazine prn. (5) Hyperkalemia Current Visit: No Status: Acute Assessment and plan: Will check renal function following HD. Nephrology aware. Also will be getting insulin which should help improve this. - Time Spent With Patient Total time spent is greater than 50% in coordination of care (as documented) at patient's floor/unit and/or counseling patient: 25 - 35 minutes
[2018-06-13] MEDS ORDERED: 0.9 % Sodium Chloride 250 ML IVC PRN (13:18)
[2018-06-13] MEDS ORDERED: Naloxone 0.4 MG/ML INJ IVP PRN (13:24)
[2018-06-13] MEDS ORDERED: Insulin Regular, Human 100 UNIT/ML IV ONE (13:24)
[2018-06-13] MEDS ORDERED: 0.9 % Sodium Chloride 1,000 ML PRIME SCH (13:30)
[2018-06-13] MEDS ORDERED: CloNIDine Patch 0.3 MG PATCH (WEEKLY) TD SCH (13:30)
[2018-06-13] MEDS ORDERED: 0.9 % Sodium Chloride 1,000 ML IVC SCH (13:45)
--- NOTE | 2018-06-13 14:02 | Nephrology Consult Note ---
Date of Encounter: 06/13/18 Time of Encounter: 13:56 Assessment and Plan (1) End stage renal disease on dialysis Current Visit: Yes Status: Chronic HD is ordered for today. Will order additional UF for HD as needed. Renal dose all medications and avoid nephrotoxins. Strict I&O. Renal diet when not nothing by mouth. (2) DKA (diabetic ketoacidoses) Current Visit: Yes Status: Acute Per primary team. Qualifiers: Diabetes mellitus type: type 1 Diabetes mellitus complication detail: without coma Qualified Code(s): E10.10 - Type 1 diabetes mellitus with ketoacidosis without coma (3) Hypertension Current Visit: No Status: Chronic Will attempt to bring down with hemodialysis. Qualifiers: Hypertension type: essential hypertension Qualified Code(s): I10 - Essential (primary) hypertension History of Present Illness - Reason for Consult Consult date: 06/13/18 end stage renal disease - Chief Complaint Hyperglycemia - History of Present Illness Mr. Kovacs is a 62-year-old male who presented to the ER this morning for elevated blood sugars. He typically wears an insulin pump. It is not on at this time. When he checked it this morning it was in the 400s. PMH:asthma, diabetes, dialysis, hyperlipidemia, hypertension, ESRD on HD. Current regimen is Wednesday at [facility]. Last successful treatment was June 06. On Wednesday his fistula infiltrated shortening his treatment time. On Wednesday he was having diarrhea, so he only had treatment for about an hour and a half total. He does deny chest pain shortness of breath nausea vomiting or diarrhea now. No recent medication changes. He does have difficulty controlling hypertension. Oftentimes his insurance does not cover all of his medications, so sometimes he has to go without. He is supposed to be on a clonidine patch, and he did not place it this morning unsure if he did not have it to place or just forgot to put on. His is at bedside and a good historian. We will plan for emergent hemodialysis today in the intensive care unit. To help with the blood pressure control. Current BP is 221/113, heart rate is 84. Past Med Surg Social Fam HX - Past Medical History Medical history: asthma, diabetes, dialysis, hyperlipidemia, hypertension, renal disease, other Additional medical history: ESRD, cataracts, tinnitis, asthma as a child Psychiatric history: no psych history - Past Surgical History Surgical History: herniorrhaphy, other Additional surgical history: new fistula - Social History Smoking Status: Former smoker Smokeless Tobacco Status: No Alcohol use: none Drug use: none - Family History Mother Living Status: Hx Family Cancer: Yes (Leukemia; patient unsure which type) Father Living Status: Hx Family Endocrine Disorder: Yes (DMI) Medications and Allergies Calcitriol [Rocaltrol] 0.25 mcg PO QAM 09/20/17 [History] Calcium Acetate [Phos-LO] 667 mg PO TID 11/01/17 [History] Folic Acid/Vit Bcomp,C [Dialyvite Tablet] 1 tab PO DAILY 11/01/17 [History] Lisinopril [Zestril] 20 mg PO BID 11/01/17 [History] Subcutaneous Insulin Pump [T:Slim] 0 unit SQ DAILY 11/24/17 [History] CloNIDine Patch [Catapres-Tts] 0.3 mg TD QWEEK 02/07/18 [History] Aspirin 81 mg PO DAILY tab.chew 04/11/18 [Rx] Atorvastatin [Lipitor] 40 mg PO HS #30 tablet 04/11/18 [Rx] Carvedilol [Coreg] 12.5 mg PO BIDWM #60 tablet 04/11/18 [Rx] Clopidogrel [Plavix] 75 mg PO DAILY #30 tablet 04/11/18 [Rx] Isosorbide MONOnitrate (24 HR) [Imdur] 30 mg PO DAILY #30 tab.er.24h 04/11/18 [ Rx] 3 Allergy/AdvReac Type Severity Reaction Status Date / Time morphine Allergy Itching Verified 01/18/18 09:24 Sulfa (Sulfonamide Allergy See Verified 01/18/18 09:24 Antibiotics) Comments Exam - Vital Signs Vital signs: Initial Vital Signs Temp Pulse Resp BP Pulse Ox 97.8 F 96 18 256/138 96 06/13/18 10:36 06/13/18 10:36 06/13/18 10:36 06/13/18 10:36 06/13/18 10:36 Vital Signs - Last 8 Hours Pulse Resp BP 06/13/18 13:38 84 06/13/18 13:21 18 221/113 Intake and Output 06/12/18 06/13/18 06/13/18 23:59 07:59 15:59 Intake Total 0 / 0 Balance 0 / 0 Intake: Oral 0 / 0 Other: Weight 59.148 kg Blood Glucose* 382 Patient Weight 06/13/18 23:59 Weight 59.148 kg - General Appearance General appearance: well-developed, well-nourished EENT: ATNC, hearing intact, vision intact Neck: supple Respiratory: clear Cardiology: no edema, normal S1, normal S2 - Dialysis Access Dialysis Vascular Access: Arteriovenous Fistula thrill: Yes bruit: Yes Gastrointestinal: normoactive bowel sounds, no tenderness, no guarding Integumentary: no rash, warm and dry Neurologic: alert and oriented x3 Psychiatric: mood/affect appropriate, cooperative Results - Lab Results 06/13/18 11:00 06/13/18 13:55 Most recent lab results Calcium 9.1 mg/dL (8.6-10.3) 06/13/18 11:00 Consult Discharge Plan - Plan Referrals: Hui Salazar MD [Primary Care Provider] -
[2018-06-13] MEDS ORDERED: Insulin Human Regular 8 UNIT in 0.9 % Sodium Chloride 10 ML IV ONE (14:09)
[2018-06-13 14:22] LABS: Estimated Average Glucose 174 mg/dl; Hemoglobin A1C 7.7 %
[2018-06-13 14:30] LABS: VBG HCO3 15 mEq/L (21-27); VBG PCO2 28 mmHg (41-51); VBG PH 7.34 pH Units (7.32-7.42); VBG PO2 80 mmHg (25-50)
[2018-06-13 14:33] LABS: Albumin 4.2 g/dL (3.5-5.7); Calcium 9.2 mg/dL (8.6-10.3); Potassium 5.2 mEq/L (3.5-5.1)
[2018-06-13 14:40] LABS: Magnesium 2.2 mg/dL (1.6-2.6); Phosphorous 7.1 mg/dL (2.7-4.5)
[2018-06-13] MEDS ORDERED: D10% in Water 500 ML IV SOLUTION IVC SCH (15:30)
[2018-06-13] MEDS: Calcium Acetate 667 MG CAPSULE PO SCH ×2 (15:51→20:59)
[2018-06-13] MEDS: Isosorbide MONOnitrate (24 HR) 30 MG TAB.ER.24H PO SCH (17:13)
[2018-06-13] MEDS: *HR* Heparin 5,000 UNIT/ML VIAL SQ SCH (17:13)
[2018-06-13 18:07] LABS: VBG HCO3 30 mEq/L (21-27); VBG PCO2 32 mmHg (41-51); VBG PH 7.58 pH Units (7.32-7.42); VBG PO2 174 mmHg (25-50)
[2018-06-13 18:25] LABS: Albumin 3.8 g/dL (3.5-5.7); Calcium 9.1 mg/dL (8.6-10.3); Phosphorous 2.3 mg/dL (2.7-4.5); Potassium 2.9 mEq/L (3.5-5.1)
[2018-06-13] MEDS ORDERED: Dextrose Gel 15 GM/37.5 ML TUBE PO PRN ×2 (18:41)
[2018-06-13] MEDS ORDERED: D5% in Water 1,000 ML IVC PRN (18:41)
[2018-06-13] MEDS ORDERED: Potassium Chloride 40 MEQ, Lidocaine 1% 2 ML in D5% in Water 500 ML IVPB ONE (19:53)
[2018-06-13] MEDS: Lisinopril 20 MG TABLET PO SCH (20:59)
[2018-06-13] MEDS ORDERED: Insulin DETEMIR 100 UNIT/ML X5UNITS SQ SCH (21:00)
--- NOTE | 2018-06-13 21:07 | Event Note ---
Date of Encounter: 06/13/18 Time of Encounter: 20:55 After further discussion with nephrology, it appears pt has not been complaint with his HD. I was called by ICU nurse because pt was confused post dialysis. I had been informed by lady at bed side, Fallon, that she was his but pt's harmony called and states pt was never to her but that they lived together for about 40 years. Fallon states she was advised by spray ii painter to give 8 units of Novolog to the patient when his pump malfunctioned. Tangela Antunez, states they are soon to be . Harmony states pt is usually not confused after HD. She is not sure if pt is compliant with his BP medications at home but Fallon had stated to the nurse that he had not been taking his BP meds regularly. Pt alert and oriented times 2-3. He does follow most of commands. Adding STAT non-contrast CT head for now. I had called Cardiovascular Lab Director for possible consult, however, repeat BP while I was in ICU was 151 systolic/70's DBP. This was after 6-8 readings of SBP > 200's. AG closed so will place on Levemir and SSI for now and adjust as deemed appropriate. Discussed with night time hospitalist as well. Will continue to monitor in ICU for now.
--- NOTE | 2018-06-13 22:04 | Electrocardiograph Report ---
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
[2018-06-14 00:37] LABS: Hematocrit 36.9 % (37.5-50.1); Hemoglobin 12.8 g/dL (12.9-16.9); Mean Corpuscular HGB Conc 34.7 g/dL (31.6-35.5); Mean Corpuscular Hemoglobin 29.6 pg (28.0-33.3); Mean Corpuscular Volume 85.4 fL (83.0-100.0); Mean Platelet Volume 9.5 fL (9.4-12.4); Platelet Count 271 K/mcL (140-400); Red Blood Count 4.32 M/mcL (4.19-5.50); Red Cell Distribution Width 13.5 % (11.5-14.5)
[2018-06-14 00:57] LABS: Albumin 3.6 g/dL (3.5-5.7); Calcium 8.9 mg/dL (8.6-10.3); Phosphorous 5.6 mg/dL (2.7-4.5); Potassium 4.2 mEq/L (3.5-5.1)
[2018-06-14] MEDS: *HR* Heparin 5,000 UNIT/ML VIAL SQ SCH ×2 (05:53→17:08)
[2018-06-14] MEDS ORDERED: Insulin LISPRO 300 UNITS/3 ML VIAL SQ SCH (07:30)
--- NOTE | 2018-06-14 08:35 | Internal Med Progress Note ---
<CarlosHelio Alex - Last Filed: 06/14/18 17:08> Hospitalist Progress Note - Encounter Date of Encounter: 06/14/18 Time of Encounter: 08:35 - Subjective Interval History: Pt seen and examined, resting in bed eating breakfast. Reports he is feeling much better. Denies symptoms this morning. Confusion resolved. He reports that he had missed dialysis due to having diarrhea. He reports that he has had diarrhea for the past month or so. Unclear etiology, no known sick contacts and no antibiotic use. Yesterday he had some difficulty with his insulin pump after he became confused. Symptoms are much improved after urgent dialysis last night. He denies fevers, chills, chest pain, dyspnea, abdominal pain, nausea, vomiting, dysuria, or edema. He has not had a bowel movement since being in the hospital. - Exam Vitals: Temp Pulse Resp BP Pulse Ox 98.4 F 80 16 148/75 96 06/14/18 07:24 06/14/18 07:00 06/14/18 07:00 06/14/18 07:00 06/14/18 07:00 Exam: General: No acute distress, A&O3 Head: Atraumatic, normocephalic Eyes: Pupils symmetric, sclerae white, conjunctivae pink Heart: RRR, normal S1 and S2, no murmurs Lungs: Clear to auscultation bilaterally, no wheezes, rhonchi, or crackles Abdomen: Soft, nontender, nondistended, bowel sounds present Extremities: No edema Neuro: No focal deficits - Assessment and Plan (1) Diabetic ketoacidosis Current Visit: Yes Status: Resolved Assessment and Plan: Now BG 167, AG 17 - BG 524 initially, pH 7.28, AG 21 Confusion resolved Insulin drip stopped last night PLAN: Resumed insulin pump but continues to malfunction Levemir 20U BID and SSI (2) End stage renal disease Current Visit: Yes Status: Chronic Assessment and Plan: Nephrology following HD yesterday - plan for MWF now - had missed dialysis twice last week d/t diarrhea K 4.4 Renally dose medications Renal diet (3) Hypertension Current Visit: Yes Status: Chronic Assessment and Plan: SBP in 200's upon presentation Now down to 140-160s/70-90s Continue medications and monitor (4) DM type 1 (diabetes mellitus, type 1) Current Visit: Yes Status: Chronic Assessment and Plan: Plan as above Levemir and SSI (5) CAD (coronary artery disease) Current Visit: No Status: Chronic Assessment and Plan: Continue ASA, plavix, and statin DVT Prophylaxis: Subq heparin - Time Spent with Patient Total time spent is greater than 50% in coordination of care (as documented) at patient's floor/unit and/or counseling patient: Internal Medicine: Result - Labs CBC & Chem 7: 06/14/18 00:25 06/14/18 08:02 Labs: Short CBC 06/14/18 Range/Units 00:25 WBC 9.4 (4.3-11.1) K/mcL Hgb 12.8 L (12.9-16.9) g/dL Hct 36.9 L (37.5-50.1) % Plt Count 271 (140-400) K/mcL BMP 06/13/18 06/13/18 06/13/18 13:55 17:45 20:22 Sodium 139 138 Potassium 5.2 H 2.9 L D 3.7 D Chloride 104 100 Carbon Dioxide 16 L 27 BUN 121 H 26 H Creatinine 8.62 H 2.27 H Glucose 422 H 115 H Calcium 9.2 9.1 06/14/18 06/14/18 06/14/18 00:25 00:25 04:03 Sodium 138 Potassium 4.5 4.2 4.3 Chloride 96 L Carbon Dioxide 25 BUN 42 H Creatinine 4.21 H Glucose 227 H Calcium 8.9 Liver Function 06/13/18 06/13/18 06/14/18 Range/Units 13:55 17:45 00:25 Albumin 4.2 3.8 3.6 (3.5-5.7) g/dL - Impressions Impressions Head CT 06/13/18 20:30 IMPRESSION: No acute intracranial abnormality. D/ / Julissa Oquendo Cha, MD / Julissa Oquendo Cha, MD Interpreting Provider: Julissa Oquendo Cha, MD Consult Discharge Plan - Plan Referrals: Hui Salazar MD [Primary Care Provider] - <Roberto Paulson - Last Filed: 06/14/18 17:36> Hospitalist Progress Note - Encounter Date of Encounter: 06/14/18 - Exam Vitals: Temp Pulse Resp BP Pulse Ox 98.1 F 76 19 164/84 97 06/14/18 15:55 06/14/18 15:55 06/14/18 15:55 06/14/18 15:55 06/14/18 15:55 - Time Spent with Patient Total time spent is greater than 50% in coordination of care (as documented) at patient's floor/unit and/or counseling patient: Internal Medicine: Result - Labs CBC & Chem 7: 06/14/18 00:25 06/14/18 08:02 Labs: Short CBC 06/14/18 Range/Units 00:25 WBC 9.4 (4.3-11.1) K/mcL Hgb 12.8 L (12.9-16.9) g/dL Hct 36.9 L (37.5-50.1) % Plt Count 271 (140-400) K/mcL BMP 06/13/18 06/13/18 06/14/18 17:45 20:22 00:25 Sodium 138 Potassium 2.9 L D 3.7 D 4.5 Chloride 100 Carbon Dioxide 27 BUN 26 H Creatinine 2.27 H Glucose 115 H Calcium 9.1 06/14/18 06/14/18 06/14/18 00:25 04:03 08:02 Sodium 138 Potassium 4.2 4.3 4.4 Chloride 96 L Carbon Dioxide 25 BUN 42 H Creatinine 4.21 H Glucose 227 H Calcium 8.9 Liver Function 06/13/18 06/14/18 Range/Units 17:45 00:25 Albumin 3.8 3.6 (3.5-5.7) g/dL - Impressions Impressions Echocardiogram 06/13/18 19:05 Impressions: LVEF 55%. Normal IVS wall thickness. LVPW thickness measurement not well obtained. Mild left ventricular diastolic dysfunction. Normal right ventricular structure and function. Mild-moderate mitral regurgitation. No pulmonary hypertension based on lack of significant TR gradient. Mild elevation of RA pressures. Left Ventricular Wall Motion: Rest Echo Findings All wall segments showed normal motion. Findings: Study Quality * Technically adequate exam. ECG Findings * Normal sinus rhythm. Left Ventricle * LVEF 55%. * Normal IVS wall thickness. LVPW thickness measurement not well obtained. * Mild left ventricular diastolic dysfunction. Right Ventricle * Normal right ventricular structure and function. Left Atrium * Mildly dilated left atrium. Right Atrium * Normal right atrial size. Mitral Valve * Mild mitral annular calcification * Normal mitral valve structure. * No mitral stenosis. * Mild-moderate mitral regurgitation. Aortic Valve * No aortic regurgitation. * Aortic valve not well visualized. * No aortic stenosis. Tricuspid Valve * Normal tricuspid valve structure. * Estimated RA pressure is 8 mmHg. Pulmonic Valve * Pulmonic valve is not well visualized. * No pulmonic stenosis. * No pulmonic regurgitation. Pulmonary Artery * Pulmonary artery not well visualized. Aorta * Not optimally visualized. Pericardium * There is no pericardial effusion present. Interatrial Septum * No evidence of PFO by color Doppler. IVC * The IVC is not dilated. * < 50% respiratory change. Head CT 06/13/18 20:30 IMPRESSION: No acute intracranial abnormality. D/ / Julissa Oquendo Cha, MD / Julissa Oquendo Cha, MD Interpreting Provider: Julissa Oquendo Cha, MD - Attending Attestation I have seen and examined this patient independently. I have discussed with resident physician Dr. Cadet regarding the management plan. Agree with the documentation. <Helio Gonzalez R - Last Filed: 06/14/18 17:08> (1) Diabetic ketoacidosis Qualifiers: Diabetes mellitus type: type 1 Diabetes mellitus complication detail: without coma Qualified Code(s): E10.10 - Type 1 diabetes mellitus with ketoacidosis without coma (3) Hypertension Qualifiers: Hypertension type: essential hypertension Qualified Code(s): I10 - Essential (primary) hypertension (4) DM type 1 (diabetes mellitus, type 1) Qualifiers: Diabetes mellitus complication status: with hyperglycemia Qualified Code(s): E10.65 - Type 1 diabetes mellitus with hyperglycemia (5) CAD (coronary artery disease) Qualifiers: Coronary Disease-Associated Artery/Lesion type: [place] artery [place] vs. transplanted heart: [place] heart Associated angina: without angina Qualified Code(s): I25.10 - Atherosclerotic heart disease of [place] coronary artery without angina pectoris
[2018-06-14] MEDS: Multivit/Ca/Min/Fe/FA 1 TAB TABLET PO SCH (08:44)
[2018-06-14] MEDS: Isosorbide MONOnitrate (24 HR) 30 MG TAB.ER.24H PO SCH (08:44)
[2018-06-14] MEDS: Calcium Acetate 667 MG CAPSULE PO SCH ×3 (08:45→17:08)
[2018-06-14] MEDS: Lisinopril 20 MG TABLET PO SCH ×2 (08:45→21:24)
[2018-06-14] MEDS: Aspirin 81 MG TAB.CHEW PO SCH (08:45)
[2018-06-14] MEDS ORDERED: Isosorbide MONOnitrate (24 HR) 30 MG TAB.ER.24H PO SCH (09:00)
--- NOTE | 2018-06-14 09:27 | Nephrology Progress Note ---
Date of Encounter: 06/14/18 Time of Encounter: 09:24 - Assessment and Plan (1) End stage renal disease on dialysis Current Visit: Yes Status: Chronic Current regimen is Wednesday at [facility]. Treatment yesterday without complication. Plan for HD tomorrow. Avoid nephrotoxins and renal dose all medications. Renal diet. (2) DKA (diabetic ketoacidoses) Current Visit: Yes Status: Acute Anion Gap is 17. Is on Levemir and sliding scale insulin. Qualifiers: Diabetes mellitus type: type 1 Diabetes mellitus complication detail: without coma Qualified Code(s): E10.10 - Type 1 diabetes mellitus with ketoacidosis without coma (3) Hypertension Current Visit: No Status: Chronic BP is more stable today. Current BP is 169/91. Qualifiers: Hypertension type: essential hypertension Qualified Code(s): I10 - Essential (primary) hypertension Subjective Principal diagnosis: Hyperglycemia Interval history: Pt seen and examined. Doing well. No CP/SOB/nausea/vomiting. Objective - Vital Signs Vital signs: Vital Signs Temp Pulse Resp BP Pulse Ox 06/14/18 09:00 79 20 169/91 94 06/14/18 08:00 80 20 153/82 94 06/14/18 07:24 98.4 F 06/14/18 07:00 80 16 148/75 96 06/14/18 06:00 79 16 150/77 95 06/14/18 05:30 78 14 148/73 95 06/14/18 04:30 98.1 F 80 14 140/71 94 06/14/18 03:00 81 18 138/68 95 06/14/18 02:30 82 18 135/65 95 06/14/18 01:30 74 16 171/87 95 06/14/18 00:30 97.8 F 75 16 171/80 95 06/13/18 23:00 75 16 166/74 96 06/13/18 22:18 78 18 169/79 97 06/13/18 21:00 72 16 171/94 97 06/13/18 20:00 70 16 176/79 97 06/13/18 19:00 98.1 F 65 18 155/77 97 06/13/18 18:05 98.1 F 19 221/116 06/13/18 17:50 221/116 06/13/18 17:35 233/126 07/30/18 17:20 226/107 06/13/18 17:05 229/108 06/13/18 16:50 213/130 06/13/18 16:35 224/116 06/13/18 16:20 212/109 06/13/18 16:05 205/113 06/13/18 16:00 98.1 F 76 16 222/113 97 06/13/18 15:50 215/107 06/13/18 15:35 213/108 06/13/18 15:20 215/111 06/13/18 15:05 222/110 06/13/18 15:00 79 220/107 06/13/18 14:50 213/111 06/13/18 14:35 215/111 06/13/18 14:20 97.8 F 24 211/103 06/13/18 14:00 83 19 96 06/13/18 13:38 84 06/13/18 13:21 18 221/113 Intake and Output 06/13/18 06/14/18 06/14/18 23:59 07:59 15:59 Intake Total 10 10 Output Total 1600 / 1600 0 / 0 Balance -1570 / -1570 Intake: IV Fluids HumuLIN R 100 UNIT In 0.9 % 10 10 Sodium Chloride 100 ML @ 0.1 UNIT/KG/HR 5.95 mls/hr IVC CONT SLADE Rx#:[id number] Oral 0 / 0 Output: Urine 0 / 0 0 / 0 Total Dialysis (HD) Output 1600 / 1600 Other: Meal Breakfast Percent of Meal Consumed 90% Weight 61 kg Blood Glucose* 132 78 78 Hemodialysis Net Fluid Removed 1000 (mL) Patient Weight 06/14/18 23:59 Weight 61 kg - General Appearance General appearance: Present: well-developed, well-nourished EENT: Present: ATNC, hearing intact, vision intact Neck: Present: supple Respiratory: Present: clear Cardiology: Present: no edema, normal S1, normal S2 Dialysis Vascular Access: Arteriovenous Fistula thrill: Yes bruit: Yes Gastrointestinal: Present: normoactive bowel sounds, no tenderness, no guarding Integumentary: Present: no rash, warm and dry Neurologic: Present: alert and oriented x3 Psychiatric: Present: mood/affect appropriate, cooperative - Lab 06/14/18 00:25 06/14/18 08:02 Most recent lab results Calcium 8.9 mg/dL (8.6-10.3) 06/14/18 00:25 Phosphorus 5.6 mg/dL (2.7-4.5) H 06/14/18 00:25 Magnesium 2.2 mg/dL (1.6-2.6) 06/13/18 13:55 Consult Discharge Plan - Plan Referrals: Hui Salazar MD [Primary Care Provider] -
[2018-06-14] MEDS: SUBCUTANEOUS INSULIN PUMP SQ SCH (17:00)
[2018-06-14] MEDS: Insulin LISPRO 300 UNITS/3 ML VIAL SQ SCH (17:07)
[2018-06-14 17:34] LABS: Bilirubin,Urine Negative (Negative); Blood,Urine Negative (Negative); Clarity,Urine Clear (Clear); Color,Urine Yellow (Yellow); Glucose,Urine (UA) >=1000 mg/dL (Normal); Ketones,Urine Negative (Negative); Leukocyte Esterase,Urine Negative (Negative); Nitrite,Urine Negative (Negative); PH,Urine 7.5 pH Units (5.0-8.0); Protein,Urine >=300 mg/dL (Neg-Trace); Specific Gravity,Urine 1.013 (1.010-1.025); Urobilinogen,Urine Normal (Normal)
[2018-06-14 17:36] LABS: Bacteria,Urine None Seen per hpf (None-Few); Hyaline Casts,Urine None Seen per lpf (None-Few); RBC,Urine 0-3 per hpf (0-3); Squamous Epithelial Cell,Urine Many per lpf (None-Few); WBC,Urine 0-3 per hpf (0-3)
[2018-06-14] MEDS ORDERED: Insulin DETEMIR 100 UNIT/ML X5UNITS SQ SCH (21:00)
[2018-06-15] MEDS: *HR* Heparin 5,000 UNIT/ML VIAL SQ SCH (05:52)
[2018-06-15 07:01] LABS: Potassium 4.1 mEq/L (3.5-5.1)
[2018-06-15] MEDS: Insulin LISPRO 300 UNITS/3 ML VIAL SQ SCH ×2 (07:18→13:03)
[2018-06-15] MEDS ORDERED: 0.9 % Sodium Chloride 250 ML IVC PRN (07:30)
[2018-06-15] MEDS ORDERED: 0.9 % Sodium Chloride 1,000 ML PRIME SCH (07:30)
[2018-06-15] MEDS: Aspirin 81 MG TAB.CHEW PO SCH (07:50)
[2018-06-15] MEDS: Multivit/Ca/Min/Fe/FA 1 TAB TABLET PO SCH (07:50)
[2018-06-15] MEDS: Calcium Acetate 667 MG CAPSULE PO SCH ×2 (07:50→12:53)
[2018-06-15] MEDS: Isosorbide MONOnitrate (24 HR) 30 MG TAB.ER.24H PO SCH (07:51)
[2018-06-15] MEDS: SUBCUTANEOUS INSULIN PUMP SQ SCH (07:51)
[2018-06-15] MEDS ORDERED: 0.9 % Sodium Chloride 1,000 ML ONE (07:53)
[2018-06-15] MEDS: Lisinopril 20 MG TABLET PO SCH (08:02)
[2018-06-15 08:11] LABS: Hematocrit 35.9 % (37.5-50.1); Hemoglobin 12.1 g/dL (12.9-16.9); Mean Corpuscular HGB Conc 33.7 g/dL (31.6-35.5); Mean Corpuscular Hemoglobin 28.9 pg (28.0-33.3); Mean Corpuscular Volume 85.7 fL (83.0-100.0); Mean Platelet Volume 9.9 fL (9.4-12.4); Platelet Count 355 K/mcL (140-400); Red Blood Count 4.19 M/mcL (4.19-5.50); Red Cell Distribution Width 13.9 % (11.5-14.5)
[2018-06-15] MEDS ORDERED: Renal Vitamin 1 CAP CAPSULE PO SCH (09:00)
[2018-06-15] MEDS ORDERED: Insulin DETEMIR 100 UNIT/ML X5UNITS SQ SCH (09:00)
--- NOTE | 2018-06-15 09:46 | Nephrology Progress Note ---
Date of Encounter: 06/15/18 Time of Encounter: 09:43 - Assessment and Plan (1) End stage renal disease on dialysis Current Visit: Yes Status: Chronic Current regimen is Wednesday at [facility]. HD and progress for today. Avoid nephrotoxins and renal dose all medications. Will order additional UF or HD as needed. Renal diet. Renal vitamins. (2) DKA (diabetic ketoacidoses) Current Visit: Yes Status: Acute Blood sugars appear to be labile. Blood sugar was 26 this morning, was given 25 mL of dextrose and it was brought up to 83. Continue to monitor closely. Qualifiers: Diabetes mellitus type: type 1 Diabetes mellitus complication detail: without coma Qualified Code(s): E10.10 - Type 1 diabetes mellitus with ketoacidosis without coma (3) Hypertension Current Visit: Yes Status: Chronic BP appears to be stable and between HD treatments. At 5:00 this morning it was 193/60, before starting dialysis today it was 212/ 87. During dialysis blood pressure was well-controlled. Qualifiers: Hypertension type: essential hypertension Qualified Code(s): I10 - Essential (primary) hypertension Subjective Principal diagnosis: Hyperglycemia Interval history: Pt seen and examined during HD, doing well. No CP/SOB/nausea/vomiting. Objective - Vital Signs Vital signs: Vital Signs Temp Pulse Resp BP Pulse Ox 06/15/18 08:04 98.2 F 66 17 212/87 100 06/15/18 05:49 58 16 193/60 95 06/15/18 05:17 98.4 F 78 17 153/76 96 06/15/18 01:22 98.6 F 74 18 160/82 97 06/14/18 21:33 99.1 F 72 17 141/58 96 06/14/18 15:55 98.1 F 76 19 164/84 97 06/14/18 12:00 71 20 148/78 97 06/14/18 10:52 98.3 F Intake and Output 06/14/18 06/15/18 06/15/18 23:59 07:59 15:59 Intake Total 220 / 220 Output Total 750 / 750 Balance -750 / -750 220 / 220 Intake: IV Fluids 100 / 100 Dextrose 5% 1,000 ML @ 100 mls/ 100 / 100 hr IVC .Q10H PRN Rx#:[id number] Oral 120 / 120 Output: Urine 750 / 750 Other: Meal Breakfast Percent of Meal Consumed 100% # Voids 1 Weight 57.5 kg Blood Glucose* 263 62 80 Patient Weight 06/15/18 23:59 Weight 57.5 kg - General Appearance General appearance: Present: well-developed, well-nourished EENT: Present: ATNC, hearing intact, vision intact Neck: Present: supple Respiratory: Present: clear Cardiology: Present: no edema, normal S1, normal S2 Dialysis Vascular Access: Arteriovenous Fistula thrill: Yes bruit: Yes Gastrointestinal: Present: normoactive bowel sounds, no tenderness, no guarding Integumentary: Present: no rash, warm and dry Neurologic: Present: alert and oriented x3 Psychiatric: Present: mood/affect appropriate, cooperative - Lab 06/15/18 06:26 06/15/18 06:26 Most recent lab results Calcium 9.0 mg/dL (8.6-10.3) 06/15/18 06:26 Phosphorus 5.6 mg/dL (2.7-4.5) H 06/14/18 00:25 Magnesium 2.2 mg/dL (1.6-2.6) 06/13/18 13:55 Consult Discharge Plan - Plan Referrals: Hui Salazar MD [Primary Care Provider] -
[2018-06-15 13:14] VITALS: BP 182/86
--- NOTE | 2018-06-15 14:22 | Discharge Summary ---
<Stephan Paulson - Last Filed: 06/15/18 14:20> - NOTES TO OUTPATIENT PROVIDER Notes to Outpatient Provider: patient has new supplies for his insulin pump; he states it has never malfunctioned Orders not resulted at time of discharge: Pending orders 06/16/18 04:00 Basic Metabolic Panel AM 0400 CBC no Diff [Complete Blood Count w/o Diff] [HEME] AM 04006/17/18 04:00 Basic Metabolic Panel AM 0400 CBC no Diff [Complete Blood Count w/o Diff] [HEME] AM 04006/18/18 04:00 Basic Metabolic Panel AM 0400 CBC no Diff [Complete Blood Count w/o Diff] [HEME] AM 04006/19/18 04:00 Basic Metabolic Panel AM 040 CBC no Diff [Complete Blood Count w/o Diff] [HEME] AM 040 Date of Encounter: 06/15/18 Time of Encounter: 08:30 - Discharge Diagnosis (1) Diabetic ketoacidosis Priority: Primary Status: Resolved Qualifiers: Diabetes mellitus type: type 1 Diabetes mellitus complication detail: without coma Qualified Code(s): E10.10 - Type 1 diabetes mellitus with ketoacidosis without coma (2) Hypertension Priority: Secondary Status: Chronic Qualifiers: Hypertension type: essential hypertension Qualified Code(s): I10 - Essential (primary) hypertension (3) End stage renal disease Priority: Secondary Status: Chronic (4) CAD (coronary artery disease) Priority: Secondary Status: Chronic Qualifiers: Coronary Disease-Associated Artery/Lesion type: [place] artery [place] vs. transplanted heart: [place] heart Associated angina: without angina Qualified Code(s): I25.10 - Atherosclerotic heart disease of [place] coronary artery without angina pectoris (5) DM type 1 (diabetes mellitus, type 1) Priority: Secondary Status: Chronic Qualifiers: Diabetes mellitus complication status: with hyperglycemia Qualified Code(s) : E10.65 - Type 1 diabetes mellitus with hyperglycemia Hospital course: Mr. Kovacs is a 62 year old male with past medical history of Diabetes type I, hyperkalemia, HTN, CAD, HTN, ESRD-HD MWF ( Neprhologist Dr. Luna) who presents today after missing HD Wednesday and Wednesday. Pt also states he presented because of elevated blood glucose. He does have an insulin pump in place and his glucose at home was 565. Apparently he had malfunction of his pump and his was unable to help him as he was confused. He presented with anion gap metabolic acidosis, sugar of 524, and had beta-hydroxybutyric acid > 2.00. He was admited to ICU and started on insulin drip. His anion gap eventually closed and his sugars normalized. He has since been switched to SQ insulin. Nephrology was consulted and resumed his HD while inpatient. He states that his insulin pump never malfunctioned before and he has received new supplies for his pump that his would bring in prior to discharge. I spoke with clinical pharmacology who informed the clinical systems educator that their services may be requested if his pump were still not working prior to going home. 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 Hugo. Discharge discussed with: patient, nurse, other (pharmacist) - Time Spent with Patient Total time spent providing and/or coordinating discharge services: Greater than 30 minutes - Discharge Medications Home Medications: Calcitriol [Rocaltrol] 0.25 mcg PO QAM 09/20/17 [History] Calcium Acetate [Phos-LO] 667 mg PO TID 11/01/17 [History] Folic Acid/Vit Bcomp,C [Dialyvite Tablet] 1 tab PO DAILY 11/01/17 [History] Lisinopril [Zestril] 20 mg PO BID 11/01/17 [History] Subcutaneous Insulin Pump [T:Slim] 0 unit SQ DAILY 11/24/17 [History] CloNIDine Patch [Catapres-Tts] 0.3 mg TD QWEEK 02/07/18 [History] Aspirin 81 mg PO DAILY tab.chew 04/11/18 [Rx] Atorvastatin [Lipitor] 40 mg PO HS #30 tablet 04/11/18 [Rx] Carvedilol [Coreg] 12.5 mg PO BIDWM #60 tablet 04/11/18 [Rx] Clopidogrel [Plavix] 75 mg PO DAILY #30 tablet 04/11/18 [Rx] Isosorbide MONOnitrate (24 HR) [Imdur] 30 mg PO DAILY #30 tab.er.24h 04/11/18 [ Rx] Allergies/Adverse Reactions: 3 Allergy/AdvReac Type Severity Reaction Status Date / Time morphine Allergy Itching Verified 01/18/18 09:24 Sulfa (Sulfonamide Allergy See Verified 01/18/18 09:24 Antibiotics) Comments Date of admission: 06/13/18 12:25 Primary care physician: Hui Salazar MD Consults: 06/13/18 12:47 Consult to Nephrology [CONS] Routine Consulting Provider: Kidney Sade/JUANA/DEBBIE/TINO Reason for Consult: dialysis Time Notified: 12:20 Call Completed: Yes 06/13/18 13:30 Consult to Dialysis [CONS] ONCE 06/15/18 07:30 Consult to Dialysis [CONS] ONCE 06/16/18 07:30 Consult to Dialysis [CONS] ONCE Discharging clinician: Stephan Paulson Anticipated date of discharge: 06/15/18 - Constitutional Vitals: Temp Pulse Resp BP Pulse Ox 97.2 F L 78 16 182/86 99 06/15/18 13:12 06/15/18 12:50 06/15/18 13:12 06/15/18 13:12 06/15/18 12:50 General appearance: Present: cooperative, A&O X 3, pleasant, no acute distress, answers questions appropriately - Head Head exam: Present: atraumatic, normocephalic - Eye Eye exam: Present: PERRL, conjuntiva pink, sclera anicteric - Neck Neck exam general surgery: Present: supple, trachea midline. Absent: lymphadenopathy - Respiratory Respiratory exam: Present: CTAB. Absent: accessory muscle use, rales, rhonchi, wheezes - Cardiovascular Cardiovascular exam: Present: RRR, +S1, +S2. Absent: diastolic murmur, gallop, rubs, systolic murmur - GI/Abdominal GI/Abdominal exam: Present: normal bowel sounds, soft, no peritoneal signs. Absent: distended, tenderness - Extremities Exam Extremities exam: Present: warm, radial pulses palpable and symmetrical. Absent : calf tenderness, cyanotic, pedal edema - Neurological Exam Neurological exam: Present: alert, no focal deficits. Absent: facial droop, speech deficit - Skin Skin exam: Present: dry, intact - Patient Status Disposition: Home, Self-Care Condition: Fair Functional capacity at discharge: independent ambulation Overall status at discharge: patient is progressing back to baseline - Discharge Instructions Instructions: Diabetes Mellitus Type 2 in Adults (DC) Follow Up With: Hui Salazar MD [Primary Care Provider] - 06/21/18 2:30 pm (Please follow up as schedule...) Additional Instructions: please follow up with your PCP within 1 week of discharge - Diet and Activity Activity: increase activity as tolerated Diet: diabetic diet <Roberto Paulson - Last Filed: 06/15/18 16:30> Date of Encounter: 06/15/18 Hospital course: Mr. Kovacs is a 62 year old male - Time Spent with Patient Total time spent providing and/or coordinating discharge services: Date of admission: 06/13/18 12:25 Primary care physician: Hui Salazar MD Consults: 06/13/18 12:47 Consult to Nephrology [CONS] Routine Consulting Provider: Kidney Sade/JUANA/DEBBIE/TINO Reason for Consult: dialysis Time Notified: 12:20 Call Completed: Yes 06/13/18 13:30 Consult to Dialysis [CONS] ONCE 06/15/18 07:30 Consult to Dialysis [CONS] ONCE - Constitutional Vitals: Temp Pulse Resp BP Pulse Ox 97.2 F L 78 16 182/86 99 06/15/18 13:12 06/15/18 12:50 06/15/18 13:12 06/15/18 13:12 06/15/18 12:50 - Attending Attestation I have seen and examined this patient independently. I have discussed with resident physician Dr. Paulson regarding the discharge and the follow-up plan. Agree with the documentation.
== END 2018-06-15 14:35 | disposition home or self-care (01) | DRG 637 ==
LOC: EMEROO 10:34 → ICNU 12:25 → 2ANU 06-14 13:55
PROVIDERS: ADMIT Internal Medicine; ATTEND Internal Medicine

== ENCOUNTER 2018-06-16 11:11 | Observation (INO) ==
--- NOTE | 2018-06-16 11:41 | Emergency Department Note ---
Disposition Clinical Impression: Hypoglycemia, Congenital QT prolongation on electrocardiogram (ECG), Dizziness , Weakness, Elevated troponin, Type 1 diabetes mellitus with end-stage renal disease (ESRD), CAD (coronary artery disease) Disposition: Admitted As Inpatient Condition: Fair General Adult HPI - General Chief complaint: ED Neuro Symptoms/Deficit Stated complaint: weakness Time Seen by Provider: 06/16/18 11:30 Source: patient, EMS Limitations: no limitations - History of Present Illness Pain Scale: 0 - Related Data Home Medications Medication Instructions Recorded Confirmed Calcitriol [Rocaltrol] 0.25 mcg PO QAM 09/20/17 06/13/18 Calcium Acetate [Phos-LO] 667 mg PO TID 11/01/17 06/13/18 Folic Acid/Vit Bcomp,C [Dialyvite 1 tab PO DAILY 11/01/17 06/13/18 Tablet] Lisinopril [Zestril] 20 mg PO BID 11/01/17 06/13/18 Subcutaneous Insulin Pump [T:Slim] 0 unit SQ DAILY 11/24/17 06/13/18 CloNIDine Patch [Catapres-Tts] 0.3 mg TD QWEEK 02/07/18 06/13/18 Previous Rx's Medication Instructions Recorded Aspirin 81 mg PO DAILY tab.chew 04/11/18 Atorvastatin [Lipitor] 40 mg PO HS #30 tablet 04/11/18 Carvedilol [Coreg] 12.5 mg PO BIDWM #60 tablet 04/11/18 Clopidogrel [Plavix] 75 mg PO DAILY #30 tablet 04/11/18 Isosorbide MONOnitrate (24 HR) 30 mg PO DAILY #30 tab.er.24h 04/11/18 [Imdur] Allergies Allergy/AdvReac Type Severity Reaction Status Date / Time morphine Allergy Itching Verified 01/18/18 09:24 Sulfa (Sulfonamide Allergy See Verified 01/18/18 09:24 Antibiotics) Comments Past Medical History - Past Medical History Medical history: Reports: asthma, diabetes, dialysis, hyperlipidemia, hypertension, renal disease, other Surgical history: Reports: herniorrhaphy, other Psychiatric history: Reports: no psych history - Social History Smoking Status: Former smoker Smokeless Tobacco Status: No Alcohol use: Reports: none Drug use: Reports: none Physical Exam - General Limitations: no limitations General appearance: alert, in no apparent distress Course Vital Signs Temperature 97.5 F L 08/02/18 11:14 Pulse Rate 66 06/16/18 11:14 Respiratory Rate 18 06/16/18 11:14 Blood Pressure 110/68 06/16/18 11:14 O2 Sat by Pulse Oximetry 98 06/16/18 11:14 Temperature 98.1 F 06/16/18 18:22 Pulse Rate 69 06/16/18 18:22 Respiratory Rate 16 06/16/18 18:22 Blood Pressure 186/83 06/16/18 18:22 O2 Sat by Pulse Oximetry 98 06/16/18 18:22 Oxygen Delivery Oxygen Delivery Room Air Medical Decision Making - Lab Data Result diagrams: 06/16/18 11:22 06/16/18 11:22 Lab Results 06/16/18 06/16/18 06/16/18 Range/Units 11:18 11:22 11:22 WBC 9.8 (4.3-11.1) K/mcL RBC 3.83 L (4.19-5.50) M/mcL Hgb 11.5 L (12.9-16.9) g/dL Hct 34.5 L (37.5-50.1) % MCV 90.1 (83.0-100.0) fL MCH 30.0 (28.0-33.3) pg MCHC 33.3 (31.6-35.5) g/dL RDW 13.6 (11.5-14.5) % Plt Count 302 (140-400) K/mcL MPV 9.6 (9.4-12.4) fL Immature Gran % 0.3 (0-4) % Seg Neutrophils % 68.1 % Lymphocytes % 16.1 % Monocytes % 12.8 % Eosinophils % 1.9 % Basophils % 0.8 % Neutrophils # 6.7 (1.6-8.9) K/mcL Lymphocytes # 1.6 (0.6-4.6) K/mcL Monocytes # 1.3 (0.0-1.3) K/mcL Eosinophils # 0.2 (0.0-0.6) K/mcL Basophils # 0.1 (0.0-0.2) K/mcL VBG pH (7.32-7.42) pH Units Sodium 139 (136-145) mEq/L Potassium 5.3 H (3.5-5.1) mEq/L Chloride 101 (98-107) mEq/L Carbon Dioxide 29 (23-29) mEq/L BUN 50 H (8-23) mg/dL Creatinine 4.86 H (0.70-1.30) mg/dL Est GFR ( Amer) 15 L (> 60) Est GFR (Non-Af Amer) 12 L (> 60) BUN/Creatinine Ratio 10 (6-26) Glucose 72 (70-105) mg/dL POC Glucose 83 (70-99) mg/dL Calculated Osmolality 300 (280-300) Calcium 9.2 (8.6-10.3) mg/dL Venous Ioniz Calcium (1.15-1.35) mmol/L Magnesium 2.1 (1.6-2.6) mg/dL Total Bilirubin 0.5 (0.3-1.0) mg/dL AST 12 L (13-39) Units/L ALT 11 (7-52) Units/L Alkaline Phosphatase 69 (34-104) Units/L Troponin I 0.08 H* (< 0.04) ng/mL Serum Total Protein 5.6 L (6.4-8.9) g/dL Albumin 3.5 (3.5-5.7) g/dL Globulin 2.1 L (2.4-3.5) g/dL Albumin/Globulin Ratio 1.7 (1.1-2.2) TSH 2.134 (0.340-5.600) mcIU/mL 06/16/18 Range/Units 11:49 WBC (4.3-11.1) K/mcL RBC (4.19-5.50) M/mcL Hgb (12.9-16.9) g/dL Hct (37.5-50.1) % MCV (83.0-100.0) fL MCH (28.0-33.3) pg MCHC (31.6-35.5) g/dL RDW (11.5-14.5) % Plt Count (140-400) K/mcL MPV (9.4-12.4) fL Immature Gran % (0-4) % Seg Neutrophils % % Lymphocytes % % Monocytes % % Eosinophils % % Basophils % % Neutrophils # (1.6-8.9) K/mcL Lymphocytes # (0.6-4.6) K/mcL Monocytes # (0.0-1.3) K/mcL Eosinophils # (0.0-0.6) K/mcL Basophils # (0.0-0.2) K/mcL VBG pH 7.36 (7.32-7.42) pH Units Sodium (136-145) mEq/L Potassium (3.5-5.1) mEq/L Chloride (98-107) mEq/L Carbon Dioxide (23-29) mEq/L BUN (8-23) mg/dL Creatinine (0.70-1.30) mg/dL Est GFR ( Amer) (> 60) Est GFR (Non-Af Amer) (> 60) BUN/Creatinine Ratio (6-26) Glucose (70-105) mg/dL POC Glucose (70-99) mg/dL Calculated Osmolality (280-300) Calcium (8.6-10.3) mg/dL Venous Ioniz Calcium 1.15 (1.15-1.35) mmol/L Magnesium (1.6-2.6) mg/dL Total Bilirubin (0.3-1.0) mg/dL AST (13-39) Units/L ALT (7-52) Units/L Alkaline Phosphatase (34-104) Units/L Troponin I (< 0.04) ng/mL Serum Total Protein (6.4-8.9) g/dL Albumin (3.5-5.7) g/dL Globulin (2.4-3.5) g/dL Albumin/Globulin Ratio (1.1-2.2) TSH (0.340-5.600) mcIU/mL Attestation Statement - Attestation Attestation: I examined this patient and my medical decision-making was reviewed with the Resident Physician. I agree with the documented findings, disposition and treatment plan as described except to the extent set forth below. [id number] time provided Patient presents after a hypoglycemic episode. He has a history of type 1 diabetes. He states he feels generally weak. He is in no acute distress upon arrival. I did review his EKG which is dynamically different than previous with a prolonged QT. The patient was evaluated in conjunction with the resident physician
[2018-06-16 11:47] LABS: Basophils # 0.1 K/mcL (0.0-0.2); Basophils % 0.8 %; Eosinophils # 0.2 K/mcL (0.0-0.6); Eosinophils % 1.9 %; Hematocrit 34.5 % (37.5-50.1); Hemoglobin 11.5 g/dL (12.9-16.9); Immature Granulocytes % 0.3 % (0-4); Lymphocytes # 1.6 K/mcL (0.6-4.6); Lymphocytes % 16.1 %; Mean Corpuscular HGB Conc 33.3 g/dL (31.6-35.5); Mean Corpuscular Volume 90.1 fL (83.0-100.0); Mean Platelet Volume 9.6 fL (9.4-12.4); Monocytes # 1.3 K/mcL (0.0-1.3); Monocytes % 12.8 %; Neutrophils # 6.7 K/mcL (1.6-8.9); Platelet Count 302 K/mcL (140-400); Red Blood Count 3.83 M/mcL (4.19-5.50); Red Cell Distribution Width 13.6 % (11.5-14.5); Segmented Neutrophils % 68.1 %
[2018-06-16 11:53] LABS: VBG Ionized Calcium 1.15 mmol/L (1.15-1.35); VBG PH 7.36 pH Units (7.32-7.42)
--- NOTE | 2018-06-16 12:16 | Emergency Department Note ---
Disposition Clinical Impression: Hypoglycemia, Congenital QT prolongation on electrocardiogram (ECG), Dizziness , Weakness, Elevated troponin, Type 1 diabetes mellitus with end-stage renal disease (ESRD) CAD (coronary artery disease) Qualifiers: Coronary Disease-Associated Artery/Lesion type: [place] artery [place] vs. transplanted heart: [place] heart Associated angina: without angina Qualified Code(s): I25.10 - Atherosclerotic heart disease of [place] coronary artery without angina pectoris Disposition: Admitted As Inpatient Condition: Fair Referrals: Hui Salazar MD [Primary Care Provider] - Time of Disposition: 13:32 Weakness HPI - General Chief complaint: ED Neuro Symptoms/Deficit Stated complaint: weakness Time Seen by Provider: 06/16/18 11:30 Source: patient, EMS Limitations: no limitations - History of Present Illness HPI Narrative: 62 y/o male with PMH of ESRD, DM1 on insulin pump presents with hypoglycemia, weakness and dizziness. He states that he woke up this morning and his BS was in the 80s. He was at [facility] and began feeling weak and dizzy. EMS was called and his BS was 56. He was given glucagon and upon arrival he was feeling a little better and BS was 86. He notes continued dizziness and weakness. He denies SOB, CP, PEREZ, n/v/d, abdominal pain. He sees Dr. Luna and states that he is supposed to have HD today. Pain Scale: 0 - Related Data Home Medications Medication Instructions Recorded Confirmed Calcitriol [Rocaltrol] 0.25 mcg PO QAM 09/20/17 06/13/18 Calcium Acetate [Phos-LO] 667 mg PO TID 11/01/17 06/13/18 Folic Acid/Vit Bcomp,C [Dialyvite 1 tab PO DAILY 11/01/17 06/13/18 Tablet] Lisinopril [Zestril] 20 mg PO BID 11/01/17 06/13/18 Subcutaneous Insulin Pump [T:Slim] 0 unit SQ DAILY 11/24/17 06/13/18 CloNIDine Patch [Catapres-Tts] 0.3 mg TD QWEEK 02/07/18 06/13/18 Previous Rx's Medication Instructions Recorded Aspirin 81 mg PO DAILY tab.chew 04/11/18 Atorvastatin [Lipitor] 40 mg PO HS #30 tablet 04/11/18 Carvedilol [Coreg] 12.5 mg PO BIDWM #60 tablet 04/11/18 Clopidogrel [Plavix] 75 mg PO DAILY #30 tablet 04/11/18 Isosorbide MONOnitrate (24 HR) 30 mg PO DAILY #30 tab.er.24h 04/11/18 [Imdur] Allergies Allergy/AdvReac Type Severity Reaction Status Date / Time morphine Allergy Itching Verified 01/18/18 09:24 Sulfa (Sulfonamide Allergy See Verified 01/18/18 09:24 Antibiotics) Comments All systems ED: reviewed and negative except as stated. Past Medical History - Past Medical History Medical history: Reports: asthma, diabetes, dialysis, hyperlipidemia, hypertension, renal disease (on HD), other Surgical history: Reports: herniorrhaphy, other Psychiatric history: Reports: no psych history - Social History Smoking Status: Former smoker Smokeless Tobacco Status: No Alcohol use: Reports: none Drug use: Reports: none Physical Exam - General Limitations: no limitations General appearance: alert, in no apparent distress, cachectic - Head Head exam: atraumatic, normocephalic, normal inspection - Eye Eye exam: Present: normal appearance, PERRL, EOMI. Absent: conjunctival injection, nystagmus - ENT ENT exam: normal exam, normal oropharynx, mucous membranes moist - Neck Neck exam: Present: normal inspection, full ROM, trachea midline - Chest Chest inspection: Present: normal inspection, symmetric chest wall rise - Respiratory Respiratory exam: Present: normal lung sounds bilaterally. Absent: respiratory distress, wheezes - Cardiovascular Cardiovascular exam: Present: regular rate, normal rhythm, normal heart sounds - Abdominal Exam Abdominal exam: Present: soft, Non-Tender. Absent: tenderness, distention, guarding, rebound, rigidity - Extremities Exam Extremities exam: Present: normal inspection, full ROM, other (fistula in left AC). Absent: tenderness, pedal edema - Neurological Exam Neurological exam: Present: alert, CN II-XII intact, reflexes normal. Absent: motor sensory deficit - Expanded Neurological Exam Patient oriented to: Present: person, place, time (knows month and year, thinks it is a wednesday instead of ) Speech: Present: fluid speech Cranial nerves: EOM function (II, III, IV, ): Normal, facial sensation (V): Normal, facial palsy (VII): Normal, gag reflex (IX): Normal, spinal accessory function (XI): Normal, tongue deviation (XII): Normal Motor strength - LUE: 5/5 Motor strength - RUE: 5/5 Motor strength - LLE: 5/5 Motor strength - RLE: 5/5 Sensory exam upper extremity: light touch: Normal Sensory exam lower extremity: light touch: Normal Coma Scale Eye Opening: Spontaneous Coma Scale Motor Response: Obeys Commands Coma Scale Verbal Response: Oriented Coma Scale Total: 15 - Psychiatric Psychiatric exam: Present: flat affect - Skin Skin exam: Present: warm, dry, intact, normal color Course Course Narrative: 62 y/o male presents with hypoglycemia, weakness and dizziness. BS was 56 and was administered glucagon by EMS. BS improved to 86 upon arrival. Pt does have insulin pump, which he has turned off. Pt states he is to have HD today. Recent stent to proximal LAD in March. EKG shows significant changes compared to EKG 3 days ago with QT prolongation and non-specific ST changes. CBC, CMP, TSH, trop, ionized calcium, mag, UA and EKG obtained. Currently A/O x3 and follows commands. Poor short temr memory. Consider CT head if becomes altered. - Reevaluation(s) Reevaluation #1: Pt resting comfortably. Does not recall speaking with me several times prior to re-evaluation, also does not remember initial glucose being obtained on arrival. Discussed with pt that he needs admission. Pt initially did not want to stay, wanted to leave AMA. Discussed with pt and family member the need to for further monitoring and eval of QT prolongation and he is now amendable to staying. Time: 13:35 - Consultations Consultation #1: Discussed the case with Dr. Bolaños. Will hold on heparin at this time until Cardiology can evaluate him. Consult placed. Time: 12:46 Consultation #2: Discuss pt with Dr. Morris. Constult placed. Time: 12:58 Consultation #3: Discussed the patient with Dr. Lee with the hospitalist service who has accepted the patient for admission. Vital Signs Temperature 97.5 F L 06/16/18 11:14 Pulse Rate 66 06/16/18 11:14 Respiratory Rate 18 06/16/18 11:14 Blood Pressure 110/68 06/16/18 11:14 O2 Sat by Pulse Oximetry 98 06/16/18 11:14 Temperature 97.5 F L 06/16/18 11:14 Pulse Rate 68 06/16/18 13:02 Respiratory Rate 18 06/16/18 14:06 Blood Pressure 133/75 06/16/18 14:06 O2 Sat by Pulse Oximetry 97 06/16/18 13:02 Oxygen Delivery Oxygen Delivery Room Air Weakness - MDM Narrative Medical decision making narrative: 66 y/o ESRD, DM1 pt presents with weakness, dizziness. No CP or SOB. Review of records shows that pt had stent to prox LAD in March this year. EKG shows significant T wave changes compare to EKG from 06/13 with new QT prolongation. K , Ca, Mg WNL. Trop slightly elevated to 0.08, although pt is CP free. Glucose is stable with pump off and pt continues to be confused, not recalling any exams or tests being done so far. Discussed case with hospitalist, cardiology and nephro. Pt will be admitted for further evaluation of EKG changes. Pt currently stable. - Differential Diagnosis Differential Diagnosis: Likely: acute myocardial infarction, hypoglycemia, medication effect, metabolic - Medical Records Medical records reviewed: Yes I reviewed the patient's medical records. - Lab Data Lab results reviewed: Yes I reviewed the patient's lab results. Result diagrams: 06/16/18 11:22 06/16/18 11:22 Lab Results 06/16/18 06/16/18 06/16/18 Range/Units 11:22 11:22 11:49 WBC 9.8 (4.3-11.1) K/mcL RBC 3.83 L (4.19-5.50) M/mcL Hgb 11.5 L (12.9-16.9) g/dL Hct 34.5 L (37.5-50.1) % MCV 90.1 (83.0-100.0) fL MCH 30.0 (28.0-33.3) pg MCHC 33.3 (31.6-35.5) g/dL RDW 13.6 (11.5-14.5) % Plt Count 302 (140-400) K/mcL MPV 9.6 (9.4-12.4) fL Immature Gran % 0.3 (0-4) % Seg Neutrophils % 68.1 % Lymphocytes % 16.1 % Monocytes % 12.8 % Eosinophils % 1.9 % Basophils % 0.8 % Neutrophils # 6.7 (1.6-8.9) K/mcL Lymphocytes # 1.6 (0.6-4.6) K/mcL Monocytes # 1.3 (0.0-1.3) K/mcL Eosinophils # 0.2 (0.0-0.6) K/mcL Basophils # 0.1 (0.0-0.2) K/mcL VBG pH 7.36 (7.32-7.42) pH Units Sodium 139 (136-145) mEq/L Potassium 5.3 H (3.5-5.1) mEq/L Chloride 101 (98-107) mEq/L Carbon Dioxide 29 (23-29) mEq/L BUN 50 H (8-23) mg/dL Creatinine 4.86 H (0.70-1.30) mg/dL Est GFR ( Amer) 15 L (> 60) Est GFR (Non-Af Amer) 12 L (> 60) BUN/Creatinine Ratio 10 (6-26) Glucose 72 (70-105) mg/dL Calculated Osmolality 300 (280-300) Calcium 9.2 (8.6-10.3) mg/dL Venous Ioniz Calcium 1.15 (1.15-1.35) mmol/L Magnesium 2.1 (1.6-2.6) mg/dL Total Bilirubin 0.5 (0.3-1.0) mg/dL AST 12 L (13-39) Units/L ALT 11 (7-52) Units/L Alkaline Phosphatase 69 (34-104) Units/L Troponin I 0.08 H* (< 0.04) ng/mL Serum Total Protein 5.6 L (6.4-8.9) g/dL Albumin 3.5 (3.5-5.7) g/dL Globulin 2.1 L (2.4-3.5) g/dL Albumin/Globulin Ratio 1.7 (1.1-2.2) TSH 2.134 (0.340-5.600) mcIU/mL - Radiology Data Radiology results reviewed: Yes I reviewed the patient's radiology results. Chest X-Ray 06/16/18 11:31 IMPRESSION: No acute pulmonary process. D/ / 06/16/2018 12:23:03 Gregg Morley MD / [facility] Interpreting Provider: Gregg Morley MD - EKG Data EKG attestation: Yes I reviewed and interpreted this EKG. EKG results narrative: sinus rhythm with short KS interval, LV hypertrophy and non-specific ST changes , QT prolongation to 499/511ms. VR 65, KS 110, QRS 85. Changes from prior EKG on 06/13/18.
[2018-06-16 12:21] LABS: Troponin I 0.08 ng/mL (< 0.04)
[2018-06-16 12:33] LABS: Albumin 3.5 g/dL (3.5-5.7); Albumin/Globulin Ratio 1.7 (1.1-2.2); Bilirubin,Total 0.5 mg/dL (0.3-1.0); Calcium 9.2 mg/dL (8.6-10.3); Globulin 2.1 g/dL (2.4-3.5); Magnesium 2.1 mg/dL (1.6-2.6); Potassium 5.3 mEq/L (3.5-5.1); Thyroid Stimulating Hormone 2.134 mcIU/mL (0.340-5.600); Total Protein 5.6 g/dL (6.4-8.9)
--- NOTE | 2018-06-16 15:42 | Nephrology Consult Note ---
Date of Encounter: 06/16/18 Time of Encounter: 15:42 Assessment and Plan (1) End stage renal disease on dialysis Current Visit: No Status: Chronic HD is ordered for tomorrow. Will order additional UF for HD as needed. Renal dose all medications and avoid nephrotoxins. Strict I&O. Renal diet when not nothing by mouth. (2) Dizziness Current Visit: Yes Status: Acute per primary. History of Present Illness - Reason for Consult Consult date: 06/16/18 end stage renal disease - Chief Complaint weakness - History of Present Illness Mr. Kovacs is a 62-year-old male who presented to the ER this morning with weakness. He typically wears an insulin pump. When patient was at [facility] this morning with his , he got dizzy EMS was called and his blood sugar was 56. He was given glucagon and it went up to 86. PMH:asthma, diabetes, dialysis , hyperlipidemia, hypertension, ESRD on HD. Current regimen is Wednesday at [facility]. Last treatment was Wednesday in the hospital. He does deny chest pain shortness of breath nausea vomiting or diarrhea now. No recent medication changes. Pt does appear alert and oriented but sometimes when asking about medical history or specific medications he is not quite sure what it is or how much he takes. Pt was just discharged on 06/16/18 for HTN and Hyperglycemia. It the ED report today it was noted that insulin pump was off. However, when I asked the patient if the pump was on he said yes he just bolused himself for a blood sugar in the 350 's. With concern for his mentation I asked the nurse to check his blood sugar and communicate with the hospitalist that he might not be able to personally manage his blood sugars with his pump. From a renal standpoint we will plan on HD tomorrow. Past Med Surg Social Fam HX - Past Medical History Medical history: asthma, diabetes, dialysis, hyperlipidemia, hypertension, renal disease, other Additional medical history: ESRD, cataracts, tinnitis, asthma as a child Psychiatric history: no psych history - Past Surgical History Surgical History: herniorrhaphy, other Additional surgical history: new fistula - Social History Smoking Status: Former smoker Smokeless Tobacco Status: No Alcohol use: none Drug use: none - Family History Mother Living Status: Hx Family Cancer: Yes (Leukemia; patient unsure which type) Father Living Status: Hx Family Endocrine Disorder: Yes (DMI) Medications and Allergies Calcitriol [Rocaltrol] 0.25 mcg PO QAM 09/20/17 [History] Calcium Acetate [Phos-LO] 667 mg PO TID 11/01/17 [History] Folic Acid/Vit Bcomp,C [Dialyvite Tablet] 1 tab PO DAILY 11/01/17 [History] Lisinopril [Zestril] 20 mg PO BID 11/01/17 [History] Subcutaneous Insulin Pump [T:Slim] 0 unit SQ DAILY 11/24/17 [History] CloNIDine Patch [Catapres-Tts] 0.3 mg TD QWEEK 02/07/18 [History] Aspirin 81 mg PO DAILY tab.chew 04/11/18 [Rx] Atorvastatin [Lipitor] 40 mg PO HS #30 tablet 04/11/18 [Rx] Carvedilol [Coreg] 12.5 mg PO BIDWM #60 tablet 04/11/18 [Rx] Clopidogrel [Plavix] 75 mg PO DAILY #30 tablet 04/11/18 [Rx] Isosorbide MONOnitrate (24 HR) [Imdur] 30 mg PO DAILY #30 tab.er.24h 04/11/18 [ Rx] 3 Allergy/AdvReac Type Severity Reaction Status Date / Time morphine Allergy Itching Verified 01/18/18 09:24 Sulfa (Sulfonamide Allergy See Verified 01/18/18 09:24 Antibiotics) Comments Exam - Vital Signs Vital signs: Initial Vital Signs Temp Pulse Resp BP Pulse Ox 97.5 F L 66 18 110/68 98 06/16/18 11:14 06/16/18 11:14 06/16/18 11:14 06/16/18 11:14 06/16/18 11:14 Vital Signs - Last 8 Hours Temp Pulse Resp BP Pulse Ox 06/16/18 15:12 98.3 F 71 17 207/96 99 06/16/18 14:06 18 133/75 Intake and Output 06/15/18 06/16/18 06/16/18 23:59 07:59 15:59 Other: Weight 55 kg Patient Weight 06/16/18 23:59 Weight 55 kg - General Appearance General appearance: well-developed, well-nourished EENT: ATNC, hearing intact, vision intact Neck: supple Respiratory: clear Cardiology: no edema, normal S1, normal S2 - Dialysis Access Dialysis Vascular Access: Arteriovenous Fistula thrill: Yes bruit: Yes Gastrointestinal: normoactive bowel sounds, no tenderness, no guarding Integumentary: no rash, warm and dry Neurologic: alert and oriented x3 Psychiatric: mood/affect appropriate, cooperative Results - Lab Results 06/16/18 11:22 06/16/18 11:22 Most recent lab results Calcium 9.2 mg/dL (8.6-10.3) 06/16/18 11:22 Magnesium 2.1 mg/dL (1.6-2.6) 06/16/18 11:22 Consult Discharge Plan - Plan Referrals: Hui Salazar MD [Primary Care Provider] -
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
[2018-06-16] MEDS ORDERED: Naloxone 0.4 MG/ML INJ IVP PRN (18:58)
[2018-06-17 01:33] LABS: Basophils # 0.1 K/mcL (0.0-0.2); Basophils % 0.9 %; Eosinophils # 0.3 K/mcL (0.0-0.6); Eosinophils % 2.9 %; Hematocrit 30.9 % (37.5-50.1); Hemoglobin 10.4 g/dL (12.9-16.9); Immature Granulocytes % 0.2 % (0-4); Lymphocytes # 2.1 K/mcL (0.6-4.6); Mean Corpuscular HGB Conc 33.7 g/dL (31.6-35.5); Mean Corpuscular Hemoglobin 29.7 pg (28.0-33.3); Mean Corpuscular Volume 88.3 fL (83.0-100.0); Mean Platelet Volume 9.5 fL (9.4-12.4); Monocytes # 1.2 K/mcL (0.0-1.3); Monocytes % 10.6 %; Neutrophils # 7.4 K/mcL (1.6-8.9); Platelet Count 265 K/mcL (140-400); Red Cell Distribution Width 13.8 % (11.5-14.5); Segmented Neutrophils % 66.4 %
[2018-06-17 01:57] LABS: Calcium 8.8 mg/dL (8.6-10.3); Potassium 4.6 mEq/L (3.5-5.1)
[2018-06-17 03:58] LABS: Bilirubin,Urine Negative (Negative); Blood,Urine Negative (Negative); Clarity,Urine Clear (Clear); Color,Urine Yellow (Yellow); Glucose,Urine (UA) 500 mg/dL (Normal); Ketones,Urine Negative (Negative); Leukocyte Esterase,Urine Negative (Negative); Nitrite,Urine Negative (Negative); PH,Urine 7.5 pH Units (5.0-8.0); Protein,Urine >=300 mg/dL (Neg-Trace); Specific Gravity,Urine 1.011 (1.010-1.025); Urobilinogen,Urine Normal (Normal)
[2018-06-17 04:00] LABS: Bacteria,Urine None Seen per hpf (None-Few); Hyaline Casts,Urine None Seen per lpf (None-Few); RBC,Urine 0-3 per hpf (0-3); Squamous Epithelial Cell,Urine Few per lpf (None-Few); WBC,Urine 0-3 per hpf (0-3)
--- NOTE | 2018-06-17 05:59 | Electrocardiograph Report ---
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
[2018-06-17] MEDS ORDERED: *HR* Heparin 5,000 UNIT/ML VIAL SQ SCH (06:00)
[2018-06-17] MEDS ORDERED: 0.9 % Sodium Chloride 250 ML IVC PRN (07:08)
[2018-06-17] MEDS ORDERED: 0.9 % Sodium Chloride 1,000 ML PRIME SCH (07:15)
[2018-06-17] MEDS ORDERED: 0.9 % Sodium Chloride 1,000 ML ONE (07:32)
[2018-06-17] MEDS ORDERED: Aspirin 81 MG TAB.CHEW PO SCH (09:00)
--- NOTE | 2018-06-17 13:21 | Nephrology Progress Note ---
Date of Encounter: 06/17/18 Time of Encounter: 13:18 - Assessment and Plan (1) ESRD (end stage renal disease) on dialysis Current Visit: Yes Status: Acute HD in progress today. Will order additional UF for HD as needed. Renal dose all medications and avoid nephrotoxins. Strict I&O. Renal diet when not nothing by mouth. (2) Dizziness Current Visit: Yes Status: Acute Per primary. (3) Elevated troponin Current Visit: Yes Status: Acute Initial Trop 0.08 then 0.07 x 2 and now 0.08. Cardiology consulted. Subjective Principal diagnosis: weakness Interval history: Pt seen and examined during HD, tolerating well. Objective - Vital Signs Vital signs: Vital Signs Temp Pulse Resp BP Pulse Ox 06/17/18 12:49 97.8 F 18 188/88 06/17/18 12:30 177/83 06/17/18 12:15 178/84 06/17/18 12:00 180/62 06/17/18 11:45 167/84 06/17/18 11:30 159/73 06/17/18 11:15 174/89 06/17/18 11:00 162/68 06/17/18 10:45 165/76 06/17/18 10:30 175/80 06/17/18 10:15 182/83 06/17/18 10:00 171/81 06/17/18 09:45 167/86 06/17/18 09:30 173/83 06/17/18 09:15 177/88 06/17/18 09:00 98.1 F 18 188/89 06/17/18 07:11 98.1 F 73 16 179/79 96 06/17/18 04:17 164/69 06/17/18 03:32 157/80 06/17/18 03:14 98.3 F 72 16 196/90 98 06/17/18 01:14 168/81 06/17/18 00:53 162/79 06/17/18 00:39 176/80 06/17/18 00:16 168/75 06/16/18 23:39 167/81 06/16/18 23:03 98.6 F 70 16 172/72 96 06/16/18 22:17 176/79 06/16/18 18:22 98.1 F 69 16 186/83 98 06/16/18 15:12 98.3 F 71 17 207/96 99 06/16/18 14:06 18 133/75 Intake and Output 06/16/18 06/17/18 06/17/18 23:59 07:59 15:59 Intake Total 400 / 400 0 / 0 600 / 600 Output Total 500 / 500 3600 / 3600 Balance 400 / 400 -500 / -500 -3000 / -3000 Intake: Oral 400 / 400 0 / 0 0 / 0 Intake, Rinseback and Flushes 600 / 600 Output: Urine 500 / 500 0 / 0 Total Dialysis (HD) Output 3600 / 3600 Other: Blood Glucose* 235 126 132 Hemodialysis Net Fluid Removed 3000 (mL) - General Appearance General appearance: Present: well-developed, well-nourished EENT: Present: ATNC, hearing intact, vision intact Neck: Present: supple Respiratory: Present: clear Cardiology: Present: no edema, normal S1, normal S2 Dialysis Vascular Access: Arteriovenous Fistula thrill: Yes bruit: Yes Gastrointestinal: Present: normoactive bowel sounds, no tenderness, no guarding Integumentary: Present: no rash, warm and dry Neurologic: Present: alert and oriented x3 Psychiatric: Present: mood/affect appropriate, cooperative - Lab 06/17/18 01:16 06/17/18 01:16 Most recent lab results Calcium 8.8 mg/dL (8.6-10.3) 06/17/18 01:16 Magnesium 2.1 mg/dL (1.6-2.6) 06/16/18 11:22 Consult Discharge Plan - Plan Referrals: Hui Salazar MD [Primary Care Provider] -
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
[2018-06-17 15:46] VITALS: BP 206/83
--- NOTE | 2018-06-17 16:33 | Event Note ---
Date of Encounter: 06/17/18 Time of Encounter: 16:00 I was notified by pt's primary RN that pt was going to leave AMA. When I entered the room, pt was fully dressed. He was not upset, he just states, "I don 't care about my blood sugar." Pt states that he can take care of himself at home and that he has had dialysis twice and feels better than he did when he arrived. We discussed the risks of him leaving and he states that he is aware and is going to leave. I did not get to perform physical exam prior to discharge. He was alert, oriented, able to make decisions, mentation was clear. His gait was steady and overall, pt did not appear to be in distress. He was pushed off of the unit in a wheelchair by primary RN.
--- NOTE | 2018-06-17 16:39 | Discharge Summary ---
Orders not resulted at time of discharge: Pending orders 06/17/18 06:00 ECG 12 lead ECG [ECG] AM 0600 06/17/18 13:49 EKG [ECG 12 lead ECG] [ECG] Routine Date of Encounter: 06/17/18 Time of Encounter: 16:00 - Discharge Diagnosis (1) Elevated troponin Priority: Secondary Status: Chronic (2) DVT prophylaxis Priority: Secondary Status: Acute (3) End stage renal disease on dialysis Priority: Secondary Status: Chronic (4) Hypoglycemia Priority: Secondary Status: Acute (5) Congenital QT prolongation on electrocardiogram (ECG) Priority: Secondary Status: Chronic (6) Weakness Priority: Secondary Status: Acute Hospital course: Pt signed out AMA after returning from dialysis. See event note. - Time Spent with Patient Total time spent providing and/or coordinating discharge services: - Discharge Medications Home Medications: Calcitriol [Rocaltrol] 0.25 mcg PO QAM 09/20/17 [History] Calcium Acetate [Phos-LO] 667 mg PO TID 11/01/17 [History] Folic Acid/Vit Bcomp,C [Dialyvite Tablet] 1 tab PO DAILY 11/01/17 [History] Lisinopril [Zestril] 20 mg PO BID 11/01/17 [History] Subcutaneous Insulin Pump [T:Slim] 0 unit SQ DAILY 11/24/17 [History] CloNIDine Patch [Catapres-Tts] 0.3 mg TD QWEEK 02/07/18 [History] Aspirin 81 mg PO DAILY tab.chew 04/11/18 [Rx] Atorvastatin [Lipitor] 40 mg PO HS #30 tablet 04/11/18 [Rx] Carvedilol [Coreg] 12.5 mg PO BIDWM #60 tablet 04/11/18 [Rx] Clopidogrel [Plavix] 75 mg PO DAILY #30 tablet 04/11/18 [Rx] Isosorbide MONOnitrate (24 HR) [Imdur] 30 mg PO DAILY #30 tab.er.24h 04/11/18 [ Rx] Allergies/Adverse Reactions: 3 Allergy/AdvReac Type Severity Reaction Status Date / Time morphine Allergy Itching Verified 01/18/18 09:24 Sulfa (Sulfonamide Allergy See Verified 01/18/18 09:24 Antibiotics) Comments Date of admission: 06/16/18 13:40 Primary care physician: Hui Salazar MD Consults: 06/17/18 07:15 Consult to Dialysis [CONS] ONCE Discharging clinician: Carol Cherry Anticipated date of discharge: 06/17/18 - Constitutional Vitals: Temp Pulse Resp BP Pulse Ox 97.4 F L 76 15 206/83 97 06/17/18 15:45 06/17/18 15:45 06/17/18 15:45 06/17/18 15:45 06/17/18 15:45 General appearance: Present: A&O X 3, no acute distress - Patient Status Disposition: Left Against Medical Advice Functional capacity at discharge: wheelchair bound Overall status at discharge: patient is not back to baseline - Discharge Instructions Follow Up With: Hui Slaazar MD [Primary Care Provider] -
--- NOTE | 2018-06-20 08:51 | Electrocardiograph Report ---
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
== END 2018-06-17 16:03 | disposition left against medical advice (07) ==
LOC: EMEROO 11:11 → 3BNU 11:11
PROVIDERS: ADMIT Hospitalist; ATTEND Hospitalist

== ENCOUNTER 2018-07-24 19:40 | Inpatient (IN) ==
[2018-07-24] MEDS ORDERED: Furosemide 40 MG/4 ML VIAL IVP ONE (19:56)
--- NOTE | 2018-07-24 19:58 | Emergency Department Note ---
Disposition Clinical Impression: Elevated troponin, CKD (chronic kidney disease) requiring chronic dialysis, Hyperglycemia, Respiratory distress, acute, NSTEMI, initial episode of care, Hypertensive urgency DKA (diabetic ketoacidoses) Qualifiers: Diabetes mellitus type: type 1 Diabetes mellitus complication detail: without coma Qualified Code(s): E10.10 - Type 1 diabetes mellitus with ketoacidosis without coma Fluid overload Qualifiers: Hypervolemia type: unspecified Qualified Code(s): E87.70 - Fluid overload, unspecified Disposition: Admitted As Inpatient Condition: Serious Time of Disposition: 23:08 General Adult HPI - General Chief complaint: ED Shortness of Breath/Dyspnea Stated complaint: Difficulty in breathing Time Seen by Provider: 07/24/18 19:44 Source: patient, EMS Mode of arrival: EMS Limitations: no limitations Nursing Notes Reviewed: Yes Vital Signs Reviewed: Yes - History of Present Illness HPI Narrative: Patient is a 62-year-old male that presents the emergency department with shortness of breath that began earlier this afternoon. Patient states that he became short of breath and has not had any relief from his symptoms. Patient states that if he lays back symptoms are worse. Patient states that he has a history of chronic kidney disease requiring dialysis and he dialyzes Wednesday and Wednesday and his last dialysis was this past Wednesday which was 2 days ago. Patient states that he does take Lasix and has been taking his medication regularly. Patient denies a cough. Patient denies any sputum production. Pain Scale: 0 - Related Data Home Medications Medication Instructions Recorded Confirmed Calcitriol [Rocaltrol] 0.25 mcg PO QAM 09/20/17 07/24/18 Calcium Acetate [Phos-LO] 667 mg PO TID 11/01/17 07/24/18 Folic Acid/Vit B Complex and C 1 tab PO DAILY 11/01/17 07/24/18 [Dialyvite Tablet] Lisinopril [Zestril] 20 mg PO BID 11/01/17 07/24/18 Subcutaneous Insulin Pump [T:Slim] 0 unit SQ DAILY 11/24/17 07/24/18 CloNIDine Patch [Catapres-Tts] 0.3 mg TD QWEEK 02/07/18 07/24/18 Previous Rx's Medication Instructions Recorded Aspirin 81 mg PO DAILY tab.chew 04/11/18 Atorvastatin [Lipitor] 40 mg PO HS #30 tablet 04/11/18 Carvedilol [Coreg] 12.5 mg PO BIDWM #60 tablet 04/11/18 Clopidogrel [Plavix] 75 mg PO DAILY #30 tablet 04/11/18 Isosorbide MONOnitrate (24 HR) 30 mg PO DAILY #30 tab.er.24h 04/11/18 [Imdur] Allergies Allergy/AdvReac Type Severity Reaction Status Date / Time morphine Allergy Itching Verified 01/18/18 09:24 Sulfa (Sulfonamide Allergy See Verified 01/18/18 09:24 Antibiotics) Comments All systems ED: reviewed and negative except as stated. Cardiovascular: Denies: chest pain Respiratory: Reports: dyspnea. Denies: cough, sputum production Gastrointestinal: Denies: abdominal pain Past Medical History - Past Medical History Medical history: Reports: asthma, COPD, coronary artery disease, diabetes, dialysis, hyperlipidemia, hypertension, renal disease, other Surgical history: Reports: herniorrhaphy, other Psychiatric history: Reports: no psych history - Social History Smoking Status: Former smoker Smokeless Tobacco Status: No Alcohol use: Reports: none Drug use: Reports: none Physical Exam - General Limitations: no limitations General appearance: alert, in distress - Head Head exam: atraumatic, normocephalic - Eye Eye exam: Present: normal appearance, EOMI - Neck Neck exam: Present: normal inspection, full ROM, trachea midline - Respiratory Respiratory exam: Present: other (Course breath sounds bilaterally). Absent: respiratory distress, wheezes - Cardiovascular Cardiovascular exam: Present: normal rhythm, tachycardia, normal heart sounds, + S1, +S2 - Abdominal Exam Abdominal exam: Present: soft, Non-Tender, normal bowel sounds - Neurological Exam Neurological exam: Present: alert, oriented X3 - Psychiatric Psychiatric exam: Present: normal affect, normal mood - Skin Skin exam: Present: warm, dry, intact Course Vital Signs Temperature 97.7 F 07/24/18 19:45 Pulse Rate 121 07/24/18 19:45 Respiratory Rate 40 07/24/18 19:45 Blood Pressure 249/140 07/24/18 19:45 O2 Sat by Pulse Oximetry 91 07/24/18 19:45 Temperature 97.7 F 07/24/18 19:45 Pulse Rate 98 07/24/18 22:55 Respiratory Rate 24 07/24/18 22:55 Blood Pressure 269/104 07/24/18 22:55 O2 Sat by Pulse Oximetry 100 07/24/18 22:55 Oxygen Delivery Oxygen Delivery Bipap Medical Decision Making - MDM Narrative Medical decision making narrative: Due to the patient presenting to the emergency department with increased work of breathing and hypoxia the patient was placed on BiPAP upon arrival. Patient oxygen saturations improved significantly and the patient stated that he was feeling significantly better. Basic laboratory testing, chest x-ray and EKG will be obtained. Patient will also be given a dose of Lasix here in the emergency department as well as a nitro drip due to the patient having significant only elevated blood pressure and having bilateral pleural effusions. The patient will need admission to the hospital for further evaluation and management upon completion of his laboratory testing here in the emergency department. Patient appeared to be in DKA. Patient had an anion gap with a blood glucose greater than 500. Patient's beta hydroxybutric acid was greater than 2. Patient's BNP was greater than 5000. Patient has baseline chronic kidney disease requiring dialysis. I called and spoke with the on-call telegraphic service dispatcher Dr. Nevarez who recommended giving additional Lasix here in the emergency department. Patient was also started on nitro drip to the patient having significantly elevated blood pressure over 200. Patient is supposed to be on a clonidine patch was states that he took this off today. A clonidine patch will be placed due to concern for possible rebound hyper tension. An insulin drip was started due to the patient being in DKA. I also called and spoke to the on-call electric range preparer Dr. Bolaños who stated that they would see this patient in consult. He did not have any further recommendations at this time. Patient will be started on a heparin drip at this time due to the patient having significantly elevated troponin of 0.51. I feel that this is more than just demand ischemia. I called and spoke with the admitting hospitalist Dr. Penaloza and he is except the patient to their service. Patient be admitted to the hospital at this time for further evaluation and management. After speaking with Dr. Penaloza he was in agreement that this patient likely needs to be admitted to the ICU due to the patient's medical condition and there being no stepdown beds. - Medical Records Medical records reviewed: Yes I reviewed the patient's medical records. - Lab Data Lab results reviewed: Yes I reviewed the patient's lab results. Result diagrams: 07/24/18 21:03 07/24/18 21:03 Lab Results 07/24/18 07/24/18 07/24/18 Range/Units 20:04 21:03 21:03 WBC 15.9 H (4.3-11.1) K/mcL RBC 3.81 L (4.19-5.50) M/mcL Hgb 11.7 L (12.9-16.9) g/dL Hct 35.8 L (37.5-50.1) % MCV 94.0 D (83.0-100.0) fL MCH 30.7 (28.0-33.3) pg MCHC 32.7 (31.6-35.5) g/dL RDW 15.6 H (11.5-14.5) % Plt Count 469 H (140-400) K/mcL MPV 8.3 L (9.4-12.4) fL Immature Gran % 0.4 (0-4) % Seg Neutrophils % 87.2 % Lymphocytes % 3.5 % Monocytes % 8.2 % Eosinophils % 0.2 % Basophils % 0.5 % Neutrophils # 13.9 H (1.6-8.9) K/mcL Lymphocytes # 0.6 (0.6-4.6) K/mcL Monocytes # 1.3 (0.0-1.3) K/mcL Eosinophils # 0.0 (0.0-0.6) K/mcL Basophils # 0.1 (0.0-0.2) K/mcL PT (9.4-12.1) Seconds INR APTT (26.0-36.0) Seconds Sodium 136 (136-145) mEq/L Potassium 4.9 (3.5-5.1) mEq/L Chloride 99 (98-107) mEq/L Carbon Dioxide 18 L (23-29) mEq/L BUN 66 H (8-23) mg/dL Creatinine 4.84 H (0.70-1.30) mg/dL Est GFR ( Amer) 15 L (> 60) Est GFR (Non-Af Amer) 12 L (> 60) BUN/Creatinine Ratio 14 (6-26) Glucose 574 H* (70-105) mg/dL Calculated Osmolality 327 H (280-300) Lactic Acid (0.5-2.2) mmol/L Calcium 8.5 L (8.6-10.3) mg/dL Total Bilirubin 0.7 (0.3-1.0) mg/dL Direct Bilirubin 0.2 (0.0-0.2) mg/dL Indirect Bilirubin 0.5 (0.0-1.2) mg/dL AST 20 (13-39) Units/L ALT 18 (7-52) Units/L Alkaline Phosphatase 131 H (34-104) Units/L Troponin I 0.51 H* (< 0.04) ng/mL B-Natriuretic Peptide (Less than 100) pg/mL Serum Total Protein 6.2 L (6.4-8.9) g/dL Albumin 3.4 L (3.5-5.7) g/dL Globulin 2.8 (2.4-3.5) g/dL Albumin/Globulin Ratio 1.2 (1.1-2.2) Beta-Hydroxybutyric Acd (0.02-0.27) mmol/L Specimen Rejected MCV Delta 07/24/18 07/24/18 07/24/18 Range/Units 21:03 21:03 21:03 WBC (4.3-11.1) K/mcL RBC (4.19-5.50) M/mcL Hgb (12.9-16.9) g/dL Hct (37.5-50.1) % MCV (83.0-100.0) fL MCH (28.0-33.3) pg MCHC (31.6-35.5) g/dL RDW (11.5-14.5) % Plt Count (140-400) K/mcL MPV (9.4-12.4) fL Immature Gran % (0-4) % Seg Neutrophils % % Lymphocytes % % Monocytes % % Eosinophils % % Basophils % % Neutrophils # (1.6-8.9) K/mcL Lymphocytes # (0.6-4.6) K/mcL Monocytes # (0.0-1.3) K/mcL Eosinophils # (0.0-0.6) K/mcL Basophils # (0.0-0.2) K/mcL PT 12.1 (9.4-12.1) Seconds INR 1.1 APTT 28.6 (26.0-36.0) Seconds Sodium (136-145) mEq/L Potassium (3.5-5.1) mEq/L Chloride (98-107) mEq/L Carbon Dioxide (23-29) mEq/L BUN (8-23) mg/dL Creatinine (0.70-1.30) mg/dL Est GFR ( Amer) (> 60) Est GFR (Non-Af Amer) (> 60) BUN/Creatinine Ratio (6-26) Glucose (70-105) mg/dL Calculated Osmolality (280-300) Lactic Acid 3.8 H (0.5-2.2) mmol/L Calcium (8.6-10.3) mg/dL Total Bilirubin (0.3-1.0) mg/dL Direct Bilirubin (0.0-0.2) mg/dL Indirect Bilirubin (0.0-1.2) mg/dL AST (13-39) Units/L ALT (7-52) Units/L Alkaline Phosphatase (34-104) Units/L Troponin I (< 0.04) ng/mL B-Natriuretic Peptide > 5000 H (Less than 100) pg/mL Serum Total Protein (6.4-8.9) g/dL Albumin (3.5-5.7) g/dL Globulin (2.4-3.5) g/dL Albumin/Globulin Ratio (1.1-2.2) Beta-Hydroxybutyric Acd (0.02-0.27) mmol/L Specimen Rejected 07/24/18 07/24/18 Range/Units 21:03 22:34 WBC (4.3-11.1) K/mcL RBC (4.19-5.50) M/mcL Hgb (12.9-16.9) g/dL Hct (37.5-50.1) % MCV (83.0-100.0) fL MCH (28.0-33.3) pg MCHC (31.6-35.5) g/dL RDW (11.5-14.5) % Plt Count (140-400) K/mcL MPV (9.4-12.4) fL Immature Gran % (0-4) % Seg Neutrophils % % Lymphocytes % % Monocytes % % Eosinophils % % Basophils % % Neutrophils # (1.6-8.9) K/mcL Lymphocytes # (0.6-4.6) K/mcL Monocytes # (0.0-1.3) K/mcL Eosinophils # (0.0-0.6) K/mcL Basophils # (0.0-0.2) K/mcL PT (9.4-12.1) Seconds INR APTT (26.0-36.0) Seconds Sodium (136-145) mEq/L Potassium (3.5-5.1) mEq/L Chloride (98-107) mEq/L Carbon Dioxide (23-29) mEq/L BUN (8-23) mg/dL Creatinine (0.70-1.30) mg/dL Est GFR ( Amer) (> 60) Est GFR (Non-Af Amer) (> 60) BUN/Creatinine Ratio (6-26) Glucose (70-105) mg/dL Calculated Osmolality (280-300) Lactic Acid 2.3 H (0.5-2.2) mmol/L Calcium (8.6-10.3) mg/dL Total Bilirubin (0.3-1.0) mg/dL Direct Bilirubin (0.0-0.2) mg/dL Indirect Bilirubin (0.0-1.2) mg/dL AST (13-39) Units/L ALT (7-52) Units/L Alkaline Phosphatase (34-104) Units/L Troponin I (< 0.04) ng/mL B-Natriuretic Peptide (Less than 100) pg/mL Serum Total Protein (6.4-8.9) g/dL Albumin (3.5-5.7) g/dL Globulin (2.4-3.5) g/dL Albumin/Globulin Ratio (1.1-2.2) Beta-Hydroxybutyric Acd > 2.00 H (0.02-0.27) mmol/L Specimen Rejected - Radiology Data Radiology results reviewed: Yes I reviewed the patient's radiology results. Chest X-Ray 07/24/18 19:44 IMPRESSION: Moderate bilateral pleural effusions with bibasilar atelectasis. D/ / Fermin Carter MD / Fermin Carter MD Interpreting Provider: Fermin Carter MD - EKG Data EKG #1 EKG attestation: Yes I reviewed and interpreted this EKG. EKG results narrative: Patient's EKG shows a sinus tachycardia at a rate of 121 bpm, LA interval of 113 , QRS duration of 80, QTc of 474 with a normal axis. There is no evidence of STEMI on EKG. This is compared to previous EKG on 06/17/18 which showed a sinus rhythm at a rate of 75 bpm. Critical Care Time Critical Care Time: Yes Total Critical Care Time: 60 Attestation: The high probability of a clinically significant, sudden or life threatening deterioration of the [resp/CV/] system(s) required my full and direct attention, intervention and personal management. The aggregate critical care time was [60] minutes. This time is in addition to time spent performing reported procedures but includes the following: [x] Data Review and interpretation [x] Patient assessment and monitoring of vital signs [x] Documentation [x] Medication orders and management Attestation Statement - Attestation Attestation: I examined this patient and my medical decision-making was reviewed with the Resident Physician, Dr. Wilcox. I agree with the documented findings, disposition and treatment plan as described except to the extent set forth below. Patient is a 62-year-old white male with multiple medical problems including end -stage renal disease on hemodialysis who presents the emergency department in respiratory distress. Patient is receiving a breathing treatment on arrival to Who was significantly hypoxic on room air per medics. Patient denies any COPD or CHF history and limited information as patient appears to be somewhat of a poor historian. Patient was denying any chest pain pressure or heaviness, no recent fevers or chills no cough and denies any other associated symptoms. Patient was extremely tachycardic, hypoxic on room air, and hypertensive on arrival. I agree with patient's physical exam findings as documented. Patient was immediately placed on cardiac monitoring continuous pulse ox peripheral IV was established patient was kept initially on a nonrebreather and quickly transferred over to BiPAP as his lungs sounded very rhonchorous and wet on auscultation and he had pitting edema lower extremities. Labs were drawn and sent and EKG was obtained showing a sinus tachycardia without acute ischemia. Portal chest x-ray was established which showed acute pulmonary edema with bilateral pleural effusions. Patient was started on nitroglycerin, Lasix IV, and awaiting remainder of labs. Patient's arrived later on during his course and reports that he was on dialysis at the beginning of June in transported to [place] for acute neurologic change with suspicion for stroke. Patient's states that he was given TPA while hospitalized there, and has some mild right-sided deficits secondary to the stroke some mild confusion and has significant difficulty ambulating. Patient was transferred to an extended care facility from [place] and he was discharged approximately a week ago from that facility. Patient's denies any history of falls or trauma, and states that he does wear clonidine patch for his blood pressure. She also states that currently the patient has significant difficulty with aspiration and is on a very limited diet at this time. Patient's labs show a leukocytosis with left shift, H&H is stable, patient's troponin is significantly elevated at 0.51. Patient had chronically elevated troponins in the past but this is significantly higher and insists he is chest pain-free at this time. Patient was administered aspirin and nitroglycerin trial as well as nitro drip started initiated. Patient had a second peripheral IV established and patient found also be in DKA based on his contact metabolic acidosis and hyperglycemia. We will start an insulin drip but hold any fluids for now secondary to this point area edema. Patient has a chronically elevated BUN/creatinine secondary to end-stage renal disease and last dialyzed on Wednesday. Patient follows with nephrology, Dr. Gray. Despite nitroglycerin patient's remained tachycardic and hypertensive, patient does not have on his clonidine patch and reports he took it off this morning. We will reorder his 0.3 mg clonidine patches he may be having some rebound from the removal of this patch earlier today. Patient will be started on heparin drip cardiac protocol and we have discussed the case and consulted from the ED both cardiology and nephrology. Case was then discussed with the hospitalist who accepted patient for admission to the ICU for further evaluation and management. At this time patient's respiratory status is improved. Blood pressure is slowly improving. Insulin drip has been initiated.
[2018-07-24] MEDS ORDERED: Furosemide 40 MG/4 ML VIAL ONE (20:13)
[2018-07-24] MEDS ORDERED: Nitroglycerin 25 MG/250 ML INFUS..BTL IVC SCH (20:30)
[2018-07-24 21:20] LABS: Basophils # 0.1 K/mcL (0.0-0.2); Basophils % 0.5 %; Eosinophils % 0.2 %; Hematocrit 35.8 % (37.5-50.1); Hemoglobin 11.7 g/dL (12.9-16.9); Immature Granulocytes % 0.4 % (0-4); Lymphocytes # 0.6 K/mcL (0.6-4.6); Lymphocytes % 3.5 %; Mean Corpuscular HGB Conc 32.7 g/dL (31.6-35.5); Mean Corpuscular Hemoglobin 30.7 pg (28.0-33.3); Mean Platelet Volume 8.3 fL (9.4-12.4); Monocytes # 1.3 K/mcL (0.0-1.3); Monocytes % 8.2 %; Neutrophils # 13.9 K/mcL (1.6-8.9); Platelet Count 469 K/mcL (140-400); Red Blood Count 3.81 M/mcL (4.19-5.50); Red Cell Distribution Width 15.6 % (11.5-14.5); Segmented Neutrophils % 87.2 %
[2018-07-24 21:24] LABS: INR 1.1; Prothrombin Time 12.1 Seconds (9.4-12.1)
[2018-07-24 21:27] LABS: Activated Partial Thrombo Time 28.6 Seconds (26.0-36.0)
[2018-07-24] MEDS ORDERED: Nitroglycerin 0.4 MG TAB.SUBL SL STA (21:52)
[2018-07-24 21:55] LABS: Albumin 3.4 g/dL (3.5-5.7); Albumin/Globulin Ratio 1.2 (1.1-2.2); Bilirubin,Direct 0.2 mg/dL (0.0-0.2); Bilirubin,Indirect 0.5 mg/dL (0.0-1.2); Bilirubin,Total 0.7 mg/dL (0.3-1.0); Calcium 8.5 mg/dL (8.6-10.3); Globulin 2.8 g/dL (2.4-3.5); Potassium 4.9 mEq/L (3.5-5.1); Total Protein 6.2 g/dL (6.4-8.9); Troponin I 0.51 ng/mL (< 0.04)
[2018-07-24] MEDS ORDERED: Aspirin 81 MG TAB.CHEW PO ONE (22:04)
[2018-07-24] MEDS ORDERED: Insulin Human Regular 100 UNIT in 0.9 % Sodium Chloride 100 ML IVC SCH (22:15)
[2018-07-24] MEDS ORDERED: Furosemide 80 MG in 0.9 % Sodium Chloride 50 ML IVPB ONE (22:41)
[2018-07-24] MEDS ORDERED: CloNIDine Patch 0.3 MG PATCH (WEEKLY) TD STA (22:54)
[2018-07-24] MEDS ORDERED: Furosemide 40 MG/4 ML VIAL IV ONE (23:00)
[2018-07-24] MEDS ORDERED: Nitroglycerin 0.4 MG TAB.SUBL SL PRN (23:10)
[2018-07-24] MEDS ORDERED: Heparin 25,000 UNIT/500 ML D5W 25,000 UNIT/500 ML BAG IVC ONE (23:42)
[2018-07-24 23:52] LABS: Bilirubin,Urine Negative (Negative); Blood,Urine Small (Negative); Clarity,Urine Clear (Clear); Color,Urine Yellow (Yellow); Glucose,Urine (UA) >=1000 mg/dL (Normal); Ketones,Urine Trace mg/dL (Negative); Leukocyte Esterase,Urine Negative (Negative); Nitrite,Urine Negative (Negative); PH,Urine 6.5 pH Units (5.0-8.0); Protein,Urine >=300 mg/dL (Neg-Trace); Specific Gravity,Urine 1.007 (1.010-1.025); Urobilinogen,Urine Normal (Normal)
[2018-07-24 23:53] LABS: Bacteria,Urine None Seen per hpf (None-Few); Hyaline Casts,Urine None Seen per lpf (None-Few); RBC,Urine 0-3 per hpf (0-3); Squamous Epithelial Cell,Urine Moderate per lpf (None-Few); WBC,Urine 0-3 per hpf (0-3)
[2018-07-25 00:06] LABS: Heparin anti-factor XA UFH 0.06 IU/mL (0.30-0.70)
[2018-07-25 00:07] LABS: INR 1.1; Prothrombin Time 12.4 Seconds (9.4-12.1)
[2018-07-25] MEDS ORDERED: Naloxone 0.4 MG/ML INJ IVP PRN (00:31)
[2018-07-25] MEDS ORDERED: Insulin Regular, Human 100 UNIT/ML IV PRN (00:31)
[2018-07-25] MEDS ORDERED: *HR* Heparin 5,000 UNIT/ML VIAL IVP PRN ×2 (00:33)
[2018-07-25] MEDS ORDERED: Levofloxacin 750 MG/150 ML 750 MG/150 ML BAG IVPB SCH (01:00)
--- NOTE | 2018-07-25 01:00 | Internal Med History&Physical ---
Date of Encounter: 07/24/18 Time of Encounter: 23:20 Internal Medicine - H&P: HPI Chief complaint: difficulty breathing Admitted From: Emergency Dept Plans for Post Hospital Care: Home History of present illness: Mr. Kovacs is a 62 year old male who presents to the ER with complaints of sudden onset of dyspnea over the last 24 hours. He was reluctant to come to ER but his symptoms progressed to the point where he could not catch his breath. He therefore came to ER and was noted to have hypoxemic respiratory failure, acute heart failure, and DKA. Initial BP upon presentation was 249/140. He is a hemodialysis patient from end-stage renal disease, but he makes minimal urine. He was placed on BiPAP and given some Lasix with diuresis. He was started on nitroglycerin drip for blood pressure control and troponin elevation. Cardiology and nephrology wer called and consulted in the ER and patient was admitted to hospitalist service. Upon my assessment patient in the ER, Isaw him and evaluated him in the ER and spoke with him and his at length. Patient is critically ill, but he seems to be breathing better on BiPAP. He feels much better BiPAP. He is producing some urine. Blood pressure was improved to 170s/120s in the ER. Patient denies any chest pain or pressure. However, he does complain of significant dyspnea and some edema. Patient and deny patient having any fevers, chills , or night sweats. His glucose has been relatively well-controlled until last 24 hours when his breathing difficulty escalated. I reviewed his EKG and note that he has some inferolateral ischemia but no ST elevation. His troponin is elevated at 0.51. reports that he has been very noncompliant with his medications, including aspirin and Plavix. Of note, I reviewed his latest left heart catheterization report in March of this year, which noted severe 2 vessel disease with PCI and stent of his LAD. Despite his PCI and stent, he has been noncompliant with his medications. While patient meets criteria for sepsis, I do not feel he is clinically septic. I suspect he is suffering from hypertensive emergency with end-organ damage including LV function, respiratory failure, and likely further kidney injury. This likely has lead to lactic acidosis. He will need blood pressure control with nitroglycerin, and if necessary, nicardipine drip. I am starting him on heparin drip for his non-STEMI. I am placing him on antibiotics after cultures are obtained for possible pneumonia. Fluid resuscitation at this time is counterproductive given he has acute heart failure and does not make much urine. He will need fluid balance meaures with dialysis as planned for early this morning with nephrology. Should he decompensate, I will intubate him and request emergency dialysis. Patient and are agreeable to plan of care. Past Med Surg Social Fam HX - Past Medical History Attestation: Yes The following information was validated with the patient. Source: patient, old records reviewed, obtained from family Medical history: asthma, COPD, coronary artery disease, CVA, diabetes, dialysis , hyperlipidemia, hypertension, renal disease Additional medical history: ESRD, cataracts, tinnitis, asthma as a child,. Recent stroke 06/20/18 -- TPA, trasnferred to [facility] Psychiatric history: no psych history - Past Surgical History Surgical History: herniorrhaphy, other Additional surgical history: new fistula - Social History Smoking Status: Former smoker Smokeless Tobacco Status: No Alcohol use: none Drug use: none Current living situation: Home, With Family Activity Level: Independent ambulation Recent Out of Country Travel Within the Last 8 Weeks: No - Family History Mother Living Status: Hx Family Cancer: Yes (Leukemia; patient unsure which type) Father Living Status: Hx Family Endocrine Disorder: Yes (DMI) Internal Medicine - H&P: Meds Calcitriol [Rocaltrol] 0.25 mcg PO QAM 09/20/17 [History] Calcium Acetate [Phos-LO] 667 mg PO TID 11/01/17 [History] Folic Acid/Vit B Complex and C [Dialyvite Tablet] 1 tab PO DAILY 11/01/17 [ History] Lisinopril [Zestril] 20 mg PO BID 11/01/17 [History] Subcutaneous Insulin Pump [T:Slim] 0 unit SQ DAILY 11/24/17 [History] CloNIDine Patch [Catapres-Tts] 0.3 mg TD QWEEK 02/07/18 [History] Aspirin 81 mg PO DAILY tab.chew 04/11/18 [Rx] Atorvastatin [Lipitor] 40 mg PO HS #30 tablet 04/11/18 [Rx] Carvedilol [Coreg] 12.5 mg PO BIDWM #60 tablet 04/11/18 [Rx] Clopidogrel [Plavix] 75 mg PO DAILY #30 tablet 04/11/18 [Rx] Isosorbide MONOnitrate (24 HR) [Imdur] 30 mg PO DAILY #30 tab.er.24h 04/11/18 [ Rx] 3 Allergy/AdvReac Type Severity Reaction Status Date / Time morphine Allergy Itching Verified 01/18/18 09:24 Sulfa (Sulfonamide Allergy See Verified 01/18/18 09:24 Antibiotics) Comments - Constitutional Constitutional: no chills, no fever(s), no night sweats - EENT Eyes: no blurry vision, no change in vision Ears: no ear pain, no tinnitus Nose, mouth and throat: no nasal congestion, no nasal discharge, no sore throat - Cardiovascular Cardiovascular ROS IM: diaphoresis, dyspnea, dyspnea on exertion, edema, palpitations, no chest pain, no syncope - Respiratory Respiratory: dyspnea, dyspnea on exertion, no cough, no hemoptysis, no pain on inspiration, no chest congestion, no excessive phlegm production, no change in phlegm color, no pain with cough - Gastrointestinal Gastrointestinal: no abdominal pain, no diarrhea, no hematemesis, no hematochezia, no melena, no vomiting - Genitourinary Genitourinary ROS male: no dysuria, no flank pain, no hematuria - Musculoskeletal Musculoskeletal ROS IM: back pain, no arthralgias - Integumentary Integumentary IM: no rash, no jaundice - Neurological Neurological ROS: no dizziness, no focal weakness, no frequent falls, no headache(s) - Psychiatric Psychiatric: no anxiety, no depression - Endocrine Endocrine IM: flushing, polydipsia, polyuria, no cold intolerance, no heat intolerance, no polyphagia - Hematologic/Lymphatic Hematologic/Lymphatic: easy bruising - Allergic/Immunologic Allergic/Immunologic: no GI upset with certain foods - Constitutional Vitals: Temp Pulse Resp BP Pulse Ox 97.7 F 95 22 261/73 99 07/24/18 19:45 07/25/18 00:06 07/25/18 00:52 07/25/18 00:06 07/25/18 00:52 General appearance: Present: cooperative, A&O X 3, pleasant, severe distress, answers questions appropriately Exam: On BiPap, breathing much better on it; BP in ER 176/140 on NTG gtt - Head Head exam: Present: atraumatic, normal inspection - Eye Eye exam: Present: EOMI, normal appearance, PERRL. Absent: scleral icterus Pupils: Present: normal accommodation - ENT ENT exam: Present: mucous membranes dry, normal exam, normal oropharynx Additional comments: BiPap mask in place - Neck Neck exam general surgery: Present: full ROM, supple. Absent: tenderness, nuchal rigidity, thyromegaly - Respiratory Respiratory exam: Present: prolonged expiratory phase, rales (predominantly in right base), respiratory distress (mild), tachypnea. Absent: accessory muscle use, chest wall tenderness, rhonchi, wheezes - Cardiovascular Cardiovascular exam: Present: distant heart sounds, RRR, +S1, +S2. Absent: diastolic murmur, systolic murmur - GI/Abdominal GI/Abdominal exam: Present: normal bowel sounds, soft. Absent: guarding, hepatomegaly, mass, rebound, splenomegaly, tenderness - Extremities Exam Extremities exam: Present: full ROM, normal capillary refill, pedal edema (2+), warm, radial pulses palpable and symmetrical. Absent: calf tenderness, joint swelling, tenderness - Back Exam Back exam: Absent: CVA tenderness (L), CVA tenderness (R) - Neurological Exam Neurological exam: Present: alert, CN II-XII intact, oriented X3, no focal deficits. Absent: strengths equal and symetr throughout (mild weaknees on right compared to left -- recent stroke 07/02) - Psychiatric Psychiatric exam: Present: flat affect - Skin Skin exam: Present: dry, intact, warm Internal Med - H&P Results - Labs CBC & Chem 7: 07/25/18 01:30 07/24/18 21:03 Labs: Urine 07/24/18 Range/Units 23:41 Urine Color Yellow (Yellow) Urine Clarity Clear (Clear) Urine pH 6.5 (5.0-8.0) pH Units Ur Specific [place] 1.007 L (1.010-1.025) Urine Protein >=300 H (Neg-Trace) mg/dL Urine Glucose (UA) >=1000 H (Normal) mg/dL - EKG Data -: EKG Interpreted by Myself - EKG Data Prior EKG available for review: yes When compared to previous EKG: there is no significant change EKG comments: 07/25/18 02:37 NSR; LVH; subtle inferolateral ischemic changes - Diagnostic Studies Chest x-ray Status: image reviewed by me (bilateral effusions with vascular congestion) - Assessment and plan (1) Acute hypoxemic respiratory failure Current Visit: Yes Status: Acute Assessment and plan: 1. Patient on BiPap with significant improvement in respiratory status. 2. Diuresis with IV Lasix -- note patient still makes some urine. 3. Will trend ABG's. 4. If necessary, will proceed with intubation and mechanical ventilation. 5. Dialysis this morning per nephrology. 6. Blood cultures and IV antibiotics for possible pneumonia. Please note, 65 minutes critical care time thus far caring for and coordinating care of patient. (2) Hypertensive emergency Current Visit: Yes Status: Acute Assessment and plan: 1. Patient started on NTG gtt in ER. 2. I added BB and Nicardipine drip to control SBP with goal of 160-180 for tonight to pervent further end-organ damage. 3. Patient is exhibiting acute respiratory failure and NSTEMI, likely secondary to hypertensive emergency. 4. Patient had CVA last month treated with TPA and transfer to [facility]. 5. Imperative to stabilize BP in ICU on the above drips. (3) NSTEMI (non-ST elevated myocardial infarction) Current Visit: Yes Status: Acute Assessment and plan: 1. Patient is chest pain-free. 2. Likely due to hypertensive emergency -- treat BP as above with goal SBP 160- 180 for tonight, then gradual decrease over the next [address] on heparin gtt, home meds as appropriate, and consult cardiology. 4. Patient has been non-compliant with meds per . 5. Will order ECHO to re-assess LV function. (4) Diabetic ketoacidosis Current Visit: Yes Status: Acute Assessment and plan: 1. Patient on insulin drip. 2. Unable to give IVF hydration due to acute CHF and poor urine output. 3. Patient will need dialysis first thing this morning to address fluid status. 4. Patient is fluid over-loaded and not in deficit of fluids. 5. Monitor electrolytes and glucose closely. 6. Anion gap most likely due to lactic acidosis from end-organ damage from hypertensive emergency rather than DKA. Qualifiers: Diabetes mellitus type: type 1 Diabetes mellitus complication detail: without coma Qualified Code(s): E10.10 - Type 1 diabetes mellitus with ketoacidosis without coma (5) Acute diastolic (congestive) heart failure Current Visit: Yes Status: Acute Assessment and plan: 1. Diuresis with IV Lasix. 2. Ramon placed for critical care I/O. 3. Dialysis this morning to address fluid balance and CHF. 4. BP control as above. (6) DVT prophylaxis Current Visit: Yes Status: Acute Assessment and plan: 1. Heparin gtt as above.
[2018-07-25 01:29] LABS: ABG Base Excess -2 mEq/L (-2 to 3); ABG HCO3 22 mEq/L (21-27); ABG Oxygen Saturation 100 % (95-98); ABG PCO2 33 mmHg (35-45); ABG PH 7.42 pH Units (7.32-7.45); ABG PO2 176 mmHg (85-104); ABG TCO2 23 mEq/L (20-26); Blood Gas Modality BiLevel; Blood Gas PEEP 6 cm H2O
[2018-07-25 02:01] LABS: Basophils # 0.1 K/mcL (0.0-0.2); Basophils % 0.3 %; Eosinophils % 0.1 %; Hematocrit 30.9 % (37.5-50.1); Hemoglobin 10.5 g/dL (12.9-16.9); Immature Granulocytes % 0.4 % (0-4); Lymphocytes # 0.7 K/mcL (0.6-4.6); Lymphocytes % 3.3 %; Mean Corpuscular Hemoglobin 31.1 pg (28.0-33.3); Mean Corpuscular Volume 91.4 fL (83.0-100.0); Mean Platelet Volume 8.3 fL (9.4-12.4); Monocytes # 1.2 K/mcL (0.0-1.3); Monocytes % 5.9 %; Platelet Count 372 K/mcL (140-400); Red Blood Count 3.38 M/mcL (4.19-5.50); Red Cell Distribution Width 15.5 % (11.5-14.5)
[2018-07-25 02:22] LABS: Albumin 3.1 g/dL (3.5-5.7); Albumin/Globulin Ratio 1.2 (1.1-2.2); Bilirubin,Total 0.6 mg/dL (0.3-1.0); Calcium 8.6 mg/dL (8.6-10.3); Globulin 2.5 g/dL (2.4-3.5); Magnesium 1.9 mg/dL (1.6-2.6); Potassium 4.3 mEq/L (3.5-5.1); Total Protein 5.6 g/dL (6.4-8.9)
[2018-07-25 02:24] LABS: Troponin I 1.47 ng/mL (< 0.04)
[2018-07-25] MEDS: *HR* Metoprolol 5 MG/5 ML VIAL IVP SCH ×5 (02:29→23:41)
[2018-07-25] MEDS: niCARdipine 40 MG/200 ML MLS IVC SCH ×2 (02:47→20:53)
[2018-07-25 05:25] LABS: Heparin anti-factor XA LMWH 0.25 IU/mL (0.50-1.10); INR 1.2; Prothrombin Time 13.2 Seconds (9.4-12.1)
[2018-07-25 05:28] LABS: Activated Partial Thrombo Time 46.2 Seconds (26.0-36.0)
[2018-07-25] MEDS ORDERED: 0.9 % Sodium Chloride 250 ML IVC PRN (07:30)
[2018-07-25] MEDS ORDERED: 0.9 % Sodium Chloride 1,000 ML PRIME SCH (07:30)
[2018-07-25] MEDS ORDERED: 0.9 % Sodium Chloride 2,000 ML ONE (07:40)
[2018-07-25 08:42] LABS: Troponin I 1.36 ng/mL (< 0.04)
[2018-07-25 08:51] LABS: Albumin 2.9 g/dL (3.5-5.7); Albumin/Globulin Ratio 1.1 (1.1-2.2); Bilirubin,Total 0.5 mg/dL (0.3-1.0); Calcium 8.4 mg/dL (8.6-10.3); Globulin 2.6 g/dL (2.4-3.5); Magnesium 1.8 mg/dL (1.6-2.6); Potassium 3.7 mEq/L (3.5-5.1); Total Protein 5.5 g/dL (6.4-8.9)
--- NOTE | 2018-07-25 09:04 | Cardiology Consult Note ---
Date of Encounter: 07/25/18 Time of Encounter: 08:54 Assessment and Plan (1) Elevated troponin Current Visit: Yes Status: Acute peak 1.5, down trending. likely type II NSTEMI due to hypertensive emergency with underlying CAD. - pending echo - one more troponin - if WMA nl on Echo, no LHC and d/c heparin drip; if WMA, will reassess for LHC. (2) Hypertensive emergency Current Visit: Yes Status: Acute BP ctr better. Management per primary team. (3) End stage renal disease Current Visit: No Status: Chronic (4) Diabetic ketoacidosis Current Visit: Yes Status: Acute Qualifiers: Diabetes mellitus type: type 1 Diabetes mellitus complication detail: without coma Qualified Code(s): E10.10 - Type 1 diabetes mellitus with ketoacidosis without coma (5) CAD (coronary artery disease), [place] coronary artery Current Visit: Yes Status: Chronic 2-v CAD, LAD PCI 03/2018. No clear evidence of active ischemia. Will cycle trop, TTE. Emphasize med compliance including ASA+ plavix+lipitor Qualifiers: [place] vs. transplanted heart: [place] heart Associated angina: angina presence unspecified Qualified Code(s): I25.10 - Atherosclerotic heart disease of [place] coronary artery without angina pectoris Discussion w patient/family: The assessment and plan as outlined above was discussed with the patient and/or family members who expressed understanding and agreement. All questions were answered. Thank you for involving us in the care of your patient. Please call with any questions. History of Present Illness Consult date: 07/25/18 Consult reason: Elevated troponin Chief complaint: SOB History of present illness: Mr. Kovacs is a 62 year old male ho 2-v CAD /LAD stent noncompliant with meds, ESRD on HD, DM I, HTN. P/w SOB 24 hrs, found to have HTN emergency 249/140, resp failure needing BiPAP , DKA. Consulted for trop0.5-1.5-1.4 Currently room air, BP 170s-200s/80s-90s on HD on NTG drip, off nicardipine ECG sinus tachy, inferior TWI, Tele no other significant arrhythmia. TTE pending. Pt feels better, no cp, dyspnea on interview. PCI 04/07/2018. CAROLYN to proximal LAD for UA. Impressions: There is severe two vessel coronary artery disease. The left ventricle is normal and has normal contractility EF 60% Patient had successful PTCA/Drug-Eluting Stent placement in the proximal LAD. FFR Measurement: 0.74 prox LAD and 0.89 prox Circ * Left Anterior Descending There is a 12 mm long, 70% stenosis in the Proximal LAD. The lesion has a SHAZIA flow of 3 and has no thrombus present. An intervention was performed on the Proximal LAD with a final stenosis of 0%. There were no lesion complications. The final SHAZIA flow was 3. There is a 50% stenosis in the Proximal LAD. There is a 60% stenosis in the Mid LAD. There is a 80% stenosis in the 2nd Diagonal. * Circumflex There is a 65% stenosis in the Proximal Circumflex. * Right Coronary Artery There is a 60% stenosis in the Mid RCA. / TTE Impressions: LVEF 55%. Normal IVS wall thickness. LVPW thickness measurement not well obtained. Mild left ventricular diastolic dysfunction. Normal right ventricular structure and function. Mild-moderate mitral regurgitation. No pulmonary hypertension based on lack of significant TR gradient. Mild elevation of RA pressures. / Past Med Surg Social Fam HX - Past Medical History Medical history: asthma, COPD, coronary artery disease, CVA, diabetes, dialysis , hyperlipidemia, hypertension, renal disease Additional medical history: ESRD, cataracts, tinnitis, asthma as a child,. Recent stroke 06/20/18 -- TPA, trasnferred to [facility] Psychiatric history: no psych history - Past Surgical History Surgical History: herniorrhaphy, other Additional surgical history: new fistula - Social History Smoking Status: Former smoker Smokeless Tobacco Status: No Alcohol use: none Drug use: none - Family History Mother Living Status: Hx Family Cancer: Yes (Leukemia; patient unsure which type) Father Living Status: Hx Family Endocrine Disorder: Yes (DMI) Medications and Allergies Calcium Acetate [Phos-LO] 667 mg PO TID 11/01/17 [History] Folic Acid/Vit B Complex and C [Dialyvite Tablet] 1 tab PO DAILY 11/01/17 [ History] CloNIDine Patch [Catapres-Tts] 0.3 mg TD QWEEK 02/07/18 [History] Aspirin 81 mg PO DAILY tab.chew 04/11/18 [Rx] Atorvastatin [Lipitor] 40 mg PO HS #30 tablet 04/11/18 [Rx] Carvedilol [Coreg] 12.5 mg PO BIDWM #60 tablet 04/11/18 [Rx] Clopidogrel [Plavix] 75 mg PO DAILY #30 tablet 04/11/18 [Rx] Isosorbide MONOnitrate (24 HR) [Imdur] 30 mg PO DAILY #30 tab.er.24h 04/11/18 [ Rx] Insulin ASPART [NovoLOG] 0 unit SQ TIDWM PRN 07/25/18 [History] Insulin Degludec [Tresiba Flextouch U-100] 12 unit SQ DAILY 07/25/18 [History] Lisinopril [Zestril] 40 mg PO DAILY 07/25/18 [History] 3 Allergy/AdvReac Type Severity Reaction Status Date / Time morphine Allergy Itching Verified 01/18/18 09:24 Sulfa (Sulfonamide Allergy See Verified 01/18/18 09:24 Antibiotics) Comments ROS unobtainable: other All Systems Review: The remainder of the systems were reviewed and are negative - Cardiovascular Cardiovascular: as per HPI - Respiratory Respiratory: dyspnea - Gastrointestinal Gastrointestinal: no abdominal pain Physical Examination Vital Signs, Last 4 Hours Temp Pulse Resp BP Pulse Ox 07/25/18 08:00 97.8 F 82 16 148/95 95 07/25/18 07:00 84 18 130/108 95 07/25/18 06:00 86 16 160/67 94 07/25/18 05:00 83 20 146/73 94 Other: General: NAD, AAO HEENT: anicteric Neck: no JVD Chest: CTA B/L, no W/R/C Heart: RR, S1/S2, no S3/S4,no M/G/R Abdominal: BS +, soft, ND, NT Peripheral Pulses: radial pulse 2+ B/L, DP 1+ B/L Skin/Extremities: no cyanosis, B/L LE edema to mid shins. LUE AVF Neurological: grossly non-focal. Results 07/25/18 01:30 07/25/18 08:01 Lab Results 07/24/18 07/25/18 07/25/18 23:54 01:30 01:30 WBC 19.9 H Hgb 10.5 L Hct 30.9 L Plt Count 372 INR 1.1 APTT Sodium 138 Potassium 4.3 Chloride 100 Carbon Dioxide 21 L BUN 67 H Creatinine 4.94 H Glucose 459 H Calcium 8.6 Magnesium 1.9 Total Bilirubin 0.6 AST 16 ALT 17 Alkaline Phosphatase 116 H Troponin I 1.47 H* 07/25/18 07/25/18 04:55 08:01 WBC Hgb Hct Plt Count INR 1.2 APTT 46.2 H D Sodium 140 Potassium 3.7 Chloride 103 Carbon Dioxide 24 BUN 68 H Creatinine 5.04 H Glucose 102 Calcium 8.4 L Magnesium 1.8 Total Bilirubin 0.5 AST 16 ALT 15 Alkaline Phosphatase 105 H Troponin I 1.36 H* - Imaging and Cardiology Chest Xray: report reviewed Echo: pending, report reviewed Cardiac cath: report reviewed Holter: other (Tele reviewed) - EKG Interpretation EKG results cardiology: personally reviewed Consult Discharge Plan - Plan Referrals: Hui Salazar MD [Primary Care Provider] -
[2018-07-25] MEDS ORDERED: Dextrose Gel 15 GM/37.5 ML TUBE PO ONE ×2 (10:06→10:13)
[2018-07-25] MEDS: Nitroglycerin 25 MG/250 ML INFUS..BTL IVC SCH ×2 (10:18→23:41)
[2018-07-25] MEDS ORDERED: Dextrose Gel 15 GM/37.5 ML TUBE PO PRN ×2 (10:19)
[2018-07-25] MEDS ORDERED: *HR* Dextrose 50 % in Water (Syg) 50 ML SYRINGE IVP PRN (10:19)
[2018-07-25] MEDS ORDERED: D5% in Water 1,000 ML IVC PRN (10:19)
[2018-07-25] MEDS: Calcium Acetate 667 MG CAPSULE PO SCH ×3 (11:47→17:59)
[2018-07-25] MEDS: Aspirin 81 MG TAB.CHEW PO SCH (12:50)
[2018-07-25] MEDS: Renal Vitamin 1 CAP CAPSULE PO SCH (12:51)
[2018-07-25] MEDS ORDERED: Vancomycin 500 MG in 0.9 % Sodium Chloride Mini Bag 100 ML IVPB ONE (14:00)
--- NOTE | 2018-07-25 14:33 | Nephrology Consult Note ---
Date of Encounter: 07/25/18 Time of Encounter: 09:45 Assessment and Plan (1) End stage renal disease Current Visit: Yes Status: Chronic End-stage renal disease on hemodialysis Wednesday Patient has AV fistula in left upper extremity Hemodialysis is scheduled for today, plan to remove 5.5L fluid today Additionally, plan for ultrafiltration tomorrow to remove fluid again Patient does have significant volume overload associated with acute heart failure This may also play a role in his acute respiratory failure Avoid nephrotoxins as able (2) Hypertensive emergency Current Visit: Yes Status: Acute Hypertensive emergency, initial blood pressure 249/140 Patient initially placed on Cardene and nitroglycerin drip Some of this may be due to significant volume overload Plan to take significant volume off during hemodialysis today and ultrafiltration tomorrow Goal systolic blood pressure around 160 Titrate down on nitroglycerin drip today (3) Diabetic ketoacidosis Current Visit: Yes Status: Acute Mixed diabetic ketoacidosis with non-anion gap metabolic alkalosis Patient did not have significant volume depletion as is typical with diabetic ketoacidosis Transition to subcutaneous insulin per primary team with appropriate Some metabolic derangements will be corrected with dialysis Qualifiers: Diabetes mellitus type: type 1 Diabetes mellitus complication detail: without coma Qualified Code(s): E10.10 - Type 1 diabetes mellitus with ketoacidosis without coma (4) Respiratory distress, acute Current Visit: Yes Status: Acute Acute respiratory distress, likely secondary to volume overload in the setting of ESRD and CHF Management per primary team, BiPAP as needed (5) Elevated troponin Current Visit: Yes Status: Chronic History of Present Illness - Reason for Consult Consult date: 07/24/18 Chronic Kidney Disease (On hemodialysis) Requesting physician: Matt Wilcox - Chief Complaint Shortness of breath - History of Present Illness Mr. Kovacs is a 62-year-old gentleman with a history of COPD, diabetes, hyperlipidemia, hypertension, CHF, end-stage renal disease on hemodialysis Wednesday who presented to the ED with dyspnea of 24 hours duration. At the time of examination, the patient is receiving hemodialysis and he is very uncooperative. The patient is agitated and does not feel like answering questions. Some of his history is obtained from previous documentation and some of it is obtained from questions he found himself willing to answer during interview. The patient apparently initially started feeling dyspneic about 24 hours ago, however it progressively got worse to the point that he felt he could not catch his breath at all. No symptoms up to this were associated with this, and he denies any fevers, chills, sweats. He does not have any cough associated with this either. Upon presentation to the ED he was found to have a blood pressure of 249/140 and he was found to have hypoxic respiratory failure. In addition to this, his BNP was noted to be greater than 5000 and he had laboratory indications of DKA. The patient received a chest x-ray at that time which demonstrated moderate bilateral pleural effusions with bibasilar atelectasis. Upon questioning, the patient says that his last hemodialysis was Wednesday, and he was able to undergo the full hemodialysis session without complication. He denies any changes to his diet, or salt intake. He does not feel that he is not drinking any more than he usually does. He denies any chest pains. To his knowledge she has had no sick contacts. He was admitted as a 2 N. overflow patient in the ICU, placed on BiPAP which did help with his symptoms, and placed on an insulin drip. Additionally, for his blood pressure, the patient was placed on Cardene drip as well as nitroglycerin drip. Nephrology was consulted for management of the patient's end-stage renal disease and hemodialysis as well as recommendations for hypertension. Past Med Surg Social Fam HX - Past Medical History Medical history: asthma, COPD, coronary artery disease, CVA, diabetes, dialysis , hyperlipidemia, hypertension, renal disease Additional medical history: ESRD, cataracts, tinnitis, asthma as a child,. Recent stroke 06/20/18 -- TPA, trasnferred to [facility] Psychiatric history: no psych history - Past Surgical History Surgical History: herniorrhaphy, other Additional surgical history: new fistula - Social History Smoking Status: Former smoker Smokeless Tobacco Status: No Alcohol use: none Drug use: none - Family History Mother Living Status: Hx Family Cancer: Yes (Leukemia; patient unsure which type) Father Living Status: Hx Family Endocrine Disorder: Yes (DMI) Medications and Allergies Calcium Acetate [Phos-LO] 667 mg PO TID 11/01/17 [History] Folic Acid/Vit B Complex and C [Dialyvite Tablet] 1 tab PO DAILY 11/01/17 [ History] CloNIDine Patch [Catapres-Tts] 0.3 mg TD QWEEK 02/07/18 [History] Aspirin 81 mg PO DAILY tab.chew 04/11/18 [Rx] Atorvastatin [Lipitor] 40 mg PO HS #30 tablet 04/11/18 [Rx] Carvedilol [Coreg] 12.5 mg PO BIDWM #60 tablet 04/11/18 [Rx] Clopidogrel [Plavix] 75 mg PO DAILY #30 tablet 04/11/18 [Rx] Isosorbide MONOnitrate (24 HR) [Imdur] 30 mg PO DAILY #30 tab.er.24h 04/11/18 [ Rx] Insulin ASPART [NovoLOG] 0 unit SQ TIDWM PRN 07/25/18 [History] Insulin Degludec [Tresiba Flextouch U-100] 12 unit SQ DAILY 07/25/18 [History] Lisinopril [Zestril] 40 mg PO DAILY 07/25/18 [History] 3 Allergy/AdvReac Type Severity Reaction Status Date / Time morphine Allergy Itching Verified 01/18/18 09:24 Sulfa (Sulfonamide Allergy See Verified 01/18/18 09:24 Antibiotics) Comments Review of Systems ROS unobtainable: other (Patient is uncooperative and does not want to answer questions. Those answer to the extent to which I could get him to answer.) Constitutional: no chills, no fever(s) Cardiovascular: dyspnea, no chest pain Gastrointestinal: no vomiting Exam - Vital Signs Vital signs: Initial Vital Signs Temp Pulse Resp BP Pulse Ox 97.7 F 121 40 249/140 91 07/24/18 19:45 07/24/18 19:45 07/24/18 19:45 07/24/18 19:45 07/24/18 19:45 Vital Signs - Last 8 Hours Temp Pulse Resp BP Pulse Ox 07/25/18 13:00 83 18 174/98 98 07/25/18 12:15 97.7 F 18 153/90 07/25/18 12:00 146/73 07/25/18 11:56 97.7 F 88 15 148/85 96 07/25/18 11:50 92 07/25/18 11:45 150/83 07/25/18 11:30 151/88 07/25/18 11:15 178/128 07/25/18 11:00 85 16 143/83 96 07/25/18 10:45 165/90 07/25/18 10:30 152/96 07/25/18 10:15 160/80 07/25/18 10:00 89 18 179/83 97 07/25/18 09:45 189/90 07/25/18 09:30 173/114 07/25/18 09:15 184/80 07/25/18 09:00 84 17 204/93 97 07/25/18 08:45 188/91 07/25/18 08:30 97.9 F 16 171/88 07/25/18 08:00 97.8 F 82 16 148/95 95 07/25/18 07:00 84 18 130/108 95 Intake and Output 07/24/18 07/25/18 07/25/18 23:59 07:59 15:59 Intake Total 752.3 / 752.3 834.4 / 834.4 Output Total 300 / 300 6100 / 6100 Balance 452.3 / 452.3 -5265.6 / -5265.6 Intake: IV Fluids 752.3 / 752.3 234.4 / 234.4 Heparin 25,000 UNIT/500 ML D5W 70 / 70 155 / 155 25,000 unit In 500 ml @ 12 UNIT /KG/HR 15.894 mls/hr IVC .Q24H [facility] Rx#:[id number] HumuLIN R 100 UNIT In 0.9 % 26.6 / 26.6 48.4 / 48.4 Sodium Chloride 100 ML @ 0.1 UNIT/KG/HR 6.68 mls/hr IVC CONT [facility] Rx#:[id number] Nitroglycerin Premix 25 MG/250 228 / 228 31 / 31 ML 25 mg In 250 ml @ 5 MCG/MIN 3 mls/hr IVC .Q24H [facility] Rx#: [id number] Cardene Premix 40mg/200ml 40 mg 27.7 / 27.7 In 200 ml @ 2.5 MG/HR 12.5 mls /hr IVC .Q16H [facility] Rx#: [id number] Levaquin Premix 750mg/150 mL 150 / 150 750 mg In 150 ml @ 100 mls/hr IVPB Q48H [facility] Rx#:[id number] Vancocin 1,000 MG In 0.9 % 250 / 250 Sodium Chloride 250 ML @ 167 mls/hr IVPB ONCE ONE Rx#: [id number] Intake, Rinseback and Flushes 600 / 600 Output: Total Dialysis (HD) Output 5600 / 5600 Catheter 300 / 300 500 / 500 Other: Weight 70.6 kg 66 kg Blood Glucose* 166 118 Hemodialysis Net Fluid Removed 5000 (mL) Patient Weight 07/25/18 23:59 Weight 66 kg - General Appearance Exam: Gen: Vitals noted. No acute distress. HEENT: Normocephalic, atraumatic Neck: Supple. No adenopathy. Cardiac: RRR, no murmur, +S1/S2 Pulmonary: CTA bilaterally, no wheezes, rales or rhonchi, equal chest expansion Abdomen: soft, nontender, no guarding MSK: ROM intact, no joint swelling noted Extremities: Trace edema and left lower extremity, 2-3+ edema and right lower extremity. No clubbing or cyanosis noted. Neuro: moves all extremities, no focal deficits. A&Ox3 Psych: Patient is agitated and uncooperative Results - Lab Results 07/25/18 01:30 07/25/18 08:01 Most recent lab results ABG pH 7.42 pH Units (7.32-7.45) 07/25/18 01:26 ABG pCO2 33 mmHg (35-45) L 07/25/18 01:26 ABG pO2 176 mmHg (85-104) H 07/25/18 01:26 ABG HCO3 22 mEq/L (21-27) 07/25/18 01:26 ABG O2 Saturation 100 % (95-98) H 07/25/18 01:26 Calcium 8.4 mg/dL (8.6-10.3) L 07/25/18 08:01 Magnesium 1.8 mg/dL (1.6-2.6) 07/25/18 08:01 Consult Discharge Plan - Plan Referrals: Hui Salazar MD [Primary Care Provider] -
[2018-07-25 14:46] LABS: Albumin 2.8 g/dL (3.5-5.7); Albumin/Globulin Ratio 1.2 (1.1-2.2); Bilirubin,Total 0.6 mg/dL (0.3-1.0); Calcium 8.2 mg/dL (8.6-10.3); Globulin 2.3 g/dL (2.4-3.5); Magnesium 1.8 mg/dL (1.6-2.6); Potassium 4.3 mEq/L (3.5-5.1); Total Protein 5.1 g/dL (6.4-8.9)
[2018-07-25] MEDS ORDERED: Insulin DETEMIR 100 UNIT/ML X5UNITS SQ STA (14:50)
[2018-07-25] MEDS ORDERED: *HR* Metoprolol 5 MG/5 ML VIAL IVP SCH (14:55)
--- NOTE | 2018-07-25 15:02 | Internal Med Progress Note ---
Hospitalist Progress Note - Encounter Date of Encounter: 07/25/18 Time of Encounter: 14:58 - Subjective Interval History: Patient seen and evaluated bedside, off BiPap. Reports doing well, denies chest pain, headache, nausea or vomiting. Denies shortness of breath and voices his desire to have something to eat. - Exam Vitals: Temp Pulse Resp BP Pulse Ox 97.7 F 72 16 173/84 98 07/25/18 12:15 07/25/18 14:00 07/25/18 14:00 07/25/18 14:00 07/25/18 14:00 Exam: General: Alert and oriented x3. No acute distress. Cardiovascular: RRR, Normal S1 & S2, no rubs, murmurs or gallops. No JVD. Lungs: Clear to auscultation bilaterally,no wheezes or crackles. Abdomen: Soft, non-tender, no rigidity. Normoactive bowel sounds in all 4 quadrants Extremities: 2+ edema pitting edema in the lower extremities b/l, no tenderness. Neurological: Normal cognition. CN II-XII intact. Rest of the physical exam is non contributory - Assessment and Plan (1) Diabetic ketoacidosis Current Visit: Yes Status: Resolved Assessment and Plan: Plan: Gap has closed will transition patient to Long acting insulin. Started on low dose, levemir 3 units now and 5 Units HS. low dose Lispro sliding scale Renal and diabetic diet water restriction to 1.5 litters a day continue accu-checks Q4HR for now as patient recently had an episode of hypoglycemia (2) Acute hypoxemic respiratory failure Current Visit: Yes Status: Resolved Assessment and Plan: Plan: Patient on ambient air. O2 Sat >92% Stand by BiPap (3) Hypertensive emergency Current Visit: Yes Status: Acute Assessment and Plan: Patient is still on a nitroglycerin drip. Plan: Re-started home medications. Lisinopril 40mg/PO daily and carvedilol 12.5mg/PO BID On metoprolol 5mg/iv Q6HR scheduled with holding parameter for SBP <170 Goal to start titrating off the nitroglycerin drip (4) NSTEMI (non-ST elevated myocardial infarction) Current Visit: Yes Status: Acute Assessment and Plan: Elevated troponins possible due to ESRD, Sepsis in the setting of WBC of 19,000 vs demand ischemia vs NSTEMI Plan: Plan of care as per cardiology recommendations on a heparin drip continue Beta jas and Aces On aspirin and statin (5) Acute diastolic (congestive) heart failure Current Visit: Yes Status: Acute Assessment and Plan: Plan: renal replacement therapy as per nephrology team water restriction to 1.5 litters a day daily weight continue Beta jas and ACes (6) ESRD (end stage renal disease) on dialysis Current Visit: Yes Status: Acute Assessment and Plan: Patient received renal replacement therapy today. Plan: Continue renal replacement therapy as per [facility] [employer] [facility] [employer] recommendations Water restriction to 1.5 litters a day. (7) Leukocytosis Current Visit: Yes Status: Acute Assessment and Plan: Lekocytosis and elevated lactic acid on admission. Unclear source of infection, b/l pleural effusion and atelectasis, possible pneumonia? Plan: continue vancomycin d/c levofloxacin started on Piperacillin/Tazobactam Q12HRs f/u blood culture Urine for atypical organism (8) Anemia Current Visit: No Status: Acute Assessment and Plan: Possible anemia of chronic disease. Plan: am CBC no need for intervention at this time will consider transfusing if Hb<7 Hct <23 or patient becomes hypotensive. (9) DVT prophylaxis Current Visit: Yes Status: Acute Assessment and Plan: On a heparin drip due to possible NSTEMI - Summary of Assessment and Plan Summary of Assessment and Plan: Patient to remain in the critical care unit, on a Nitroglycerin drip due to hypertensive crisis. critically ill. - Time Spent with Patient Total time spent is greater than 50% in coordination of care (as documented) at patient's floor/unit and/or counseling patient: Greater than 35 minutes Plan of Care Discussed with: patient (and the nurse.) Internal Medicine: Result - Labs CBC & Chem 7: 07/25/18 01:30 07/25/18 14:12 Labs: Short CBC 07/25/18 Range/Units 01:30 WBC 19.9 H (4.3-11.1) K/mcL Hgb 10.5 L (12.9-16.9) g/dL Hct 30.9 L (37.5-50.1) % Plt Count 372 (140-400) K/mcL Neutrophils # 18.0 H (1.6-8.9) K/mcL BMP 07/25/18 07/25/18 07/25/18 01:30 08:01 14:12 Sodium 138 140 138 Potassium 4.3 3.7 4.3 Chloride 100 103 102 Carbon Dioxide 21 L 24 25 BUN 67 H 68 H 25 H Creatinine 4.94 H 5.04 H 2.58 H Glucose 459 H 102 79 Calcium 8.6 8.4 L 8.2 L Cardiac Enzymes 07/25/18 07/25/18 Range/Units 01:30 08:01 Troponin I 1.47 H* 1.36 H* (< 0.04) ng/mL Liver Function 07/25/18 07/25/18 07/25/18 Range/Units 01:30 08:01 14:12 Total Bilirubin 0.6 0.5 0.6 (0.3-1.0) mg/dL AST 16 16 19 (13-39) Units/L ALT 17 15 14 (7-52) Units/L Alkaline Phosphatase 116 H 105 H 103 (34-104) Units/L Albumin 3.1 L 2.9 L 2.8 L (3.5-5.7) g/dL Urine 07/24/18 Range/Units 23:41 Urine Color Yellow (Yellow) Urine Clarity Clear (Clear) Urine pH 6.5 (5.0-8.0) pH Units Ur Specific [place] 1.007 L (1.010-1.025) Urine Protein >=300 H (Neg-Trace) mg/dL Urine Glucose (UA) >=1000 H (Normal) mg/dL - ABG Interpretation ABG results: ABG ABG pH 7.42 pH Units (7.32-7.45) 07/25/18 01:26 ABG pCO2 33 mmHg (35-45) L 07/25/18 01:26 ABG pO2 176 mmHg (85-104) H 07/25/18 01:26 ABG O2 Saturation 100 % (95-98) H 07/25/18 01:26 PT/INR, D-dimer PT 13.2 Seconds (9.4-12.1) H 07/25/18 04:55 Consult Discharge Plan - Plan Referrals: Hui Salazar MD [Primary Care Provider] - (1) Diabetic ketoacidosis Qualifiers: Diabetes mellitus type: type 1 Diabetes mellitus complication detail: without coma Qualified Code(s): E10.10 - Type 1 diabetes mellitus with ketoacidosis without coma (7) Leukocytosis Qualifiers: Leukocytosis type: unspecified Qualified Code(s): D72.829 - Elevated white blood cell count, unspecified (8) Anemia Qualifiers: Anemia type: due to chronic kidney disease Chronic kidney disease stage: on chronic dialysis Qualified Code(s): N18.6 - End stage renal disease; D63.1 - Anemia in chronic kidney disease; D63.1 - Anemia in chronic kidney disease; Z99.2 - Dependence on renal dialysis; Z99.2 - Dependence on renal dialysis; Z99.2 - Dependence on renal dialysis; Z99.2 - Dependence on renal dialysis
[2018-07-25] MEDS: Piperacillin/Tazobactam 3.375 GM in 0.9 % Sodium Chloride Mini Bag 100 ML IVPB SCH (15:46)
[2018-07-25] MEDS: Lisinopril 20 MG TABLET PO SCH (15:46)
[2018-07-25] MEDS: Insulin LISPRO 300 UNITS/3 ML VIAL SQ SCH ×3 (16:07→23:41)
[2018-07-25] MEDS: Insulin DETEMIR 100 UNIT/ML X5UNITS SQ SCH (20:56)
[2018-07-25 21:26] LABS: Potassium 4.9 mEq/L (3.5-5.1)
[2018-07-25 22:08] LABS: Albumin 2.6 g/dL (3.5-5.7); Albumin/Globulin Ratio 1.2 (1.1-2.2); Bilirubin,Total 0.5 mg/dL (0.3-1.0); Globulin 2.1 g/dL (2.4-3.5); Magnesium 1.7 mg/dL (1.6-2.6); Total Protein 4.7 g/dL (6.4-8.9)
[2018-07-25] MEDS: Heparin 25,000 UNIT/500 ML D5W 25,000 UNIT/500 ML BAG IVC SCH ×2 (23:31)
[2018-07-25] MEDS: *HR* Dextrose 50 % in Water (Syg) 50 ML SYRINGE IVP PRN (23:39)
[2018-07-26 02:16] LABS: Albumin 2.6 g/dL (3.5-5.7); Albumin/Globulin Ratio 1.2 (1.1-2.2); Bilirubin,Total 0.5 mg/dL (0.3-1.0); Calcium 8.1 mg/dL (8.6-10.3); Globulin 2.2 g/dL (2.4-3.5); Magnesium 1.7 mg/dL (1.6-2.6); Potassium 4.4 mEq/L (3.5-5.1); Total Protein 4.8 g/dL (6.4-8.9)
[2018-07-26] MEDS: Piperacillin/Tazobactam 3.375 GM in 0.9 % Sodium Chloride Mini Bag 100 ML IVPB SCH ×2 (03:28→17:32)
[2018-07-26] MEDS: *HR* Dextrose 50 % in Water (Syg) 50 ML SYRINGE IVP PRN ×3 (03:40→07:57)
[2018-07-26] MEDS: Insulin LISPRO 300 UNITS/3 ML VIAL SQ SCH ×6 (03:44→23:46)
[2018-07-26] MEDS: *HR* Metoprolol 5 MG/5 ML VIAL IVP SCH ×4 (05:40→23:41)
[2018-07-26] MEDS ORDERED: Vancomycin 500 MG in 0.9 % Sodium Chloride Mini Bag 100 ML IVPB ONE (07:00)
[2018-07-26] MEDS ORDERED: 0.9 % Sodium Chloride 250 ML IVC PRN (07:25)
[2018-07-26] MEDS: Renal Vitamin 1 CAP CAPSULE PO SCH (07:58)
[2018-07-26] MEDS: Lisinopril 20 MG TABLET PO SCH (07:58)
[2018-07-26] MEDS: Calcium Acetate 667 MG CAPSULE PO SCH ×3 (07:58→20:38)
[2018-07-26] MEDS: Aspirin 81 MG TAB.CHEW PO SCH (07:59)
[2018-07-26] MEDS: Insulin DETEMIR 100 UNIT/ML X5UNITS SQ SCH ×2 (08:00→21:25)
[2018-07-26 11:24] LABS: Albumin 2.9 g/dL (3.5-5.7); Albumin/Globulin Ratio 1.1 (1.1-2.2); Bilirubin,Total 0.6 mg/dL (0.3-1.0); Calcium 8.1 mg/dL (8.6-10.3); Globulin 2.6 g/dL (2.4-3.5); Magnesium 1.7 mg/dL (1.6-2.6); Potassium 5.1 mEq/L (3.5-5.1); Total Protein 5.5 g/dL (6.4-8.9)
--- NOTE | 2018-07-26 12:27 | Cardiology Progress Note ---
<CampbellPreston Alex - Last Filed: 07/26/18 12:35> Date of Encounter: 07/26/18 Time of Encounter: 12:24 Assessment and Plan (1) Elevated troponin Current Visit: Yes Status: Acute Troponins 0.51, 1.47, 1.36 likely type II NSTEMI due to hypertensive emergency with underlying CAD. TTE resulted--LVEF 45-50%. Low normal to mild global LV systolic dysfunction. Moderate cLVH. Diastolic dysfunction with elevated filling pressures. Normal RV size with mild reduction in function by Doppler. Mild MR. Since there are no regional wall motion abnormalities, will stop heparin gtt. No further cardiac testing warranted as inpt. Cardiac rehab not warranted. Pt denies chest pain. Repeat ECG unchanged from admission--LVH with reciprocal ST changes. Cardiology signing off. Reconsult PRN. Will coordinate outpt follow-up in 2-3 weeks. (2) Hypertensive emergency Current Visit: Yes Status: Acute BP ctr better. Management per primary team. (3) CAD (coronary artery disease) Current Visit: No Status: Chronic 2-v CAD, LAD PCI 03/2018. No clear evidence of active ischemia. TTE low normal EF--45-50%. Emphasize med compliance including ASA, Plavix, Statin, BB. Qualifiers: Coronary Disease-Associated Artery/Lesion type: [place] artery [place] vs. transplanted heart: [place] heart Associated angina: without angina Qualified Code(s): I25.10 - Atherosclerotic heart disease of [place] coronary artery without angina pectoris Discussion w patient/family: The assessment and plan as outlined above was discussed with the patient and/or family members who expressed understanding and agreement. All questions were answered. Thank you for involving us in the care of your patient. Please call with any questions. I will discuss all the above with Dr. Meyers and make changes as necessary. Subjective Principal diagnosis: elevated troponin Interval history: Pt denies chest pain or dyspnea this AM. BP better controlled. TTE resulted-- LVEF 45-50%. Low normal to mild global LV systolic dysfunction. Moderate concentric left ventricular hypertrophy. Diastolic dysfunction with elevated filling pressures. Normal RV size with mild reduction in function by Doppler. Mild mitral regurgitation. Objective Vital Signs, Last 4 Hours Temp Resp BP 07/26/18 11:35 97.5 F L 12 137/87 07/26/18 11:20 144/60 07/26/18 11:05 147/78 07/26/18 10:50 100/86 07/26/18 10:35 138/78 07/26/18 10:20 103/84 07/26/18 10:05 122/51 07/26/18 09:50 98/84 07/26/18 09:35 102/65 07/26/18 09:20 97/76 07/26/18 09:05 96/69 07/26/18 08:50 97.5 F L 19 140/112 Vital Signs Temp Pulse Resp BP Pulse Ox 07/26/18 11:35 97.5 F L 12 137/87 07/26/18 11:20 144/60 07/26/18 11:05 147/78 07/26/18 10:50 100/86 07/26/18 10:35 138/78 07/26/18 10:20 103/84 07/26/18 10:05 122/51 07/26/18 09:50 98/84 07/26/18 09:35 102/65 07/26/18 09:20 97/76 07/26/18 09:05 96/69 07/26/18 08:50 97.5 F L 19 140/112 07/26/18 07:15 71 18 149/44 98 07/26/18 06:00 56 16 126/82 100 07/26/18 05:45 57 14 158/71 99 07/26/18 05:15 97.9 F 07/26/18 04:00 58 26 158/62 98 07/26/18 03:45 97.5 F L 60 16 149/63 97 07/26/18 03:35 60 24 186/105 95 07/26/18 03:00 66 20 177/97 98 07/26/18 02:00 65 26 165/75 100 07/26/18 01:00 65 20 168/80 99 07/26/18 00:00 65 18 168/80 98 07/25/18 23:53 97.5 F L 07/25/18 23:00 70 16 157/69 98 07/25/18 22:00 67 16 125/69 99 07/25/18 21:00 68 14 165/80 97 07/25/18 20:11 97.7 F 07/25/18 20:00 67 16 167/80 99 07/25/18 19:00 67 16 173/80 95 07/25/18 18:00 74 18 149/83 96 07/25/18 17:00 63 20 159/109 97 07/25/18 16:00 97.7 F 63 14 155/90 99 07/25/18 15:10 68 07/25/18 15:00 67 15 155/77 99 07/25/18 14:00 72 16 173/84 98 07/25/18 13:00 83 18 174/98 98 Intake and Output 07/25/18 07/26/18 07/26/18 23:59 07:59 15:59 Intake Total 340 / 340 57 / 57 600 / 600 Output Total 225 / 225 1700 / 1700 3600 / 3600 Balance 115 / 115 -1643 / -1643 -3000 / -3000 Intake: IV Fluids 340 / 340 57 / 57 Heparin 25,000 UNIT/500 ML D5W 125 / 125 25 / 25 25,000 unit In 500 ml @ 12 UNIT /KG/HR 15.894 mls/hr IVC .Q24H [facility] Rx#:[id number] Nitroglycerin Premix 25 MG/250 115 / 115 32 / 32 ML 25 mg In 250 ml @ 5 MCG/MIN 3 mls/hr IVC .Q24H [facility] Rx#: [id number] Zosyn 3.375 GM In 0.9 % Sodium 100 / 100 Chloride (Mini-Bag +) 100 ML @ 25 mls/hr IVPB Q12H [facility] Rx#: [id number] Oral 0 / 0 Intake, Rinseback and Flushes 600 / 600 Output: Urine 0 / 0 Total Dialysis (HD) Output 3600 / 3600 Catheter 225 / 225 1700 / 1700 Other: Weight 66 kg Blood Glucose* 54 105 Hemodialysis Net Fluid Removed 3000 (mL) General: Conversant HEENT: Atraumatic, Normocephaly, Mucus Membranes Moist Neck: No JVD, Normal carotid pulses Cardiac: Reg Rate and Rhythm, Normal S1 and S2, No Murmur Lungs: Normal Breath Sounds, No Wheeze, Rales, Rhonchi Neuro: Alert and responsive, No focal deficits noted Abdomen: Soft, Non-Tender Skin: No rashes noted on visualized skin Musculoskeletal: No Chest Wall Tenderness Extremities: No Clubbing, No Cyanosis, No Edema, Normal Pulses Results 07/25/18 01:30 07/26/18 10:20 Lab Results 07/25/18 07/25/18 07/26/18 14:12 20:32 01:45 Sodium 138 136 139 Potassium 4.3 4.9 4.4 Chloride 102 100 102 Carbon Dioxide 25 29 29 BUN 25 H 30 H 33 H Creatinine 2.58 H 3.14 H 3.29 H Glucose 79 158 H 68 L Calcium 8.2 L 8.0 L 8.1 L Magnesium 1.8 1.7 1.7 Total Bilirubin 0.6 0.5 0.5 AST 19 15 15 ALT 14 13 13 Alkaline Phosphatase 103 92 93 07/26/18 10:20 Sodium 136 Potassium 5.1 Chloride 100 Carbon Dioxide 27 BUN 38 H Creatinine 3.67 H Glucose 231 H Calcium 8.1 L Magnesium 1.7 Total Bilirubin 0.6 AST 20 ALT 16 Alkaline Phosphatase 101 BMP 07/26/18 07/26/18 07/25/18 Range/Units 10:20 01:45 20:32 Sodium 136 139 136 (136-145) mEq/L Potassium 5.1 4.4 4.9 (3.5-5.1) mEq/L Chloride 100 102 100 (98-107) mEq/L Carbon Dioxide 27 29 29 (23-29) mEq/L BUN 38 H 33 H 30 H (8-23) mg/dL Creatinine 3.67 H 3.29 H 3.14 H (0.70-1.30) mg/dL Glucose 231 H 68 L 158 H (70-105) mg/dL Calcium 8.1 L 8.1 L 8.0 L (8.6-10.3) mg/dL 07/25/18 Range/Units 14:12 Sodium 138 (136-145) mEq/L Potassium 4.3 (3.5-5.1) mEq/L Chloride 102 (98-107) mEq/L Carbon Dioxide 25 (23-29) mEq/L BUN 25 H (8-23) mg/dL Creatinine 2.58 H (0.70-1.30) mg/dL Glucose 79 (70-105) mg/dL Calcium 8.2 L (8.6-10.3) mg/dL Liver Function 07/26/18 07/26/18 07/25/18 Range/Units 10:20 01:45 20:32 Total Bilirubin 0.6 0.5 0.5 (0.3-1.0) mg/dL AST 20 15 15 (13-39) Units/L ALT 16 13 13 (7-52) Units/L Alkaline Phosphatase 101 93 92 (34-104) Units/L Albumin 2.9 L 2.6 L 2.6 L (3.5-5.7) g/dL 07/25/18 Range/Units 14:12 Total Bilirubin 0.6 (0.3-1.0) mg/dL AST 19 (13-39) Units/L ALT 14 (7-52) Units/L Alkaline Phosphatase 103 (34-104) Units/L Albumin 2.8 L (3.5-5.7) g/dL Impressions Echocardiogram 07/25/18 09:19 Impressions: LVEF 45-50%. Low normal to mild global LV systolic dysfunction. Moderate concentric left ventricular hypertrophy. Diastolic dysfunction with elevated filling pressures. Normal RV size with mild reduction in function by Doppler. Mild mitral regurgitation. Active Medications Aspirin (Aspirin) 81 mg PO DAILY [facility] Stop: 01/24/19 09:01 Last Admin: 07/26/18 07:59 Dose: 81 mg Atorvastatin Calcium (Lipitor) 40 mg PO HS [facility] Stop: 01/24/19 21:01 Last Admin: 07/25/18 20:55 Dose: 40 mg Calcitriol (Rocaltrol) 0.25 mcg PO QAM [facility] Stop: 01/24/19 09:01 Last Admin: 07/26/18 07:58 Dose: 0.25 mcg Calcium Acetate (Phos-Lo) 667 mg PO TIDWM [facility] Stop: 01/24/19 08:01 Last Admin: 07/26/18 07:58 Dose: 667 mg Carvedilol (Coreg) 12.5 mg PO BIDWM [facility] PRN Reason: Protocol Stop: 01/24/19 08:01 Last Admin: 07/26/18 07:59 Dose: 12.5 mg Clopidogrel Bisulfate (Plavix) 75 mg PO DAILY [facility] Stop: 01/24/19 09:01 Last Admin: 07/26/18 07:58 Dose: 75 mg Dextrose/Water (Dextrose 50% (Syg)) 50 ml IVP ONCE PRN PRN Reason: Hypoglycemia Stop: 01/23/19 22:05 Last Admin: 07/26/18 03:40 Dose: 50 ml Dextrose/Water (Dextrose 50% (Syg)) 25 ml IVP Q15MIN PRN PRN Reason: Hypoglycemia Stop: 01/24/19 00:32 Last Admin: 07/26/18 07:57 Dose: 25 ml Dextrose/Water (Dextrose 50% (Syg)) 25 ml IVP AD PRN PRN Reason: Hypoglycemia Stop: 01/24/19 10:20 Glucagon (Glucagen) 1 mg IM ONCE PRN PRN Reason: Hypoglycemia Stop: 01/24/19 10:20 Glucose (Gluctose) 15 gm PO ONCE PRN PRN Reason: Hypoglycemia Stop: 01/24/19 10:20 Glucose (Gluctose) 30 gm PO ONCE PRN PRN Reason: Hypoglycemia Stop: 01/24/19 10:20 Heparin Sodium (Porcine) (Heparin) 4,000 unit IVP Q6HR PRN PRN Reason: SEE COMMENTS Stop: 01/24/19 00:34 Heparin Sodium (Porcine) (Heparin) 2,000 unit IVP Q6H PRN PRN Reason: SEE COMMENTS Stop: 01/24/19 00:34 Last Admin: 07/25/18 06:23 Dose: 2,000 unit Heparin Sodium/Dextrose (Heparin 25,000 Unit/500 Ml D5w) 25,000 unit in 500 mls @ 15.894 mls/hr IVC .Q24H [facility]; 12 UNIT/KG/HR PRN Reason: Protocol Stop: 01/23/19 23:16 Last Titration: 07/26/18 05:15 Dose: 8 unit/kg/hr, 10.596 mls/hr Nitroglycerin (Nitroglycerin Premix 25 Mg/250 Ml) 25 mg in 250 mls @ 3 mls/hr IVC .Q24H [facility]; 5 MCG/MIN PRN Reason: Protocol Stop: 01/23/19 20:31 Last Titration: 07/26/18 06:30 Dose: 0 mcg/min, 0 mls/hr Nicardipine HCl (Cardene Premix 40mg/200ml) 40 mg in 200 mls @ 12.5 mls/hr IVC .Q16H [facility]; 2.5 MG/HR PRN Reason: Protocol Stop: 01/24/19 02:16 Last Admin: 07/25/18 20:53 Dose: Not Given Sodium Chloride (0.9 % Sodium Chloride) 1,000 mls @ 0 mls/hr PRIME .Q0M [facility] PRN Reason: As Directed Stop: 01/24/19 07:31 Dextrose (Dextrose 5%) 1,000 mls @ 100 mls/hr IVC .Q10H PRN PRN Reason: HYPOGLYCEMIA Stop: 01/24/19 10:20 Piperacillin Sod/Tazobactam (Sod 3.375 gm/ Sodium Chloride) 100 mls @ 25 mls/ hr IVPB Q12H [facility] Stop: 01/24/19 16:01 Last Admin: 07/26/18 03:28 Dose: 25 mls/hr Sodium Chloride (0.9 % Sodium Chloride) 250 mls @ 937.5 mls/hr IVC .Q16M PRN PRN Reason: Hypotension Stop: 01/25/19 07:26 Insulin Detemir (Levemir) 5 unit SQ BID [facility] Stop: 01/24/19 21:01 Last Admin: 07/26/18 08:00 Dose: Not Given Insulin Human Lispro (Humalog) 0 units SQ Q4HR [facility] PRN Reason: Protocol Stop: 01/24/19 16:01 Last Admin: 07/26/18 07:59 Dose: Not Given Insulin Human Regular (Humulin R) 5 unit IV ONCE PRN PRN Reason: SEE COMMENTS Stop: 01/24/19 00:32 Lisinopril (Zestril) 40 mg PO DAILY [facility] PRN Reason: Protocol Stop: 01/24/19 15:01 Last Admin: 07/26/18 07:58 Dose: 40 mg Metoprolol Tartrate (Lopressor) 5 mg IVP Q6H [facility] Stop: 01/24/19 18:01 Last Admin: 07/26/18 05:40 Dose: Not Given Naloxone HCl (Narcan) 0.4 mg IVP Q2MIN PRN PRN Reason: SEE COMMENTS Stop: 01/24/19 00:32 Nitroglycerin (Nitroglycerin) 0.4 mg SL Q5MIN PRN PRN Reason: Chest Pain Stop: 01/23/19 23:11 Vancomycin HCl (Vancocin) 0 each IVPB RPHPROT PRN PRN Reason: PULSE DOSE Stop: 01/24/19 01:01 Vitamin B Complex/Vit C/Folic Acid (Renal Caps Softgel) 1 cap PO DAILY [facility] Stop: 01/24/19 09:01 Last Admin: 07/26/18 07:58 Dose: 1 cap - Imaging and Cardiology Echo: report reviewed - EKG Interpretation EKG results cardiology: other (12 hr tele AVG HR 63, SR, no significant pauses or arrhythmias noted.) Consult Discharge Plan - Plan Referrals: Hui Salazar MD [Primary Care Provider] - <Al Meyers - Last Filed: 07/26/18 18:22> Date of Encounter: 07/26/18 Assessment and Plan (1) Elevated troponin Current Visit: Yes Status: Acute (2) Hypertensive emergency Current Visit: Yes Status: Acute (3) End stage renal disease Current Visit: Yes Status: Chronic (4) Diabetic ketoacidosis Current Visit: Yes Status: Resolved Qualifiers: Diabetes mellitus type: type 1 Diabetes mellitus complication detail: without coma Qualified Code(s): E10.10 - Type 1 diabetes mellitus with ketoacidosis without coma (5) CAD (coronary artery disease), [place] coronary artery Current Visit: Yes Status: Chronic Qualifiers: [place] vs. transplanted heart: [place] heart Associated angina: angina presence unspecified Qualified Code(s): I25.10 - Atherosclerotic heart disease of [place] coronary artery without angina pectoris Discussion w patient/family: The assessment and plan as outlined above was discussed with the patient and/or family members who expressed understanding and agreement. All questions were answered. Thank you for involving us in the care of your patient. Please call with any questions. Objective Vital Signs, Last 4 Hours Temp Pulse Resp BP Pulse Ox 07/26/18 16:00 97.9 F 07/26/18 14:30 68 19 105/48 99 Results 07/25/18 01:30 07/26/18 10:20 Lab Results 07/25/18 07/26/18 07/26/18 20:32 01:45 10:20 Sodium 136 139 136 Potassium 4.9 4.4 5.1 Chloride 100 102 100 Carbon Dioxide 29 29 27 BUN 30 H 33 H 38 H Creatinine 3.14 H 3.29 H 3.67 H Glucose 158 H 68 L 231 H Calcium 8.0 L 8.1 L 8.1 L Magnesium 1.7 1.7 1.7 Total Bilirubin 0.5 0.5 0.6 AST 15 15 20 ALT 13 13 16 Alkaline Phosphatase 92 93 101
--- NOTE | 2018-07-26 14:42 | Nephrology Progress Note ---
Date of Encounter: 07/26/18 Time of Encounter: 08:30 - Assessment and Plan (1) End stage renal disease Current Visit: Yes Status: Chronic End-stage renal disease on hemodialysis Wednesday, had hemodialysis with removal of 5.5 L yesterday Additionally put out approximately 1 L of urine yesterday Patient does have significant volume overload associated with acute heart failure This may also play a role in his acute respiratory failure Plan for ultrafiltration and removal of about 5 L today Otherwise biochemically stable Avoid nephrotoxins as able (2) Hypertensive emergency Current Visit: Yes Status: Acute Hypertensive emergency, initial blood pressure 249/140 Patient initially placed on Cardene and nitroglycerin drip Some of this may have been due to significant volume overload He is now off of cardene and NTG drips, BP remains ~130 This is appropriate, attempt to maintain at around this level (3) Diabetic ketoacidosis Current Visit: Yes Status: Resolved Resolved Qualifiers: Diabetes mellitus type: type 1 Diabetes mellitus complication detail: without coma Qualified Code(s): E10.10 - Type 1 diabetes mellitus with ketoacidosis without coma (4) Respiratory distress, acute Current Visit: Yes Status: Resolved Acute respiratory distress, likely secondary to volume overload in the setting of ESRD and CHF. Now Resolved Management per primary team (5) Elevated troponin Current Visit: Yes Status: Chronic Likely secondary to HTN Emergency Management per cardiology Subjective Principal diagnosis: elevated troponin Interval history: Patient is resting comfortably in bed at time of examination. He is currently undergoing ultrafiltration for medical fluid. She says that he is feeling better compared to yesterday. He is still relatively uncooperative with examination. Objective - Vital Signs Vital signs: Vital Signs Temp Pulse Resp BP Pulse Ox 07/26/18 13:00 66 18 110/65 98 07/26/18 11:35 97.5 F L 12 137/87 07/26/18 11:30 57 19 137/87 98 07/26/18 11:20 144/60 07/26/18 11:05 147/78 07/26/18 10:50 100/86 07/26/18 10:35 138/78 07/26/18 10:30 60 19 107/82 99 07/26/18 10:20 103/84 07/26/18 10:05 122/51 07/26/18 09:50 98/84 09/11/18 09:35 102/65 07/26/18 09:30 63 19 100/61 98 07/26/18 09:20 97/76 07/26/18 09:05 96/69 07/26/18 08:50 97.5 F L 19 140/112 07/26/18 08:30 77 20 106/77 97 07/26/18 07:15 71 18 149/44 98 07/26/18 06:00 56 16 126/82 100 07/26/18 05:45 57 14 158/71 99 07/26/18 05:15 97.9 F 07/26/18 04:00 58 26 158/62 98 07/26/18 03:45 97.5 F L 60 16 149/63 97 07/26/18 03:35 60 24 186/105 95 07/26/18 03:00 66 20 177/97 98 07/26/18 02:00 65 26 165/75 100 07/26/18 01:00 65 20 168/80 99 07/26/18 00:00 65 18 168/80 98 07/25/18 23:53 97.5 F L 07/25/18 23:00 70 16 157/69 98 07/25/18 22:00 67 16 125/69 99 07/25/18 21:00 68 14 165/80 97 07/25/18 20:11 97.7 F 07/25/18 20:00 67 16 167/80 99 07/25/18 19:00 67 16 173/80 95 07/25/18 18:00 74 18 149/83 96 07/25/18 17:00 63 20 159/109 97 07/25/18 16:00 97.7 F 63 14 155/90 99 07/25/18 15:10 68 07/25/18 15:00 67 15 155/77 99 Intake and Output 07/25/18 07/26/18 07/26/18 23:59 07:59 15:59 Intake Total 340 / 340 57 / 57 915 / 915 Output Total 225 / 225 1700 / 1700 3600 / 3600 Balance 115 / 115 -1643 / -1643 -2685 / -2685 Intake: IV Fluids 340 / 340 57 / 57 75 / 75 Heparin 25,000 UNIT/500 ML D5W 125 / 125 25 / 25 75 / 75 25,000 unit In 500 ml @ 12 UNIT /KG/HR 15.894 mls/hr IVC .Q24H [facility] Rx#:[id number] Nitroglycerin Premix 25 MG/250 115 / 115 32 / 32 ML 25 mg In 250 ml @ 5 MCG/MIN 3 mls/hr IVC .Q24H [facility] Rx#: [id number] Zosyn 3.375 GM In 0.9 % Sodium 100 / 100 Chloride (Mini-Bag +) 100 ML @ 25 mls/hr IVPB Q12H [facility] Rx#: [id number] Oral 240 / 240 Intake, Rinseback and Flushes 600 / 600 Output: Urine 0 / 0 Total Dialysis (HD) Output 3600 / 3600 Catheter 225 / 225 1700 / 1700 Other: Meal Breakfast Percent of Meal Consumed 50% Stool Size Large Stool Consistency loose liquid Stool Color Brown Weight 66 kg Blood Glucose* 54 105 Hemodialysis Net Fluid Removed 3000 (mL) - General Appearance Exam: Gen: Vitals noted. No acute distress. HEENT: Normocephalic, atraumatic Neck: Supple. No adenopathy. Cardiac: RRR, no murmur, +S1/S2 Pulmonary: CTA bilaterally, no wheezes, rales or rhonchi, equal chest expansion Abdomen: soft, nontender, no guarding MSK: ROM intact, no joint swelling noted Extremities: Trace edema and left lower extremity, 1+ edema and right lower extremity. No clubbing or cyanosis noted. Neuro: moves all extremities, no focal deficits. A&Ox3 Psych: Patient is agitated and uncooperative - Lab 07/25/18 01:30 07/26/18 10:20 Most recent lab results ABG pH 7.42 pH Units (7.32-7.45) 07/25/18 01:26 ABG pCO2 33 mmHg (35-45) L 07/25/18 01:26 ABG pO2 176 mmHg (85-104) H 07/25/18 01:26 ABG HCO3 22 mEq/L (21-27) 07/25/18 01:26 ABG O2 Saturation 100 % (95-98) H 07/25/18 01:26 Calcium 8.1 mg/dL (8.6-10.3) L 07/26/18 10:20 Magnesium 1.7 mg/dL (1.6-2.6) 07/26/18 10:20 Consult Discharge Plan - Plan Referrals: Hui Salazar MD [Primary Care Provider] -
[2018-07-26] MEDS ORDERED: LEVOFLOXACIN 500 MG/100 ML MLS IVPB SCH (16:00)
[2018-07-26] MEDS: *HR* Heparin 5,000 UNIT/ML VIAL SQ SCH (17:36)
[2018-07-26] MEDS: niCARdipine 40 MG/200 ML MLS IVC SCH ×2 (20:37→23:38)
--- NOTE | 2018-07-26 22:31 | Internal Med Progress Note ---
Hospitalist Progress Note - Encounter Date of Encounter: 07/27/18 Time of Encounter: 19:00 - Subjective Interval History: SUBJECTIVE: The patient feels better. His resting dyspnea subsided. Denies chest pain, coughing and wheezing. Denies abdominal pain, nausea and vomiting. He gets hemodialysis. OBJECTIVE: Skin: Free of rash and discoloration. ENMT: Oral/pharyngeal mucosa is normal in appearance. Eyes: Sclera is white. There is no discharge from eyes. Respiratory: Normal breath sounds; no crackles or wheezes. CV: Heart is regular; no gallop or murmur. GI: Abdomen is soft and not tender. There is no palpable mass or visceromegaly. Neuro: There is no focal deficits. ASSESSMENT AND PLAN: The patient was admitted with hypertensive emergency. He has underlying hypertensive renal disease/end-stage renal disease requiring hemodialysis. He was fluid overloaded at admission. He is doing better after getting treatment with nicardipine drip and hemodialysis. We appreciate help from nephrology. Currently he is on Coreg, Zestril and Lopressor. Elevated troponin. Likely secondary to hypertensive emergency/fluid overload. The patient might have had type II and STEMI. He has underlying coronary artery disease. Cardiology saw him; they signed off. Type 2 diabetes mellitus with end-stage renal disease. His diabetic ketoacidosis subsided. We will continue diabetic diet with insulin Levemir and when necessary insulin Humalog. 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 Anemia due to chronic kidney disease. His today's hemoglobin is 10.5. Chronic diastolic heart failure. Acute exacerbation is gone. We will be watching his input and output closely. Leukocytosis. We cannot rule out pneumonia/other infection. He is on IV vancomycin and IV Zosyn. We will repeat her chest x-ray and CBC in the morning. DISPOSITION: Xxxxx - Exam Vitals: Temp Pulse Resp BP Pulse Ox 97.9 F 75 18 145/69 97 07/26/18 20:45 07/26/18 22:00 07/26/18 22:00 07/26/18 22:00 07/26/18 22:00 Exam: xxx - Assessment and Plan (1) Hypertensive emergency Current Visit: Yes Status: Acute (2) Elevated troponin Current Visit: Yes Status: Acute (3) Acute hypoxemic respiratory failure Current Visit: Yes Status: Resolved (4) Type 2 diabetes mellitus with ESRD (end-stage renal disease) Current Visit: Yes Status: Acute (5) Hypertensive renal disease with renal failure Current Visit: No Status: Chronic (6) Anemia Current Visit: No Status: Acute (7) Chronic diastolic heart failure Current Visit: Yes Status: Chronic (8) Leukocytosis Current Visit: Yes Status: Acute - Time Spent with Patient Total time spent is greater than 50% in coordination of care (as documented) at patient's floor/unit and/or counseling patient: 25 - 35 minutes Internal Medicine: Result - Labs CBC & Chem 7: 07/27/18 02:51 07/27/18 02:51 Labs: BMP 07/26/18 07/26/18 01:45 10:20 Sodium 139 136 Potassium 4.4 5.1 Chloride 102 100 Carbon Dioxide 29 27 BUN 33 H 38 H Creatinine 3.29 H 3.67 H Glucose 68 L 231 H Calcium 8.1 L 8.1 L Liver Function 07/26/18 07/26/18 Range/Units 01:45 10:20 Total Bilirubin 0.5 0.6 (0.3-1.0) mg/dL AST 15 20 (13-39) Units/L ALT 13 16 (7-52) Units/L Alkaline Phosphatase 93 101 (34-104) Units/L Albumin 2.6 L 2.9 L (3.5-5.7) g/dL - ABG Interpretation ABG results: ABG ABG pH 7.42 pH Units (7.32-7.45) 07/25/18 01:26 ABG pCO2 33 mmHg (35-45) L 07/25/18 01:26 ABG pO2 176 mmHg (85-104) H 07/25/18 01:26 ABG O2 Saturation 100 % (95-98) H 07/25/18 01:26 PT/INR, D-dimer PT 13.2 Seconds (9.4-12.1) H 07/25/18 04:55 - Impressions Impressions Echocardiogram 07/25/18 09:19 Impressions: LVEF 45-50%. Low normal to mild global LV systolic dysfunction. Moderate concentric left ventricular hypertrophy. Diastolic dysfunction with elevated filling pressures. Normal RV size with mild reduction in function by Doppler. Mild mitral regurgitation. Consult Discharge Plan - Plan Referrals: Hui Salazar MD [Primary Care Provider] - (6) Anemia Qualifiers: Anemia type: due to chronic kidney disease Chronic kidney disease stage: on chronic dialysis Qualified Code(s): N18.6 - End stage renal disease; D63.1 - Anemia in chronic kidney disease; D63.1 - Anemia in chronic kidney disease; Z99.2 - Dependence on renal dialysis; Z99.2 - Dependence on renal dialysis; Z99.2 - Dependence on renal dialysis; Z99.2 - Dependence on renal dialysis (8) Leukocytosis Qualifiers: Leukocytosis type: unspecified Qualified Code(s): D72.829 - Elevated white blood cell count, unspecified
[2018-07-26] MEDS: Nitroglycerin 25 MG/250 ML INFUS..BTL IVC SCH (23:37)
[2018-07-27 03:10] LABS: Hematocrit 31.9 % (37.5-50.1); Hemoglobin 10.4 g/dL (12.9-16.9); Mean Corpuscular HGB Conc 32.6 g/dL (31.6-35.5); Mean Corpuscular Hemoglobin 29.5 pg (28.0-33.3); Mean Corpuscular Volume 90.4 fL (83.0-100.0); Mean Platelet Volume 8.7 fL (9.4-12.4); Platelet Count 341 K/mcL (140-400); Red Blood Count 3.53 M/mcL (4.19-5.50); Red Cell Distribution Width 15.8 % (11.5-14.5)
[2018-07-27 03:37] LABS: Calcium 8.3 mg/dL (8.6-10.3); Potassium 4.6 mEq/L (3.5-5.1)
[2018-07-27] MEDS: Insulin LISPRO 300 UNITS/3 ML VIAL SQ SCH ×6 (03:38→23:53)
[2018-07-27] MEDS: *HR* Dextrose 50 % in Water (Syg) 50 ML SYRINGE IVP PRN (03:40)
[2018-07-27] MEDS: Piperacillin/Tazobactam 3.375 GM in 0.9 % Sodium Chloride Mini Bag 100 ML IVPB SCH ×2 (03:42→17:19)
[2018-07-27] MEDS: *HR* Metoprolol 5 MG/5 ML VIAL IVP SCH (06:11)
[2018-07-27] MEDS: *HR* Heparin 5,000 UNIT/ML VIAL SQ SCH ×2 (06:12→17:51)
[2018-07-27] MEDS ORDERED: Aminoglycoside Consult 1 EACH MC ONE (07:20)
[2018-07-27] MEDS ORDERED: 0.9 % Sodium Chloride 250 ML IVC PRN (07:21)
[2018-07-27] MEDS: Lisinopril 20 MG TABLET PO SCH (08:06)
[2018-07-27] MEDS: Aspirin 81 MG TAB.CHEW PO SCH (08:06)
[2018-07-27] MEDS: Renal Vitamin 1 CAP CAPSULE PO SCH (08:06)
[2018-07-27] MEDS: Calcium Acetate 667 MG CAPSULE PO SCH ×3 (08:07→17:20)
[2018-07-27] MEDS: Insulin DETEMIR 100 UNIT/ML X5UNITS SQ SCH (10:01)
[2018-07-27] MEDS: Isosorbide MONOnitrate (24 HR) 30 MG TAB.ER.24H PO SCH (12:33)
--- NOTE | 2018-07-27 14:34 | Nephrology Progress Note ---
Date of Encounter: 07/27/18 Time of Encounter: 08:45 - Assessment and Plan (1) End stage renal disease Current Visit: Yes Status: Chronic End-stage renal disease on hemodialysis Wednesday, had ultrafiltration with removal of 3.5 L yesterday Additionally put out approximately 2 L of urine yesterday Patient does have significant volume overload associated with acute heart failure, LVEF 45-50% This may also play a role in his acute respiratory failure Plan for hemodialysis today Avoid nephrotoxic agents as possible (2) Hypertensive emergency Current Visit: Yes Status: Acute Hypertensive emergency, initial blood pressure 249/140 Patient initially placed on Cardene and nitroglycerin drip Some of this may have been due to significant volume overload Blood pressure and been controlled off these drips for some time on most home meds, however did start to rise last night We will start home dose of Imdur today, May additionally start clonidine patches tomorrow Continue to monitor Goal blood pressure 120-130 systolic (3) Respiratory distress, acute Current Visit: Yes Status: Resolved Acute respiratory distress, likely secondary to volume overload in the setting of ESRD and CHF. Now Resolved Management per primary team (4) Elevated troponin Current Visit: Yes Status: Acute Likely secondary to HTN Emergency, however also in the setting of acute heart failure Management per cardiology Subjective Principal diagnosis: elevated troponin Interval history: Patient is resting comfortably in bed at time of examination. He has no acute complaints at this time. His glucoses demonstrated difficult to control and he has had periods of ups and downs. Objective - Vital Signs Vital signs: Vital Signs Temp Pulse Resp BP Pulse Ox 07/27/18 14:20 158/84 07/27/18 14:05 176/83 07/27/18 14:00 70 16 164/72 91 07/27/18 13:50 153/72 07/27/18 13:35 154/102 07/27/18 13:20 98.1 F 19 166/81 07/27/18 13:00 70 16 125/48 94 07/27/18 12:00 74 16 167/49 100 07/27/18 11:00 73 16 169/34 98 07/27/18 10:00 70 16 182/56 98 07/27/18 09:00 73 16 127/115 95 07/27/18 08:00 98.1 F 78 14 136/74 98 07/27/18 07:00 69 16 177/86 97 07/27/18 06:00 68 14 173/85 97 07/27/18 05:00 70 12 184/65 98 07/27/18 04:00 98.1 F 72 18 179/64 96 07/27/18 03:30 67 16 95 07/27/18 03:00 73 22 167/83 95 07/27/18 02:00 71 18 163/64 98 07/27/18 01:00 72 20 171/71 97 07/27/18 00:09 98.1 F 07/26/18 23:00 73 18 155/50 98 07/26/18 22:00 75 18 145/69 97 07/26/18 21:00 73 16 144/40 96 07/26/18 20:45 97.9 F 07/26/18 20:00 75 18 132/61 98 07/26/18 19:55 81 07/26/18 19:00 77 20 118/43 98 07/26/18 18:00 75 19 109/51 97 07/26/18 17:00 79 19 105/69 98 07/26/18 16:00 97.9 F 07/26/18 15:45 74 19 98/54 97 Intake and Output 07/26/18 07/27/18 07/27/18 23:59 07:59 15:59 Intake Total 100 / 100 100 / 100 1040 / 1040 Output Total 175 / 175 175 / 175 300 / 300 Balance -75 / -75 -75 / -75 740 / 740 Intake: IV Fluids 100 / 100 100 / 100 Zosyn 3.375 GM In 0.9 % Sodium 100 / 100 100 / 100 Chloride (Mini-Bag +) 100 ML @ 25 mls/hr IVPB Q12H [facility] Rx#: [id number] Oral 440 / 440 Intake, Rinseback and Flushes 600 / 600 Output: Catheter 175 / 175 175 / 175 300 / 300 Other: Meal Breakfast Percent of Meal Consumed 100% Stool Size Large Moderate Stool Consistency loose loose liquid Stool Characteristics Normal for Patient Stool Color Brown Brown # Bowel Movements 1 Weight 59.8 kg Blood Glucose* 366 90 363 Hemodialysis Net Fluid Removed 745 (mL) Patient Weight 07/27/18 23:59 Weight 59.8 kg - General Appearance Exam: Gen: Vitals noted. No acute distress. HEENT: Normocephalic, atraumatic Neck: Supple. No adenopathy. Cardiac: RRR, no murmur, +S1/S2 Pulmonary: CTA bilaterally, no wheezes, rales or rhonchi, equal chest expansion Abdomen: soft, nontender, no guarding MSK: ROM intact, no joint swelling noted Extremities: Trace edema and left lower extremity, 1+ edema and right lower extremity. No clubbing or cyanosis noted. Neuro: moves all extremities, no focal deficits. A&Ox3 Psych: Patient is agitated and uncooperative - Lab 07/27/18 02:51 07/27/18 02:51 Most recent lab results ABG pH 7.42 pH Units (7.32-7.45) 07/25/18 01:26 ABG pCO2 33 mmHg (35-45) L 07/25/18 01:26 ABG pO2 176 mmHg (85-104) H 07/25/18 01:26 ABG HCO3 22 mEq/L (21-27) 07/25/18 01:26 ABG O2 Saturation 100 % (95-98) H 07/25/18 01:26 Calcium 8.3 mg/dL (8.6-10.3) L 07/27/18 02:51 Magnesium 1.7 mg/dL (1.6-2.6) 07/26/18 10:20 Consult Discharge Plan - Plan Referrals: Hui Salazar MD [Primary Care Provider] -
--- NOTE | 2018-07-27 17:56 | Electrocardiograph Report ---
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
[2018-07-27] MEDS: niCARdipine 40 MG/200 ML MLS IVC SCH (19:58)
--- NOTE | 2018-07-27 20:57 | Internal Med Progress Note ---
Hospitalist Progress Note - Encounter Date of Encounter: 07/27/18 Time of Encounter: 19:00 - Subjective Interval History: SUBJECTIVE: The patient feels good. His resting dyspnea subsided. He is on room air oxygen. Denies chest pain, coughing and wheezing. Denies abdominal pain, nausea and vomiting. He got hemodialysis today. OBJECTIVE: Skin: Free of rash and discoloration. ENMT: Oral/pharyngeal mucosa is normal in appearance. Eyes: Sclera is white. There is no discharge from eyes. Respiratory: Normal breath sounds; no crackles or wheezes. CV: Heart is regular; no gallop or murmur. GI: Abdomen is soft and not tender. There is no palpable mass or visceromegaly. Neuro: There is no focal deficits. ASSESSMENT AND PLAN: The patient was admitted with hypertensive emergency. He has underlying hypertensive renal disease/end-stage renal disease requiring hemodialysis. He was fluid overloaded at admission. He is back to baseline. He is on room air oxygen. Currently he is on Coreg, Zestril and Lopressor. Elevated troponin. Likely secondary to hypertensive emergency/fluid overload. The patient might have had type II and STEMI. He has underlying coronary artery disease. Cardiology saw him; they signed off. Type 2 diabetes mellitus with end-stage renal disease. His diabetic ketoacidosis subsided. We will continue diabetic diet with insulin Levemir and when necessary insulin Humalog. 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 Anemia due to chronic kidney disease. His today's hemoglobin is 10.4. Chronic diastolic heart failure. Acute exacerbation is gone. We will be watching his input and output closely. Leukocytosis. We cannot rule out pneumonia/other infection. He is on IV vancomycin and IV Zosyn. We will repeat her chest x-ray and CBC in the morning. DISPOSITION: We will likely discharge him home tomorrow. I am transferring this patient out of intensive care unit. - Exam Vitals: Temp Pulse Resp BP Pulse Ox 98.1 F 68 16 127/88 99 07/27/18 19:00 07/27/18 19:00 07/27/18 19:00 07/27/18 19:00 07/27/18 19:00 Exam: xxx - Assessment and Plan (1) Hypertensive emergency Current Visit: Yes Status: Acute (2) Elevated troponin Current Visit: Yes Status: Acute (3) Acute hypoxemic respiratory failure Current Visit: Yes Status: Resolved (4) Type 2 diabetes mellitus with ESRD (end-stage renal disease) Current Visit: Yes Status: Acute (5) Hypertensive renal disease with renal failure Current Visit: No Status: Chronic (6) Anemia Current Visit: No Status: Acute (7) Chronic diastolic heart failure Current Visit: Yes Status: Chronic (8) Leukocytosis Current Visit: Yes Status: Acute - Time Spent with Patient Total time spent is greater than 50% in coordination of care (as documented) at patient's floor/unit and/or counseling patient: 25 - 35 minutes Plan of Care Discussed with: patient Internal Medicine: Result - Labs CBC & Chem 7: 07/27/18 02:51 07/27/18 02:51 Labs: Short CBC 07/27/18 Range/Units 02:51 WBC 11.8 H (4.3-11.1) K/mcL Hgb 10.4 L (12.9-16.9) g/dL Hct 31.9 L (37.5-50.1) % Plt Count 341 (140-400) K/mcL BMP 07/27/18 02:51 Sodium 139 Potassium 4.6 Chloride 104 Carbon Dioxide 26 BUN 56 H Creatinine 4.51 H Glucose 50 L Calcium 8.3 L - ABG Interpretation ABG results: ABG ABG pH 7.42 pH Units (7.32-7.45) 07/25/18 01:26 ABG pCO2 33 mmHg (35-45) L 07/25/18 01:26 ABG pO2 176 mmHg (85-104) H 07/25/18 01:26 ABG O2 Saturation 100 % (95-98) H 07/25/18 01:26 PT/INR, D-dimer PT 13.2 Seconds (9.4-12.1) H 07/25/18 04:55 - Impressions Impressions Chest X-Ray 07/27/18 05:57 IMPRESSION: New mild CHF. D/ / 07/27/2018 10:32:33 Chuck Moon MD / [email or web address] Interpreting Provider: Chuck Moon MD Consult Discharge Plan - Plan Referrals: Hui Salazar MD [Primary Care Provider] - (6) Anemia Qualifiers: Anemia type: due to chronic kidney disease Chronic kidney disease stage: on chronic dialysis Qualified Code(s): N18.6 - End stage renal disease; D63.1 - Anemia in chronic kidney disease; D63.1 - Anemia in chronic kidney disease; Z99.2 - Dependence on renal dialysis; Z99.2 - Dependence on renal dialysis; Z99.2 - Dependence on renal dialysis; Z99.2 - Dependence on renal dialysis (8) Leukocytosis Qualifiers: Leukocytosis type: unspecified Qualified Code(s): D72.829 - Elevated white blood cell count, unspecified
[2018-07-28] MEDS: Nitroglycerin 25 MG/250 ML INFUS..BTL IVC SCH ×2 (00:11→12:27)
[2018-07-28 04:00] LABS: Hematocrit 32.3 % (37.5-50.1); Hemoglobin 10.6 g/dL (12.9-16.9); Mean Corpuscular HGB Conc 32.8 g/dL (31.6-35.5); Mean Corpuscular Hemoglobin 30.3 pg (28.0-33.3); Mean Corpuscular Volume 92.3 fL (83.0-100.0); Mean Platelet Volume 8.6 fL (9.4-12.4); Platelet Count 297 K/mcL (140-400); Red Cell Distribution Width 15.2 % (11.5-14.5)
[2018-07-28 04:17] LABS: Potassium 4.4 mEq/L (3.5-5.1)
[2018-07-28] MEDS: Insulin LISPRO 300 UNITS/3 ML VIAL SQ SCH ×6 (05:17→23:30)
[2018-07-28] MEDS: Piperacillin/Tazobactam 3.375 GM in 0.9 % Sodium Chloride Mini Bag 100 ML IVPB SCH ×2 (05:18→16:21)
[2018-07-28] MEDS: *HR* Heparin 5,000 UNIT/ML VIAL SQ SCH ×2 (06:54→17:50)
[2018-07-28] MEDS: Aspirin 81 MG TAB.CHEW PO SCH (08:56)
[2018-07-28] MEDS: Renal Vitamin 1 CAP CAPSULE PO SCH (08:56)
[2018-07-28] MEDS: Lisinopril 20 MG TABLET PO SCH (08:56)
[2018-07-28] MEDS: Isosorbide MONOnitrate (24 HR) 30 MG TAB.ER.24H PO SCH (08:56)
[2018-07-28] MEDS: Calcium Acetate 667 MG CAPSULE PO SCH ×3 (08:56→16:22)
[2018-07-28] MEDS ORDERED: Insulin DETEMIR 100 UNIT/ML X5UNITS SQ SCH (09:00)
[2018-07-28] MEDS ORDERED: *HR* Dextrose 50 % in Water (Syg) 50 ML SYRINGE IVP PRN ×3 (09:37)
[2018-07-28] MEDS ORDERED: D5% in Water 1,000 ML IVC PRN (09:37)
[2018-07-28] MEDS ORDERED: 0.9 % Sodium Chloride 1,000 ML PRIME SCH ×2 (09:37→11:30)
[2018-07-28] MEDS ORDERED: Naloxone 0.4 MG/ML INJ IVP PRN (09:37)
[2018-07-28] MEDS ORDERED: 0.9 % Sodium Chloride 250 ML IVC PRN ×2 (09:37→11:24)
[2018-07-28] MEDS ORDERED: Insulin Regular, Human 100 UNIT/ML IV PRN (09:37)
[2018-07-28] MEDS ORDERED: Nitroglycerin 0.4 MG TAB.SUBL SL PRN (09:37)
[2018-07-28] MEDS ORDERED: Dextrose Gel 15 GM/37.5 ML TUBE PO PRN ×2 (09:37)
[2018-07-28] MEDS: niCARdipine 40 MG/200 ML MLS IVC SCH (12:26)
--- NOTE | 2018-07-28 13:58 | Nephrology Progress Note ---
Date of Encounter: 07/28/18 Time of Encounter: 09:30 - Assessment and Plan (1) End stage renal disease Current Visit: Yes Status: Chronic End-stage renal disease on hemodialysis Wednesday, Patient does have significant volume overload associated with acute heart failure, LVEF 45-50% This may also play a role in his acute respiratory failure Still has pulmonary edema demonstrated on chest x-ray from yesterday Additionally his blood pressure remains significantly elevated Concern that there is possibly some hiding of fluid We will do a short ultrafiltration today to try to pull off a little bit more fluid Avoid nephrotoxic agents as possible (2) Hypertensive emergency Current Visit: Yes Status: Acute Hypertensive emergency, initial blood pressure 249/140 Patient initially placed on Cardene and nitroglycerin drip Some of this may have been due to significant volume overload The patient has been diuresed pretty substantially with hemodialysis and ultrafiltration was far Although clinically he does not appear to be volume neutral, he could potentially be storing volume in places that cannot be seen We will attempt ultrafiltration today to remove a little bit more volume to ensure that this is not the case Started home dose of Imdur yesterday If blood pressure remains elevated following ultrafiltration today, plan to start home clonidine patch today Continue to monitor Goal blood pressure 120-130 systolic (3) Respiratory distress, acute Current Visit: Yes Status: Resolved Acute respiratory distress, likely secondary to volume overload in the setting of ESRD and CHF. Now Resolved Management per primary team (4) Elevated troponin Current Visit: Yes Status: Acute Likely secondary to HTN Emergency, however also in the setting of acute heart failure Management per cardiology Subjective Principal diagnosis: elevated troponin Interval history: Patient is resting comfortably in bed at time of examination. He has no acute complaints at this time. His glucoses demonstrated difficult to control and he has had periods of ups and downs. Overall he says that he is feeling better than when he came in. Objective - Vital Signs Vital signs: Vital Signs Temp Pulse Resp BP Pulse Ox 07/28/18 12:00 69 16 176/84 97 07/28/18 11:45 97.9 F 07/28/18 08:11 98.0 F 07/28/18 08:00 80 16 177/82 97 07/28/18 04:25 98.1 F 07/28/18 04:00 77 07/28/18 00:00 73 16 158/87 97 07/27/18 23:32 97.9 F 07/27/18 23:21 73 07/27/18 23:00 73 18 186/56 100 07/27/18 22:00 74 24 172/76 98 07/27/18 21:00 72 16 161/72 98 07/27/18 20:00 98.1 F 68 18 155/53 98 07/27/18 19:00 98.1 F 68 16 127/88 99 07/27/18 18:00 76 16 163/85 97 07/27/18 17:05 97.7 F 16 198/105 07/27/18 17:00 71 16 146/103 99 07/27/18 16:50 144/74 07/27/18 16:35 134/89 07/27/18 16:20 145/105 07/27/18 16:05 165/83 07/27/18 16:00 98.3 F 68 16 172/86 100 07/27/18 15:50 136/110 07/27/18 15:35 194/92 07/27/18 15:20 143/98 07/27/18 15:05 124/78 07/27/18 15:00 68 16 136/110 90 07/27/18 14:50 142/93 07/27/18 14:35 156/83 07/27/18 14:20 158/84 07/27/18 14:05 176/83 07/27/18 14:00 70 16 164/72 91 Intake and Output 07/27/18 07/28/18 07/28/18 23:59 07:59 15:59 Intake Total 340 / 340 780 / 780 Output Total 2720 / 2720 200 / 200 Balance -2380 / -2380 580 / 580 Intake: IV Fluids 100 / 100 100 / 100 Zosyn 3.375 GM In 0.9 % Sodium 100 / 100 100 / 100 Chloride (Mini-Bag +) 100 ML @ 25 mls/hr IVPB Q12H [facility] Rx#: [id number] Oral 240 / 240 680 / 680 Output: Urine 0 / 0 200 / 200 Total Dialysis (HD) Output 2600 / 2600 Catheter 120 / 120 Other: Meal Dinner Lunch Percent of Meal Consumed 100% 100% Stool Size Small Stool Consistency loose Stool Characteristics Normal for Patient Stool Color Brown Weight 58.5 kg Blood Glucose* 228 238 245 Hemodialysis Net Fluid Removed 2000 (mL) - General Appearance Exam: Gen: Vitals noted. No acute distress. HEENT: Normocephalic, atraumatic Neck: Supple. No adenopathy. Cardiac: RRR, no murmur, +S1/S2 Pulmonary: CTA bilaterally, no wheezes, rales or rhonchi, equal chest expansion Abdomen: soft, nontender, no guarding MSK: ROM intact, no joint swelling noted Extremities: Trace bilateral lower extremity edema. No clubbing or cyanosis noted. Neuro: moves all extremities, no focal deficits. A&Ox3 Psych: Patient is agitated and uncooperative - Lab 07/28/18 03:34 07/28/18 03:34 Most recent lab results ABG pH 7.42 pH Units (7.32-7.45) 07/25/18 01:26 ABG pCO2 33 mmHg (35-45) L 07/25/18 01:26 ABG pO2 176 mmHg (85-104) H 07/25/18 01:26 ABG HCO3 22 mEq/L (21-27) 07/25/18 01:26 ABG O2 Saturation 100 % (95-98) H 07/25/18 01:26 Calcium 8.0 mg/dL (8.6-10.3) L 07/28/18 03:34 Magnesium 1.7 mg/dL (1.6-2.6) 07/26/18 10:20 Consult Discharge Plan - Plan Referrals: Hui Salazar MD [Primary Care Provider] -
[2018-07-28] MEDS ORDERED: CloNIDine Patch 0.3 MG PATCH (WEEKLY) TD SCH (17:15)
--- NOTE | 2018-07-28 17:46 | Electrocardiograph Report ---
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
[2018-07-29] MEDS: niCARdipine 40 MG/200 ML MLS IVC SCH (04:24)
[2018-07-29] MEDS: Piperacillin/Tazobactam 3.375 GM in 0.9 % Sodium Chloride Mini Bag 100 ML IVPB SCH (04:33)
[2018-07-29 04:40] LABS: Hemoglobin 11.6 g/dL (12.9-16.9); Mean Corpuscular HGB Conc 33.1 g/dL (31.6-35.5); Mean Corpuscular Hemoglobin 30.7 pg (28.0-33.3); Mean Corpuscular Volume 92.6 fL (83.0-100.0); Mean Platelet Volume 8.7 fL (9.4-12.4); Platelet Count 335 K/mcL (140-400); Red Blood Count 3.78 M/mcL (4.19-5.50); Red Cell Distribution Width 14.9 % (11.5-14.5)
[2018-07-29] MEDS: Insulin LISPRO 300 UNITS/3 ML VIAL SQ SCH ×3 (04:43→15:09)
[2018-07-29] MEDS: *HR* Heparin 5,000 UNIT/ML VIAL SQ SCH (04:44)
[2018-07-29 05:00] LABS: Potassium 4.7 mEq/L (3.5-5.1)
[2018-07-29 05:01] LABS: Calcium 8.5 mg/dL (8.6-10.3)
--- NOTE | 2018-07-29 05:59 | Internal Med Progress Note ---
Hospitalist Progress Note - Encounter Date of Encounter: 07/28/18 Time of Encounter: 19:00 - Subjective Interval History: The patient got another hemodialysis today. He feels good. Denies chest pain, dyspnea, coughing and wheezing. Denies abdominal pain, nausea and vomiting. He throws me that he can work to his bathroom without assistance. OBJECTIVE: Skin: Free of rash and discoloration. ENMT: Oral/pharyngeal mucosa is normal in appearance. Eyes: Sclera is white. There is no discharge from eyes. Respiratory: Normal breath sounds; no crackles or wheezes. CV: Heart is regular; no gallop or murmur. GI: Abdomen is soft and not tender. There is no palpable mass or visceromegaly. Neuro: There is no focal deficits. ASSESSMENT AND PLAN: The patient was admitted with hypertensive emergency. He has underlying hypertensive renal disease/end-stage renal disease requiring hemodialysis. He was fluid overloaded at admission. He is back to baseline. He is on room air oxygen. Currently he is on cardiac and Zestril. Elevated troponin. Likely secondary to hypertensive emergency/fluid overload. The patient might have had type II and STEMI. He has underlying coronary artery disease. Cardiology saw him; they signed off. Type 2 diabetes mellitus with end-stage renal disease. His diabetic ketoacidosis subsided. We will continue diabetic diet with insulin Levemir and when necessary insulin Humalog. 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 Anemia due to chronic kidney disease. His today's hemoglobin is 10.4. Chronic diastolic heart failure. Acute exacerbation is gone. We will be watching his input and output closely. Leukocytosis. Subsided. We stopped IV vancomycin. He continues with Zosyn. It will be stopped at the time of discharge. Deconditioning. Will start physical therapy for ambulation. DISPOSITION: We will likely discharge him home tomorrow. He is waiting for transfer [facility] floor. - Exam Vitals: Temp Pulse Resp BP Pulse Ox 98.2 F 84 16 157/69 97 07/29/18 04:57 07/29/18 04:57 07/29/18 04:57 07/29/18 04:57 07/29/18 04:57 Exam: xx - Assessment and Plan (1) Hypertensive emergency Status: Acute (2) Elevated troponin Status: Acute (3) Acute hypoxemic respiratory failure Status: Resolved (4) Type 2 diabetes mellitus with ESRD (end-stage renal disease) Status: Chronic (5) Hypertensive renal disease with renal failure Status: Chronic (6) Anemia Status: Chronic (7) Chronic diastolic heart failure Status: Chronic (8) Leukocytosis Status: Resolved - Time Spent with Patient Total time spent is greater than 50% in coordination of care (as documented) at patient's floor/unit and/or counseling patient: 25 - 35 minutes Plan of Care Discussed with: patient Internal Medicine: Result - Labs CBC & Chem 7: 07/29/18 04:20 07/29/18 04:20 Labs: Short CBC 07/29/18 Range/Units 04:20 WBC 9.8 (4.3-11.1) K/mcL Hgb 11.6 L (12.9-16.9) g/dL Hct 35.0 L (37.5-50.1) % Plt Count 335 (140-400) K/mcL BMP 07/29/18 04:20 Sodium 137 Potassium 4.7 Chloride 101 Carbon Dioxide 23 BUN 53 H Creatinine 4.69 H Glucose 231 H Calcium 8.5 L - ABG Interpretation ABG results: ABG ABG pH 7.42 pH Units (7.32-7.45) 07/25/18 01:26 ABG pCO2 33 mmHg (35-45) L 07/25/18 01:26 ABG pO2 176 mmHg (85-104) H 07/25/18 01:26 ABG O2 Saturation 100 % (95-98) H 07/25/18 01:26 PT/INR, D-dimer PT 13.2 Seconds (9.4-12.1) H 07/25/18 04:55 Consult Discharge Plan - Plan Instructions: Diabetes Mellitus Type 2 in Adults (DC), Chronic Hypertension (DC ) Referrals: Hui Salazar MD [Primary Care Provider] - 08/02/18 8:30 am Prescriptions: amLODIPine [Norvasc] 5 mg PO DAILY 30 Days #30 tablet (6) Anemia Qualifiers: Anemia type: due to chronic kidney disease Chronic kidney disease stage: on chronic dialysis Qualified Code(s): N18.6 - End stage renal disease; D63.1 - Anemia in chronic kidney disease; D63.1 - Anemia in chronic kidney disease; Z99.2 - Dependence on renal dialysis; Z99.2 - Dependence on renal dialysis; Z99.2 - Dependence on renal dialysis; Z99.2 - Dependence on renal dialysis (8) Leukocytosis Qualifiers: Leukocytosis type: unspecified Qualified Code(s): D72.829 - Elevated white blood cell count, unspecified
[2018-07-29] MEDS ORDERED: 0.9 % Sodium Chloride 2,000 ML ONE (08:12)
--- NOTE | 2018-07-29 08:20 | Nephrology Progress Note ---
Date of Encounter: 07/29/18 Time of Encounter: 09:50 - Assessment and Plan (1) End stage renal disease Current Visit: Yes Status: Chronic End-stage renal disease on hemodialysis Wednesday, Patient does have significant volume overload associated with acute heart failure, LVEF 45-50% This may also play a role in his acute respiratory failure Still has pulmonary edema demonstrated on chest x-ray during stay Plan for HD today per standard MWF Schedule (2) Hypertensive emergency Current Visit: Yes Status: Acute Hypertensive emergency, initial blood pressure 249/140 Patient initially placed on Cardene and nitroglycerin drip Some of this may have been due to significant volume overload The patient has been diuresed pretty substantially with hemodialysis and ultrafiltration thus far Although clinically he does appear to be volume neutral, he could potentially be storing volume in places that cannot be seen Patient is now taking home dose of all blood pressure medications We will check blood pressure after hemodialysis today, likely increase Coreg if still high (3) Respiratory distress, acute Current Visit: Yes Status: Resolved Acute respiratory distress, likely secondary to volume overload in the setting of ESRD and CHF. Now Resolved Management per primary team (4) Elevated troponin Current Visit: Yes Status: Acute Likely secondary to HTN Emergency, however also in the setting of acute heart failure Management per cardiology Subjective Principal diagnosis: elevated troponin Interval history: Patient is resting comfortably in bed at time of examination. He has no acute complaints at this time. Underwent UF yesterday without complication, remains hypertensive despite continued use of clonidine patch. Objective - Vital Signs Vital signs: Vital Signs Temp Pulse Resp BP Pulse Ox 07/29/18 07:15 98.2 F 80 17 172/98 99 07/29/18 04:57 98.2 F 84 16 157/69 97 07/29/18 02:30 87 14 155/67 99 07/28/18 23:54 97.8 F 07/28/18 23:23 76 12 154/74 100 07/28/18 20:16 97.9 F 07/28/18 20:00 73 07/28/18 16:00 97.6 F 67 16 99/80 100 07/28/18 15:40 97.4 F L 16 152/80 07/28/18 15:20 138/50 07/28/18 15:05 145/78 07/28/18 14:50 143/77 07/28/18 14:35 169/52 07/28/18 14:20 167/78 07/28/18 14:05 153/91 07/28/18 13:50 174/77 07/28/18 13:35 167/112 07/28/18 13:20 98 F 16 175/75 07/28/18 12:00 69 16 176/84 97 07/28/18 11:45 97.9 F Intake and Output 07/28/18 07/29/18 07/29/18 23:59 07:59 15:59 Intake Total 300 / 300 Balance 300 / 300 Intake: IV Fluids 100 / 100 Zosyn 3.375 GM In 0.9 % Sodium 100 / 100 Chloride (Mini-Bag +) 100 ML @ 25 mls/hr IVPB Q12H [facility] Rx#: [id number] Oral 200 / 200 Other: Meal Dinner Percent of Meal Consumed 100% Stool Size Moderate Stool Consistency soft Stool Color Brown # Voids 1 # Bowel Movements 1 Weight 53.6 kg Blood Glucose* 153 154 - General Appearance Exam: Gen: Vitals noted. No acute distress. HEENT: Normocephalic, atraumatic Neck: Supple. No adenopathy. Cardiac: RRR, no murmur, +S1/S2 Pulmonary: CTA bilaterally, no wheezes, rales or rhonchi, equal chest expansion Abdomen: soft, nontender, no guarding MSK: ROM intact, no joint swelling noted Extremities: Trace bilateral lower extremity edema. No clubbing or cyanosis noted. Neuro: moves all extremities, no focal deficits. A&Ox3 Psych: Patient is agitated and uncooperative - Lab 07/29/18 04:20 07/29/18 04:20 Most recent lab results ABG pH 7.42 pH Units (7.32-7.45) 07/25/18 01:26 ABG pCO2 33 mmHg (35-45) L 07/25/18 01:26 ABG pO2 176 mmHg (85-104) H 07/25/18 01:26 ABG HCO3 22 mEq/L (21-27) 07/25/18 01:26 ABG O2 Saturation 100 % (95-98) H 07/25/18 01:26 Calcium 8.5 mg/dL (8.6-10.3) L 07/29/18 04:20 Magnesium 1.7 mg/dL (1.6-2.6) 07/26/18 10:20 Consult Discharge Plan - Plan Referrals: Hui Salazar MD [Primary Care Provider] -
[2018-07-29] MEDS: Nitroglycerin 25 MG/250 ML INFUS..BTL IVC SCH (08:52)
[2018-07-29] MEDS: Calcium Acetate 667 MG CAPSULE PO SCH ×2 (08:54→15:09)
[2018-07-29] MEDS ORDERED: Isosorbide MONOnitrate (24 HR) 30 MG TAB.ER.24H PO SCH (09:00)
[2018-07-29] MEDS ORDERED: Renal Vitamin 1 CAP CAPSULE PO SCH (09:00)
[2018-07-29] MEDS ORDERED: Insulin DETEMIR 100 UNIT/ML X5UNITS SQ SCH (09:00)
[2018-07-29] MEDS ORDERED: Lisinopril 20 MG TABLET PO SCH (09:00)
[2018-07-29] MEDS ORDERED: Aspirin 81 MG TAB.CHEW PO SCH (09:00)
[2018-07-29] MEDS ORDERED: 0.9 % Sodium Chloride 250 ML IVC PRN (09:05)
[2018-07-29 14:56] VITALS: BP 141/76
--- NOTE | 2018-07-29 15:17 | Discharge Summary ---
Orders not resulted at time of discharge: Pending orders 07/25/18 01:41 Culture,Blood [BC] Routine 07/25/18 06:00 ECG 12 lead ECG [ECG] AM 0600 07/30/18 04:00 Basic Metabolic Panel AM 0400 CBC no Diff [Complete Blood Count w/o Diff] [HEME] AM 04007/31/18 04:00 Basic Metabolic Panel AM 0400 CBC no Diff [Complete Blood Count w/o Diff] [HEME] AM 04008/01/18 04:00 Basic Metabolic Panel AM 0400 CBC no Diff [Complete Blood Count w/o Diff] [HEME] AM 0400 Date of Encounter: 07/29/18 Time of Encounter: 15:17 - Discharge Diagnosis (1) Hypertensive emergency Priority: Primary Status: Acute (2) Elevated troponin Priority: Primary Status: Acute (3) Acute hypoxemic respiratory failure Priority: Primary Status: Resolved (4) Type 2 diabetes mellitus with ESRD (end-stage renal disease) Priority: Secondary Status: Chronic (5) Hypertensive renal disease with renal failure Priority: Secondary Status: Chronic (6) Anemia Priority: Secondary Status: Chronic Qualifiers: Anemia type: due to chronic kidney disease Chronic kidney disease stage: on chronic dialysis Qualified Code(s): N18.6 - End stage renal disease; D63.1 - Anemia in chronic kidney disease; Z99.2 - Dependence on renal dialysis (7) Chronic diastolic heart failure Priority: Secondary Status: Chronic (8) Leukocytosis Priority: Primary Status: Resolved Qualifiers: Leukocytosis type: unspecified Qualified Code(s): D72.829 - Elevated white blood cell count, unspecified Hospital course: HOSPITAL COURSE: This is a 63-year-old man was admitted to the hospital with hypertensive emergency. He has underlying end-stage renal disease, on hemodialysis. The patient was very dyspneic due to acute hypoxic respiratory failure. His chest x -ray showed severe pulmonary congestion due to fluid overload. We presented this patient to the neurology and cardiology. He was treated with IV nitroglycerin drip. He was getting BiPAP treatments. He got hemodialysis, as soon as possible. One can see mildly elevated troponins with normal EKGs. Likely secondary to demand ischemia. We got this patient to his baseline by the time of discharge. CONDITION AT DISCHARGE: He feels good. Denies chest pain, dyspnea, coughing and wheezing. He is able to ambulate on his own. He is on room air oxygen. Skin: Free of rash and discoloration. Respiratory: Normal breath sounds with no crackles and wheezes bilaterally. CV: Heart is regular with no gallop or murmur. GI: Abdomen is flat and soft with no palpable mass or visceromegaly. Neuro exam: There is no focal deficits. Normal speech, swallowing and gait. SEE DISCHARGE ORDERS/MEDICATIONS.. - Time Spent with Patient Total time spent providing and/or coordinating discharge services: Greater than 30 minutes (45 minutes) - Discharge Medications Prescriptions: amLODIPine [Norvasc] 5 mg PO DAILY 30 Days #30 tablet Home Medications: Calcium Acetate [Phos-LO] 667 mg PO TID 11/01/17 [History] Folic Acid/Vit B Complex and C [Dialyvite Tablet] 1 tab PO DAILY 11/01/17 [ History] CloNIDine Patch [Catapres-Tts] 0.3 mg TD QWEEK 02/07/18 [History] Aspirin 81 mg PO DAILY tab.chew 04/11/18 [Rx] Atorvastatin [Lipitor] 40 mg PO HS #30 tablet 04/11/18 [Rx] Carvedilol [Coreg] 12.5 mg PO BIDWM #60 tablet 04/11/18 [Rx] Clopidogrel [Plavix] 75 mg PO DAILY #30 tablet 04/11/18 [Rx] Isosorbide MONOnitrate (24 HR) [Imdur] 30 mg PO DAILY #30 tab.er.24h 04/11/18 [ Rx] Insulin ASPART [NovoLOG] 0 unit SQ TIDWM PRN 07/25/18 [History] Insulin Degludec [Tresiba Flextouch U-100] 12 unit SQ DAILY 07/25/18 [History] Lisinopril [Zestril] 40 mg PO DAILY 07/25/18 [History] amLODIPine [Norvasc] 5 mg PO DAILY 30 Days #30 tablet 07/29/18 [Rx] Allergies/Adverse Reactions: 3 Allergy/AdvReac Type Severity Reaction Status Date / Time morphine Allergy Itching Verified 01/18/18 09:24 Sulfa (Sulfonamide Allergy See Verified 01/18/18 09:24 Antibiotics) Comments Date of admission: 07/24/18 23:08 Primary care physician: Hui Salazar MD Consults: 07/27/18 07:30 Consult to Dialysis [CONS] ONCE 07/28/18 10:10 Consult to Sweat Box Attendant [CONS] Routine Reason for SW Consult: possible return to rehab center 07/28/18 11:30 Consult to Dialysis [CONS] ONCE 07/29/18 07:30 Consult to Occupational Therapy [CONS] Routine Comment: Evaluate, develop and implement POC Reason for Consult: eval for ecf will need pre cert Does patient have active BEDREST order?: No Is patient medically & hemodynamically stable?: Yes Consult to Physical Therapy [CONS] Routine Comment: Evaluate, develop and implement POC Reason for Consult: eval for ecf, needs pre cert Does patient have active BEDREST order?: No Is patient medically & hemodynamically stable?: Yes 07/29/18 10:00 Consult to Dialysis [CONS] ONCE Discharging clinician: Joni Davalos Anticipated date of discharge: 07/29/18 - Constitutional Vitals: Temp Pulse Resp BP Pulse Ox 97.1 F L 80 14 141/76 99 07/29/18 14:30 07/29/18 07:15 07/29/18 14:30 07/29/18 14:30 07/29/18 07:15 General appearance: Present: cooperative, A&O X 3, pleasant, severe distress, answers questions appropriately Exam: xxx - Patient Status Disposition: Home, Self-Care Condition: Fair Functional capacity at discharge: independent ambulation Overall status at discharge: patient is progressing back to baseline - Discharge Instructions Instructions: Diabetes Mellitus Type 2 in Adults (DC), Chronic Hypertension (DC ) Follow Up With: Hui Salazar MD [Primary Care Provider] - 08/02/18 8:30 am - Diet and Activity Activity: resume usual activities as tolerated Diet: diabetic diet - VTE Deep Vein Thrombosis/Pulmonary Embolism Present on Admission: No
--- NOTE | 2018-07-29 15:38 | Physician Discharge Referral ---
ExtendedCare Referral Info Transfer To: [facility] Provider in Charge: Jodie BINGHAM MD Provider in Charge after Transfer: Other (A SNF PHYSICIAN) Institutional Level of Care: Skilled - Diagnosis (1) Hypertensive emergency Priority: Primary Status: Acute (2) Elevated troponin Priority: Primary Status: Acute (3) Acute hypoxemic respiratory failure Priority: Primary Status: Resolved (4) Type 2 diabetes mellitus with ESRD (end-stage renal disease) Priority: Secondary Status: Chronic (5) Hypertensive renal disease with renal failure Priority: Secondary Status: Chronic (6) Anemia Priority: Secondary Status: Chronic (7) Chronic diastolic heart failure Priority: Secondary Status: Chronic (8) Leukocytosis Status: Resolved Prognosis: Fair - Transfer Medications Prescriptions: amLODIPine [Norvasc] 5 mg PO DAILY 30 Days #30 tablet Home Medications: Calcium Acetate [Phos-LO] 667 mg PO TID 11/01/17 [History] Folic Acid/Vit B Complex and C [Dialyvite Tablet] 1 tab PO DAILY 11/01/17 [ History] CloNIDine Patch [Catapres-Tts] 0.3 mg TD QWEEK 02/07/18 [History] Aspirin 81 mg PO DAILY tab.chew 04/11/18 [Rx] Atorvastatin [Lipitor] 40 mg PO HS #30 tablet 04/11/18 [Rx] Carvedilol [Coreg] 12.5 mg PO BIDWM #60 tablet 04/11/18 [Rx] Clopidogrel [Plavix] 75 mg PO DAILY #30 tablet 04/11/18 [Rx] Isosorbide MONOnitrate (24 HR) [Imdur] 30 mg PO DAILY #30 tab.er.24h 04/11/18 [ Rx] Insulin ASPART [NovoLOG] 0 unit SQ TIDWM PRN 07/25/18 [History] Insulin Degludec [Tresiba Flextouch U-100] 12 unit SQ DAILY 07/25/18 [History] Lisinopril [Zestril] 40 mg PO DAILY 07/25/18 [History] amLODIPine [Norvasc] 5 mg PO DAILY 30 Days #30 tablet 07/29/18 [Rx] Allergies/Adverse Reactions: 3 Allergy/AdvReac Type Severity Reaction Status Date / Time morphine Allergy Itching Verified 01/18/18 09:24 Sulfa (Sulfonamide Allergy See Verified 01/18/18 09:24 Antibiotics) Comments - Respiratory Orders None Smoking Cessation: Smoking cessation has been advised. For more information, call the [place] Tobacco Quit Line at 0-671-PAFN-NOW. - Mobility Orders Ambulate - Rehabiliation Orders Rehab Potential: Fair Rehab Orders: Evaluation for Physical Therapy CERTIFICATION: I certify that the transfer of the above named patient to an Extended Care Facility is necessary for the continuing treatment of the diagnosis listed. The above information is true and accurate reflection of patient's current condition. Confidential - Redisclosure prohibited without a patient's written consent.
[2018-07-29] MEDS ORDERED: Insulin LISPRO 300 UNITS/3 ML VIAL SQ SCH (21:00)
== END 2018-07-29 16:05 | disposition home or self-care (01) | DRG 280 ==
LOC: EMEROOARM 19:40 → SUATTDRO 23:08 → ICNU 23:08 → 2ANU 07-29 02:53
PROVIDERS: ADMIT Family Medicine; ATTEND Internal Medicine

== ENCOUNTER 2018-08-19 19:56 | Inpatient (IN) ==
[2018-08-19] MEDS ORDERED: *HR* Heparin 5,000 UNIT/ML VIAL IVP PRN (20:32)
[2018-08-19] MEDS ORDERED: *HR* Heparin 5,000 UNIT/ML VIAL IVP ONE (20:32)
--- NOTE | 2018-08-19 20:34 | Emergency Department Note ---
Disposition Clinical Impression: End stage renal disease on dialysis Hypertension Qualifiers: Hypertension type: renovascular hypertension Qualified Code(s): I15.0 - Renovascular hypertension DVT (deep venous thrombosis) Qualifiers: DVT location: lower extremity Affected thrombotic vein of extremity: femoral Chronicity: acute Laterality: right Qualified Code(s): I82.411 - Acute embolism and thrombosis of right femoral vein Disposition: Admitted As Inpatient Condition: Fair Referrals: Hui Salazar MD [Primary Care Provider] - Forms: ED Satisfaction Letter General Adult HPI - General Chief complaint: ED Extremity Injury, Lower Stated complaint: +DVT Time Seen by Provider: 08/19/18 20:04 Source: patient Limitations: no limitations Nursing Notes Reviewed: Yes Vital Signs Reviewed: Yes - History of Present Illness Pain Scale: 6 - Related Data Home Medications Medication Instructions Recorded Confirmed Calcium Acetate [Phos-LO] 667 mg PO TID 11/01/17 08/19/18 Folic Acid/Vit B Complex and C 1 tab PO DAILY 11/01/17 08/19/18 [Dialyvite Tablet] CloNIDine Patch [Catapres-Tts] 0.3 mg TD QWEEK 02/07/18 08/19/18 Insulin ASPART [NovoLOG] 0 unit SQ TIDWM PRN 07/25/18 08/19/18 Insulin Degludec [Tresiba 12 unit SQ DAILY 07/25/18 08/19/18 Flextouch U-100] Lisinopril [Zestril] 40 mg PO DAILY 07/25/18 08/19/18 Previous Rx's Medication Instructions Recorded Aspirin 81 mg PO DAILY tab.chew 04/11/18 Atorvastatin [Lipitor] 40 mg PO HS #30 tablet 04/11/18 Carvedilol [Coreg] 12.5 mg PO BIDWM #60 tablet 04/11/18 Clopidogrel [Plavix] 75 mg PO DAILY #30 tablet 04/11/18 Isosorbide MONOnitrate (24 HR) 30 mg PO DAILY #30 tab.er.24h 04/11/18 [Imdur] amLODIPine [Norvasc] 5 mg PO DAILY 30 Days #30 tablet 07/29/18 Allergies Allergy/AdvReac Type Severity Reaction Status Date / Time morphine Allergy Itching Verified 08/19/18 20:10 Sulfa (Sulfonamide Allergy See Verified 08/19/18 20:10 Antibiotics) Comments Past Medical History - Past Medical History Medical history: Reports: asthma, COPD, coronary artery disease, CVA, diabetes, dialysis, hyperlipidemia, hypertension, renal disease Surgical history: Reports: herniorrhaphy, other Psychiatric history: Reports: no psych history - Social History Smoking Status: Former smoker Smokeless Tobacco Status: No Alcohol use: Reports: none Drug use: Reports: none Physical Exam - General Limitations: no limitations General appearance: alert Course Vital Signs Temperature 98.2 F 08/19/18 20:06 Pulse Rate 68 08/19/18 20:06 Respiratory Rate 18 08/19/18 20:06 Blood Pressure 195/78 08/19/18 20:06 O2 Sat by Pulse Oximetry 100 08/19/18 20:06 Temperature 98.2 F 08/19/18 20:06 Pulse Rate 71 08/19/18 22:21 Respiratory Rate 16 08/19/18 22:21 Blood Pressure 223/82 08/19/18 22:21 O2 Sat by Pulse Oximetry 100 08/19/18 22:21 Oxygen Delivery Oxygen Delivery Room Air Medical Decision Making - [facility] Narrative Medical decision making narrative: 1042 hrs.: Patient's labs are back. He does have his chronic renal insufficiency. Nothing else that is acute. He does have his heparin started. He does have flow through the right lower extremity based on the scan done by vascular. He does have a clot as mentioned before. We will speak with hospitalist for admission. Impression is right sided DVT with chronic renal insufficiency. And hypertension. states patient has very noncompliant with medications. - Lab Data Result diagrams: 08/19/18 20:50 08/19/18 20:50 Lab Results 08/19/18 08/19/18 08/19/18 Range/Units 20:50 20:50 20:50 WBC 8.2 (4.3-11.1) K/mcL RBC 3.57 L (4.19-5.50) M/mcL Hgb 10.8 L (12.9-16.9) g/dL Hct 33.4 L (37.5-50.1) % MCV 93.6 (83.0-100.0) fL MCH 30.3 (28.0-33.3) pg MCHC 32.3 (31.6-35.5) g/dL RDW 15.0 H (11.5-14.5) % Plt Count 280 (140-400) K/mcL MPV 8.6 L (9.4-12.4) fL Immature Gran % 0.6 (0-4) % Seg Neutrophils % 68.7 % Lymphocytes % 15.2 % Monocytes % 12.1 % Eosinophils % 2.3 % Basophils % 1.1 % Neutrophils # 5.6 (1.6-8.9) K/mcL Lymphocytes # 1.3 (0.6-4.6) K/mcL Monocytes # 1.0 (0.0-1.3) K/mcL Eosinophils # 0.2 (0.0-0.6) K/mcL Basophils # 0.1 (0.0-0.2) K/mcL APTT 27.1 (26.0-36.0) Seconds Heparin Anti-Xa, Unfract 0.03 L (0.30-0.70) IU/mL Sodium 142 (136-145) mEq/L Potassium 3.7 (3.5-5.1) mEq/L Chloride 103 (98-107) mEq/L Carbon Dioxide 30 H (23-29) mEq/L BUN 26 H (8-23) mg/dL Creatinine 3.28 H (0.70-1.30) mg/dL Est GFR ( Amer) 23 L (> 60) Est GFR (Non-Af Amer) 19 L (> 60) BUN/Creatinine Ratio 8 (6-26) Glucose 203 H (70-105) mg/dL Calculated Osmolality 305 H (280-300) Calcium 7.8 L (8.6-10.3) mg/dL Attestation Statement - Attestation Attestation: This documentation is done with the assistance of Dragon dictation. Despite efforts made to ensure accuracy, there may be inaccuracies in draughtsman or spelling and typographical errors. I examined this patient and my medical decision-making was reviewed with the Resident Physician. I agree with the documented findings, disposition and treatment plan as described except to the extent set forth below. Patient seen and evaluated Dr. Wu and myself, agree with his evaluation management plan, I supervised the care of the patient's stay. Patient presents from outpatient where he had a DVT study done his right leg with multiple DVTs in the right proximal portion. We will start him on heparin here. Get labs and admit. He also has decreased pulses sides were asking ordered TAMAR. With plan.
--- NOTE | 2018-08-19 20:50 | Emergency Department Note ---
Disposition Clinical Impression: End stage renal disease on dialysis Hypertension Qualifiers: Hypertension type: renovascular hypertension Qualified Code(s): I15.0 - Renovascular hypertension DVT (deep venous thrombosis) Qualifiers: DVT location: lower extremity Affected thrombotic vein of extremity: femoral Chronicity: acute Laterality: right Qualified Code(s): I82.411 - Acute embolism and thrombosis of right femoral vein Disposition: Admitted As Inpatient Condition: Fair Referrals: Hui Salazar MD [Primary Care Provider] - Forms: ED Satisfaction Letter General Adult HPI - General Chief complaint: ED Extremity Injury, Lower Stated complaint: +DVT Time Seen by Provider: 08/19/18 20:04 Source: patient Mode of arrival: ambulatory Limitations: no limitations Nursing Notes Reviewed: Yes Vital Signs Reviewed: Yes - History of Present Illness HPI Narrative: 63 year old man with hx significant for uncontrolled DM, HTN, HLD, ESRD on HD, and recent CVA with TPA use who presents to the ED after having an outpatient R LE doppler showing extensive clots involving the superficial femoral, popliteal , posterior tibial, peroneal, and lesser saphenous. He has had R LE swelling with pain numbness/paresthesia over the last 2-3 days. He denies decreased temp , chest pain, pleuritic chest pain, sob, fever, tachycardia, palpitations, or syncope. He said he does not think he has had previous DVT and is not on anticoagulation. Pt Subjective Complaint: DVT Onset (ago): day(s) (2) Location: right, lower extremity Radiation: non-radiation Pain Severity: moderate Pain Scale: 6 Quality: dull Consistency: constant Improves with: nothing Worsens with: nothing Associated symptoms: Reports: denies other symptoms Treatments Prior to Arrival: none - Related Data Home Medications Medication Instructions Recorded Confirmed Calcium Acetate [Phos-LO] 667 mg PO TID 11/01/17 08/19/18 Folic Acid/Vit B Complex and C 1 tab PO DAILY 11/01/17 08/19/18 [Dialyvite Tablet] CloNIDine Patch [Catapres-Tts] 0.3 mg TD QWEEK 02/07/18 08/19/18 Insulin ASPART [NovoLOG] 0 unit SQ TIDWM PRN 07/25/18 08/19/18 Insulin Degludec [Tresiba 12 unit SQ DAILY 07/25/18 08/19/18 Flextouch U-100] Lisinopril [Zestril] 40 mg PO DAILY 07/25/18 08/19/18 Previous Rx's Medication Instructions Recorded Aspirin 81 mg PO DAILY tab.chew 04/11/18 Atorvastatin [Lipitor] 40 mg PO HS #30 tablet 04/11/18 Carvedilol [Coreg] 12.5 mg PO BIDWM #60 tablet 04/11/18 Clopidogrel [Plavix] 75 mg PO DAILY #30 tablet 04/11/18 Isosorbide MONOnitrate (24 HR) 30 mg PO DAILY #30 tab.er.24h 04/11/18 [Imdur] amLODIPine [Norvasc] 5 mg PO DAILY 30 Days #30 tablet 07/29/18 Allergies Allergy/AdvReac Type Severity Reaction Status Date / Time morphine Allergy Itching Verified 08/19/18 20:10 Sulfa (Sulfonamide Allergy See Verified 08/19/18 20:10 Antibiotics) Comments All systems ED: reviewed and negative except as stated. Past Medical History - Past Medical History Medical history: Reports: asthma, COPD, coronary artery disease, CVA, diabetes, dialysis, hyperlipidemia, hypertension, renal disease Surgical history: Reports: herniorrhaphy, other Psychiatric history: Reports: no psych history - Social History Smoking Status: Former smoker Smokeless Tobacco Status: No Alcohol use: Reports: none Drug use: Reports: none Physical Exam - General Limitations: no limitations General appearance: alert, in no apparent distress - Head Head exam: atraumatic, normocephalic, normal inspection - Eye Eye exam: Present: normal appearance - ENT ENT exam: mucous membranes moist - Neck Neck exam: Present: normal inspection, trachea midline - Chest Chest inspection: Present: normal inspection, symmetric chest wall rise - Respiratory Respiratory exam: Present: normal lung sounds bilaterally - Cardiovascular Cardiovascular exam: Present: regular rate, normal rhythm, normal heart sounds, +S1, +S2 - Abdominal Exam Abdominal exam: Present: soft, Non-Tender. Absent: distention, guarding, rebound, rigidity - Expanded Lower Extremity Exam Upper leg exam: Present: normal inspection. Absent: tenderness, swelling Knee exam: Present: normal inspection. Absent: tenderness, swelling Lower leg exam: Present: tenderness, swelling Ankle exam: Present: tenderness, swelling Neurovascular/Tendon exam: Present: pulse deficit (no palpable pedal ). Absent : extremity cold to touch - Neurological Exam Neurological exam: Present: alert - Psychiatric Psychiatric exam: Present: normal affect Course Course Narrative: Presents to the ED after outpatient R LE doppler showing extensive DVT's. R LE swollen, tender to palpation, no pedal pulse. Will start heparin now. Will also get LE arterial study, cbc, bmp, ptt and ecg. He declined pain medication at this time. Will admit to hospitalist service. ECG 2027: nsr, hr 68, pr 114, qt 453, probable LVH with secondary repol abnormality. 2244: Tech reported arterial blood flow without occlusion on R LE. Will admit to hospitalist service. Vital Signs Temperature 98.2 F 08/19/18 20:06 Pulse Rate 68 08/19/18 20:06 Respiratory Rate 18 08/19/18 20:06 Blood Pressure 195/78 08/19/18 20:06 O2 Sat by Pulse Oximetry 100 08/19/18 20:06 Temperature 98.2 F 08/19/18 20:06 Pulse Rate 71 08/19/18 22:21 Respiratory Rate 16 08/19/18 22:21 Blood Pressure 223/82 08/19/18 22:21 O2 Sat by Pulse Oximetry 100 08/19/18 22:21 Oxygen Delivery Oxygen Delivery Room Air Medical Decision Making - Lab Data Result diagrams: 08/19/18 20:50 08/19/18 20:50 Lab Results 08/19/18 08/19/18 08/19/18 Range/Units 20:50 20:50 20:50 WBC 8.2 (4.3-11.1) K/mcL RBC 3.57 L (4.19-5.50) M/mcL Hgb 10.8 L (12.9-16.9) g/dL Hct 33.4 L (37.5-50.1) % MCV 93.6 (83.0-100.0) fL MCH 30.3 (28.0-33.3) pg MCHC 32.3 (31.6-35.5) g/dL RDW 15.0 H (11.5-14.5) % Plt Count 280 (140-400) K/mcL MPV 8.6 L (9.4-12.4) fL Immature Gran % 0.6 (0-4) % Seg Neutrophils % 68.7 % Lymphocytes % 15.2 % Monocytes % 12.1 % Eosinophils % 2.3 % Basophils % 1.1 % Neutrophils # 5.6 (1.6-8.9) K/mcL Lymphocytes # 1.3 (0.6-4.6) K/mcL Monocytes # 1.0 (0.0-1.3) K/mcL Eosinophils # 0.2 (0.0-0.6) K/mcL Basophils # 0.1 (0.0-0.2) K/mcL APTT 27.1 (26.0-36.0) Seconds Heparin Anti-Xa, Unfract 0.03 L (0.30-0.70) IU/mL Sodium 142 (136-145) mEq/L Potassium 3.7 (3.5-5.1) mEq/L Chloride 103 (98-107) mEq/L Carbon Dioxide 30 H (23-29) mEq/L BUN 26 H (8-23) mg/dL Creatinine 3.28 H (0.70-1.30) mg/dL Est GFR ( Amer) 23 L (> 60) Est GFR (Non-Af Amer) 19 L (> 60) BUN/Creatinine Ratio 8 (6-26) Glucose 203 H (70-105) mg/dL Calculated Osmolality 305 H (280-300) Calcium 7.8 L (8.6-10.3) mg/dL
[2018-08-19 21:10] LABS: Basophils # 0.1 K/mcL (0.0-0.2); Basophils % 1.1 %; Eosinophils # 0.2 K/mcL (0.0-0.6); Eosinophils % 2.3 %; Hematocrit 33.4 % (37.5-50.1); Hemoglobin 10.8 g/dL (12.9-16.9); Immature Granulocytes % 0.6 % (0-4); Lymphocytes # 1.3 K/mcL (0.6-4.6); Lymphocytes % 15.2 %; Mean Corpuscular HGB Conc 32.3 g/dL (31.6-35.5); Mean Corpuscular Hemoglobin 30.3 pg (28.0-33.3); Mean Corpuscular Volume 93.6 fL (83.0-100.0); Mean Platelet Volume 8.6 fL (9.4-12.4); Monocytes % 12.1 %; Neutrophils # 5.6 K/mcL (1.6-8.9); Platelet Count 280 K/mcL (140-400); Red Blood Count 3.57 M/mcL (4.19-5.50); Segmented Neutrophils % 68.7 %
[2018-08-19 21:15] LABS: Heparin anti-factor XA UFH 0.03 IU/mL (0.30-0.70)
[2018-08-19 21:18] LABS: Activated Partial Thrombo Time 27.1 Seconds (26.0-36.0)
[2018-08-19 21:27] LABS: Calcium 7.8 mg/dL (8.6-10.3); Potassium 3.7 mEq/L (3.5-5.1)
[2018-08-19] MEDS: Heparin 25,000 UNIT/500 ML D5W 25,000 UNIT/500 ML BAG IVC SCH (21:59)
[2018-08-19] MEDS ORDERED: *HR* Labetalol 100 MG/20 ML MDV IVP ONE (22:47)
[2018-08-19] MEDS ORDERED: Acetaminophen 325 MG TABLET PO PRN (23:58)
[2018-08-19] MEDS ORDERED: Naloxone 0.4 MG/ML INJ IVP PRN (23:58)
[2018-08-20] MEDS: amLODIPine 5 MG TABLET PO SCH ×3 (00:28→08:14)
[2018-08-20] MEDS: Lisinopril 20 MG TABLET PO SCH ×2 (00:28→07:53)
[2018-08-20] MEDS ORDERED: D5% in Water 1,000 ML IVC PRN (00:31)
[2018-08-20] MEDS ORDERED: Dextrose Gel 15 GM/37.5 ML TUBE PO PRN ×2 (00:31)
--- NOTE | 2018-08-20 03:51 | Internal Med History&Physical ---
Date of Encounter: 08/20/18 Time of Encounter: 03:49 Internal Medicine - H&P: HPI Chief complaint: DVT Admitted From: Emergency Dept Plans for Post Hospital Care: Home History of present illness: Mr. Kovacs is a 63 year old male with history of hypertension, diabetes, ESRD, coronary disease presents with DVT. Patient states that he has had swelling in his right leg for several days and had an outpatient DVT study today and was told to come to the emergency department. He reports swelling in that leg. He states he has never had anything like this before. Denies any history of blood clots. Denies chest pain or shortness of breath. Patient was recently hospitalized for a stroke, otherwise denies other provoking factors including recent surgery, long car ride or travel, underlying malignancy. Past Med Surg Social Fam HX - Past Medical History Medical history: asthma, COPD, coronary artery disease, CVA, diabetes, dialysis , hyperlipidemia, hypertension, renal disease Additional medical history: ESRD, cataracts, tinnitis, asthma as a child,. Recent stroke 06/20/18 -- TPA, trasnferred to [facility] Psychiatric history: no psych history - Past Surgical History Surgical History: herniorrhaphy, other Additional surgical history: new fistula - Social History Smoking Status: Former smoker Smokeless Tobacco Status: No Alcohol use: none Drug use: none - Family History Mother Living Status: Hx Family Cancer: Yes Father Living Status: Hx Family Endocrine Disorder: Yes (DMI) Internal Medicine - H&P: Meds Calcium Acetate [Phos-LO] 667 mg PO TID 11/01/17 [History] Folic Acid/Vit B Complex and C [Dialyvite Tablet] 1 tab PO DAILY 11/01/17 [ History] CloNIDine Patch [Catapres-Tts] 0.3 mg TD QWEEK 02/07/18 [History] Aspirin 81 mg PO DAILY tab.chew 04/11/18 [Rx] Atorvastatin [Lipitor] 40 mg PO HS #30 tablet 04/11/18 [Rx] Carvedilol [Coreg] 12.5 mg PO BIDWM #60 tablet 04/11/18 [Rx] Clopidogrel [Plavix] 75 mg PO DAILY #30 tablet 04/11/18 [Rx] Isosorbide MONOnitrate (24 HR) [Imdur] 30 mg PO DAILY #30 tab.er.24h 04/11/18 [ Rx] Insulin ASPART [NovoLOG] 0 unit SQ TIDWM PRN 07/25/18 [History] Insulin Degludec [Tresiba Flextouch U-100] 12 unit SQ DAILY 07/25/18 [History] Lisinopril [Zestril] 40 mg PO DAILY 07/25/18 [History] amLODIPine [Norvasc] 5 mg PO DAILY 30 Days #30 tablet 07/29/18 [Rx] 3 Allergy/AdvReac Type Severity Reaction Status Date / Time morphine Allergy Itching Verified 08/19/18 20:10 Sulfa (Sulfonamide Allergy See Verified 08/19/18 20:10 Antibiotics) Comments ROS unobtainable: other (Patient refuses to participate in complete review of systems) All Systems PM: A 10-system review of systems was performed and is negative for pertinent findings except as documented above in the HPI. - Constitutional Vitals: Temp Pulse Resp BP Pulse Ox 97.6 F 68 18 209/88 99 08/20/18 03:04 08/20/18 03:15 08/20/18 03:04 08/20/18 03:15 08/20/18 03:04 General appearance: Present: A&O X 3, no acute distress Exam: Patient prior to short answers and seems agitated - Head Head exam: Present: atraumatic, normal inspection, normocephalic - Eye Eye exam: Present: EOMI, PERRL - ENT ENT exam: Present: mucous membranes moist, normal oropharynx - Neck Neck exam general surgery: Present: full ROM, supple - Respiratory Respiratory exam: Present: CTAB. Absent: rales, rhonchi, wheezes - Cardiovascular Cardiovascular exam: Present: RRR. Absent: gallop, rubs, systolic murmur - GI/Abdominal GI/Abdominal exam: Present: normal bowel sounds, soft. Absent: distended, tenderness - Extremities Exam Additional comments: Right leg is more swollen than left leg, with mild pitting edema. Right lower extremity pulses are weak but palpable. - Neurological Exam Neurological exam: Present: alert, CN II-XII intact, oriented X3, no focal deficits Internal Med - H&P Results - Labs CBC & Chem 7: 08/19/18 20:50 08/19/18 20:50 - Assessment and plan (1) DVT (deep venous thrombosis) Current Visit: Yes Status: Acute Assessment and plan: Patient had outpatient testing that revealed extensive right lower extremity DVT. Final report is pending. Given end-stage renal disease we will start heparin drip. Patient will likely need to be transitioned to Coumadin due to his end-stage renal disease. No clinical evidence evidence of PE. Qualifiers: DVT location: lower extremity Affected thrombotic vein of extremity: femoral Chronicity: acute Laterality: right Qualified Code(s): I82.411 - Acute embolism and thrombosis of right femoral vein (2) Hypertensive urgency Current Visit: Yes Status: Acute Assessment and plan: Patient presents with accelerated hypertension likely due to medication noncompliance. He admits that he takes his blood pressure medications about once a week. Seems to be asymptomatic from this. Have restarted his home blood pressure medications and he remains significantly hypertensive therefore will start nicardipine drip in attempt to slowly lower his blood pressure. Initial blood pressure goal will be systolic between 160 and 180. Patient had a recent stroke so want to lower his blood pressure but not significantly to precipitate neurologic insult. (3) End stage renal disease Current Visit: Yes Status: Chronic Assessment and plan: Patient reports Wednesday, Wednesday, Wednesday dialysis. Patient reports that he had dialysis on Wednesday. No indication for acute dialysis. Nephrology consult. (4) CAD (coronary artery disease), [place] coronary artery Current Visit: No Status: Chronic Assessment and plan: History of. No report of chest pain. Continue aspirin, statin, beta jas. Qualifiers: [place] vs. transplanted heart: [place] heart Associated angina: angina presence unspecified Qualified Code(s): I25.10 - Atherosclerotic heart disease of [place] coronary artery without angina pectoris (5) Type 2 diabetes mellitus with ESRD (end-stage renal disease) Current Visit: No Status: Chronic Assessment and plan: Patient on chronic insulin therapy at home. Blood sugar mildly elevated on arrival. We will start home dose of long-acting insulin and cover with sliding scale insulin. (6) DVT prophylaxis Current Visit: No Status: Acute Assessment and plan: Currently on therapeutic heparin drip - Time Spent With Patient Total time spent is greater than 50% in coordination of care (as documented) at patient's floor/unit and/or counseling patient:
[2018-08-20] MEDS: niCARdipine 40 MG/200 ML MLS IVC SCH ×3 (04:27→20:11)
[2018-08-20 04:45] LABS: Basophils # 0.1 K/mcL (0.0-0.2); Basophils % 1.3 %; Eosinophils # 0.2 K/mcL (0.0-0.6); Eosinophils % 2.6 %; Hemoglobin 9.8 g/dL (12.9-16.9); Immature Granulocytes % 0.5 % (0-4); Lymphocytes # 1.4 K/mcL (0.6-4.6); Lymphocytes % 18.1 %; Mean Corpuscular HGB Conc 31.6 g/dL (31.6-35.5); Mean Corpuscular Hemoglobin 30.3 pg (28.0-33.3); Mean Platelet Volume 8.6 fL (9.4-12.4); Monocytes # 0.9 K/mcL (0.0-1.3); Monocytes % 12.2 %; Platelet Count 283 K/mcL (140-400); Red Blood Count 3.23 M/mcL (4.19-5.50); Red Cell Distribution Width 14.9 % (11.5-14.5); Segmented Neutrophils % 65.3 %
[2018-08-20 05:06] LABS: Calcium 7.4 mg/dL (8.6-10.3); Magnesium 1.7 mg/dL (1.6-2.6); Potassium 3.9 mEq/L (3.5-5.1)
[2018-08-20] MEDS: *HR* Heparin 5,000 UNIT/ML VIAL IVP PRN (05:21)
[2018-08-20] MEDS: Calcium Acetate 667 MG CAPSULE PO SCH ×3 (07:53→16:57)
[2018-08-20] MEDS: Renal Vitamin 1 CAP CAPSULE PO SCH (07:53)
[2018-08-20] MEDS: Aspirin 81 MG TAB.CHEW PO SCH (07:53)
[2018-08-20] MEDS: Insulin DETEMIR 100 UNIT/ML X5UNITS SQ SCH (07:53)
[2018-08-20] MEDS: Insulin LISPRO 300 UNITS/3 ML VIAL SQ SCH ×4 (07:56→20:13)
[2018-08-20] MEDS ORDERED: Isosorbide MONOnitrate (24 HR) 30 MG TAB.ER.24H PO SCH (09:00)
--- NOTE | 2018-08-20 09:26 | Event Note ---
Date of Encounter: 08/20/18 Time of Encounter: 09:26 Patient with ESRD and HTN, admitted for HTN Urgency and DVT Uncontrolled HT was asymptomatic, his DVT was also asymptomatic, aapart from swelling of RLE He denies new complains BP now controlled, still on heparin hysical exam significant for RLE swelling, no erythema. Chest is clear He gets his HD MWF and electrolytes are currently acceptable, nephrology has been consulted by admiting team, non-emergent Continue current management Warfarin bridging to begin 10/7 p.m, scheduled Plan of care discussed with the patient who verbalized understanding
--- NOTE | 2018-08-20 15:43 | Nephrology Consult Note ---
Date of Encounter: 08/20/18 Time of Encounter: 13:00 Assessment and Plan (1) DVT (deep venous thrombosis) Current Visit: Yes Status: Acute Anticoagulation per primary team Qualifiers: DVT location: lower extremity Affected thrombotic vein of extremity: femoral Chronicity: acute Laterality: right Qualified Code(s): I82.411 - Acute embolism and thrombosis of right femoral vein (2) ESRD (end stage renal disease) on dialysis Current Visit: Yes Status: Acute Lytes stable No acute indication for LINE FIXER today,, will plan for HD on wednesday per his regimen Renal diet advised (3) Hypertensive urgency Current Visit: Yes Status: Acute Stabilizing, down to 130s/70s History of Present Illness - Reason for Consult Consult date: 08/20/18 end stage renal disease Requesting physician: Kareem Rogers - History of Present Illness 63 y o male with PMH of ESRD on HD M-W-, DM, HTN and CAD admitted for right leg edema of several days duration noted positive for DVT and also hypertensive urgency. No prior history of DVT. Pt is now receiving heparin gtt and coumadin. Renal consulted for ESRD management. Last HD was wednesday and next planned for wednesday. Pt denies any symptoms at present. No CP, SOB, N/V. No fevers/chills. Past Med Surg Social Fam HX - Past Medical History Medical history: asthma, COPD, coronary artery disease, CVA, diabetes, dialysis , hyperlipidemia, hypertension, renal disease Additional medical history: ESRD, cataracts, tinnitis, asthma as a child,. Recent stroke 06/20/18 -- TPA, trasnferred to [facility] Psychiatric history: no psych history - Past Surgical History Surgical History: herniorrhaphy, other Additional surgical history: new fistula - Social History Smoking Status: Former smoker Smokeless Tobacco Status: No Alcohol use: none Drug use: none - Family History Mother Living Status: Hx Family Cancer: Yes Father Living Status: Hx Family Endocrine Disorder: Yes (DMI) Medications and Allergies Calcium Acetate [Phos-LO] 667 mg PO TID 11/01/17 [History] Folic Acid/Vit B Complex and C [Dialyvite Tablet] 1 tab PO DAILY 11/01/17 [ History] CloNIDine Patch [Catapres-Tts] 0.3 mg TD QWEEK 02/07/18 [History] Aspirin 81 mg PO DAILY tab.chew 04/11/18 [Rx] Atorvastatin [Lipitor] 40 mg PO HS #30 tablet 04/11/18 [Rx] Carvedilol [Coreg] 12.5 mg PO BIDWM #60 tablet 04/11/18 [Rx] Clopidogrel [Plavix] 75 mg PO DAILY #30 tablet 04/11/18 [Rx] Isosorbide MONOnitrate (24 HR) [Imdur] 30 mg PO DAILY #30 tab.er.24h 04/11/18 [ Rx] Insulin ASPART [NovoLOG] 0 unit SQ TIDWM PRN 07/25/18 [History] Insulin Degludec [Tresiba Flextouch U-100] 12 unit SQ DAILY 07/25/18 [History] Lisinopril [Zestril] 40 mg PO DAILY 07/25/18 [History] amLODIPine [Norvasc] 5 mg PO DAILY 30 Days #30 tablet 07/29/18 [Rx] 3 Allergy/AdvReac Type Severity Reaction Status Date / Time morphine Allergy Itching Verified 08/19/18 20:10 Sulfa (Sulfonamide Allergy See Verified 08/19/18 20:10 Antibiotics) Comments Review of Systems All Systems review (narrative): The rest of the systems are negative Constitutional: anorexia (denies), weakness (denies) Cardiovascular: chest pain (denies), leg edema (admits on the right only), palpitations (denies) Respiratory: cough (denies), dyspnea (denies) Exam - Vital Signs Vital signs: Initial Vital Signs Temp Pulse Resp BP Pulse Ox 98.2 F 68 18 195/78 100 08/19/18 20:06 08/19/18 20:06 08/19/18 20:06 08/19/18 20:06 08/19/18 20:06 Vital Signs - Last 8 Hours Temp Pulse Resp BP Pulse Ox 08/20/18 11:08 98.0 F 66 16 138/70 98 Intake and Output 08/19/18 08/20/18 08/20/18 23:59 07:59 15:59 Intake Total 121.7 / 121.7 619 / 619 Output Total 0 / 0 200 / 200 Balance 121.7 / 121.7 419 / 419 Intake: IV Fluids 121.7 / 121.7 139 / 139 Heparin 25,000 UNIT/500 ML D5W 108 / 108 139 / 139 25,000 unit In 500 ml @ 14 UNIT /KG/HR 16.257 mls/hr IVC .Q24H [facility] Rx#:[id number] Cardene Premix 40mg/200ml 40 mg 13.7 / 13.7 In 200 ml @ 5 MG/HR 25 mls/hr IVC .Q8H [facility] Rx#:[id number] Oral 0 / 0 480 / 480 Output: Urine 0 / 0 200 / 200 Other: Meal Lunch Percent of Meal Consumed 100% Weight 57 kg Blood Glucose* 181 102 Patient Weight 08/20/18 23:59 Weight 57 kg - General Appearance General appearance: chronically ill, frail EENT: ATNC, mucous membranes moist Neck: no JVD, supple Respiratory: clear (ant bilat) Cardiology: edema (RLE), normal S1, normal S2 - Dialysis Access Dialysis Vascular Access: Arteriovenous Fistula thrill: Yes bruit: Yes Gastrointestinal: no tenderness, no guarding Integumentary: warm and dry Neurologic: no focal deficit Musculoskeletal: no deformities Psychiatric: mood/affect appropriate, cooperative Results - Lab Results 08/21/18 05:00 08/21/18 05:00 Most recent lab results Calcium 7.4 mg/dL (8.6-10.3) L 08/20/18 04:20 Magnesium 1.7 mg/dL (1.6-2.6) 08/20/18 04:20 Consult Discharge Plan - Plan Referrals: Hui Salazar MD [Primary Care Provider] -
[2018-08-21] MEDS: Heparin 25,000 UNIT/500 ML D5W 25,000 UNIT/500 ML BAG IVC SCH (03:03)
[2018-08-21] MEDS: niCARdipine 40 MG/200 ML MLS IVC SCH ×2 (03:06→21:34)
[2018-08-21 05:20] LABS: Basophils # 0.1 K/mcL (0.0-0.2); Basophils % 1.1 %; Eosinophils # 0.2 K/mcL (0.0-0.6); Eosinophils % 2.7 %; Hematocrit 28.3 % (37.5-50.1); Hemoglobin 9.2 g/dL (12.9-16.9); Immature Granulocytes % 0.9 % (0-4); Lymphocytes # 1.2 K/mcL (0.6-4.6); Lymphocytes % 14.8 %; Mean Corpuscular HGB Conc 32.5 g/dL (31.6-35.5); Mean Corpuscular Hemoglobin 30.1 pg (28.0-33.3); Mean Corpuscular Volume 92.5 fL (83.0-100.0); Mean Platelet Volume 8.7 fL (9.4-12.4); Monocytes % 11.8 %; Neutrophils # 5.7 K/mcL (1.6-8.9); Platelet Count 273 K/mcL (140-400); Red Blood Count 3.06 M/mcL (4.19-5.50); Red Cell Distribution Width 14.5 % (11.5-14.5); Segmented Neutrophils % 68.7 %
[2018-08-21 05:27] LABS: INR 1.1
[2018-08-21 05:41] LABS: Calcium 7.6 mg/dL (8.6-10.3); Potassium 4.4 mEq/L (3.5-5.1)
[2018-08-21] MEDS: Insulin DETEMIR 100 UNIT/ML X5UNITS SQ SCH ×2 (08:58→21:36)
[2018-08-21] MEDS: Insulin LISPRO 300 UNITS/3 ML VIAL SQ SCH ×5 (08:58→21:38)
[2018-08-21] MEDS: Calcium Acetate 667 MG CAPSULE PO SCH ×3 (08:59→16:22)
[2018-08-21] MEDS: Aspirin 81 MG TAB.CHEW PO SCH (08:59)
[2018-08-21] MEDS: Lisinopril 20 MG TABLET PO SCH (08:59)
[2018-08-21] MEDS: amLODIPine 5 MG TABLET PO SCH (09:00)
[2018-08-21] MEDS: CloNIDine Patch 0.3 MG PATCH (WEEKLY) TD SCH (09:00)
[2018-08-21] MEDS: Renal Vitamin 1 CAP CAPSULE PO SCH (09:00)
--- NOTE | 2018-08-21 09:01 | Internal Med Progress Note ---
Hospitalist Progress Note - Encounter Date of Encounter: 08/21/18 Time of Encounter: 09:01 - Subjective Interval History: Patient with ESRD and HTN, admitted for HTN Urgency and DVT Uncontrolled HTN was asymptomatic, his DVT was also asymptomatic, apart from swelling of RLE He denies new complains, his blood pressure is improved but still uncontrolled BP now controlled, still on heparin - Exam Vitals: Temp Pulse Resp BP Pulse Ox 98.0 F 70 18 174/80 97 08/21/18 06:56 08/21/18 06:56 08/21/18 06:56 08/21/18 06:56 08/21/18 06:56 Exam: Gen: VSS Psych: Flat affect, seemed uninterested in this evaluation Neuro: AAOX3, moves all extremities , no focal deficits Chest: CTAB Heart: S1, S2 only, no m/g/r Abdomen: Soft, not tender Extremities: L AVF, R foot swelling, pulses present Skin: No rash - Assessment and Plan (1) End stage renal disease Current Visit: Yes Status: Chronic Assessment and Plan: HD MWF Nephro eval (2) DVT prophylaxis Current Visit: Yes Status: Acute Assessment and Plan: Currently on therapeutic heparin drip (3) CAD (coronary artery disease), [place] coronary artery Current Visit: Yes Status: Chronic Assessment and Plan: History of. No report of chest pain. Continue aspirin, statin, beta jas. (4) Type 2 diabetes mellitus with ESRD (end-stage renal disease) Current Visit: Yes Status: Chronic Assessment and Plan: Patient on chronic insulin therapy at home. Continue long-acting insulin and cover with sliding scale insulin. (5) DVT (deep venous thrombosis) Current Visit: Yes Status: Acute Assessment and Plan: Patient had outpatient testing that revealed extensive right lower extremity DVT. Continue heparin drip begin bridging with warfarin p.m Monitor INR/PTT (6) Hypertensive urgency Current Visit: Yes Status: Acute Assessment and Plan: Patient presents with accelerated hypertension likely due to medication noncompliance. He admits that he takes his blood pressure medications about once a week. He is asymptomatic Blood pressure has improved, but sub-optimal Continue current meds, increase isosorbide, continue to monitor - Time Spent with Patient Total time spent is greater than 50% in coordination of care (as documented) at patient's floor/unit and/or counseling patient: Plan of Care Discussed with: patient Internal Medicine: Result - Labs CBC & Chem 7: 08/21/18 05:00 08/21/18 05:00 Labs: Short CBC 08/21/18 Range/Units 05:00 WBC 8.2 (4.3-11.1) K/mcL Hgb 9.2 L (12.9-16.9) g/dL Hct 28.3 L (37.5-50.1) % Plt Count 273 (140-400) K/mcL Neutrophils # 5.7 (1.6-8.9) K/mcL BMP 08/21/18 05:00 Sodium 137 Potassium 4.4 Chloride 102 Carbon Dioxide 23 BUN 54 H Creatinine 5.69 H Glucose 325 H Calcium 7.6 L - ABG Interpretation ABG results: PT/INR, D-dimer PT 12.0 Seconds (9.4-12.1) 08/21/18 05:00 Consult Discharge Plan - Plan Referrals: Hui Salazar MD [Primary Care Provider] - (3) CAD (coronary artery disease), [place] coronary artery Qualifiers: [place] vs. transplanted heart: [place] heart Associated angina: angina presence unspecified Qualified Code(s): I25.10 - Atherosclerotic heart disease of [place] coronary artery without angina pectoris (5) DVT (deep venous thrombosis) Qualifiers: DVT location: lower extremity Affected thrombotic vein of extremity: femoral Chronicity: acute Laterality: right Qualified Code(s): I82.411 - Acute embolism and thrombosis of right femoral vein
[2018-08-21] MEDS: Isosorbide MONOnitrate (24 HR) 60 MG TAB.ER.24H PO SCH (09:03)
--- NOTE | 2018-08-21 14:04 | Nephrology Progress Note ---
Date of Encounter: 08/21/18 Time of Encounter: 12:00 - Assessment and Plan (1) DVT (deep venous thrombosis) Current Visit: Yes Status: Acute Anticoagulation per primary team Qualifiers: DVT location: lower extremity Affected thrombotic vein of extremity: femoral Chronicity: acute Laterality: right Qualified Code(s): I82.411 - Acute embolism and thrombosis of right femoral vein (2) ESRD (end stage renal disease) on dialysis Current Visit: Yes Status: Acute Lytes stable Will plan for HD on wednesday per his regimen Continue renal diet (3) Hypertensive urgency Current Visit: Yes Status: Acute Stable in the 130s/70s Subjective Interval history: Pt seen and examined with no new complaints, still on heparin gtt Objective - Vital Signs Vital signs: Vital Signs Temp Pulse Resp BP Pulse Ox 08/21/18 12:10 98.2 F 68 18 143/73 98 08/21/18 11:28 98.2 F 68 18 143/73 98 08/21/18 09:00 98.0 F 70 18 174/80 97 08/21/18 06:56 98.0 F 70 18 174/80 97 08/21/18 03:06 97.9 F 70 18 156/83 99 08/20/18 23:39 98.3 F 76 17 163/74 92 08/20/18 20:00 70 08/20/18 19:46 98.4 F 68 17 126/67 96 08/20/18 16:27 98.6 F 67 16 120/62 98 Intake and Output 08/20/18 08/21/18 08/21/18 23:59 07:59 15:59 Intake Total 297 / 297 166 / 166 480 / 480 Output Total 200 / 200 0 / 0 Balance 97 / 97 166 / 166 480 / 480 Intake: IV Fluids 117 / 117 136 / 136 Heparin 25,000 UNIT/500 ML D5W 117 / 117 136 / 136 25,000 unit In 500 ml @ 14 UNIT /KG/HR 16.257 mls/hr IVC .Q24H [facility] Rx#:[id number] Oral 180 / 180 30 / 30 480 / 480 Output: Urine 200 / 200 0 / 0 Other: Meal Dinner Lunch Percent of Meal Consumed 100% 100% Stool Size Small Stool Consistency soft Stool Color Brown Weight 59 kg Blood Glucose* 185 367 350 Patient Weight 08/21/18 23:59 Weight 59 kg - General Appearance General appearance: Present: chronically ill, frail EENT: Present: ATNC, mucous membranes moist Neck: Present: no JVD, supple Respiratory: Present: clear Cardiology: Present: edema (RLE), normal S1, normal S2 Dialysis Vascular Access: Arteriovenous Fistula thrill: Yes bruit: Yes Gastrointestinal: Present: no tenderness, no guarding Integumentary: Present: warm and dry Neurologic: Present: no focal deficit Musculoskeletal: Present: no deformities Psychiatric: Present: mood/affect appropriate, cooperative - Lab 08/22/18 01:48 08/22/18 01:48 Most recent lab results Calcium 7.6 mg/dL (8.6-10.3) L 08/21/18 05:00 Magnesium 1.7 mg/dL (1.6-2.6) 08/20/18 04:20 Consult Discharge Plan - Plan Referrals: Hui Salazar MD [Primary Care Provider] -
[2018-08-21] MEDS ORDERED: Warfarin perPT PO PRN (18:00)
[2018-08-21] MEDS ORDERED: *HR* Warfarin 5 MG TABLET PO ONE (18:00)
[2018-08-21] MEDS: *HR* Heparin 5,000 UNIT/ML VIAL IVP PRN (20:02)
[2018-08-22 02:09] LABS: Basophils # 0.1 K/mcL (0.0-0.2); Basophils % 1.1 %; Eosinophils # 0.3 K/mcL (0.0-0.6); Eosinophils % 3.3 %; Hematocrit 27.5 % (37.5-50.1); Immature Granulocytes % 1.1 % (0-4); Lymphocytes # 1.4 K/mcL (0.6-4.6); Lymphocytes % 14.9 %; Mean Corpuscular HGB Conc 32.7 g/dL (31.6-35.5); Mean Corpuscular Hemoglobin 30.4 pg (28.0-33.3); Mean Corpuscular Volume 92.9 fL (83.0-100.0); Mean Platelet Volume 8.8 fL (9.4-12.4); Monocytes # 1.1 K/mcL (0.0-1.3); Monocytes % 11.1 %; Neutrophils # 6.6 K/mcL (1.6-8.9); Platelet Count 319 K/mcL (140-400); Red Blood Count 2.96 M/mcL (4.19-5.50); Red Cell Distribution Width 14.4 % (11.5-14.5); Segmented Neutrophils % 68.5 %
[2018-08-22 02:14] LABS: Heparin anti-factor XA UFH 0.37 IU/mL (0.30-0.70); Prothrombin Time 11.3 Seconds (9.4-12.1)
[2018-08-22 02:20] LABS: Calcium 7.8 mg/dL (8.6-10.3); Potassium 4.1 mEq/L (3.5-5.1)
[2018-08-22] MEDS: *HR* Dextrose 50 % in Water (Syg) 50 ML SYRINGE IVP PRN (07:55)
[2018-08-22] MEDS: Heparin 25,000 UNIT/500 ML D5W 25,000 UNIT/500 ML BAG IVC SCH (07:58)
[2018-08-22] MEDS: Aspirin 81 MG TAB.CHEW PO SCH (08:01)
[2018-08-22] MEDS: Insulin LISPRO 300 UNITS/3 ML VIAL SQ SCH ×7 (08:01→22:05)
[2018-08-22] MEDS: Calcium Acetate 667 MG CAPSULE PO SCH ×3 (08:01→17:46)
[2018-08-22] MEDS: Renal Vitamin 1 CAP CAPSULE PO SCH (08:01)
[2018-08-22] MEDS: Lisinopril 20 MG TABLET PO SCH (08:03)
[2018-08-22] MEDS: Isosorbide MONOnitrate (24 HR) 60 MG TAB.ER.24H PO SCH (08:03)
[2018-08-22] MEDS: amLODIPine 5 MG TABLET PO SCH (08:03)
[2018-08-22] MEDS ORDERED: 0.9 % Sodium Chloride 250 ML IVC PRN (08:35)
[2018-08-22] MEDS ORDERED: 0.9 % Sodium Chloride 1,000 ML PRIME SCH (08:45)
[2018-08-22] MEDS: *HR* HYDROcodone/Acet 5/325 mg TABLET PO PRN (09:47)
--- NOTE | 2018-08-22 10:27 | Internal Med Progress Note ---
Hospitalist Progress Note - Encounter Date of Encounter: 08/22/18 Time of Encounter: 10:27 - Subjective Interval History: Patient with ESRD and HTN, admitted for HTN Urgency and DVT Uncontrolled HTN was asymptomatic, his DVT was also asymptomatic, apart from swelling of RLE He denies new complains, his blood pressure is improved but still uncontrolled overnight Awaiting HD INR sub-therapeutic Patient remains with a flat affect and seemed "uninterested" - Exam Vitals: Temp Pulse Resp BP Pulse Ox 98.0 F 75 18 206/99 98 08/22/18 07:48 08/22/18 07:48 08/22/18 07:48 08/22/18 07:48 08/22/18 07:48 Exam: Gen: VSS Psych: Flat affect, seemed uninterested in this evaluation Neuro: AAOX3, moves all extremities , no focal deficits Chest: CTAB Heart: S1, S2 only, no m/g/r Abdomen: Soft, not tender Extremities: L UE AVF, R foot swelling, pulses present Skin: No rash - Assessment and Plan (1) End stage renal disease Current Visit: Yes Status: Chronic Assessment and Plan: HD MWF Nephro eval (2) DVT prophylaxis Current Visit: Yes Status: Acute Assessment and Plan: Currently on therapeutic heparin drip (3) CAD (coronary artery disease), [place] coronary artery Current Visit: Yes Status: Chronic Assessment and Plan: History of. No report of chest pain. Continue aspirin, statin, beta jas. (4) Type 2 diabetes mellitus with ESRD (end-stage renal disease) Current Visit: Yes Status: Chronic Assessment and Plan: Patient on chronic insulin therapy at home. Continue long-acting insulin and cover with sliding scale insulin. One episode of hypoglycemia today 08/22, FS recorded as 40. Patient was not symptomatic Continue to monitor FS (5) DVT (deep venous thrombosis) Current Visit: Yes Status: Acute Assessment and Plan: Patient had outpatient testing that revealed extensive right lower extremity DVT. Continue heparin drip and warfarin INR today Monitor INR/PTT (6) Hypertensive urgency Current Visit: Yes Status: Acute Assessment and Plan: Patient presented with accelerated hypertension likely due to medication noncompliance. He admits that he takes his blood pressure medications about once a week. He is asymptomatic Blood pressure has improved, but sub-optimal Continue current meds Will increase Coreg prn after HD - Time Spent with Patient Total time spent is greater than 50% in coordination of care (as documented) at patient's floor/unit and/or counseling patient: Plan of Care Discussed with: patient Internal Medicine: Result - Labs CBC & Chem 7: 08/22/18 01:48 08/22/18 01:48 Labs: Short CBC 08/22/18 Range/Units 01:48 WBC 9.6 (4.3-11.1) K/mcL Hgb 9.0 L (12.9-16.9) g/dL Hct 27.5 L (37.5-50.1) % Plt Count 319 (140-400) K/mcL Neutrophils # 6.6 (1.6-8.9) K/mcL BMP 08/22/18 01:48 Sodium 138 Potassium 4.1 Chloride 99 Carbon Dioxide 24 BUN 80 H Creatinine 6.76 H Glucose 187 H Calcium 7.8 L - ABG Interpretation ABG results: PT/INR, D-dimer PT 11.3 Seconds (9.4-12.1) 08/22/18 01:48 Consult Discharge Plan - Plan Referrals: Hui Salazar MD [Primary Care Provider] - (3) CAD (coronary artery disease), [place] coronary artery Qualifiers: [place] vs. transplanted heart: [place] heart Associated angina: angina presence unspecified Qualified Code(s): I25.10 - Atherosclerotic heart disease of [place] coronary artery without angina pectoris (5) DVT (deep venous thrombosis) Qualifiers: DVT location: lower extremity Affected thrombotic vein of extremity: femoral Chronicity: acute Laterality: right Qualified Code(s): I82.411 - Acute embolism and thrombosis of right femoral vein
[2018-08-22] MEDS: niCARdipine 40 MG/200 ML MLS IVC SCH ×2 (11:58→11:59)
[2018-08-22] MEDS ORDERED: *HR* Warfarin 5 MG TABLET PO ONE (18:00)
--- NOTE | 2018-08-22 20:33 | Nephrology Progress Note ---
Date of Encounter: 08/22/18 Time of Encounter: 10:30 - Assessment and Plan (1) ESRD (end stage renal disease) on dialysis Current Visit: Yes Status: Chronic ESRD on HD MWF. He dialyzes at [facility] on MWF and DW at 57 kg with typical time on 210 min via LUE AVF. I reviewed the hand-off from my colleague, his labs , vials, progress notes, imaging, med list, and the [facility] Dialysis notes, run sheets, listed encounters (Look like he missed comprehensive visits with my colleagues of the last few months of Jul and Jun d/t admissions to [facility]). I also spoke with the [facility] test desk trouble locator Margoth to request updated info. Dialysis planned for today. (2) DVT (deep venous thrombosis) Current Visit: Yes Status: Acute Appreciate the primary team. Qualifiers: DVT location: lower extremity Affected thrombotic vein of extremity: femoral Chronicity: acute Laterality: right Qualified Code(s): I82.411 - Acute embolism and thrombosis of right femoral vein (3) Hyperglycemia due to type 1 diabetes mellitus Current Visit: No Status: Chronic He has a long hx of noncompliance with Rx. As per primary team. (4) Uncontrolled hypertension Current Visit: No Status: Chronic Acute on Chronic. He has a long hx of non-compliance with Rx, and I suspect he may have not been taking his antihypertensive Rx. Agree with Coreg adjustments. Subjective Principal diagnosis: ESRD Interval history: Pt was s/e earlier today in his 2N room (delayed note entry). He did not affirm N/V/D and said that he's feeling more awake and alert today. Objective - Vital Signs Vital signs: Vital Signs Temp Pulse Resp BP Pulse Ox 08/22/18 19:50 98.3 F 68 20 191/84 93 08/22/18 17:15 98.0 F 71 18 214/88 98 08/22/18 17:05 97.0 F L 18 209/106 08/22/18 16:50 206/90 08/22/18 16:35 200/97 08/22/18 16:20 196/86 08/22/18 16:05 200/97 08/22/18 15:50 193/102 08/22/18 15:35 189/86 08/22/18 15:20 179/83 08/22/18 15:05 154/63 10/08/18 14:50 177/87 08/22/18 14:35 170/81 08/22/18 14:20 159/67 08/22/18 14:05 171/84 08/22/18 13:50 185/81 08/22/18 13:35 175/83 08/22/18 13:20 97.2 F L 18 188/86 08/22/18 11:26 97.8 F 64 18 157/69 99 08/22/18 07:48 98.0 F 75 18 206/99 98 08/22/18 03:15 98.2 F 71 16 131/76 100 08/21/18 23:30 98.2 F 74 16 150/69 Intake and Output 08/22/18 08/22/18 08/22/18 07:59 15:59 23:59 Intake Total 400 / 400 1221 / 1221 Output Total 3600 / 3600 Balance 400 / 400 1221 / 1221 -3600 / -3600 Intake: IV Fluids 400 / 400 141 / 141 Heparin 25,000 UNIT/500 ML D5W 400 / 400 141 / 141 25,000 unit In 500 ml @ 14 UNIT /KG/HR 16.257 mls/hr IVC .Q24H [facility] Rx#:[id number] Oral 480 / 480 Intake, Rinseback and Flushes 600 / 600 Output: Urine 0 / 0 Total Dialysis (HD) Output 3600 / 3600 Other: Meal Lunch Percent of Meal Consumed 100% Weight 61.1 kg Blood Glucose* 40 175 254 Hemodialysis Net Fluid Removed 2569 3000 (mL) Patient Weight 08/22/18 23:59 Weight 61.1 kg - General Appearance General appearance: Present: well-developed, well-nourished, appears started age , chronically ill EENT: Present: ATNC, PERRL, mucous membranes moist Neck: Present: supple Respiratory: Present: clear Cardiology: Present: no edema, regular rate, normal S1, normal S2 Dialysis Vascular Access: Arteriovenous Fistula (Left UE) thrill: Yes bruit: Yes Gastrointestinal: Present: normoactive bowel sounds, no guarding Integumentary: Present: no rash, warm and dry Neurologic: Present: no focal deficit, no asterixis, alert and oriented x3 Musculoskeletal: Present: no deformities, no erythema Psychiatric: Present: mood/affect appropriate, cooperative - Lab 08/22/18 01:48 08/22/18 01:48 Most recent lab results Calcium 7.8 mg/dL (8.6-10.3) L 08/22/18 01:48 Magnesium 1.7 mg/dL (1.6-2.6) 08/20/18 04:20 Consult Discharge Plan - Plan Referrals: Hui Salazar MD [Primary Care Provider] -
[2018-08-23 04:08] LABS: Basophils # 0.1 K/mcL (0.0-0.2); Basophils % 1.2 %; Eosinophils # 0.2 K/mcL (0.0-0.6); Eosinophils % 2.3 %; Hematocrit 27.2 % (37.5-50.1); Immature Granulocytes % 1.2 % (0-4); Lymphocytes % 12.4 %; Mean Corpuscular HGB Conc 33.1 g/dL (31.6-35.5); Mean Corpuscular Hemoglobin 29.8 pg (28.0-33.3); Mean Corpuscular Volume 90.1 fL (83.0-100.0); Mean Platelet Volume 8.6 fL (9.4-12.4); Monocytes % 12.5 %; Neutrophils # 5.9 K/mcL (1.6-8.9); Platelet Count 302 K/mcL (140-400); Red Blood Count 3.02 M/mcL (4.19-5.50); Red Cell Distribution Width 14.5 % (11.5-14.5); Segmented Neutrophils % 70.4 %
[2018-08-23 04:19] LABS: Heparin anti-factor XA UFH 0.75 IU/mL (0.30-0.70); INR 1.1; Prothrombin Time 12.4 Seconds (9.4-12.1)
[2018-08-23 04:21] LABS: Calcium 8.2 mg/dL (8.6-10.3); Potassium 4.2 mEq/L (3.5-5.1)
[2018-08-23] MEDS: Insulin DETEMIR 100 UNIT/ML X5UNITS SQ SCH ×2 (04:22→20:08)
[2018-08-23] MEDS: Renal Vitamin 1 CAP CAPSULE PO SCH (08:15)
[2018-08-23] MEDS: Isosorbide MONOnitrate (24 HR) 60 MG TAB.ER.24H PO SCH (08:15)
[2018-08-23] MEDS: Calcium Acetate 667 MG CAPSULE PO SCH ×3 (08:15→17:17)
[2018-08-23] MEDS: Lisinopril 20 MG TABLET PO SCH (08:15)
[2018-08-23] MEDS: amLODIPine 5 MG TABLET PO SCH (08:15)
[2018-08-23] MEDS: Aspirin 81 MG TAB.CHEW PO SCH (08:15)
[2018-08-23] MEDS: Insulin LISPRO 300 UNITS/3 ML VIAL SQ SCH ×7 (08:16→20:08)
[2018-08-23] MEDS: Heparin 25,000 UNIT/500 ML D5W 25,000 UNIT/500 ML BAG IVC SCH ×2 (08:38→08:39)
--- NOTE | 2018-08-23 09:12 | Electrocardiograph Report ---
[place] [address] Test Date: 2018-08-19 Pat Name: Lincoln Kovacs Department: EXAMC7 Room: 2N14 Gender: M Anodiser: : 1955 Requested By: Orville Morrison Order Number: [id number] Reading MD: Jim Caruso Measurements Intervals [place] Rate: 68 P: 59 NV: 114 QRS: 77 QRSD: 84 T: 173 QT: 453 QTc: 482 Interpretive Statements Sinus rhythm Borderline short NV interval Probable LVH with secondary repol abnrm Borderline prolonged QT interval Electronically Signed On 08-23-2018 9:10:46 EDT by Jim Caruso
--- NOTE | 2018-08-23 10:40 | Internal Med Progress Note ---
Hospitalist Progress Note - Encounter Date of Encounter: 08/23/18 Time of Encounter: 10:40 - Subjective Interval History: Patient with ESRD and HTN, admitted for HTN Urgency and DVT Uncontrolled HTN was asymptomatic, his DVT was also asymptomatic, apart from swelling of RLE He denies new complains, his blood pressure is improved but still uncontrolled overnight I have increased the dose of his coreg INR still sub-therapeutic Seen and evaluated at the bedside with his spouse today He apparently had diarrhea 2 weeks ago and went to his p[facility] who ordered a GI panel which had C.diff pcr positive, the patient does not currently have diarrhea He is asymptomatic - Exam Vitals: Temp Pulse Resp BP Pulse Ox 98.1 F 71 16 130/60 95 08/23/18 07:22 08/23/18 07:22 08/23/18 07:22 08/23/18 10:25 08/23/18 07:22 Exam: Gen: VSS Psych: Flat affect, seemed uninterested in this evaluation Neuro: AAOX3, moves all extremities , no focal deficits Chest: CTAB Heart: S1, S2 only, no m/g/r Abdomen: Soft, not tender Extremities: L UE AVF, R foot swelling, pulses present Skin: No rash - Assessment and Plan (1) End stage renal disease Current Visit: Yes Status: Chronic Assessment and Plan: HD MWF Nephro eval appreciated (2) DVT prophylaxis Current Visit: Yes Status: Acute Assessment and Plan: Currently on therapeutic heparin drip (3) CAD (coronary artery disease), [place] coronary artery Current Visit: Yes Status: Chronic Assessment and Plan: History of. No report of chest pain. Continue aspirin, statin, beta jas. (4) Type 2 diabetes mellitus with ESRD (end-stage renal disease) Current Visit: Yes Status: Chronic Assessment and Plan: Patient on chronic insulin therapy at home. Continue long-acting insulin and cover with sliding scale insulin. Continue to monitor FS ACHS Titrate insulin with FS (5) DVT (deep venous thrombosis) Current Visit: Yes Status: Acute Assessment and Plan: Patient had outpatient testing that revealed extensive right lower extremity DVT. Continue heparin drip and warfarin INR today 1.1 Monitor INR/PTT (6) Hypertensive urgency Current Visit: Yes Status: Acute Assessment and Plan: Patient presented with accelerated hypertension likely due to medication noncompliance. He admits that he takes his blood pressure medications about once a week. He is asymptomatic Blood pressure has improved, but sub-optimal Continue current meds, coreg increased (7) Stool culture positive for Clostridium difficile Current Visit: Yes Status: Acute Assessment and Plan: asymptomatic repeat stool for c.diff ordered - Time Spent with Patient Total time spent is greater than 50% in coordination of care (as documented) at patient's floor/unit and/or counseling patient: Plan of Care Discussed with: patient Internal Medicine: Result - Labs CBC & Chem 7: 08/23/18 03:47 08/23/18 03:47 Labs: Short CBC 08/23/18 Range/Units 03:47 WBC 8.3 (4.3-11.1) K/mcL Hgb 9.0 L (12.9-16.9) g/dL Hct 27.2 L (37.5-50.1) % Plt Count 302 (140-400) K/mcL Neutrophils # 5.9 (1.6-8.9) K/mcL BMP 08/23/18 03:47 Sodium 134 L Potassium 4.2 Chloride 98 Carbon Dioxide 25 BUN 44 H Creatinine 4.23 H Glucose 250 H Calcium 8.2 L - ABG Interpretation ABG results: PT/INR, D-dimer PT 12.4 Seconds (9.4-12.1) H 08/23/18 03:47 Consult Discharge Plan - Plan Referrals: Hui Salazar MD [Primary Care Provider] - (3) CAD (coronary artery disease), [place] coronary artery Qualifiers: [place] vs. transplanted heart: [place] heart Associated angina: angina presence unspecified Qualified Code(s): I25.10 - Atherosclerotic heart disease of [place] coronary artery without angina pectoris (5) DVT (deep venous thrombosis) Qualifiers: DVT location: lower extremity Affected thrombotic vein of extremity: femoral Chronicity: acute Laterality: right Qualified Code(s): I82.411 - Acute embolism and thrombosis of right femoral vein
--- NOTE | 2018-08-23 10:50 | Nephrology Progress Note ---
Date of Encounter: 08/23/18 Time of Encounter: 10:00 - Assessment and Plan (1) ESRD (end stage renal disease) on dialysis Current Visit: Yes Status: Chronic ESRD on HD MWF. He dialyzes at [facility] on MWF and DW at 57 kg with typical time on 210 min via LUE AVF. Next dialysis planned for tomorrow. (2) Uncontrolled hypertension Current Visit: No Status: Chronic Acute on Chronic. He has a long hx of non-compliance with Rx; okay to uptitrate antihypertensives. (3) DVT (deep venous thrombosis) Current Visit: Yes Status: Acute Appreciate the primary team. Qualifiers: DVT location: lower extremity Affected thrombotic vein of extremity: femoral Chronicity: acute Laterality: right Qualified Code(s): I82.411 - Acute embolism and thrombosis of right femoral vein (4) Hyperglycemia due to type 1 diabetes mellitus Current Visit: No Status: Chronic He has a long hx of noncompliance with Rx. As per primary team. Subjective Principal diagnosis: ESRD Interval history: Pt was s/e earlier today in his 2N room, and he denied any PEREZ or CP or shortness of breath and he reported feeling relatively well. He did not affirm N /V/D and that HD went smoothly yesterday. Objective - Vital Signs Vital signs: Vital Signs Temp Pulse Resp BP Pulse Ox 08/23/18 10:25 130/60 08/23/18 07:22 98.1 F 71 16 192/85 95 08/23/18 04:07 98.3 F 68 18 174/78 94 08/23/18 00:07 97.9 F 72 18 187/83 95 08/22/18 19:50 98.3 F 68 20 191/84 93 08/22/18 17:15 98.0 F 71 18 214/88 98 08/22/18 17:05 97.0 F L 18 209/106 08/22/18 16:50 206/90 08/22/18 16:35 200/97 08/22/18 16:20 196/86 08/22/18 16:05 200/97 08/22/18 15:50 193/102 08/22/18 15:35 189/86 08/22/18 15:20 179/83 08/22/18 15:05 154/63 10/08/18 14:50 177/87 08/22/18 14:35 170/81 08/22/18 14:20 159/67 08/22/18 14:05 171/84 08/22/18 13:50 185/81 08/22/18 13:35 175/83 08/22/18 13:20 97.2 F L 18 188/86 08/22/18 11:26 97.8 F 64 18 157/69 99 Intake and Output 08/22/18 08/23/18 08/23/18 23:59 07:59 15:59 Intake Total 0 / 0 0 / 0 599 / 599 Output Total 3600 / 3600 Balance -3600 / -3600 0 / 0 599 / 599 Intake: IV Fluids 0 / 0 0 / 0 359 / 359 Heparin 25,000 UNIT/500 ML D5W 0 / 0 0 / 0 359 / 359 25,000 unit In 500 ml @ 14 UNIT /KG/HR 16.257 mls/hr IVC .Q24H [facility] Rx#:[id number] Oral 240 / 240 Output: Urine 0 / 0 Total Dialysis (HD) Output 3600 / 3600 Other: Meal Breakfast Percent of Meal Consumed 100% Weight 58.6 kg Blood Glucose* 254 391 Hemodialysis Net Fluid Removed 3000 (mL) Patient Weight 08/23/18 23:59 Weight 58.6 kg - General Appearance Exam: General appearance: Present: well-developed, thin appearing, appears started age , chronically ill EENT: Present: ATNC, PERRL, mucous membranes moist Neck: Present: supple Respiratory: Present: clear Cardiology: Present: no edema, regular rate, normal S1, normal S2 Dialysis Vascular Access: Arteriovenous Fistula (Left UE) thrill: Yes bruit: Yes Gastrointestinal: Present: normoactive bowel sounds, no guarding Integumentary: Present: no rash, warm and dry Neurologic: Present: no focal deficit, no asterixis, alert and oriented x3 Musculoskeletal: Present: no deformities, no erythema Psychiatric: Present: mood/affect appropriate, cooperative - Lab 08/23/18 03:47 08/23/18 03:47 Most recent lab results Calcium 8.2 mg/dL (8.6-10.3) L 08/23/18 03:47 Magnesium 1.7 mg/dL (1.6-2.6) 08/20/18 04:20 Consult Discharge Plan - Plan Referrals: Hui Salazar MD [Primary Care Provider] -
[2018-08-23] MEDS ORDERED: *HR* Warfarin 10 MG TABLET PO ONE (18:00)
[2018-08-24 00:58] LABS: Basophils # 0.1 K/mcL (0.0-0.2); Basophils % 1.4 %; Eosinophils # 0.2 K/mcL (0.0-0.6); Eosinophils % 2.6 %; Hematocrit 25.1 % (37.5-50.1); Hemoglobin 8.2 g/dL (12.9-16.9); Immature Granulocytes % 0.8 % (0-4); Lymphocytes # 1.2 K/mcL (0.6-4.6); Lymphocytes % 16.7 %; Mean Corpuscular HGB Conc 32.7 g/dL (31.6-35.5); Mean Corpuscular Hemoglobin 30.5 pg (28.0-33.3); Mean Corpuscular Volume 93.3 fL (83.0-100.0); Mean Platelet Volume 8.8 fL (9.4-12.4); Neutrophils # 4.8 K/mcL (1.6-8.9); Platelet Count 293 K/mcL (140-400); Red Blood Count 2.69 M/mcL (4.19-5.50); Red Cell Distribution Width 14.4 % (11.5-14.5); Segmented Neutrophils % 65.5 %
[2018-08-24 01:07] LABS: Heparin anti-factor XA UFH 0.47 IU/mL (0.30-0.70)
[2018-08-24 01:08] LABS: INR 1.2; Prothrombin Time 13.6 Seconds (9.4-12.1)
[2018-08-24 01:15] LABS: Potassium 4.6 mEq/L (3.5-5.1)
[2018-08-24] MEDS ORDERED: 0.9 % Sodium Chloride 250 ML IVC PRN ×2 (06:56→06:59)
[2018-08-24] MEDS ORDERED: 0.9 % Sodium Chloride 1,000 ML ONE (07:27)
[2018-08-24] MEDS: Heparin 25,000 UNIT/500 ML D5W 25,000 UNIT/500 ML BAG IVC SCH (08:05)
[2018-08-24] MEDS: Calcium Acetate 667 MG CAPSULE PO SCH ×3 (08:10→17:30)
[2018-08-24] MEDS: Insulin LISPRO 300 UNITS/3 ML VIAL SQ SCH ×7 (08:11→21:07)
--- NOTE | 2018-08-24 10:38 | Nephrology Progress Note ---
Date of Encounter: 08/24/18 Time of Encounter: 10:10 - Assessment and Plan (1) ESRD (end stage renal disease) on dialysis Current Visit: Yes Status: Chronic ESRD on HD MWF. I reviewed his labs, vitals, med list, I/Os, daily weights and prior progress notes/imaging as part of his complex, high level of EM and MDM, which I used to place his HD orders for today. Next HD is planned for Wednesday, if he remains inpatient. (2) Uncontrolled hypertension Current Visit: No Status: Chronic Acute on Chronic. He has a long hx of non-compliance with Rx; okay to uptitrate antihypertensives. (3) DVT (deep venous thrombosis) Current Visit: Yes Status: Acute Qualifiers: DVT location: lower extremity Affected thrombotic vein of extremity: femoral Chronicity: acute Laterality: right Qualified Code(s): I82.411 - Acute embolism and thrombosis of right femoral vein (4) Hyperglycemia due to type 1 diabetes mellitus Current Visit: No Status: Chronic Subjective Principal diagnosis: ESRD Interval history: Pt was s/e earlier today while on HD, and he did not affirm N/V/D or cramping. Objective - Vital Signs Vital signs: Vital Signs Temp Pulse Resp BP Pulse Ox 08/24/18 09:00 97.0 F L 14 173/86 08/24/18 07:09 98.0 F 78 16 199/94 94 08/24/18 04:00 98.4 F 77 18 184/84 94 08/24/18 00:25 98.1 F 75 18 168/85 97 08/23/18 19:40 98.3 F 75 16 153/70 97 08/23/18 16:19 98.0 F 72 18 140/66 98 08/23/18 11:15 98.2 F 96 18 129/64 96 Intake and Output 08/23/18 08/24/18 08/24/18 23:59 07:59 15:59 Intake Total 567.7 / 567.7 0 / 0 1060 / 1060 Balance 567.7 / 567.7 0 / 0 1060 / 1060 Intake: IV Fluids 207.7 / 207.7 0 / 0 220 / 220 Heparin 25,000 UNIT/500 ML D5W 207.7 / 207.7 0 / 0 220 / 220 25,000 unit In 500 ml @ 14 UNIT /KG/HR 16.257 mls/hr IVC .Q24H [facility] Rx#:[id number] Oral 360 / 360 240 / 240 Intake, Rinseback and Flushes 600 / 600 Other: Meal Dinner Breakfast Percent of Meal Consumed 100% 40% Weight 59 kg Blood Glucose* 263 578 Hemodialysis Net Fluid Removed 0 (mL) Patient Weight 08/24/18 23:59 Weight 59 kg - General Appearance Exam: General appearance: Present: well-developed, thin appearing, appears started age , chronically ill EENT: Present: ATNC, PERRL, mucous membranes moist Neck: Present: supple Respiratory: Present: clear Cardiology: Present: no edema, regular rate, normal S1, normal S2 Dialysis Vascular Access: Arteriovenous Fistula (Left UE) thrill: Yes bruit: Yes Gastrointestinal: Present: normoactive bowel sounds, no guarding Integumentary: Present: no rash, warm and dry Neurologic: Present: no focal deficit, no asterixis, alert and oriented x3 Musculoskeletal: Present: no deformities, no erythema Psychiatric: Present: mood/affect appropriate, cooperative - Lab 08/24/18 00:36 08/24/18 00:36 Most recent lab results Calcium 8.0 mg/dL (8.6-10.3) L 08/24/18 00:36 Magnesium 1.7 mg/dL (1.6-2.6) 08/20/18 04:20 Consult Discharge Plan - Plan Referrals: Hui Salazar MD [Primary Care Provider] -
--- NOTE | 2018-08-24 11:57 | Internal Med Progress Note ---
Hospitalist Progress Note - Encounter Date of Encounter: 08/24/18 Time of Encounter: 11:57 - Subjective Interval History: Patient with ESRD and HTN, admitted for HTN Urgency and DVT Uncontrolled HTN was asymptomatic, his DVT was also asymptomatic, apart from swelling of RLE Seen during HD, no new complains No stool specimen to repeat C.diff testing, patient has no diarrhea INR still subtherapeutic - Exam Vitals: Temp Pulse Resp BP Pulse Ox 97.0 F L 78 14 162/79 94 08/24/18 09:00 08/24/18 07:09 08/24/18 09:00 08/24/18 11:45 08/24/18 07:09 Exam: Gen: VSS Psych: Flat affect, seemed uninterested in this evaluation Neuro: AAOX3, moves all extremities , no focal deficits Chest: CTAB Heart: S1, S2 only, no m/g/r Abdomen: Soft, not tender Extremities: L UE AVF, R foot swelling, pulses present Skin: No rash - Assessment and Plan (1) End stage renal disease Current Visit: Yes Status: Chronic Assessment and Plan: HD MWF Nephro eval appreciated (2) DVT prophylaxis Current Visit: Yes Status: Acute Assessment and Plan: Currently on therapeutic heparin drip (3) CAD (coronary artery disease), [place] coronary artery Current Visit: Yes Status: Chronic Assessment and Plan: History of. No report of chest pain. Continue aspirin, statin, beta jas. (4) Type 2 diabetes mellitus with ESRD (end-stage renal disease) Current Visit: Yes Status: Chronic Assessment and Plan: Patient on chronic insulin therapy at home. Continue long-acting insulin and cover with sliding scale insulin. Said to have been refusing levemir, hence elevated FS Continue to monitor FS ACHS Titrate insulin with FS (5) DVT (deep venous thrombosis) Current Visit: Yes Status: Acute Assessment and Plan: Patient had outpatient testing that revealed extensive right lower extremity DVT. Continue heparin drip and warfarin INR today 1.1 Monitor INR/PTT (6) Hypertensive urgency Current Visit: Yes Status: Acute Assessment and Plan: Patient presented with accelerated hypertension likely due to medication noncompliance. He admits that he takes his blood pressure medications about once a week. He is asymptomatic Blood pressure has improved, but sub-optimal Continue current meds (7) Stool culture positive for Clostridium difficile Current Visit: Yes Status: Acute Assessment and Plan: asymptomatic repeat stool for c.diff ordered - Time Spent with Patient Total time spent is greater than 50% in coordination of care (as documented) at patient's floor/unit and/or counseling patient: Plan of Care Discussed with: patient Internal Medicine: Result - Labs CBC & Chem 7: 08/24/18 00:36 08/24/18 00:36 Labs: Short CBC 08/24/18 Range/Units 00:36 WBC 7.3 (4.3-11.1) K/mcL Hgb 8.2 L (12.9-16.9) g/dL Hct 25.1 L (37.5-50.1) % Plt Count 293 (140-400) K/mcL Neutrophils # 4.8 (1.6-8.9) K/mcL BMP 08/24/18 00:36 Sodium 136 Potassium 4.6 Chloride 99 Carbon Dioxide 24 BUN 77 H Creatinine 5.75 H Glucose 391 H Calcium 8.0 L - ABG Interpretation ABG results: PT/INR, D-dimer PT 13.6 Seconds (9.4-12.1) H 08/24/18 00:36 Consult Discharge Plan - Plan Referrals: Hui Salazar MD [Primary Care Provider] - (3) CAD (coronary artery disease), [place] coronary artery Qualifiers: [place] vs. transplanted heart: [place] heart Associated angina: angina presence unspecified Qualified Code(s): I25.10 - Atherosclerotic heart disease of [place] coronary artery without angina pectoris (5) DVT (deep venous thrombosis) Qualifiers: DVT location: lower extremity Affected thrombotic vein of extremity: femoral Chronicity: acute Laterality: right Qualified Code(s): I82.411 - Acute embolism and thrombosis of right femoral vein
[2018-08-24] MEDS: Lisinopril 20 MG TABLET PO SCH (13:35)
[2018-08-24] MEDS: Isosorbide MONOnitrate (24 HR) 60 MG TAB.ER.24H PO SCH (13:35)
[2018-08-24] MEDS: Renal Vitamin 1 CAP CAPSULE PO SCH (13:35)
[2018-08-24] MEDS: amLODIPine 5 MG TABLET PO SCH (13:35)
[2018-08-24] MEDS: Aspirin 81 MG TAB.CHEW PO SCH (13:35)
[2018-08-24] MEDS ORDERED: *HR* Warfarin 10 MG TABLET PO ONE (18:00)
[2018-08-24] MEDS: Insulin DETEMIR 100 UNIT/ML X5UNITS SQ SCH (21:08)
[2018-08-25] MEDS ORDERED: *HR* Dextrose 50 % in Water (Syg) 50 ML SYRINGE ONE ×2 (03:52→04:12)
[2018-08-25 04:09] LABS: ABG Base Excess 6 mEq/L (-2 to 3); ABG HCO3 32 mEq/L (21-27); ABG Oxygen Saturation 99 % (95-98); ABG PCO2 51 mmHg (35-45); ABG PH 7.41 pH Units (7.32-7.45); ABG PO2 116 mmHg (85-104); ABG TCO2 34 mEq/L (20-26)
[2018-08-25 04:20] LABS: Basophils # 0.1 K/mcL (0.0-0.2); Basophils % 1.2 %; Eosinophils # 0.1 K/mcL (0.0-0.6); Eosinophils % 1.8 %; Hematocrit 30.8 % (37.5-50.1); Immature Granulocytes % 0.9 % (0-4); Lymphocytes # 0.7 K/mcL (0.6-4.6); Mean Corpuscular HGB Conc 32.5 g/dL (31.6-35.5); Mean Corpuscular Hemoglobin 29.7 pg (28.0-33.3); Mean Corpuscular Volume 91.4 fL (83.0-100.0); Mean Platelet Volume 8.4 fL (9.4-12.4); Monocytes # 0.5 K/mcL (0.0-1.3); Monocytes % 6.8 %; Neutrophils # 6.3 K/mcL (1.6-8.9); Platelet Count 336 K/mcL (140-400); Red Blood Count 3.37 M/mcL (4.19-5.50); Red Cell Distribution Width 14.2 % (11.5-14.5); Segmented Neutrophils % 80.3 %
--- NOTE | 2018-08-25 04:32 | Event Note ---
Date of Encounter: 08/25/18 Time of Encounter: 04:26 I was paged urgently to the patient's room by the nurse due to unresponsiveness. Upon arrival patient was slumped over in the bed and not responding to verbal or painful stimuli. Patient was noted to be diaphoretic. Patient was noted to be hypoxic with oxygen saturation in the mid 80s. Stat Accu-Chek was obtained that revealed revealed a blood sugar of 37. Patient was immediately given 2 A of D50. At this point patient's mental status slowly began to improve and at first she was responsive to painful stimuli and after several minutes he was still lethargic but would follow verbal commands. Repeat blood sugar revealed a blood sugar of 377. Patient was able to be titrated down to 2 L of oxygen and remained at 99%. Stat head CT was obtained and was negative, repeat labs were obtained and were unremarkable. Patient appears to be returned to baseline. We will continue to monitor Accu-Cheks hourly and treat as necessary.
[2018-08-25 04:37] LABS: Heparin anti-factor XA UFH 0.56 IU/mL (0.30-0.70)
[2018-08-25 04:39] LABS: Prothrombin Time 22.4 Seconds (9.4-12.1)
[2018-08-25 04:41] LABS: Calcium 8.5 mg/dL (8.6-10.3); Potassium 3.9 mEq/L (3.5-5.1)
[2018-08-25] MEDS: *HR* Dextrose 50 % in Water (Syg) 50 ML SYRINGE IVP PRN (05:20)
[2018-08-25] MEDS: Heparin 25,000 UNIT/500 ML D5W 25,000 UNIT/500 ML BAG IVC SCH (05:51)
[2018-08-25 06:23] LABS: Magnesium 1.9 mg/dL (1.6-2.6)
[2018-08-25] MEDS: Insulin LISPRO 300 UNITS/3 ML VIAL SQ SCH ×5 (07:59→20:25)
[2018-08-25] MEDS: Calcium Acetate 667 MG CAPSULE PO SCH ×3 (08:00→16:43)
[2018-08-25] MEDS: Renal Vitamin 1 CAP CAPSULE PO SCH (08:00)
[2018-08-25] MEDS: Aspirin 81 MG TAB.CHEW PO SCH (08:00)
[2018-08-25] MEDS: Lisinopril 20 MG TABLET PO SCH (08:00)
[2018-08-25] MEDS: Isosorbide MONOnitrate (24 HR) 60 MG TAB.ER.24H PO SCH (08:01)
[2018-08-25] MEDS: amLODIPine 5 MG TABLET PO SCH (08:01)
--- NOTE | 2018-08-25 10:05 | Internal Med Progress Note ---
Hospitalist Progress Note - Encounter Date of Encounter: 08/25/18 Time of Encounter: 10:05 - Subjective Interval History: Patient with ESRD and HTN, admitted for HTN Urgency and DVT Uncontrolled HTN was asymptomatic, his DVT was also asymptomatic, apart from swelling of RLE Seen at bedside this a.m, no new complains No stool specimen to repeat C.diff testing, patient has no diarrhea INR today 2.0 Had hypoglycemia whit s.m with AMS and hypoxia, all improved with glucose admin Will stop levemir for now and only sliding scale Pharmacy managing warfarin, INR therapeutic, will stop heparin - Exam Vitals: Temp Pulse Resp BP Pulse Ox 98.1 F 58 18 174/78 100 08/25/18 07:13 08/25/18 08:11 08/25/18 07:13 08/25/18 07:13 08/25/18 07:13 Exam: Gen: VSS Psych: Flat affect, seemed uninterested in this evaluation Neuro: AAOX3, moves all extremities , no focal deficits Chest: CTAB Heart: S1, S2 only, no m/g/r Abdomen: Soft, not tender Extremities: L UE AVF, R foot swelling, pulses present Skin: No rash - Assessment and Plan (1) End stage renal disease Current Visit: Yes Status: Chronic Assessment and Plan: HD MWF Nephro eval appreciated (2) DVT prophylaxis Current Visit: Yes Status: Acute Assessment and Plan: Currently on therapeutic heparin drip INR therapeutic (3) CAD (coronary artery disease), [place] coronary artery Current Visit: Yes Status: Chronic Assessment and Plan: History of. No report of chest pain. Continue aspirin, statin, brilinta, beta jas. (4) Type 2 diabetes mellitus with ESRD (end-stage renal disease) Current Visit: Yes Status: Chronic Assessment and Plan: Patient on chronic insulin therapy at home. Said to have been refusing levemir, hence elevated FS He had hypoglycemia this mrn, with altered mentation, improved with glucose administration Discontinue levemir Continue to monitor FS ACHS Titrate insulin with FS (5) DVT (deep venous thrombosis) Current Visit: Yes Status: Acute Assessment and Plan: Patient had outpatient testing that revealed extensive right lower extremity DVT. INR today 2.0 D/c heprarin Monitor INR/PTT (6) Hypertensive urgency Current Visit: Yes Status: Acute Assessment and Plan: Patient presented with accelerated hypertension likely due to medication noncompliance. He admits that he takes his blood pressure medications about once a week. He is asymptomatic Blood pressure has improved, but sub-optimal Continue current meds (7) Stool culture positive for Clostridium difficile Current Visit: Yes Status: Acute Assessment and Plan: asymptomatic repeat stool for c.diff ordered - Time Spent with Patient Total time spent is greater than 50% in coordination of care (as documented) at patient's floor/unit and/or counseling patient: Plan of Care Discussed with: patient Internal Medicine: Result - Labs CBC & Chem 7: 08/25/18 04:07 08/25/18 04:07 Labs: Short CBC 08/25/18 Range/Units 04:07 WBC 7.8 (4.3-11.1) K/mcL Hgb 10.0 L D (12.9-16.9) g/dL Hct 30.8 L (37.5-50.1) % Plt Count 336 (140-400) K/mcL Neutrophils # 6.3 (1.6-8.9) K/mcL BMP 08/25/18 04:07 Sodium 140 Potassium 3.9 Chloride 101 Carbon Dioxide 28 BUN 40 H Creatinine 3.82 H Glucose 288 H Calcium 8.5 L - ABG Interpretation ABG results: ABG ABG pH 7.41 pH Units (7.32-7.45) 08/25/18 04:05 ABG pCO2 51 mmHg (35-45) H 08/25/18 04:05 ABG pO2 116 mmHg (85-104) H 08/25/18 04:05 ABG O2 Saturation 99 % (95-98) H 08/25/18 04:05 PT/INR, D-dimer PT 22.4 Seconds (9.4-12.1) H D 08/25/18 04:07 - Impressions Impressions Chest X-Ray 08/25/18 04:03 IMPRESSION: Decreased pleural effusions with improved interstitial edema. Residual retrocardiac opacity favored to represent atelectasis. Aspiration or pneumonia could have a similar appearance. D/ / Andriy Carranza / Andriy Carranza Interpreting Provider: Andriy Carranza Head CT 08/25/18 04:03 IMPRESSION: No acute intracranial abnormality. Stable chronic findings, as above. D/ / Andriy Carranza / Andriy Carranza Interpreting Provider: Andriy Carranza Consult Discharge Plan - Plan Referrals: Hui Salazar MD [Primary Care Provider] - (3) CAD (coronary artery disease), [place] coronary artery Qualifiers: [place] vs. transplanted heart: [place] heart Associated angina: angina presence unspecified Qualified Code(s): I25.10 - Atherosclerotic heart disease of [place] coronary artery without angina pectoris (5) DVT (deep venous thrombosis) Qualifiers: DVT location: lower extremity Affected thrombotic vein of extremity: femoral Chronicity: acute Laterality: right Qualified Code(s): I82.411 - Acute embolism and thrombosis of right femoral vein
--- NOTE | 2018-08-25 17:21 | Event Note ---
Date of Encounter: 08/25/18 Time of Encounter: 17:20 Nephro Update Plan for next HD tomorrow (Wednesday) as he is ESRD on HD MWF. Thank you .
[2018-08-25] MEDS ORDERED: *HR* Warfarin 5 MG TABLET PO ONE (18:00)
[2018-08-25] MEDS ORDERED: *HR* Dextrose 50 % in Water (Syg) 50 ML SYRINGE IVP PRN (18:54)
[2018-08-25] MEDS ORDERED: 0.9 % Sodium Chloride 1,000 ML ONE (20:22)
[2018-08-25] MEDS: Insulin Human Regular 100 UNIT in 0.9 % Sodium Chloride 100 ML IVC SCH (20:25)
[2018-08-26] MEDS: *HR* Dextrose 50 % in Water (Syg) 50 ML SYRINGE IVP PRN ×2 (00:11→01:23)
[2018-08-26 03:35] LABS: Basophils # 0.1 K/mcL (0.0-0.2); Eosinophils # 0.1 K/mcL (0.0-0.6); Eosinophils % 0.9 %; Hematocrit 25.1 % (37.5-50.1); Immature Granulocytes % 0.4 % (0-4); Lymphocytes # 0.9 K/mcL (0.6-4.6); Lymphocytes % 9.4 %; Mean Corpuscular HGB Conc 32.7 g/dL (31.6-35.5); Mean Corpuscular Hemoglobin 29.5 pg (28.0-33.3); Mean Corpuscular Volume 90.3 fL (83.0-100.0); Mean Platelet Volume 8.7 fL (9.4-12.4); Monocytes # 1.2 K/mcL (0.0-1.3); Neutrophils # 6.8 K/mcL (1.6-8.9); Platelet Count 323 K/mcL (140-400); Red Blood Count 2.78 M/mcL (4.19-5.50); Segmented Neutrophils % 75.3 %
[2018-08-26 03:53] LABS: Calcium 8.2 mg/dL (8.6-10.3); Hemoglobin 8.2 g/dL (12.9-16.9); Potassium 4.6 mEq/L (3.5-5.1)
[2018-08-26 03:58] LABS: INR 3.9; Prothrombin Time 43.9 Seconds (9.4-12.1)
[2018-08-26] MEDS: Insulin LISPRO 300 UNITS/3 ML VIAL SQ SCH ×4 (08:39→20:29)
--- NOTE | 2018-08-26 11:08 | Nephrology Progress Note ---
Date of Encounter: 08/26/18 Time of Encounter: 09:25 - Assessment and Plan (1) ESRD (end stage renal disease) on dialysis Status: Chronic Plan for HD today, with orders in place. I reviewed his labs, vitals, med list, I/Os, daily weights and prior progress notes/imaging as part of his complex, high level of EM and MDM, which I used to place his HD orders for today. (2) Uncontrolled hypertension Status: Chronic (3) DVT (deep venous thrombosis) Status: Acute Qualifiers: DVT location: lower extremity Affected thrombotic vein of extremity: femoral Chronicity: acute Laterality: right Qualified Code(s): I82.411 - Acute embolism and thrombosis of right femoral vein (4) Hyperglycemia due to type 1 diabetes mellitus Status: Chronic Subjective Principal diagnosis: ESRD Interval history: Pt was s/e while on HD. He did not affirm N/V/D or other major dialysis related complaints such as cramping or dizziness. Objective - Vital Signs Vital signs: Vital Signs Temp Pulse Resp BP Pulse Ox 08/26/18 10:30 163/71 08/26/18 10:15 145/64 08/26/18 10:00 98.2 F 15 145/64 08/26/18 08:00 75 08/26/18 07:26 98.1 F 72 16 175/81 97 08/26/18 05:41 98.4 F 69 19 144/66 97 08/25/18 23:30 98.3 F 76 14 145/75 97 08/25/18 20:30 75 08/25/18 19:51 98.2 F 74 19 144/70 97 08/25/18 15:55 97.7 F 75 18 160/75 95 Intake and Output 08/25/18 08/26/18 08/26/18 23:59 07:59 15:59 Intake Total 391 / 391 1200 / 1200 Balance 391 / 391 1200 / 1200 Intake: IV Fluids HumuLIN R 100 UNIT In 0.9 % Sodium Chloride 100 ML @ 13 UNIT/HR 13.13 mls/hr IVC CONT [facility] Rx#:[id number] Oral 360 / 360 600 / 600 Intake, Rinseback and Flushes 600 / 600 Other: Meal Dinner Breakfast Percent of Meal Consumed 100% 100% Stool Size Small Stool Consistency soft Stool Characteristics Normal for Patient Stool Color Brown # Bowel Movements 1 Blood Glucose* 111 331 262 Hemodialysis Net Fluid Removed 449 (mL) - General Appearance Exam: General appearance: Present: well-developed, thin appearing, appears started age , chronically ill EENT: Present: ATNC, PERRL, mucous membranes moist Neck: Present: supple Respiratory: Present: clear Cardiology: Present: no edema, regular rate, normal S1, normal S2 Dialysis Vascular Access: Arteriovenous Fistula (Left UE) thrill: Yes bruit: Yes Gastrointestinal: Present: normoactive bowel sounds, no guarding Integumentary: Present: no rash, warm and dry Neurologic: Present: no focal deficit, no asterixis, alert and oriented x3 Musculoskeletal: Present: no deformities, no erythema Psychiatric: Present: mood/affect appropriate, cooperative - Lab 08/27/18 10:25 08/26/18 03:04 Most recent lab results ABG pH 7.41 pH Units (7.32-7.45) 08/25/18 04:05 ABG pCO2 51 mmHg (35-45) H 08/25/18 04:05 ABG pO2 116 mmHg (85-104) H 08/25/18 04:05 ABG HCO3 32 mEq/L (21-27) H 08/25/18 04:05 ABG O2 Saturation 99 % (95-98) H 08/25/18 04:05 Calcium 8.2 mg/dL (8.6-10.3) L 08/26/18 03:04 Magnesium 1.9 mg/dL (1.6-2.6) 08/25/18 04:07 Consult Discharge Plan - Plan Instructions: Warfarin (By mouth), Influenza Virus Vaccine (Injection), Isosorbide Mononitrate (By mouth), Carvedilol (By mouth), Deep Venous Thrombosis (DC) Additional Instructions: make appt to anticoagulation clinic [phone] Referrals: Hui Salazar MD [Primary Care Provider] - (pt to call for follow up) Prescriptions: Carvedilol [Coreg] 25 mg PO BIDWM #60 tablet Isosorbide MONOnitrate (24 HR) [Imdur] 60 mg PO DAILY #30 tab.er.24h Warfarin [Coumadin] 2 mg PO 1800 #30 tablet
[2018-08-26] MEDS: Calcium Acetate 667 MG CAPSULE PO SCH ×3 (11:36→17:18)
[2018-08-26] MEDS: Lisinopril 20 MG TABLET PO SCH (14:42)
[2018-08-26] MEDS: Isosorbide MONOnitrate (24 HR) 60 MG TAB.ER.24H PO SCH (14:42)
[2018-08-26] MEDS: Aspirin 81 MG TAB.CHEW PO SCH (14:42)
[2018-08-26] MEDS: Renal Vitamin 1 CAP CAPSULE PO SCH (14:42)
[2018-08-26] MEDS: amLODIPine 5 MG TABLET PO SCH (14:42)
--- NOTE | 2018-08-26 16:04 | Internal Med Progress Note ---
Hospitalist Progress Note - Encounter Date of Encounter: 08/26/18 Time of Encounter: 08:30 - Subjective Interval History: She was seen and examined at bedside, dismissive Reports that he tolerated diet, no complaints of pain, Denies fever, chills, chest pain, shortness of breath, nausea, vomiting, diarrhea - Exam Vitals: Temp Pulse Resp BP Pulse Ox 98.1 F 75 14 170/84 97 08/26/18 14:00 08/26/18 08:00 08/26/18 14:00 08/26/18 14:00 08/26/18 07:26 Exam: Gen: No acute distress, speaks in full sentences HEENT: Normocephalic atraumatic, anicteric Psych: Flat affect, seemed uninterested in this evaluation, very dismissive Neuro: AAOX3, moves all extremities , no focal deficits Chest: CTAB Heart: S1, S2 only, no m/g/r Abdomen: Soft, not tender Extremities: LUE AVF, clean no signs of bleeding or infection, R foot swelling, pulses present Skin: No rash, warm, dry - Assessment and Plan (1) DVT (deep venous thrombosis) Current Visit: Yes Status: Acute Assessment and Plan: Patient had outpatient testing that revealed extensive right lower extremity DVT. INR today 3.9 Monitor INR/PTT (2) End stage renal disease Current Visit: Yes Status: Chronic Assessment and Plan: HD MWF Nephro eval appreciated (3) CAD (coronary artery disease), [place] coronary artery Current Visit: Yes Status: Chronic Assessment and Plan: History of. No report of chest pain. Continue home medications (4) Type 2 diabetes mellitus with ESRD (end-stage renal disease) Current Visit: Yes Status: Chronic Assessment and Plan: Patient on chronic insulin therapy at home. Said to have been refusing levemir, hence elevated FS Had episode of hypoglycemia on 08/25 AM long-acting insulin was discontinued however developed hyperglycemia in the evening of 08/25 and was started on insulin drip for short periods of time where he developed hypoglycemia Will restart his Levemir at 10 units daily at bedtime Sliding-scale coverage Follow fingersticks closely as he is ESRD on dialysis (5) Hypertensive urgency Current Visit: Yes Status: Acute Assessment and Plan: Patient presented with accelerated hypertension likely due to medication noncompliance. He admits that he takes his blood pressure medications about once a week. He is asymptomatic Blood pressure has improved, but sub-optimal Continue current meds and adjust as per BP (6) Stool culture positive for Clostridium difficile Current Visit: Yes Status: Acute Assessment and Plan: asymptomatic repeat stool for c.diff ordered (7) DVT prophylaxis Current Visit: Yes Status: Acute Assessment and Plan: On Coumadin INR therapeutic - Time Spent with Patient Total time spent is greater than 50% in coordination of care (as documented) at patient's floor/unit and/or counseling patient: Internal Medicine: Result - Labs CBC & Chem 7: 08/26/18 03:04 08/26/18 03:04 Labs: Short CBC 08/26/18 Range/Units 03:04 WBC 9.0 (4.3-11.1) K/mcL Hgb 8.2 L D (12.9-16.9) g/dL Hct 25.1 L (37.5-50.1) % Plt Count 323 (140-400) K/mcL Neutrophils # 6.8 (1.6-8.9) K/mcL BMP 08/26/18 03:04 Sodium 137 Potassium 4.6 Chloride 99 Carbon Dioxide 25 BUN 63 H Creatinine 5.08 H Glucose 152 H Calcium 8.2 L - ABG Interpretation ABG results: ABG ABG pH 7.41 pH Units (7.32-7.45) 08/25/18 04:05 ABG pCO2 51 mmHg (35-45) H 08/25/18 04:05 ABG pO2 116 mmHg (85-104) H 08/25/18 04:05 ABG O2 Saturation 99 % (95-98) H 08/25/18 04:05 PT/INR, D-dimer PT 43.9 Seconds (9.4-12.1) H* D 08/26/18 03:04 Consult Discharge Plan - Plan Referrals: Hui Salazar MD [Primary Care Provider] - (1) DVT (deep venous thrombosis) Qualifiers: DVT location: lower extremity Affected thrombotic vein of extremity: femoral Chronicity: acute Laterality: right Qualified Code(s): I82.411 - Acute embolism and thrombosis of right femoral vein (3) CAD (coronary artery disease), [place] coronary artery Qualifiers: [place] vs. transplanted heart: [place] heart Associated angina: angina presence unspecified Qualified Code(s): I25.10 - Atherosclerotic heart disease of [place] coronary artery without angina pectoris
[2018-08-26] MEDS: Insulin Human Regular 100 UNIT in 0.9 % Sodium Chloride 100 ML IVC SCH (17:22)
[2018-08-26] MEDS ORDERED: Insulin DETEMIR 100 UNIT/ML X5UNITS SQ SCH (21:00)
[2018-08-27 04:40] LABS: Prothrombin Time 45.7 Seconds (9.4-12.1)
[2018-08-27] MEDS: *HR* Dextrose 50 % in Water (Syg) 50 ML SYRINGE IVP PRN (07:54)
[2018-08-27] MEDS: *HR* HYDROcodone/Acet 5/325 mg TABLET PO PRN ×2 (07:55→16:19)
[2018-08-27] MEDS: Calcium Acetate 667 MG CAPSULE PO SCH ×3 (07:55→16:19)
[2018-08-27] MEDS: Isosorbide MONOnitrate (24 HR) 60 MG TAB.ER.24H PO SCH (07:55)
[2018-08-27] MEDS: Insulin LISPRO 300 UNITS/3 ML VIAL SQ SCH ×4 (07:55→20:57)
[2018-08-27] MEDS: Renal Vitamin 1 CAP CAPSULE PO SCH (07:55)
[2018-08-27] MEDS: Lisinopril 20 MG TABLET PO SCH (07:56)
[2018-08-27] MEDS: amLODIPine 5 MG TABLET PO SCH (07:56)
[2018-08-27] MEDS: Aspirin 81 MG TAB.CHEW PO SCH (07:56)
--- NOTE | 2018-08-27 09:52 | Event Note ---
Date of Encounter: 08/27/18 Time of Encounter: 09:52 Nephrology Chart Review S/p HD yesterday. I reviewed his labs, vitals, med list and I/Os and would recommend HD on Wednesday. I will be available this weekend if needed. Otherwise my colleague Dr. Morris will be on-call starting Wednesday. Thank you.
[2018-08-27 10:32] LABS: Basophils # 0.1 K/mcL (0.0-0.2); Basophils % 1.7 %; Eosinophils # 0.2 K/mcL (0.0-0.6); Eosinophils % 2.4 %; Hematocrit 28.5 % (37.5-50.1); Hemoglobin 9.1 g/dL (12.9-16.9); Immature Granulocytes % 0.5 % (0-4); Lymphocytes # 1.2 K/mcL (0.6-4.6); Lymphocytes % 15.3 %; Mean Corpuscular HGB Conc 31.9 g/dL (31.6-35.5); Mean Corpuscular Hemoglobin 29.8 pg (28.0-33.3); Mean Corpuscular Volume 93.4 fL (83.0-100.0); Mean Platelet Volume 8.8 fL (9.4-12.4); Monocytes # 0.9 K/mcL (0.0-1.3); Monocytes % 11.9 %; Neutrophils # 5.1 K/mcL (1.6-8.9); Platelet Count 325 K/mcL (140-400); Red Blood Count 3.05 M/mcL (4.19-5.50); Red Cell Distribution Width 13.8 % (11.5-14.5); Segmented Neutrophils % 68.2 %
--- NOTE | 2018-08-27 10:59 | Electrocardiograph Report ---
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
--- NOTE | 2018-08-27 14:13 | Internal Med Progress Note ---
Hospitalist Progress Note - Encounter Date of Encounter: 08/27/18 Time of Encounter: 11:00 - Subjective Interval History: Patient is awake and alert. Lying in bed. Comfortable. Denies any new complaints at this time. No shortness of breath. No chest pain. Does continue to have right lower extremity swelling. - Exam Vitals: Temp Pulse Resp BP Pulse Ox 97.9 F 65 16 139/69 97 08/27/18 11:16 08/27/18 11:16 08/27/18 11:16 08/27/18 11:16 08/27/18 11:16 Exam: General: Patient is alert, no acute distress, oriented x 3 Respiratory: Good respiratory effort. Normal breath sounds. No wheezing or crackles. Cardiovascular: Regular rate and rhythm. s1 and s2 normal No clicks, rubs, gallops, or murmurs. No pedal edema Abdomen: Abdomen is soft, nontender. Bowel sounds are present Musculoskeletal: Right lower extremity swollen compared to the left Skin: warm, dry, intact. Neuro: Alert oriented x 3 normal cranial nerves, no focal deficits - Assessment and Plan (1) DVT (deep venous thrombosis) Current Visit: Yes Status: Acute Assessment and Plan: Acute right lower extremity deep pain thrombosis. On Coumadin. INR is supratherapeutic. Hold Coumadin for another day. INR trends downward tomorrow , we will plan on discharging patient on 2 mg of Coumadin and have him follow- up outpatient closely with the Coumadin clinic. (2) End stage renal disease Current Visit: Yes Status: Chronic Assessment and Plan: Continue dialysis per usual regimen. Patient dialyzed yesterday without any issues. (3) DVT prophylaxis Current Visit: Yes Status: Acute Assessment and Plan: On Coumadin. INR is supratherapeutic (4) CAD (coronary artery disease), [place] coronary artery Current Visit: Yes Status: Chronic Assessment and Plan: Continue aspirin, statin, Coreg and Plavix. (5) Type 2 diabetes mellitus with ESRD (end-stage renal disease) Current Visit: Yes Status: Chronic Assessment and Plan: Blood sugars low this morning. Held morning Levemir dose. Will give a 10 afternoon instead once his blood sugars improved. Continue sliding scale insulin. (6) Hypertensive urgency Current Visit: Yes Status: Resolved Assessment and Plan: Blood pressure has improved overall. Elevated earlier this morning but has been better controlled as the day has progressed. Will continue current medications. (7) Stool culture positive for Clostridium difficile Current Visit: Yes Status: Acute Assessment and Plan: No episodes of diarrhea. No indication for treatment at this time - Time Spent with Patient Total time spent is greater than 50% in coordination of care (as documented) at patient's floor/unit and/or counseling patient: Internal Medicine: Result - Labs CBC & Chem 7: 08/27/18 10:25 08/26/18 03:04 Labs: Short CBC 08/27/18 Range/Units 10:25 WBC 7.5 (4.3-11.1) K/mcL Hgb 9.1 L (12.9-16.9) g/dL Hct 28.5 L (37.5-50.1) % Plt Count 325 (140-400) K/mcL Neutrophils # 5.1 (1.6-8.9) K/mcL - ABG Interpretation ABG results: ABG ABG pH 7.41 pH Units (7.32-7.45) 08/25/18 04:05 ABG pCO2 51 mmHg (35-45) H 08/25/18 04:05 ABG pO2 116 mmHg (85-104) H 08/25/18 04:05 ABG O2 Saturation 99 % (95-98) H 08/25/18 04:05 PT/INR, D-dimer PT 45.7 Seconds (9.4-12.1) H* 08/27/18 03:58 Consult Discharge Plan - Plan Referrals: Hui Salazar MD [Primary Care Provider] - (1) DVT (deep venous thrombosis) Qualifiers: DVT location: lower extremity Affected thrombotic vein of extremity: femoral Chronicity: acute Laterality: right Qualified Code(s): I82.411 - Acute embolism and thrombosis of right femoral vein (4) CAD (coronary artery disease), [place] coronary artery Qualifiers: [place] vs. transplanted heart: [place] heart Associated angina: angina presence unspecified Qualified Code(s): I25.10 - Atherosclerotic heart disease of [place] coronary artery without angina pectoris
[2018-08-27] MEDS: Insulin DETEMIR 100 UNIT/ML X5UNITS SQ SCH (16:06)
[2018-08-27] MEDS: Insulin Human Regular 100 UNIT in 0.9 % Sodium Chloride 100 ML IVC SCH (18:50)
[2018-08-28 04:32] LABS: INR 2.6; Prothrombin Time 29.7 Seconds (9.4-12.1)
[2018-08-28] MEDS: Renal Vitamin 1 CAP CAPSULE PO SCH (08:29)
[2018-08-28] MEDS: Calcium Acetate 667 MG CAPSULE PO SCH ×2 (08:29→11:23)
[2018-08-28] MEDS: Aspirin 81 MG TAB.CHEW PO SCH (08:29)
[2018-08-28] MEDS: amLODIPine 5 MG TABLET PO SCH (08:29)
[2018-08-28] MEDS: Insulin LISPRO 300 UNITS/3 ML VIAL SQ SCH ×2 (08:30→11:23)
[2018-08-28] MEDS: Lisinopril 20 MG TABLET PO SCH (08:30)
[2018-08-28] MEDS: Isosorbide MONOnitrate (24 HR) 60 MG TAB.ER.24H PO SCH (08:30)
[2018-08-28] MEDS: Insulin DETEMIR 100 UNIT/ML X5UNITS SQ SCH (08:38)
[2018-08-28] MEDS: *HR* HYDROcodone/Acet 5/325 mg TABLET PO PRN (08:38)
[2018-08-28 08:50] VITALS: BP 181/79
[2018-08-28] MEDS: CloNIDine Patch 0.3 MG PATCH (WEEKLY) TD SCH (10:46)
--- NOTE | 2018-08-28 12:42 | Discharge Summary ---
- NOTES TO OUTPATIENT PROVIDER Notes to Outpatient Provider: Patient with a history of recent stroke treated with TPA, coronary artery disease, diabetes, hypertension and end stage renal disease was hospitalized here with acute DVT in his right lower extremity that was diagnosed as outpatient. He was started on IV heparin drip and then transitioned to Coumadin due to his end-stage renal disease. His INR became supratherapeutic. As such he was observed and Coumadin was held. Currently his INR is therapeutic and patient is stable to be discharged on low-dose Coumadin. He will follow up with the Coumadin clinic and hematology after discharge for further management of his DVT. Orders not resulted at time of discharge: Pending orders 08/29/18 04:00 BMP [Basic Metabolic Panel] AM 0400 Complete Blood Count [HEME] AM 0400 INR/PT [Prothrombin Time INR] [COAG] AM 0400 08/30/18 04:00 INR/PT [Prothrombin Time INR] [COAG] AM 0400 Date of Encounter: 08/28/18 Time of Encounter: 12:37 - Discharge Diagnosis (1) DVT (deep venous thrombosis) Priority: Primary Status: Acute Qualifiers: DVT location: lower extremity Affected thrombotic vein of extremity: femoral Chronicity: acute Laterality: right Qualified Code(s): I82.411 - Acute embolism and thrombosis of right femoral vein (2) End stage renal disease Priority: Secondary Status: Chronic (3) CAD (coronary artery disease), [place] coronary artery Priority: Secondary Status: Chronic Qualifiers: [place] vs. transplanted heart: [place] heart Associated angina: angina presence unspecified Qualified Code(s): I25.10 - Atherosclerotic heart disease of [place] coronary artery without angina pectoris (4) Type 2 diabetes mellitus with ESRD (end-stage renal disease) Priority: Secondary Status: Chronic (5) Hypertensive urgency Priority: Secondary Status: Resolved (6) Stool culture positive for Clostridium difficile Priority: Secondary Status: Acute Hospital course: Mr. Kovacs is a 63 year old male Patient with a history of recent stroke treated with TPA, coronary artery disease, diabetes, hypertension and end stage renal disease was hospitalized here with acute DVT in his right lower extremity that was diagnosed as outpatient. He was started on IV heparin drip and then transitioned to Coumadin due to his end-stage renal disease. His INR became supratherapeutic. As such he was observed and Coumadin was held. Currently his INR is therapeutic and patient is stable to be discharged on low-dose Coumadin. He will follow up with the Coumadin clinic and hematology after discharge for further management of his DVT. On initial presentation, stool culture was done for the patient and it was positive for C. difficile. However patient did not have any diarrhea and still does not have any diarrhea. Says this is not being treated. He has had persistent accelerated hypertension and as such his blood pressure medications have been changed. He will now be taking carvedilol 25 mg twice daily. Patient has poorly-controlled brittle diabetes with blood sugars going up as high as 400-500 and then dropping down to 50s to 80s with insulin. He needs close follow-up with an insurance claim representative for better management of his diabetes. Discharge discussed with: patient, nurse - Time Spent with Patient Total time spent providing and/or coordinating discharge services: Greater than 30 minutes (40 min) - Discharge Medications Prescriptions: Carvedilol [Coreg] 25 mg PO BIDWM #60 tablet Isosorbide MONOnitrate (24 HR) [Imdur] 60 mg PO DAILY #30 tab.er.24h Warfarin [Coumadin] 2 mg PO 1800 #30 tablet Home Medications: Calcium Acetate [Phos-LO] 667 mg PO TID 11/01/17 [History] Folic Acid/Vit B Complex and C [Dialyvite Tablet] 1 tab PO DAILY 11/01/17 [ History] CloNIDine Patch [Catapres-Tts] 0.3 mg TD QWEEK 02/07/18 [History] Aspirin 81 mg PO DAILY tab.chew 04/11/18 [Rx] Atorvastatin [Lipitor] 40 mg PO HS #30 tablet 04/11/18 [Rx] Clopidogrel [Plavix] 75 mg PO DAILY #30 tablet 04/11/18 [Rx] Insulin ASPART [NovoLOG] 0 unit SQ TIDWM PRN 07/25/18 [History] Insulin Degludec [Tresiba Flextouch U-100] 12 unit SQ DAILY 07/25/18 [History] Lisinopril [Zestril] 40 mg PO DAILY 07/25/18 [History] amLODIPine [Norvasc] 5 mg PO DAILY 30 Days #30 tablet 07/29/18 [Rx] Carvedilol [Coreg] 25 mg PO BIDWM #60 tablet 08/28/18 [Rx] Isosorbide MONOnitrate (24 HR) [Imdur] 60 mg PO DAILY #30 tab.er.24h 08/28/18 [ Rx] Warfarin [Coumadin] 2 mg PO 1800 #30 tablet 08/28/18 [Rx] Allergies/Adverse Reactions: 3 Allergy/AdvReac Type Severity Reaction Status Date / Time morphine Allergy Itching Verified 08/19/18 20:10 Sulfa (Sulfonamide Allergy See Verified 08/19/18 20:10 Antibiotics) Comments Date of admission: 08/19/18 23:04 Primary care physician: Hui Salazar MD Consults: 08/20/18 00:33 Consult to Nephrology [CONS] Routine Consulting Provider: Kidney Sade/JUANA/DEBBIE/TINO Reason for Consult: ESRD, MWF Call Completed: Yes 08/22/18 08:45 Consult to Dialysis [CONS] ONCE 08/24/18 07:00 Consult to Dialysis [CONS] ONCE 08/26/18 07:15 Consult to Dialysis [CONS] ONCE - Constitutional Vitals: Temp Pulse Resp BP Pulse Ox 98 F 73 16 181/79 97 08/28/18 03:42 08/28/18 08:48 08/28/18 08:48 08/28/18 08:48 08/28/18 08:48 General appearance: Present: A&O X 3, no acute distress, answers questions appropriately Exam: . - Respiratory Respiratory exam: Present: CTAB. Absent: accessory muscle use, rales, rhonchi, wheezes - Cardiovascular Cardiovascular exam: Present: RRR, +S1, +S2. Absent: diastolic murmur, gallop, rubs, systolic murmur - GI/Abdominal GI/Abdominal exam: Present: normal bowel sounds, soft, no peritoneal signs. Absent: distended, tenderness - Extremities Exam Extremities exam: Present: warm, radial pulses palpable and symmetrical. Absent : calf tenderness, cyanotic, pedal edema Additional comments: Right lower extremity swelling - Patient Status Disposition: Home, Self-Care Condition: Good Functional capacity at discharge: independent ambulation Overall status at discharge: patient is progressing back to baseline - Discharge Instructions Instructions: Warfarin (By mouth), Influenza Virus Vaccine (Injection), Isosorbide Mononitrate (By mouth), Carvedilol (By mouth), Deep Venous Thrombosis (DC) Follow Up With: Hui Salazar MD [Primary Care Provider] - (pt to call for follow up) Additional Instructions: make appt to anticoagulation clinic [phone] - Diet and Activity Activity: increase activity as tolerated Diet: low fat, low cholesterol, low salt diet
[2018-08-28] MEDS ORDERED: *HR* Warfarin 2 MG TABLET PO ONE (18:00)
== END 2018-08-28 13:27 | disposition home or self-care (01) | DRG 299 ==
LOC: EMEROOARM 19:56 → SUATTDRO 23:04 → 2NNU 23:04
PROVIDERS: ADMIT Pediatrics; ATTEND Internal Medicine